=== PATIENT | female | born 1950 | race Caucasian/White ===

== ENCOUNTER → 2024-04-26 | Outpatient (CLI) | payer MEDICARE, SELFPAY ==
--- NOTE | 2024-04-26 | XR_ITS ---
Examination: PA lateral chest 2 views TECHNIQUE: Upright PA lateral chest 2 views Exam date and time: April 26, 2024 1155 hours INDICATIONS: Shortness of breath beginning one week ago. FINDINGS: Mild prominence cardiac contour Moderate vascular congestion No lobar pneumonia No pulmonary edema Increased AP dimension chest IMPRESSION: Moderate vascular congestion
[2024-04-26 13:16] LABS: Basophils # (Auto) 0.1 Thou/mm3 (0.0-0.2); Basophils % (Auto) 1 % (0-2.5); Eosinophils # (Auto) 0.1 Thou/mm3 (0.0-0.5); Eosinophils % (Auto) 2 % (0-10); Hematocrit 41.3 % (36.0-46.0); Immature Granulocytes % (Auto) 0 % (0-0); Immature Granulocytes Auto 0.02 Thou/mm3 (0.00-0.00); Lymphocytes % (Auto) 25 % (10-50); Mean Corpuscular HGB Conc 31.5 g/dl (31.0-37.0); Mean Corpuscular Hemoglobin 27.4 pg (25.0-35.0); Mean Corpuscular Volume 87 fL (80-100); Monocytes # (Auto) 0.7 Thou/mm3 (0.0-0.8); Monocytes % (Auto) 8 % (0-12); Neutrophils # (Auto) 5.1 Thou/mm3 (1.8-7.7); Neutrophils % (Auto) 64 % (37-80); Nucleated Red Blood Cell % 0 /100 WBC (0); Platelet Count 292 Thou/mm3 (140-440); RDW Standard Deviation 49.3 fL (36.4-46.3); Red Blood Count 4.75 Miln/mm3 (4.00-5.20)
[2024-04-26 14:22] LABS: Cocci Serology, IgM Negative (Negative)
[2024-04-27 14:44] LABS: Cocci Serology, IgG Negative (Negative)
== END | disposition home or self-care (01) ==
LOC: CDIM 10:57 → COPL 12:03
PROVIDERS: PCP Family Medicine; Referring Provider Registered Nurse; Visit Provider Radiology Diagnostic Radiology
DX: J98.4 Other disorders of lung (principal); R06.02 Shortness of breath
CPT/HCPCS: 36415; 71046; 85025; 86331; 86635

== ENCOUNTER → 2024-05-03 | Outpatient (CLI) | payer MEDICARE, SELFPAY ==
--- NOTE | 2024-05-03 09:13 | XR_ITS ---
Examination: CT chest, without intravenous contrast. Sagittal and coronal 2-D reconstructions. Exam date and time: May 03, 2024 0947 hours Comparison 03/10/2021 Indications coughing shortness of breath beginning 2 weeks ago CTDI:vol (mGy) 13.2 DLP: (mGycm) 467 AP dimension Technique: Multiple 3.0 mm axial sections of the chest to been obtained. Bone and lung density settings are obtained. Sagittal and coronal 2-D reconstructions have been obtained. Low dose protocols were performed. One or more of the following dose reduction techniques were used; automated exposure control, adjustment of the mA and/or KV according to patient size, use of iterative reconstruction technique. Findings: AP dimension ascending thoracic aorta 3.9 cm Mean pulmonary artery segment measures 3.8 cm Trace pericardial effusion Significant calcification left anterior descending coronary artery No paratracheal tracheobronchial or bronchopulmonary adenopathy Parenchymal disease right upper lobe consistent with pneumonia, also mild pneumonia in the lingular segment Moderate vascular congestion and bilateral pleural effusions Multiple gallstones No focal liver or splenic lesion Atrophic pancreas Mild bilateral renal parenchymal scar formation Moderate osteopenia IMPRESSION: Right upper lobe and lingular segment left upper lobe pneumonia Suspicious for mild heart failure Cholelithiasis
== END | disposition home or self-care (01) ==
PROVIDERS: PCP Family Medicine; Referring Provider Family Medicine; Visit Provider Family Medicine
DX: J18.9 Pneumonia, unspecified organism (principal); K80.20 Calculus of gallbladder without cholecystitis without obstruction
CPT/HCPCS: 71250

== ENCOUNTER → 2024-05-15 | Outpatient (CLI) | payer MEDICARE, SELFPAY ==
--- NOTE | 2024-05-15 08:22 | XR_ITS ---
Examination: PA lateral chest 2 views TECHNIQUE: Upright PA lateral chest 2 views Exam date and time: May 15, 2024 0833 hours INDICATIONS: Coughing congestion this week FINDINGS: Parenchymal disease right upper lobe and right base consistent with pneumonia Mild pneumonia left base Mild enlargement cardiac contour Severe osteopenia IMPRESSION: Bilateral pneumonia
== END | disposition home or self-care (01) ==
LOC: CDIM 08:17
PROVIDERS: PCP Family Medicine; Referring Provider Family Medicine; Visit Provider Family Medicine
DX: J18.9 Pneumonia, unspecified organism (principal)
CPT/HCPCS: 71046

== ENCOUNTER → 2024-05-26 | Outpatient (CLI) | payer MEDICARE, SELFPAY ==
--- NOTE | 2024-05-26 | XR_ITS ---
Examination: PA lateral chest 2 views Technique: Upright PA lateral chest 2 views Exam date and time: May 26, 2024 0753 hrs. Comparison May 15, 2024 Indications: Difficulty breathing this month Findings: Interstitial disease throughout the lungs, differential would include pulmonary fibrosis Mild enlargement cardiac contour Prominent osteopenia No barney pulmonary edema Impression: Again noted diffuse abnormal interstitial disease throughout the lungs, favor pulmonary fibrosis, the appearance should be clinically correlated
== END | disposition home or self-care (01) ==
LOC: CDIM 07:13
PROVIDERS: PCP Family Medicine; Referring Provider Registered Nurse; Visit Provider Registered Nurse
DX: R91.8 Other nonspecific abnormal finding of lung field (principal)
CPT/HCPCS: 71046

== ENCOUNTER 2024-06-20 09:27 | Inpatient (IN) | payer MEDICARE, SELFPAY ==
[2024-06-20] VITALS (62 sets, daily range): BP systolic 101–200; BP diastolic 64–135; PULSE 85–200; RESP 15–36; TEMP 36.3–36.9; O2SAT 66–100
--- NOTE | 2024-06-20 09:30 | EKG_ITS ---
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1950 Requested By: Jose Eduardo Saenz Order Number: [id number] Reading MD: Jose Eduardo Saenz Measurements Intervals [place] Rate: 181 P: IN: QRS: -48 QRSD: 115 T: 116 QT: 257 QTc: 447 Interpretive Statements SUPRAVENTRICULAR TACHYCARDIA MARKED LEFT AXIS DEVIATION [QRS AXIS < -30] PATTERN CONSISTENT WITH PULMONARY DISEASE LEFT VENTRICULAR HYPERTROPHY AND ST-T CHANGE [VOLTAGE CRITERIA PLUS ST/T ABNORMALITY] POSSIBLE SEPTAL MYOCARDIAL INFARCTION , OF INDETERMINATE AGE [30 ms Q WAVE IN V1/V2] Compared to ECG 01/01/2020 08:31:22 ST (T wave) deviation now present Myocardial infarct finding now present Sinus rhythm no longer present /store/[id number].pdf
--- NOTE | 2024-06-20 09:31 | XR_ITS ---
Examination: AP chest single view Technique one AP portable upright chest single view Exam date and time: June 20, 2024 0936 hours Comparison May 26, 2024 INDICATIONS: Chest pain shortness of breath today. FINDINGS: Suspicious for early heart failure Mild enlargement cardiac contour Prominent vascular congestion No lobar pneumonia Intact osseous structures are demineralized with old fracture right sixth rib posteriorly IMPRESSION: Early heart failure
--- NOTE | 2024-06-20 09:33 | PD.EDARRY ---
ED Arrhythmia Palp. RME/HPI General Chief Complaint: Chest Pain Stated Complaint: TACHYCARDIA Time Seen by Provider: 06/20/24 09:30 Arrival date/time: 06/20/24 09:27 RME / HPI RME / HPI narrative: This section includes all my notes and documentations, including HPI, PE, and ED course.? Jose Eduardo Lemus MD HPI: 74 year old female with history of hypertension, hypothyroidism presents to the ED BIBA from Dr. Olmstead's office for evaluation of tachycardia today. Per medics, staff at the clinic noted patient's heart rate was in the 200's and an EKG was performed. On their arrival noted patients heart rate was 200 bpm and saturating 97% on room air. Saw PCP today due to feeling unwell for several days. Additionally reports heart racing started last night, not associated with chest pain or shortness of breath. Denies fevers, chills, abdominal pain, n/v/d, or urinary symptoms. No other complaints. ROS: All negative except as documented in HPI. Physical Exam: General:? Alert and oriented.? No acute distress when remaining still.?? Eyes:? Conjunctivae and lids clear.? ENT:? No nasal congestion.? Neck:? Supple.? Heart: Severe tachycardia noted (~200 bpm). Lungs:? No respiratory distress.? Good air movement.? No rhonchi, wheezing, rales.?? Abdomen:? Soft and nontender.?? Legs:? No clubbing, cyanosis, edema.? Skin:? Warm and dry.?? Neuro:? Alert and oriented X 3.?? I reviewed all diagnostic test results. My interpretation of the EKG is?SVT. My interpretation of the chest x-ray is increased vascular congestion. My review of the chest CT report is?no PE. Blood tests and urine tests?remarkable for WBC 15.5, D-dimer 2730, T bili 2.4, AST 1173, ALT 855, troponin 0.200, BNP 2894. At this point, diagnoses include?SVT, elevated troponin, CHF, elevated LFT. Treatment here included?adenosine X 3 (persistent SVT) and IV metoprolol (persistent SVT). With synchronized cardioversion, SVT resolved to sinus rhythm. Used fentanyl and Versed for sedation. I discussed the case with our swing driver and our hospitalist.? About the presentation and exam and diagnostics and treatments here.? And need of further care in the hospital.? Will accept the patient. Jose Eduardo Lemus MD Related Data Home Medications ?Medication ?Instructions ?Recorded ?Confirmed Trazodone * (DESYREL *) 50 mg PO HS #0 tabs 09/19/14 10/29/18 omeprazole 20 mg capsule,delayed 20 mg PO QDAY ##0 09/19/14 10/29/18 release (Prilosec) fluoxetine 20 mg capsule (Prozac) 20 mg PO QAM #0 caps 07/02/15 10/29/18 gabapentin 100 mg capsule 100 mg PO TID #0 caps 07/02/15 10/29/18 Levothyroxine * (SYNTHROID *) 12.5 mcg PO QDAY #0 tabs 04/22/16 10/29/18 Nortriptyline Hcl * (AVENTYL *) 10 mg PO HS #0 caps 04/22/16 10/29/18 phentermine 37.5 mg capsule 37.5 mg PO QDAY 10/29/18 10/29/18 Previous Rx's ?Medication ?Instructions ?Recorded acetaminophen 300 mg-codeine 30 mg 1 tab PO Q6H PRN pain #10 tabs 10/29/18 tablet (Tylenol-Codeine #3) ibuprofen 600 mg tablet 600 mg PO Q6H PRN pain #20 tabs 10/29/18 Allergies Allergy/AdvReac Type Severity Reaction Status Date / Time No Known Allergies Allergy Verified 10/29/18 06:19 Review of Systems Review of Systems Systems Reviewed: All systems reviewed, normal except as documented Past Medical History Past Medical History CARDIAC: Negative Cardiac Disorders OTHER HISTORY: Positive Blood Transfusions Surgical History SURGICAL: Positive Gastric Bypass Surgery and Neurologic Surgery (Acoustic neuroma removed in 2018) Social History SMOKING STATUS: Current some day smoker SUBSTANCE USE: does not use ED Exam Narrative Physical exam: As noted in HPI Course Course Course Narrative: chest xray ordered to help determine etiology of chest pain. Quality Measures none Orders Category Date Time Status Bedside COVID-19 Antigen Test NOW Care 06/20/24 09:30 Active Bedside Influenza A&B Antigen Test NOW Care 06/20/24 09:30 Active EKG (ED ONLY) *Do not use* NOW Care 06/20/24 09:30 Active Saline [Insert IV] NOW Care 06/20/24 09:31 Active Straight [In and Out Catheter] X1 Care 06/20/24 09:31 Active EKG (ED Only) Stat Exams 06/20/24 09:30 Ordered XR chest 1V portable Stat Exams 06/20/24 09:31 Ordered BNP [B-Type Natriuretic Peptide] Stat Lab 06/20/24 09:31 Ordered CBC Stat Lab 06/20/24 09:31 Ordered CMP [Comprehensive Metabolic Panel] Stat Lab 06/20/24 09:31 Ordered D-Dimer Stat Lab 06/20/24 09:31 Ordered Magnesium Stat Lab 06/20/24 09:31 Ordered TSH [Thyroid Stimulating Hormone] Stat Lab 06/20/24 09:31 Ordered Troponin I Stat Lab 06/20/24 09:31 Ordered UA, C/S IF [Urinalysis, C/S if Indicated] Stat Lab 06/20/24 09:31 Ordered Arrhythmia/Palpitations MDM Narrative MDM Narrative:: Juanita Landaverde am scribing for and in the presence of Dr. Lemus. Patient data External records reviewed:: [facility] previous records (I reviewed ED visit on 10/29/2018), EMS form and PCP records (I reviewed paperwork and EKG sent with patient from PCP Dr. Olmstead's office ) Clinical information provided by:: patient and EMS Social determinants that could affect healthcare access:: none Patient has the following chronic illnesses:: Hypertension, hypothyroidism, s/p gastric bypass How is presenting disease/condition affected by chronic disease/condition?: exacerbated by Evaluation data The following diagnostics were reviewed and interpreted by me:: lab results, radiology exam(s) and EKG tracing(s) (My interpretation of the EKG is: SVT (200 bpm) with nonspecific ST-T changes. Jose Eduardo Lemus MD) Lab and/or radiology exams considered but not ordered:: None Interpretation Summary: SVT and elevated troponin and CHF and LFT elevation Medications / Prescriptions Medications or Prescriptions considered but not ordered:: None Medication administrations:: Adenosine and metoprolol and synchronized cardioversion Consultations Consultation(s) initiated? (list below): Yes Consultation #1 (Physician, Specialty, Details): I spoke with swing driver Dr. Palomares. Time: 11:10 Consultation #2 (Physician, Specialty, Details): I spoke with hospitalist team regarding admission. Time: 13:22 Diagnosis Differential diagnosis arrhythmia/palpitations: palpitations, anxiety, sinus tachycardia, artial fibrillation, artial flutter, ventricular premature beats, supraventricular tachycardia, ventricular tachycardia and WPW Most likely diagnosis given after review of the tests above:: SVT Admission Indicated Admission indicated?: indicated Explain why admission is indicated or not indicated:: SVT needing cardioversion and elevated troponin Admission Request Was there a request for admission?: Yes Admission Attestation Admission request attestation: Discussed case with Hospitalist service regarding admission. Discussed patients ED course, exam findings, labs, and radiology results. The Hospitalist [agrees,declines] to accept the patient for admission. Disposition Plan Disposition Plan: Admit Critical Care Time Critical Care Time Critical Care Time: Yes Total Critical Care Time (min.): 36 Attestation: Due to a high probability of clinically significant, life threatening deterioration, the patient required my highest level of preparedness to intervene emergently and I personally spent this critical care time directly and personally managing the patient. This critical care time included obtaining a history; examining the patient; ordering and review of studies; arranging urgent treatment with development of a management plan; evaluation of patient's response to treatment; frequent reassessment; and discussions with family and other providers. It was exclusive of separately billable procedures and treating other patients and teaching time. Jose Eduardo Lemus MD Discharge Plan Plan Patient Disposition: Admit Acute Care w/in Hospital Prescriptions/Referrals Prescriptions/Med Rec: No Action omeprazole [Prilosec] 20 MG capsule,delayed release(DR/EC) 20 mg PO QDAY Qty: 0 Patient Comments: TO SUPPRESS GASTRIC ACID SECRETIONS Trazodone * (DESYREL *) 50 MG tablet 50 mg PO HS Qty: 0 gabapentin 100 MG capsule 100 mg PO TID Qty: 0 fluoxetine [Prozac] 20 MG capsule 20 mg PO QAM Qty: 0 Levothyroxine * (SYNTHROID *) 25 MCG tablet 12.5 mcg PO QDAY Qty: 0 Nortriptyline Hcl * (AVENTYL *) 10 MG capsule 10 mg PO HS Qty: 0 phentermine 37.5 mg Capsule 37.5 mg PO QDAY acetaminophen-codeine [Tylenol-Codeine #3] 300-30 mg tablet 1 tab PO Q6H PRN (Reason: pain) Qty: 10 0RF ibuprofen 600 mg tablet 600 mg PO Q6H PRN (Reason: pain) Qty: 20 0RF Problem List Clinical Impression: SVT (supraventricular tachycardia), CHF (congestive heart failure), Elevated troponin, LFT elevation Patient/Caregiver Discharge Instructions Print Language: Citizen Of [place] Stand Alone Forms: Jocelyn Award Info., Patient Portal Info Letter
[2024-06-20] MEDS: ADENOSINE INJ 3 MG/ML VIAL 6 MG IVP (09:46)
[2024-06-20] MEDS: ADENOSINE INJ 3 MG/ML VIAL 12 MG IVP ×2 (09:48→09:59)
[2024-06-20 09:52] LABS: Basophils % (Auto) 0 % (0-2.5); Eosinophils % (Auto) 0 % (0-10); Hematocrit 41.3 % (36.0-46.0); Hemoglobin 13.2 g/dL (12.0-16.0); Immature Granulocytes % (Auto) 1 % (0-0); Immature Granulocytes Auto 0.07 Thou/mm3 (0.00-0.00); Lymphocytes # (Auto) 0.6 Thou/mm3 (1.0-4.8); Lymphocytes % (Auto) 4 % (10-50); Mean Corpuscular Hemoglobin 25.8 pg (25.0-35.0); Mean Corpuscular Volume 81 fL (80-100); Monocytes # (Auto) 0.8 Thou/mm3 (0.0-0.8); Monocytes % (Auto) 5 % (0-12); Neutrophils % (Auto) 91 % (37-80); Nucleated Red Blood Cell # 0.02 Thou/mm3 (0.00-0.00); Nucleated Red Blood Cell % 0 /100 WBC (0); Platelet Count 232 Thou/mm3 (140-440); RDW Standard Deviation 42.8 fL (36.4-46.3); Red Blood Count 5.11 Miln/mm3 (4.00-5.20); White Blood Count 15.5 Thou/mm3 (3.6-11.0)
[2024-06-20] MEDS: METOPROLOL TARTRATE INJ 1 MG/ML AMP 5 ML 2.5 MG IVP (10:04)
[2024-06-20 10:10] LABS: B-Type Natriuretic Peptide 2894 pg/mL (0-100)
[2024-06-20] MEDS: SODIUM CHLORIDE 0.9% 1000 ML 1,000 ML 999 ML IV (10:15)
[2024-06-20 10:22] LABS: D-Dimer 2730 ng/mL (<600)
[2024-06-20 10:23] LABS: Alanine Aminotransferase 855 U/L (10-49); Albumin, Serum 3.9 gm/dL (3.4-4.8); Albumin/Globulin Ratio 1.4 (1.2-2.2); Alkaline Phosphatase 109 U/L (46-116); Anion Gap 14 (7-16); Aspartate Amino Transferase 1173 U/L (0-34); BUN/Creatinine Ratio 40 Ratio (12-20); Bilirubin,Total 2.4 mg/dL (0.3-1.2); Blood Urea Nitrogen 52 mg/dL (9-23); Calcium 8.9 mg/dL (8.3-10.6); Carbon Dioxide 23.4 mMol/L (20.0-31.0); Chloride 93 mMol/L (98-107); Creatinine (Component) 1.3 mg/dL (0.6-1.3); Globulin 2.7 gm/dL (2.3-3.5); Glucose 78 mg/dL (74-106); Magnesium 3.5 mg/dL (1.6-2.6); Osmolality,Calculated 273 (275-295); Potassium 4.1 mMol/L (3.4-5.1); Sodium 130 mMol/L (136-145); Total Protein 6.6 gm/dL (5.7-8.2); eGFR 43 See Note
--- NOTE | 2024-06-20 10:30 | PC.NURSE ---
Assisted at bedside for Cardioversion. Timeout done prior to Cardioversion with Laure VASQUEZ, Dr Lemus, and ila RN. Cardioversion performed at 100j with successful conversion.
[2024-06-20] MEDS: MIDAZOLAM INJ 1 MG/ML VIAL 2 ML 2 MG IV (10:33)
[2024-06-20] MEDS: fentaNYL CIT INJ 50 mCg/ML AMP 2ML IV (10:33)
--- NOTE | 2024-06-20 11:13 | EKG_ITS ---
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1950 Requested By: Jose Eduardo Saenz Order Number: [id number] Reading MD: Jose Eduardo Saenz Measurements Intervals [place] Rate: 92 P: 32 AR: 184 QRS: -28 QRSD: 94 T: -68 QT: 414 QTc: 515 Interpretive Statements SINUS RHYTHM WITH OCCASIONAL SUPRAVENTRICULAR PREMATURE COMPLEXES LEFT ATRIAL ENLARGEMENT [-0.15mV P WAVE IN V1/V2] POSSIBLE LEFT VENTRICULAR HYPERTROPHY [VOLTAGE CRITERIA PLUS LAE OR QRS WIDENING] POSSIBLE SEPTAL MYOCARDIAL INFARCTION , OF INDETERMINATE AGE [30 ms Q WAVE IN V1/V2] MODERATE T-WAVE ABNORMALITY, CONSIDER ANTEROLATERAL ISCHEMIA [-0.1+ mV T WAVE IN V3-V6] MODERATE T-WAVE ABNORMALITY, CONSIDER INFERIOR ISCHEMIA [-0.1+ mV T WAVE IN II/aVF] Compared to ECG 06/20/2024 10:09:51 Atrial abnormality now present T-wave abnormality now present Possible ischemia now present Supraventricular tachycardia no longer present Left-axis deviation no longer present ST (T wave) deviation no longer present Myocardial infarct finding still present /store/S0/[id number].pdf
--- NOTE | 2024-06-20 11:46 | XR_ITS ---
Examination: CTA chest, with intravenous contrast. CTA abdomen, with intravenous contrast. CTA pelvis, with intravenous contrast. 2-D sagittal and coronal reconstructions. 3-D reconstructions. Date and time of exam: June 20 2024-0 3 hours INDICATIONS: Onset shortness of breath chest and abdominal pain today, elevated d-dimer CTDI vol (mgy) 21.2 DLP (MGycm) 969 Technique: Multiple CTA images, 2.0 mm slice thickness, obtained chest, abdomen, pelvis, with the high-resolution 64 slice scanner. 60 cc Isovue-370 is administered intravenously. Sagittal and coronal 2-D reconstructions are obtained. 3-D reconstructions, angiographic images are obtained. 3-D postprocessing, including vascular maximum intensity projections. Low dose protocols were performed. One or more of the following dose reduction techniques were used; automated exposure control, adjustment of the mA and/or KV according to patient size, use of iterative reconstruction technique. Findings: AP dimension ascending thoracic aorta 4 cm No thoracic aortic aneurysm dilatation or dissection No pulmonary artery emboli Mild hilar lymphadenopathy Significant calcification left anterior descending coronary artery Prominent vascular congestion with mild septal edema in the lung ervin Small bilateral pleural effusions Diffuse fatty infiltration throughout the liver Possible contracted gallbladder No splenic mass Atrophic pancreas No adrenal mass No renal or ureteral calculi, no hydronephrosis Heavy abdominal aortic calcification no aneurysmal dilatation No pericecal inflammatory change Wall thickening and hyperemia involving the rectosigmoid colon including rectum Atrophic anteverted uterus No adnexal mass Urinary bladder intact Severe osteopenia Advanced degenerative disc disease L5-S1 Advanced narrowing hip joints IMPRESSION: Mild aneurysmal dilatation ascending thoracic aorta Negative for pulmonary artery emboli Significant calcification left anterior descending coronary artery Mild heart failure Wall thickening and hyperemia involving the rectosigmoid colon, nonspecific colitis pattern Likely proctitis pattern but clinical correlation advised, recommend colonoscopy follow-up
[2024-06-20 13:21] LABS: Collection Type, Urine Clean Catch
[2024-06-20 13:30] LABS: Bilirubin,Urine Negative (Negative); Blood,Urine Negative (Negative); Cellular Casts,Urine < 1 /hpf (0-1); Clarity,Urine Clear (Clear/Hazy); Color,Urine Yellow (Lt Yel-Yel); Culture Indicated,Urine Not Indicated; Glucose, Urine Negative (Negative); Hyaline Casts,Urine < 1 /hpf (0-1); Ketones,Urine Trace (Negative); Leukocyte Esterase,Urine Negative (Negative); Nitrite,Urine Negative (Negative); Protein,Urine Negative (Neg - Trace); RBC,Urine 1 /hpf (0-3); Specific Gravity,Urine 1.027 (1.001-1.035); Squamous Epithelial Cell,Urine 1 /hpf (0-5); Urobilinogen,Urine Negative mg/dL (0.0-1.0); WBC,Urine 7 /hpf (0-5)
[2024-06-20 13:48] LABS: Amphetamine/Methamp Scrn,U Positive (Negative); Barbiturate Screen,Urine Negative (Negative); Benzodiazepines Screen,Urine Negative (Negative); Benzoylecgonine Screen, Ur Negative (Negative); Fentanyl Screen,Urine Positive (Negative); Opiate Screen,Urine Negative (Negative); THC Screen,Urine Negative (Negative)
--- NOTE | 2024-06-20 13:48 | ECHO_ITS ---
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 16 - 28 cm?/m? Ascending Aorta Diameter 3.4 cm M-MODE Aortic Root Diameter MM 3.4 cm LA Systolic Diameter MM 3.8 cm LA Ao Ratio MM 1.1 MV E Point Septal Separation 1.0 cm AV Cusp Separation MM 2.2 cm DOPPLER AV Peak Velocity 185.0 cm/s AV Peak Gradient 13.7 mmHg AV Mean Gradient 6.0 mmHg AV Velocity Time Integral 33.4 cm AI Peak Velocity 291.5 cm/s AI Peak Gradient 34.0 mmHg AI Pressure Half Time 376.0 ms LVOT Peak Velocity 121.0 cm/s LVOT Peak Gradient 5.9 mmHg LVOT Velocity Time Integral 24.0 cm LVOT Cardiac Index 2511.7 cm?/min?m? AV Area Cont Eq vti 1.8 cm? AV Area Cont Eq pk 1.7 cm? MV Peak Velocity 147.0 cm/s MV Peak Gradient 8.6 mmHg MV Mean Velocity 100.9 cm/s MV Mean Gradient 4.5 mmHg MV Area PHT 3.0 cm? MR Peak Velocity 484.5 cm/s MR Peak Gradient 93.9 mmHg Mitral E Point Velocity 130.0 cm/s Mitral A Point Velocity 137.0 cm/s Mitral E to A Ratio 0.9 LV E' Lateral Velocity 6.7 cm/s Mitral E to LV E' Lateral Ratio 19.3 LV E' Septal Velocity 4.8 cm/s Mitral E to LV E' Septal Ratio 27.1 TR Peak Velocity 259.3 cm/s TR Peak Gradient 26.9 mmHg FINDINGS Left Ventricle Normal left ventricular size, wall thickness. Low function. Mild hypokinesis basal lateral. The eje ction fraction is visually estimated at 45-50%. Right Ventricle The right ventricle is normal in size and systolic function. The estimated right ventricular systoli c pressure, 42 mmHg. RAP 15. Left Atrium The left atrium is mildly dilated. Right Atrium The right atrium is normal by two-dimensional imaging, color flow and Doppler imaging with no struct ural abnormalities, no thrombus formation present. Atrial Septum The interatrial septum appears normal with no evidence of a shunt. Aorta The aorta is normal by two-dimensional, color flow and Doppler interrogation. Mitral Valve The mitral valve is mildly MAC. There is mild to moderate mitral valve regurgitation. Aortic Valve The aortic valve is trileaflet and normal by two-dimensional, color flow and Doppler interrogation. There is moderate aortic valve regurgitation. Tricuspid Valve The tricuspid valve is normal by two-dimensional, color flow and Doppler interrogation. There is mil d tricuspid valve regurgitation. Pulmonic Valve There is mild pulmonic valve regurgitation. Vessels The pulmonary artery appears dilated. The inferior vena cava pulmonary and hepatic veins dilated. Pericardium The pericardium is normal by two-dimensional imaging. There is no significant pericardial effusion. CONCLUSIONS Indication: SVT, CHF Normal LV size. Mild systolic dysfunction with mild basal hypokinesis. Stage II diastolic dysfunctio n. Estimated EF 40-45% Normal RV size and function. Estimated RVSP 42 mmHg. RAP 15. Mild to moderate PAH. PA dilated. Trivial to mild mitral stenosis with a mean PG of 4-5 mm hg. Modertate to severe posterior MAC and Mild MAC anteriorly. Mild to moderate MR. Moderate AI. Mild TR, PI. IVC dilated. Mild LA dilatation. Tay Palomares (Electronically Signed) Final Date: 21 June 2024 12:37
--- NOTE | 2024-06-20 13:53 | ESCONSULT_ITS ---
<Statement entered by Tay Palomares MD - 06/21/24 02:06> I have personally seen and examined the patient separately on the above date of service and discussed the plan of care with the resident. I reviewed the resident Dr. Weber consultation progress note and agree with the resident findings and plan in the note above and have also edited the documentation to reflect my findings and plan. A 74-year-old female with a past medical history of acoustic neuroma status postsurgery with residual right facial droop and left eye ptosis, hypothyroidism, anxiety, depression, GERD, neuropathy, polysubstance abuse immediately with the methamphetamine, marijuana but also used LSD and cocaine in the past and apparently quit 20 years ago, history of chronic smoking with more than [id number] smoking history and quit 10 years ago, history of alcohol abuse when she was younger presented to the emergency department for further evaluation of palpitations and chest pain. Patient apparently had a recent pneumonia for which she was treated and says that she has not been eating or drinking well and over the last for 5 days patient had poor oral intake. Patient had on and off palpitations along with some chest discomfort over the past few days but that palpitations was sent yesterday night and she could feel her heart racing fast and evidently could not the seat which prompted her to go to the primary care doctor this morning and an EKG was performed which did show that the patient was in SVT and was sent to the emergency department for further evaluation. In the emergency department patient did receive 3 rounds of his dosing and did not help and patient received some metoprolol along with some diltiazem as well as for the SVT after which patient became hypotensive and patient was cardioverted after giving sedation. Patient did convert to normal sinus rhythm and has been in normal sinus rhythm since the morning. Patient cardiology was consulted for further evaluation as the patient had mildly elevated troponins of 0.2. Of note patient also was started on phentermine recently by the primary care for possible weight loss and patient also has history of insomnia with difficulty sleeping. Labs reviewed on admission showed elevated WBC at 15.0 with left shift and hemoglobin of 12.3 and BUN of 53 and a creatinine of 1.3, sodium of 130 potassium 4.1 chloride of 93, AST of 1173 and ALT of 855 with a total bili of 2.4. Alk phos was only 109. UA was negative. NT proBNP is also elevated at 2084. Chest x-ray showed cardiomegaly along with mild vascular congestion and mild ILD changes. CT chest ordered and is pending. atient EKG reviewed and showed some rate related ST depressions when was patient was in SVT and repeat EKG showed normal sinus rhythm with PACs, biatrial enlargement along with left ventricular hypertrophy with T wave inversions including LVH strain pattern and questionable Q waves in the septal leads as well as T wave inversions in the inferior leads On examination patient did not have any significant peripheral edema and lungs appeared clear without any significant crackles except that she had mild expiratory wheezing.. Patient did have the right facial droop along with left eye ptosis and 2 or 6 systolic murmur heard at the right sternal border as well as apex. Elevated troponins-mostly secondary to NSTEMI type II in the setting of supply/demand ischemia in the setting of SVT which patient probably had for many hours prior to the presentation in the emergency department. Patient possibly has underlying cardiomyopathy given her history of drug abuse and cardiomegaly noted on the chest x-ray. Patient EKG reviewed and showed some rate related ST depressions when was patient was in SVT and repeat EKG showed normal sinus rhythm with PACs, biatrial enlargement along with left ventricular hypertrophy with T wave inversions including LVH strain pattern and questionable Q waves in the septal leads as well as T wave inversions in the inferior leads. Will wait for the echocardiogram to evaluate her LV function RV function as well as regional wall motion abnormalities. No need of any heparin drip at the present point of time as the patient does not complain of any chest pain or chest pressure at the present point of time and her main symptom was palpitation associated with some chest discomfort. Can start heparin drip. The patient's troponins continues to rise and the patient is symptomatic. Patient presented with SVT and possible etiology could be underlying cardiomyopathy given history of drug abuse along with possible phentermine use. Patient successfully cardioverted in the emergency department but he was initially unresponsive to administer metoprolol and Cardizem. Patient now in normal sinus rhythm and rate well-controlled recommend to start metoprolol XL 50 mg once daily and keep potassium greater than 4 and magnesium greater than 2.0 at all times. Also recommend to stop the phentermine completely. Patient also found to have acute kidney injury with a BUN of 53 and a creatinine of 1.3 on admission and patient did endorse to poor oral intake for the past few days and has not been doing well since recent pneumonia episode. Further workup of acute kidney injury as per the primary team. Cardiorenal syndrome should be considered and possible underlying cardiomyopathy with her extensive substance abuse. Patient also noted to have elevated liver function test with elevated bili at 2.3-2.5, AST of 1174 and ALT of 855 admission differential is broad but patient could also have congestive neuropathy secondary to congestive heart failure mostly right heart failure as patient does not have overt peripheral edema or significant crackles on examination. Also proBNP was elevated at 2984. Will hold off on diuresis for today and will start in a.m. after the CT chest and echocardiogram are reviewed. Patient is now on room air and breathing normally and does not complain of any shortness of breath.. Suspect right heart failure along with pulmonary hypertension and will possibly need diuresis. Recommended ED to check U-Tox for the patient. Check TSH A1c as well as lipid profile for further cardiac risk stratification. Management of rest of the medical conditions as per primary team and other consultants. Thank you for the consult and allowing me to participate in the care of the patient. Cardiology will continue to follow. Tay Palomares M.D. Interventional Cardiology HPI Data of Consult Patient: new to practice Consult date: 06/20/24 Requesting Physician: ED Primary Care Provider: Anika Olmstead MD Consult Narrative Reason for consult: SVT and elevated troponins History of present illness: Callie is a 74 y/o female with PMHx of hypothyroidism, past multiple substance use, R sided facial droop and L eye closing defect (2/2 acoustic neuroma surgery) depression and anxiety, who comes for an evaluation of chest pain and palpitations that started three days ago, described as intermittent, however worsened in which she came to be evaluated, associated with nausea, not improved with position or medicines. She said she took some pepto bismol for the nausea but nothing else. Pt reports that she began to feel worse and worse with her symptoms. She had come to the ED and had to be cardioverted after pt was given 3 rounds of adenosine and metoprolol for SVT. Pt reports that she has not been having good oral intake for some time now. She reports she has not been feeling herself for some time now and attributes it to having pneumonia recently. She also states that she had an acoustic neuroma in her L ear and had to get surgery for it and it was done (in 2019?) and says that her R eye is usually more closed than her left and experiences some L sided facial droop but does not have trouble with facial muscles or eye movements. She denies any cardiac history, or having other symptoms such as SOB, ROA, vomiting. She also says that she takes phentermine on and off, says she will take it for 2 months and then stop it for one month and uses it for weight loss. She last took phentermine yesterday and prior to coming. She also has had some rotator cuff issue in her L shoulder but says its been manageable so far. Says she does not notice orthopnea and sleeps with two pillows, which is normally how she sleeps. ED Course: Pt had come into the ER with HR in 200s, EKG showed possible SVT. Was given 3 rounds of adenosine, and also metoprolol before pt needed to be cardioverted in which she returned to sinus rhythm and rate controlled. Medicine and cardiology was consulted for further workup of patient. PMHx: As above Surgical Hx: Gastric bypass, acoustic neuroma surgery, umbical hernia repair Allergies: NKDA Meds:Synthroid, phentermine, Gabapentin, Trazodone, lexapro, hydroxyzine, ompreazole Family: Family history significant for CAD, heart attacks but in later years of life Social Hx: Poly substance use when she was much younger including meth, cocacine, LSD, THC, says that she has not used meth in over 20 years. Says she has not drank in over 20 years. 50 pack year smoking hx. Says that she has a daughter that may have some problems with alcohol. 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 cc:: cc: Review of Systems Review of Systems Narrative Review of Systems: Constitutional: No fever, chills, fatigue, weakness, weight loss HEENT: No eye pain, vision loss, ear pain, hearing loss, dysphagia, Cardiovascular: +chest pain,+ palpitations, no edema, pain with walking Respiratory: No cough, shortness of breath, wheezing GI: + nausea, no Vomiting or diarrhea, abdominal pain, constipation, blood in stool, loss of appetite, heartburn Extremities: No presence of pitting edema MSK: No back pain, joint pain, joint swelling Neuro: No dizziness, numbness, weakness, headaches, seizures, tremors Psych: No anxiety, depression Exam Vital Signs Temp Pulse Resp BP Pulse Ox O2 Del Method O2 Flow Rate 97.4 F 97 16 130/77 95 Room Air 6 06/20/24 13:03 06/20/24 13:03 06/20/24 13:03 06/20/24 13:03 06/20/24 13:03 06/20/24 13:03 06/20/24 11:30 Narrative Exam General: AAOx3, NAD, pleasant woman, pink hair, looks older than her actual age HEENT: Dry mucous membranes, conjunctiva clear, EOMI, PERRLA, L eye slightly closed compared to L Cardiovascular: S1, S2, radial pulses +2 bilat, RRR Pulmonary: CTAB bilat no cough, no wheezing GI: No tenderness to light or deep palpitation, no guarding, rigidity, rebound tenderness or distension Extremities: +1 pitting edema in lower extremities bilaterally, dorsalis pedis pulses +2 bilaterally Neuro: AAOx3, R sided facial droop at baseline, no other focal motor or sensory deficits Psych: Cooperative Results Labs 06/20/24 14:06 06/20/24 14:06 Labs: Short CBC 06/20/24 Range/Units 09:46 WBC 15.5 H (3.6-11.0) Thou/mm3 Hgb 13.2 (12.0-16.0) g/dL Hct 41.3 (36.0-46.0) % Plt Count 232 (140-440) Thou/mm3 BMP 06/20/24 09:46 Sodium 130 L Potassium 4.1 Chloride 93 L Carbon Dioxide 23.4 BUN 52 H Creatinine 1.3 Glucose 78 Calcium 8.9 Cardiac Enzymes 06/20/24 Range/Units 09:46 Troponin I 0.200 H* (0.0-0.045) ng/mL Liver Function 06/20/24 Range/Units 09:46 Total Bilirubin 2.4 H (0.3-1.2) mg/dL AST 1173 H* (0-34) U/L ALT 855 H* (10-49) U/L Alkaline Phosphatase 109 (46-116) U/L Albumin 3.9 (3.4-4.8) gm/dL Urine 06/20/24 Range/Units 12:15 Urine Color Yellow (Lt Yel-Yel) Urine Clarity Clear (Clear/Hazy) Urine pH 6.0 (5.0-7.0) Ur Specific [place] 1.027 (1.001-1.035) Urine Protein Negative (Neg - Trace) Urine Glucose (UA) Negative (Negative) Quality Measures Quality Measures none Advance care planning discussed with:: patient Medications Home Medications and Allergies Home Medications ?Medication ?Instructions ?Recorded ?Confirmed ?Type Trazodone * (DESYREL *) 50 mg PO HS #0 tabs 09/19/14 10/29/18 History omeprazole 20 mg capsule,delayed 20 mg PO QDAY ##0 09/19/14 10/29/18 History release (Prilosec) fluoxetine 20 mg capsule (Prozac) 20 mg PO QAM #0 caps 07/02/15 10/29/18 History gabapentin 100 mg capsule 100 mg PO TID #0 caps 07/02/15 10/29/18 History Levothyroxine * (SYNTHROID *) 12.5 mcg PO QDAY #0 tabs 04/22/16 10/29/18 History Nortriptyline Hcl * (AVENTYL *) 10 mg PO HS #0 caps 04/22/16 10/29/18 History phentermine 37.5 mg capsule 37.5 mg PO QDAY 10/29/18 10/29/18 History Allergies Allergy/AdvReac Type Severity Reaction Status Date / Time No Known Allergies Allergy Verified 10/29/18 06:19 Visit Medications Discontinued Medications Adenosine (Adenosine Inj 3 Mg/Ml Vial) 6 mg IVP X1 ONE Stop: 06/20/24 09:39 Last Admin: 06/20/24 09:46 Dose: 6 mg Adenosine (Adenosine Inj 3 Mg/Ml Vial) 12 mg IVP X1 ONE Stop: 06/20/24 09:40 Last Admin: 06/20/24 09:48 Dose: 12 mg Adenosine (Adenosine Inj 3 Mg/Ml Vial) 12 mg IVP X1 ONE Stop: 06/20/24 09:52 Last Admin: 06/20/24 09:59 Dose: 12 mg Fentanyl Citrate (Fentanyl Cit Inj 50 Mcg/Ml Amp 2ml) 50 mcg IV X1 ONE Stop: 06/20/24 10:12 Last Admin: 06/20/24 10:33 Dose: 50 mcg Sodium Chloride (Ns) 1,000 mls @ 999 mls/hr IV .Q1H1M ONE Stop: 06/20/24 11:11 Last Admin: 06/20/24 10:15 Dose: 999 mls/hr Metoprolol Tartrate (Metoprolol Tartrate Inj 1 Mg/Ml Amp 5 Ml) 2.5 mg IVP X1 ONE Stop: 06/20/24 10:00 Last Admin: 06/20/24 10:04 Dose: 2.5 mg Midazolam HCl (Midazolam Inj 1 Mg/Ml Vial 2 Ml) 2 mg IV X1 ONE Stop: 06/20/24 10:12 Last Admin: 06/20/24 10:33 Dose: 2 mg Assessment & Plan Plan Plan 74 y/o F with PMHx significant for hypothyroidism, depression, anxiety presents with complaint of symptomatic tachycardia, admitted for SVT. #SVT s/p cardioversion #Elevated troponins #? CHF #? Cardiomyopathy Patient presented from doctor's office due to severe tachycardia, heart rate approximately 200. Patient found to have SVT, after no improvement with medical management was electrically cardioverted. No documented hx of CHF Patient went into SVT, could be due electrolyte derangements, stress, phetermine use, or possible CHF Troponins elevated most likely due to SVT EKG did show some LVH and atrial enlargement Pt could have CHF or cardiomyopathy considering drug hx Pt could also have intersititial lung disease, will have animal attendant look at CT Plan: -Telemetry -Metoprolol succinate 50 mg daily -Trend troponins -Daily labs, including magnesium and Phos. -Echo pending -Cardiac consulted, appreciate recommendations -Cardiac diet, fluid restriction 1500 cc daily -Strict I's and O's #Elevated Transaminases Patient has significant transaminitis: T. bili 2.4, AST 1160, ALT 855, ALP 104. No known history of liver disease. Possible component of congestive hepatopathy due to heart failure Plan: -Trend LFTs -Avoid hepatotoxins -Hepatitis panel pending -Liver ultrasound pending #Hx of Polysubstance abuse Patient reports history of meth use, claims quit 20 years ago. 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 Jelani Perez, PGY-1
[2024-06-20 14:21] LABS: Basophils % (Auto) 0 % (0-2.5); Eosinophils % (Auto) 0 % (0-10); Hemoglobin 12.3 g/dL (12.0-16.0); Immature Granulocytes % (Auto) 1 % (0-0); Immature Granulocytes Auto 0.08 Thou/mm3 (0.00-0.00); Lymphocytes # (Auto) 0.8 Thou/mm3 (1.0-4.8); Lymphocytes % (Auto) 5 % (10-50); Mean Corpuscular HGB Conc 32.4 g/dl (31.0-37.0); Mean Corpuscular Hemoglobin 25.9 pg (25.0-35.0); Mean Corpuscular Volume 80 fL (80-100); Monocytes # (Auto) 0.9 Thou/mm3 (0.0-0.8); Monocytes % (Auto) 6 % (0-12); Neutrophils # (Auto) 13.2 Thou/mm3 (1.8-7.7); Neutrophils % (Auto) 88 % (37-80); Nucleated Red Blood Cell % 0 /100 WBC (0); Platelet Count 169 Thou/mm3 (140-440); RDW Standard Deviation 42.5 fL (36.4-46.3); Red Blood Count 4.74 Miln/mm3 (4.00-5.20)
[2024-06-20 14:44] LABS: Troponin I 0.529 ng/mL (0.0-0.045)
[2024-06-20 14:45] LABS: Acetaminophen < 2.0 mcg/mL (10.0-20.0); Alanine Aminotransferase 806 U/L (10-49); Albumin, Serum 3.6 gm/dL (3.4-4.8); Albumin/Globulin Ratio 1.3 (1.2-2.2); Alkaline Phosphatase 103 U/L (46-116); Anion Gap 11 (7-16); BUN/Creatinine Ratio 44 Ratio (12-20); Bilirubin,Total 2.5 mg/dL (0.3-1.2); Blood Urea Nitrogen 48 mg/dL (9-23); Calcium 8.5 mg/dL (8.3-10.6); Calcium (Corrected) 8.8 mg/dL (8.5-10.1); Carbon Dioxide 26.4 mMol/L (20.0-31.0); Chloride 94 mMol/L (98-107); Creatinine (Component) 1.1 mg/dL (0.6-1.3); Globulin 2.7 gm/dL (2.3-3.5); Glucose 85 mg/dL (74-106); Osmolality,Calculated 274 (275-295); Potassium 3.6 mMol/L (3.4-5.1); Sodium 131 mMol/L (136-145); Total Protein 6.3 gm/dL (5.7-8.2); eGFR 52 See Note
--- NOTE | 2024-06-20 14:53 | PC.NURSE ---
1446 PATIENT IN SVT IN THE 180S, PATIENT STATES SHE FEELS HER HEART RACING NO CHEST PAIN. DR NESBITT CALLED AND INFORMED. STATED ON HIS WAY TO SEE PATIENT. [address] NESBITT AT BEDSIDE
[2024-06-20 14:56] LABS: Aspartate Amino Transferase 959 U/L (0-34)
--- NOTE | 2024-06-20 15:05 | XR_ITS ---
Examination: Abdomen sonogram, Limited Date and time of exam: June 20, 2024 1540 hours INDICATIONS: Tachycardia 2 days, elevated transaminase on liver function laboratory examination today Technique: Real-time pride scale transabdominal sonographic images of the upper abdomen obtained. Findings: 11 mm sludge ball in the gallbladder neck Negative for gallstones Gallbladder wall 0.2 cm Common bile duct 0.5 cm Pancreatic head 2.6 cm Liver 13.6 cm fatty infiltration lobular contour no focal liver lesions Normal hepatopedal portal venous flow Patent IVC IMPRESSION: 11 mm sludge ball in the gallbladder neck, negative for cholelithiasis, negative for cholecystitis Normal common bile duct Fatty liver lobular contour, suspect primary hepatocellular disease
--- NOTE | 2024-06-20 15:47 | PC.CC ---
Pt Callie Dietz is a 74 yr old female, admitted to hospitalist services for Tachycardia. ASW met with pt at bedside to complete initial assessment. At time of encounter pt is noted to be alert and oriented to person, place and situation. Pt expressed understanding admission order. Pt able to confirm all demographic information. Pt is from home [address], at [facility]. Per pt she lives at home alone, but states having a great support network at her apartment complex. Pt identifies her brother Saul Quintanilla [phone] as surrogate DM. At baseline pt reports using a cane to support ambulation. At baseline pt reports she is independent with her ADLs. Pt is not diabetic and is not dialysis. Pt does not require supplemental O2 at home, in the ED pt on 5L. Pt is followed by Dr. Anika Olmstead for primary care. Pt pending referral to Dr. Camacho and Dr. Mendez. At time of D/c pt reports she would like to return home. Pt reports she is able to call a friend to secure transport.
--- NOTE | 2024-06-20 16:45 | ESHP_ITS ---
<Statement entered by Kale Calderón MD - 06/20/24 18:35> This patient is a 74-year-old female with past medical history of hypothyroidism, depression and anxiety presented with complaint of symptomatic tachycardia/palpitations. She reported that she has been having symptoms from past several days with malaise and decreased p.o. intake. She was found to have tachycardia of 200 heart rate at her PCP outpatient clinic and was brought to the ED. She was found to have SVT on EKG and she received 3 doses of adenosine and metoprolol. Subsequently ended up getting hypotensive therefore cardioversion was performed under supervision of baseball inspector, Dr. Palomares. At the time of examination patient did not stated that she has chest pain, shortness of breath, weakness. Further labs revealed that patient had markedly elevated LFTs in 800s with elevated JVD this morning which up trended when we admit the patient. Patient also had elevated BNP and troponin I elevation. CT abdomen showed thickening and hyperemia in rectal sigmoid junction of colon. Patient reported that her daughter or friend will be coming up to see her although she lives alone at home. U tox was positive for amphetamines and opiates. We we will completely avoid Tylenol or ibuprofen or any other pain medication. 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 We ordered hep panel, acetaminophen levels, ultrasound liver, FT4, lipid panel and likely follow-up on lab results. Continuing with fluid restriction strict MARIANELA's. Electrolytes were repleted as necessary. Will closely monitor for any other further episodes. Of note, patient was found to have phentermine in her medication list for weight loss which she has been taking for a while. Currently holding that. Patient is limited code and does not want chest compressions or intubation however she is agreeable for shock therapy including cardioversion if needed. All labs and orders were reviewed. I saw and examined the patient, and I agree with current management stated by Dr Jacob MD,PGY1. Plan of care was discussed with the attending physician and resident physician. Disclaimer: Despite multiple revisions, due to the dictation software being used, the document bellow may not be free of grammatical errors including phonetic/typographic errors. However, this does not deter from our commitment to providing health care in the patient's best interest in mind. Dr. Vinny MD, PGY 2 Documentation for date of: 06/20/24 HPI History of Present Illness Chief complaint: Tachycardia History of present illness: 74 y/o F with PMHx significant for hypothyroidism, depression, anxiety presents with complaint of symptomatic tachycardia. Patient reports several days of general malaise, for which she went to her PCP. At PCP she was found to have tachycardia with heart rate approximately 200. EMS was called and patient was brought to ED. In ED patient found to have SVT, received metoprolol and 3 doses adenosine without relief. Patient was cardioverted successfully. At time of exam patient denies chest pain, shortness of breath, weakness, fatigue, fever, chills. Of note patient has long history of taking phentermine for weight loss. ED COURSE: Labs significant for: BUN 52, creatinine 1.3, eGFR 43, sodium 130, D-dimer 2730, T. bili 2.4, AST 1173, ALT 855, ALP 104, troponin 0.2, BNP 2104. Follow-up troponin 0.5. Imaging significant for: CXR showed signs of congestion. Patient received adenosine 6 mg +12 mg +2 mg, metoprolol 2.5 mg, 1 L bolus normal saline, midazolam 2 mg, fentanyl 50 mcg, and cardioversion in the ED. 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 Patient reports quitting drinking 20 years ago. Allergies:?NKDA Medications: Gabapentin, trazodone, Lexapro, hydroxyzine, omeprazole, Lasix as needed, levothyroxine, phentermine. 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 Patient reports quitting drinking 20 years ago. Allergies:?NKDA Medications: Gabapentin, trazodone, Lexapro, hydroxyzine, omeprazole, Lasix as needed, levothyroxine, phentermine. Exam Vital Signs Temp Pulse Resp BP Pulse Ox O2 Del Method O2 Flow Rate 97.7 F 98 20 151/95 H 95 Room Air 6 06/20/24 14:00 06/20/24 14:00 06/20/24 14:00 06/20/24 14:00 06/20/24 14:06/20/24 14:06/20/24 11:30 Narrative Exam PE: Gen: Well-developed and well-nourished. HEENT: NCAT, PERRLA, EOMI, MMM, anicteric conjunctivae. Left-sided eyelid droop and left mouth droop, baseline for patient. CVS: normal S1 and S2. RRR. No M/R/G. Resp: CTA B/L. No rhonchi, rales, crackles. Mild expiratory wheezing bilateral apices. Abd: soft, non-tender, non-distended. MSK: Good ROM in BUE & BLE. No rash. BLE edema. Neuro: CN II-XII grossly intact. Strength 5/5 in BUE & BLE. Alert and oriented x3. Psych: appropriate mood and affect. Results: Labs 06/23/24 04:07 06/23/24 04:07 Labs: Short CBC 06/20/24 06/20/24 Range/Units 09:46 14:06 WBC 15.5 H 15.0 H (3.6-11.0) Thou/mm3 Hgb 13.2 12.3 (12.0-16.0) g/dL Hct 41.3 38.0 (36.0-46.0) % Plt Count 232 169 D (140-440) Thou/mm3 BMP 06/20/24 06/20/24 09:46 14:06 Sodium 130 L 131 L Potassium 4.1 3.6 D Chloride 93 L 94 L Carbon Dioxide 23.4 26.4 BUN 52 H 48 H Creatinine 1.3 1.1 Glucose 78 85 Calcium 8.9 8.5 Cardiac Enzymes 06/20/24 06/20/24 Range/Units 09:46 14:06 Troponin I 0.200 H* 0.529 H* D (0.0-0.045) ng/mL Liver Function 06/20/24 06/20/24 Range/Units 09:46 14:06 Total Bilirubin 2.4 H 2.5 H (0.3-1.2) mg/dL AST 1173 H* 959 H* (0-34) U/L ALT 855 H* 806 H* (10-49) U/L Alkaline Phosphatase 109 103 (46-116) U/L Albumin 3.9 3.6 (3.4-4.8) gm/dL Urine 06/20/24 Range/Units 12:15 Urine Color Yellow (Lt Yel-Yel) Urine Clarity Clear (Clear/Hazy) Urine pH 6.0 (5.0-7.0) Ur Specific [place] 1.027 (1.001-1.035) Urine Protein Negative (Neg - Trace) Urine Glucose (UA) Negative (Negative) Quality Measures Quality Measures none Advance care planning discussed with:: patient Medications Home Medications and Allergies Allergies Allergy/AdvReac Type Severity Reaction Status Date / Time No Known Allergies Allergy Verified 10/29/18 06:19 Visit Medications Heparin Sodium (Porcine) (Heparin Sod Inj 5000 Unit/Ml Vial) 5,000 unit SC Q8HR [facility] Stop: 07/04/24 21:59 Metoprolol Succinate (Metoprolol Succinate Xl 25 Mg Tabcr) 50 mg PO QDAY [facility] Stop: 07/20/24 15:44 Ondansetron HCl (Ondansetron Inj 2 Mg/Ml Inj 2 Ml) 4 mg IV Q6H PRN; Protocol PRN Reason: NAUSEA OR VOMITING Stop: 07/20/24 14:55 Discontinued Medications Hydrocodone Bitart/Acetaminophen (Hydrocodone/Apap 5/325 Tablet) 1 tab PO Q4HR PRN PRN Reason: PAIN SCALE 4-10(Mod-Sev Stop: 06/25/24 14:55 Adenosine (Adenosine Inj 3 Mg/Ml Vial) 6 mg IVP X1 ONE Stop: 06/20/24 09:39 Last Admin: 06/20/24 09:46 Dose: 6 mg Adenosine (Adenosine Inj 3 Mg/Ml Vial) 12 mg IVP X1 ONE Stop: 06/20/24 09:40 Last Admin: 06/20/24 09:48 Dose: 12 mg Adenosine (Adenosine Inj 3 Mg/Ml Vial) 12 mg IVP X1 ONE Stop: 06/20/24 09:52 Last Admin: 06/20/24 09:59 Dose: 12 mg Fentanyl Citrate (Fentanyl Cit Inj 50 Mcg/Ml Amp 2ml) 50 mcg IV X1 ONE Stop: 06/20/24 10:12 Last Admin: 06/20/24 10:33 Dose: 50 mcg Sodium Chloride (Ns) 1,000 mls @ 999 mls/hr IV .Q1H1M ONE Stop: 06/20/24 11:11 Last Admin: 06/20/24 10:15 Dose: 999 mls/hr Ibuprofen (Ibuprofen Tab 400 Mg Tablet) 400 mg PO Q6HR PRN PRN Reason: Fever > 100.4 or pain Stop: 07/20/24 14:55 Metoprolol Succinate (Metoprolol Succinate Xl 25 Mg Tabcr) 50 mg PO QDAY ANTHONY Stop: 07/21/24 08:59 Metoprolol Tartrate (Metoprolol Tartrate Inj 1 Mg/Ml Amp 5 Ml) 2.5 mg IVP X1 ONE Stop: 06/20/24 10:00 Last Admin: 06/20/24 10:04 Dose: 2.5 mg Midazolam HCl (Midazolam Inj 1 Mg/Ml Vial 2 Ml) 2 mg IV X1 ONE Stop: 06/20/24 10:12 Last Admin: 06/20/24 10:33 Dose: 2 mg Assessment & Plan Plan 74 y/o F with PMHx significant for hypothyroidism, depression, anxiety presents with complaint of symptomatic tachycardia, admitted for SVT. #SVT s/p cardioversion #Troponinemia #CHF evaluation Patient presented from doctor's office due to severe tachycardia, heart rate approximately 200. Patient found to have SVT, after no improvement with medical management was electrically cardioverted. Heart rate currently mid 90s. Dr Palomares consulted. Patient had elevated troponin, trending up from 0.2-0.5. BNP elevated 2894, patient has BLE edema. No history of CHF. Of note, patient has been taking phentermine for several years. -Telemetry -Metoprolol succinate 50 mg daily -Trend troponins -Daily labs, including magnesium and Phos. -Echo pending -Cardiac consulted, appreciate recommendations -Cardiac diet, fluid restriction 1500 cc daily -Strict I's and O's #Transaminitis Patient has significant transaminitis: T. bili 2.4, AST 1160, ALT 855, ALP 104. No known history of liver disease. Possible component of congestive hepatopathy. -Trend LFTs -Avoid hepatotoxins -Hepatitis panel pending -Liver ultrasound pending #Meth abuse Patient reports history of meth use, claims quit 20 years ago. U tox positive for meth, possible trigger for SVT. 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 Patient does not remember correct dosage. Med rec's pending. -Resume home meds following med rec's #Anxiety, patient history #Depression, patient history Patient has history as stated. Takes outpatient Lexapro and hydroxyzine. -Consider resuming home meds following med rec DVT prophylaxis: Heparin GI prophylaxis: None Diet: Cardiac, fluid restriction 1500 cc daily Lines: Peripheral IV Code status: Limited: No compressions, no intubation Plan of care discussed with senior resident Dr. Calderón PGY?[address] Johnson. Michael James MD PGY-1 Attending Provider Attestation/Addendum I attest that I was physically present for the evaluation, physical examination, lab and imaging review of the patient with the residents. I discussed the case with the residents and agree with the findings and plans of care as documented above. Patient is a 74-year-old female with past medical history of hypothyroidism, depression and anxiety presented with complaint of symptomatic tachycardia/palpitations. She was found to be on SVT, received 3 doses of adenosine and Metoprolol and was later carioverted. At bedside patient denied resolution of palpitation, denied any chest pain and was saturating well on room air. Patient has elevated Troponin and BNP, pedal edema. Her LFTs are also markedly elevated. Urine toxicology positive for amphetamines and opiates but patient denied recent drug use but did state that she has been taking phentermine outpatient for weight loss. Patient is admitted for management of SVT, elevated cardiac enzyme, evaluation of elevated LFTs. Metoprolol 50 started and Lasix held as per cardiology recs. We will mtrend troponin, obtain acetaminophen level, liver US, hepatitis panel and follow up liver function panel. Jacqueline Johnson MD
[2024-06-20] MEDS: METOPROLOL SUCCINATE XL 25 MG TABCR 50 MG PO (17:38)
--- NOTE | 2024-06-20 18:18 | PC.NURSE ---
PATIENT ASSISTED TO THE BATHROOM SEVERAL TIMES, SLIGHTLY UNSTEADY BUT OK WITH 1 PERSON AND WALK SLOWLY.
--- NOTE | 2024-06-20 19:35 | PC.NURSE ---
Report recieved. Pt A&O. NSR at this time.
[2024-06-20 21:50] LABS: Troponin I 1.301 ng/mL (0.0-0.045)
[2024-06-20] MEDS: HEPARIN SOD INJ 5000 UNIT/ML VIAL SC (22:35)
[2024-06-21] VITALS (7 sets, daily range): BP systolic 100–130; BP diastolic 66–77; PULSE 70–100; RESP 17–23; TEMP 36.1–36.6; O2SAT 94–96
[2024-06-21 02:07] LABS: Hepatitis A Antibody IgM Non Reactive (Non React); Hepatitis B Core Antibody IgM Non Reactive (Non React); Hepatitis B Surface Antigen Non Reactive (Non React); Hepatitis C Antibody Reactive (Non React)
[2024-06-21 02:36] LABS: Ferritin 76 ng/mL (7.3-270.7); Iron 12 mcg/dL (50-170); Percent Iron Saturation 3 % (20-55); Total Iron Binding Capacity 374 mcg/dL (250-425); Unsaturated Iron Binding 362 (225-295)
[2024-06-21 02:43] LABS: Troponin I 1.319 ng/mL (0.0-0.045)
[2024-06-21] MEDS: HEPARIN SOD INJ 5000 UNIT/ML VIAL SC ×3 (05:18→22:12)
[2024-06-21 06:43] LABS: Basophils % (Auto) 0 % (0-2.5); Eosinophils % (Auto) 0 % (0-10); Hematocrit 36.2 % (36.0-46.0); Hemoglobin 11.8 g/dL (12.0-16.0); Immature Granulocytes % (Auto) 0 % (0-0); Immature Granulocytes Auto 0.05 Thou/mm3 (0.00-0.00); Lymphocytes % (Auto) 8 % (10-50); Mean Corpuscular HGB Conc 32.6 g/dl (31.0-37.0); Mean Corpuscular Hemoglobin 26.2 pg (25.0-35.0); Mean Corpuscular Volume 80 fL (80-100); Monocytes % (Auto) 8 % (0-12); Neutrophils # (Auto) 10.7 Thou/mm3 (1.8-7.7); Neutrophils % (Auto) 84 % (37-80); Nucleated Red Blood Cell % 0 /100 WBC (0); Platelet Count 156 Thou/mm3 (140-440); RDW Standard Deviation 42.5 fL (36.4-46.3); Red Blood Count 4.51 Miln/mm3 (4.00-5.20); White Blood Count 12.8 Thou/mm3 (3.6-11.0)
[2024-06-21 07:18] LABS: Alanine Aminotransferase 624 U/L (10-49); Albumin, Serum 3.3 gm/dL (3.4-4.8); Albumin/Globulin Ratio 1.4 (1.2-2.2); Alkaline Phosphatase 96 U/L (46-116); Anion Gap 8 (7-16); Aspartate Amino Transferase 622 U/L (0-34); BUN/Creatinine Ratio 40 Ratio (12-20); Bilirubin,Total 2.3 mg/dL (0.3-1.2); Blood Urea Nitrogen 32 mg/dL (9-23); Calcium 8.4 mg/dL (8.3-10.6); Carbon Dioxide 28.8 mMol/L (20.0-31.0); Chloride 98 mMol/L (98-107); Creatinine (Component) 0.8 mg/dL (0.6-1.3); Free T4 (Free Thyroxine) 1.06 ng/dL (0.89-1.76); Globulin 2.3 gm/dL (2.3-3.5); Glucose 90 mg/dL (74-106); Magnesium 2.3 mg/dL (1.6-2.6); Osmolality,Calculated 277 (275-295); Phosphorous 1.5 mg/dL (2.4-5.1); Sodium 135 mMol/L (136-145); Total Protein 5.6 gm/dL (5.7-8.2); eGFR > 60 See Note
[2024-06-21 07:33] LABS: Cardiac Risk Estimate 7.1 RATIO (3.7-5.6); Cholesterol 150 mg/dL (132-200); HDL Cholesterol 21 mg/dL (40-60); LDL Cholesterol,Calculated 110 mg/dL (0-130); Triglycerides 96 mg/dL (30-150)
[2024-06-21] MEDS: POTASSIUM CHLORIDE 20 mEq TABCR 40 MEQ PO (09:14)
[2024-06-21] MEDS: METOPROLOL SUCCINATE XL 25 MG TABCR 50 MG PO (09:14)
[2024-06-21] MEDS: POTASSIUM PHOS 22.5 MMOL in SODIUM CHLORIDE 0.9% 500 ML 500 ML 82.778 MMOL IV (09:15)
[2024-06-21 09:31] LABS: INR 1.8 (0.9-1.3)
--- NOTE | 2024-06-21 09:32 | PC.SS ---
SS follow up note; Cardiology is on board, Pending Echo.
[2024-06-21 10:21] LABS: Troponin I 1.166 ng/mL (0.0-0.045)
--- NOTE | 2024-06-21 11:26 | ESPR_ITS ---
<Statement entered by Tay Palomares MD - 06/21/24 21:11> I have personally seen and examined the patient separately on the above date of service and discussed the plan of care with the resident. I reviewed the resident Dr. Weber consultation progress note and agree with the resident findings and plan in the note above and have also edited the documentation to reflect my findings and plan. Patient seen and examined at bedside. She is apparently feeling much better and had an renal function as well as liver function continue to improve. BUN is 32 and creatinine 0.8. AST and ALT is in the 600s. Bilirubin are also decreasing at 2.3. Patient's hepatitis C antibody positive and hep C viral load was sent and ID was also consulted by primary team. Patient denies any cardiac complaints and denies any shortness of breath and she only has trace edema. Volume status is still unclear. Echocardiogram completed and showed mild LV systolic dysfunction with an EF of around 45%. RV function appears normal and both LV and RV size appear to be normal. LA is mildly dilated. RVSP is around 45 mmHg and at least has mild to moderate PAH with mild dilation of the pulmonary artery. Will discuss with pulmonary staff Dr. Vaca to review the CT for any evidence of ILD. Patient kidney function as well as renal function improving without diuresis or IV fluids. Patient states that she has been eating and drinking well and increase her oral intake she did receive 1 L of IV fluids yesterday. Overall patient still appears to be dehydrated or intravascularly depleted. Will hold off on the diuresis and check with right heart cardiac catheterization in the right heart pressures in a.m. Patient troponins were rising and peaked at 1.391. Patient still denies any chest pain chest pressure but given the mild LV systolic dysfunction along with currently her volume status will plan for left and right heart cardiac catheterization in the morning. Patient to to be n.p.o. tonight. All risks and benefits, alternatives explained in detail the patient including the risk of bleeding, heart attack, stroke and in detail. Patient agreeable and provided consent and will plan for cardiac attrition tomorrow morning. Patient U-Tox was positive for methamphetamine but she is also on phentermine which could cause false positive. Patient says that she did not take any kind of drug abuse for the last 20 years and quit alcohol and smoking 10 years ago. Tay Palomares M.D. Interventional Cardiology Documentation for date of: 06/21/24 Subjective Subjective Interval history: Patient examined at bedside today. Patient on telemetry has still been sinus and rate has been in the 80s and 90s. Patient examined at bedside today. Is wondering when she can go home. Is experiencing any chest pain or shortness of breath or palpitations. Denies using meth after I told her that patient seen and examined at the bedside. Patient is doing much better since yesterday her urine drug screen came back positive, however patient also takes phentermine and it could be most likely the culprit of that positive. Patient was also asked about if she uses any opioids, as it came up in her UDS however she denies taking any opioids. She is not experiencing any shortness of breath or orthopnea, has not noticed any changing of swelling in her legs. Also said that she was put on Lasix at some time but does not take anymore. No other complaints at this time Exam Vital Signs Temp Pulse Resp BP Pulse Ox O2 Del Method O2 Flow Rate 97.5 F 95 22 H 122/73 95 Room Air 6 06/21/24 08:00 06/21/24 09:14 06/21/24 08:00 06/21/24 09:14 06/21/24 08:00 06/21/24 08:00 06/20/24 11:30 Narrative Exam General: AAOx3, NAD, pleasant woman, pink hair, looks older than her actual age HEENT: Moist mucous membranes, conjunctiva clear, EOMI, PERRLA, L eye slightly closed compared to L Cardiovascular: S1, S2, radial pulses +2 bilat, RRR Pulmonary: CTAB bilat no cough, no wheezing GI: No tenderness to light or deep palpitation, no guarding, rigidity, rebound tenderness or distension Extremities: +1 pitting edema in lower extremities bilaterally, dorsalis pedis pulses +2 bilaterally Neuro: AAOx3, R sided facial droop at baseline, no other focal motor or sensory deficits Psych: Cooperative Objective Labs 06/21/24 06:15 06/21/24 06:15 Labs: Laboratory Results - last 24 hr 06/20/24 06/20/24 06/20/24 12:15 14:06 21:07 WBC 15.0 H RBC 4.74 Hgb 12.3 Hct 38.0 MCV 80 MCH 25.9 MCHC 32.4 RDW Std Deviation 42.5 Plt Count 169 D Neut % (Auto) 88 H Lymph % (Auto) 5 L Ness % (Auto) 6 Eos % (Auto) 0 Baso % (Auto) 0 Neut # (Auto) 13.2 H Lymph # (Auto) 0.8 L Ness # (Auto) 0.9 H Eos # (Auto) 0.0 Baso # (Auto) 0.0 Immature Gran # (Auto) 0.08 H Absolute Nucleated RBC 0.00 Immature Gran % 1 H Nucleated RBC % 0 PT INR APTT Sodium 131 L Potassium 3.6 D Chloride 94 L Carbon Dioxide 26.4 Anion Gap 11 BUN 48 H Creatinine 1.1 Estim Creat Clear Calc Not Performed. eGFR 52 L BUN/Creatinine Ratio 44 H Glucose 85 Calculated Osmolality 274 L Calcium 8.5 Corrected Calcium 8.8 Phosphorus Magnesium Iron 12 L TIBC 374 Iron Saturation 3 L Unsat Iron Binding 362 H Ferritin 76 Total Bilirubin 2.5 H AST 959 H* ALT 806 H* Alkaline Phosphatase 103 Troponin I 0.529 H* D 1.301 H* D Total Protein 6.3 Albumin 3.6 Globulin 2.7 Albumin/Globulin Ratio 1.3 Triglycerides Cholesterol LDL Cholesterol, Calc HDL Cholesterol Cholesterol/HDL Ratio Free T4 Ur Collection Type Clean Catch Urine Color Yellow Urine Clarity Clear Urine pH 6.0 Ur Specific [place] 1.027 Urine Protein Negative Urine Glucose (UA) Negative Urine Ketones Trace Urine Blood Negative Urine Nitrite Negative Urine Bilirubin Negative Urine Urobilinogen (Auto) Negative Ur Leukocyte Esterase Negative Urine RBC 1 Urine WBC 7 H Ur Squamous Epith Cells 1 Urine Bacteria None Cellular Casts < 1 Hyaline Casts < 1 Ur Culture Indicated? Not Indicated Urine Opiates Screen Negative Urine Fentanyl Screen Positive A Acetaminophen < 2.0 L Ur Barbiturates Screen Negative U Amphetamin/Meth Scrn Positive A U Benzodiazepines Scrn Negative U Cocaine Metab Screen Negative U Marijuana (THC) Screen Negative Hepatitis A IgM Ab Non Reactive Hep Bs Antigen Non Reactive Hep B Core IgM Ab Non Reactive Hepatitis C Antibody Reactive A 06/21/24 06/21/24 06/21/24 01:48 06:15 08:40 WBC 12.8 H RBC 4.51 Hgb 11.8 L Hct 36.2 MCV 80 MCH 26.2 MCHC 32.6 RDW Std Deviation 42.5 Plt Count 156 Neut % (Auto) 84 H Lymph % (Auto) 8 L Ness % (Auto) 8 Eos % (Auto) 0 Baso % (Auto) 0 Neut # (Auto) 10.7 H Lymph # (Auto) 1.0 Ness # (Auto) 1.0 H Eos # (Auto) 0.0 Baso # (Auto) 0.0 Immature Gran # (Auto) 0.05 H Absolute Nucleated RBC 0.00 Immature Gran % 0 Nucleated RBC % 0 PT 19.0 H INR 1.8 H APTT 35.0 Sodium 135 L Potassium 3.0 L D Chloride 98 Carbon Dioxide 28.8 Anion Gap 8 BUN 32 H Creatinine 0.8 Estim Creat Clear Calc Not Performed. eGFR > 60 BUN/Creatinine Ratio 40 H Glucose 90 Calculated Osmolality 277 Calcium 8.4 Corrected Calcium 9.0 Phosphorus 1.5 L Magnesium 2.3 Iron TIBC Iron Saturation Unsat Iron Binding Ferritin Total Bilirubin 2.3 H AST 622 H* ALT 624 H* Alkaline Phosphatase 96 Troponin I 1.319 H* 1.166 H* Total Protein 5.6 L Albumin 3.3 L Globulin 2.3 Albumin/Globulin Ratio 1.4 Triglycerides 96 Cholesterol 150 LDL Cholesterol, Calc 110 HDL Cholesterol 21 L Cholesterol/HDL Ratio 7.1 H Free T4 1.06 Ur Collection Type Urine Color Urine Clarity Urine pH Ur Specific [place] Urine Protein Urine Glucose (UA) Urine Ketones Urine Blood Urine Nitrite Urine Bilirubin Urine Urobilinogen (Auto) Ur Leukocyte Esterase Urine RBC Urine WBC Ur Squamous Epith Cells Urine Bacteria Cellular Casts Hyaline Casts Ur Culture Indicated? Urine Opiates Screen Urine Fentanyl Screen Acetaminophen Ur Barbiturates Screen U Amphetamin/Meth Scrn U Benzodiazepines Scrn U Cocaine Metab Screen U Marijuana (THC) Screen Hepatitis A IgM Ab Hep Bs Antigen Hep B Core IgM Ab Hepatitis C Antibody Quality Measures Quality Measures none Advance care planning discussed with:: patient Assessment & Plan Assessment Current Active Medications: Generic Name Dose Route Start Last Admin Trade Name Freq PRN Reason Stop Dose Admin Heparin Sodium (Porcine) 5,000 unit 06/20/24 22:00 06/21/24 05:18 Heparin Sod Inj 5000 Unit/Ml Vial SC 07/04/24 21:59 5,000 unit Q8HR ANTHONY Administration Potassium Phosphate 22.5 mmol/ 507.5 mls @ 82.778 mls/hr 06/21/24 08:08 06/21/24 09:15 Sodium Chloride IV 06/21/24 14:15 82.778 mls/hr X1 ONE Administration Potassium Chloride 10 meq in 100 mls @ 100 mls/hr 06/21/24 14:20 Kcl Ivpb IV 06/21/24 18:19 Q1H ANTHONY Levothyroxine Sodium 25 mcg 06/22/24 06:00 Levothyroxine Sodium 25 Mcg Tablet PO 07/22/24 05:59 ACBR ANTHONY Metoprolol Succinate 50 mg 06/20/24 15:45 06/21/24 09:14 Metoprolol Succinate Xl 25 Mg Tabcr PO 07/20/24 15:44 50 mg QDAY ANTHONY Administration Ondansetron HCl 4 mg 06/20/24 14:56 Ondansetron Inj 2 Mg/Ml Inj 2 Ml IV 07/20/24 14:55 Q6H PRN NAUSEA OR VOMITING Protocol Plan Assessment 74 y/o F with PMHx significant for hypothyroidism, depression, anxiety presents with complaint of symptomatic tachycardia, admitted for SVT. #SVT s/p cardioversion #Elevated troponins, resolved #? CHF #? Cardiomyopathy Patient presented from doctor's office due to severe tachycardia, heart rate approximately 200. Patient found to have SVT, after no improvement with medical management was electrically cardioverted. No documented hx of CHF Patient went into SVT, could be due electrolyte derangements, stress, phetermine use, or possible CHF Troponins elevated most likely due to SVT EKG was NSR with PACs, biatrial enlargement along with left ventricular hypertrophy with T wave inversion including LVH strain pattern questionable Q waves in the septal leads as well as T wave inversions in the inferior leads Pt could have CHF or cardiomyopathy considering drug hx Patient denies again taking meth as UDS showed up positive for amphetamines as this is the most likely reason why she came a positive Troponin 1.3 -> 1.319, -> 1.16, no need to trend anymore TSH 5.2 free T4 1.06 Lipid panel shows total cholesterol 150, LDL 110 Plan: -Telemetry -Continue Metoprolol succinate 50 mg daily -Daily labs, including magnesium and Phos, keep mag and potassium above 2 and 4 respectively -We recommend stop taking phentermine -Follow echo -Cardiac consulted, appreciate recommendations -Cardiac diet, fluid restriction 1500 cc daily -Strict I's and O's #Elevated Transaminases Patient has significant transaminitis: T. bili 2.4, AST 1160, ALT 855, ALP 104. No known history of liver disease. Possible component of congestive hepatopathy due to heart failure AST and ALT 622 and 624 respectiely today Plan: -Trend LFTs -Avoid hepatotoxins -Hepatitis panel pending -Liver ultrasound pending #Elevated BUN Bun 38, creatinine 0.8 today Could be prerenal cause, however patient had received prednisone recently in the past 2 months Plan: ? Trend with CMP #Hx of Polysubstance abuse Patient reports history of meth use, claims quit 20 years ago. 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 Jelani Perez, PGY-1
[2024-06-21 12:07] LABS: Glucose Estimated Average 105 mg/dL (80-131); Hemoglobin A1C 5.3 % Hgb (4.8-6.0)
[2024-06-21] MEDS: PANTOPRAZOLE 40 MG TABLET PO (14:06)
[2024-06-21 14:48] LABS: HIV (1&2) Antibody Rapid Non-Reactive
--- NOTE | 2024-06-21 15:07 | ESPR_ITS ---
<Statement entered by Kale Calderón MD - 06/21/24 16:58> Patient was seen and examined at the bedside. Patient overnight had no acute event. She remained in sinus rhythm. LFTs have been downtrending. Morning labs revealed improvement in white count. Electrolytes hypokalemia and hypophosphatemia which was repleted adequately. Kidney functions remained stable. Patient was tested positive for antibody for hepatitis C. Therefore we ordered hepatitis C genotype and viral load. HIV panel was negative. We consulted ID for further evaluation and recommendations. Ultrasound liver was significant for fatty liver. Echo showed: Normal LV size. Mild systolic dysfunction with mild basal hypokinesis. Stage II diastolic dysfunction. Estimated EF 40-45%. Normal RV size and function. 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 Will continue with strict MARIANELA's and fluid restriction. Continue with metoprolol XL 50 mg once daily. Transaminitis most likely explained from right-sided heart failure with PAH and history of hep C with underlying history of medications including phentermine and SSRIs.All labs and orders were reviewed. I saw and examined the patient, and I agree with current management stated by Dr Jacob MD PGY-1 Plan of care was discussed with the attending physician and resident physician. Disclaimer: Despite multiple revisions, due to the dictation software being used, the document bellow may not be free of grammatical errors including phonetic/typographic errors. However, this does not deter from our commitment to providing health care in the patient's best interest in mind. Dr. Vinny MD, PGY 2 Documentation for date of: 06/21/24 Subjective Subjective Interval history: No overnight events. Patient seen and examined at bedside. Patient resting comfortably in bed. Denies chest pain, weakness, fatigue. Hep C test positive. HCV genotype and quantitative studies ordered, HIV 1 and 2 ordered. Exam Vital Signs Temp Pulse Resp BP Pulse Ox O2 Del Method O2 Flow Rate 97.0 F 82 19 119/72 94 L Room Air 6 06/21/24 12:00 06/21/24 12:00 06/21/24 12:00 06/21/24 12:00 06/21/24 12:06/21/24 12:00 06/20/24 11:30 Narrative Exam PE: Gen: Well-developed and well-nourished. HEENT: NCAT, PERRLA, EOMI, MMM, anicteric conjunctivae. Left-sided eyelid droop and left mouth droop, baseline for patient. CVS: normal S1 and S2. RRR. No M/R/G. Resp: CTA B/L. No rhonchi, rales, crackles. Abd: soft, non-tender, non-distended. MSK: Good ROM in BUE & BLE. No rash. BLE edema. Neuro: CN II-XII grossly intact. Strength 5/5 in BUE & BLE. Alert and oriented x3. Psych: appropriate mood and affect. Objective Labs 06/23/24 04:07 06/23/24 04:07 Labs: Laboratory Results - last 24 hr 06/20/24 06/20/24 06/21/24 14:06 21:07 01:48 WBC RBC Hgb Hct MCV MCH MCHC RDW Std Deviation Plt Count Neut % (Auto) Lymph % (Auto) [place] % (Auto) Eos % (Auto) Baso % (Auto) Neut # (Auto) Lymph # (Auto) [place] # (Auto) Eos # (Auto) Baso # (Auto) Immature Gran # (Auto) Absolute Nucleated RBC Immature Gran % Nucleated RBC % PT INR APTT Sodium Potassium Chloride Carbon Dioxide Anion Gap BUN Creatinine Estim Creat Clear Calc eGFR BUN/Creatinine Ratio Glucose Estimated Ave Glu mg/dL Hemoglobin A1c Calculated Osmolality Calcium Corrected Calcium Phosphorus Magnesium Iron 12 L TIBC 374 Iron Saturation 3 L Unsat Iron Binding 362 H Ferritin 76 Total Bilirubin AST ALT Alkaline Phosphatase Troponin I 1.301 H* D 1.319 H* Total Protein Albumin Globulin Albumin/Globulin Ratio Triglycerides Cholesterol LDL Cholesterol, Calc HDL Cholesterol Cholesterol/HDL Ratio Free T4 Hepatitis A IgM Ab Non Reactive Hep Bs Antigen Non Reactive Hep B Core IgM Ab Non Reactive Hepatitis C Antibody Reactive A HIV 1&2 Antibody Rapid 06/21/24 06/21/24 06:15 08:40 WBC 12.8 H RBC 4.51 Hgb 11.8 L Hct 36.2 MCV 80 MCH 26.2 MCHC 32.6 RDW Std Deviation 42.5 Plt Count 156 Neut % (Auto) 84 H Lymph % (Auto) 8 L [place] % (Auto) 8 Eos % (Auto) 0 Baso % (Auto) 0 Neut # (Auto) 10.7 H Lymph # (Auto) 1.0 [place] # (Auto) 1.0 H Eos # (Auto) 0.0 Baso # (Auto) 0.0 Immature Gran # (Auto) 0.05 H Absolute Nucleated RBC 0.00 Immature Gran % 0 Nucleated RBC % 0 PT 19.0 H INR 1.8 H APTT 35.0 Sodium 135 L Potassium 3.0 L D Chloride 98 Carbon Dioxide 28.8 Anion Gap 8 BUN 32 H Creatinine 0.8 Estim Creat Clear Calc Not Performed. eGFR > 60 BUN/Creatinine Ratio [address]ucose [address] Glu mg/dL 105 Hemoglobin A1c 5.3 Calculated Osmolality 277 Calcium 8.4 Corrected Calcium 9.0 Phosphorus 1.5 L Magnesium 2.3 Iron TIBC Iron Saturation Unsat Iron Binding Ferritin Total Bilirubin 2.3 H AST 622 H* ALT 624 H* Alkaline Phosphatase 96 Troponin I 1.166 H* Total Protein 5.6 L Albumin 3.3 L Globulin 2.3 Albumin/Globulin Ratio 1.4 Triglycerides 96 Cholesterol 150 LDL Cholesterol, Calc 110 HDL Cholesterol 21 L Cholesterol/HDL Ratio 7.1 H Free T4 1.06 Hepatitis A IgM Ab Hep Bs Antigen Hep B Core IgM Ab Hepatitis C Antibody HIV 1&2 Antibody Rapid Non-Reactive Quality Measures Quality Measures none Advance care planning discussed with:: patient Assessment & Plan Assessment Current Active Medications: Generic Name Dose Route Start Last Admin Trade Name Freq PRN Reason Stop Dose Admin Heparin Sodium (Porcine) 5,000 unit 06/20/24 22:00 06/21/24 13:29 Heparin Sod Inj 5000 Unit/Ml Vial SC 07/04/24 21:59 5,000 unit Q8HR ANTHONY Administration Potassium Chloride 10 meq in 100 mls @ 100 mls/hr 06/21/24 14:20 Kcl Ivpb IV 06/21/24 18:19 Q1H ANTHONY Levothyroxine Sodium 25 mcg 06/22/24 06:00 Levothyroxine Sodium 25 Mcg Tablet PO 07/22/24 05:59 ACBR ANTHONY Metoprolol Succinate 50 mg 06/20/24 15:45 06/21/24 09:14 Metoprolol Succinate Xl 25 Mg Tabcr PO 07/20/24 15:44 50 mg QDAY ANTHONY Administration Ondansetron HCl 4 mg 06/20/24 14:56 Ondansetron Inj 2 Mg/Ml Inj 2 Ml IV 07/20/24 14:55 Q6H PRN NAUSEA OR VOMITING Protocol Pantoprazole Sodium 40 mg 06/21/24 14:00 06/21/24 14:06 Pantoprazole 40 Mg Tablet PO 07/21/24 13:59 40 mg QDAY ANTHONY Administration Plan 74 y/o F with PMHx significant for hypothyroidism, depression, anxiety presents with complaint of symptomatic tachycardia, admitted for SVT. #SVT s/p cardioversion #Troponinemia #CHF evaluation Patient presented from doctor's office due to severe tachycardia, heart rate approximately 200. Patient found to have SVT, after no improvement with medical management was electrically cardioverted. Heart rate currently mid 90s. Dr Palomares consulted. Patient had elevated troponin, trending up from 0.2-0.5. BNP elevated 2894, patient has BLE edema. No history of CHF. Of note, patient has been taking phentermine for several years. Echo showed: Normal LV size. Mild systolic dysfunction with mild basal hypokinesis. Stage II diastolic dysfunction. Estimated EF 40-45%. Normal RV size and function. Troponins peaked at 1.3, likely secondary to SVT and cardioversion. -Metoprolol succinate 50 mg daily -Daily labs, including magnesium and Phos. -Cardiac consulted, appreciate recommendations -Cardiac diet, fluid restriction 1500 cc daily -Strict I's and O's -Plan for cardiac catheterization tomorrow #Transaminitis Patient has significant transaminitis: T. bili 2.4, AST 1160, ALT 855, ALP 104. No known history of liver disease. Possible component of congestive hepatopathy. LFTs trending down. HCV positive. Liver ultrasound showed fatty liver. -Trend LFTs -Avoid hepatotoxins -HCV genotype and quantitative testing ordered -HIV 1 and 2 rapid test ordered #Meth abuse Patient reports history of meth use, claims quit 20 years ago. U tox positive for meth, possible trigger for SVT. Possible false positive, patient taking phentermine. 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 -Levothyroxine 25 mcg p.o. daily #Anxiety, patient history #Depression, patient history Patient has history as stated. Takes outpatient trazodone, fluoxetine, hydroxyzine. -Held due to acute liver injury. DVT prophylaxis: Heparin GI prophylaxis: Protonix Diet: Cardiac, fluid restriction 1500 cc daily. N.p.o. after midnight. Lines: Peripheral IV Code status: Limited: No compressions, no intubation Plan of care discussed with senior resident Dr. Calderón PGY?[address] Johnson. Michael James MD PGY-1 Attending Provider Attestation/Addendum I attest that I was physically present for the evaluation, physical examination, lab and imaging review of the patient with the residents. I discussed the case with the residents and agree with the findings and plans of care as documented above. At bedside patient appears comfortable, denies new complaints and is saturating well on room air. LFTs noted to be downtrending. Hepatitis panel was positive for Hepatitis C antibody positivity and US liver only showed fatty liver. We will obtain viral load and genotype. We will also obtain ID consult. He also has some electrolyte imbalaces where were repleted accordingly. Echocardiography showed EF of 40 to 45 with mild basal hypokinesis, patient is planned for coronary angiogram tomorrow with cardiology. Troponin peaked. Jacqueline Johnson MD
[2024-06-21] MEDS: POTASSIUM CHL 10 mEq IVPB 10 MEQ/100 ML BAG 100 MEQ IV ×2 (15:26→16:25)
--- NOTE | 2024-06-21 16:37 | PD.IDPROG ---
Subjective Subjective Interval history: we usually do not treat hep c acutely and only do so if cryoglobulins positive. it is very costly, 60-90k for a full course and its not automatic to get it at release either. you have to wait 2 weeks. Exam Vital Signs Temp Pulse Resp BP Pulse Ox O2 Del Method O2 Flow Rate 97.1 F 75 18 100/77 95 Room Air 6 06/21/24 16:00 06/21/24 16:00 06/21/24 16:00 06/21/24 16:00 06/21/24 16:00 06/21/24 16:00 06/20/24 11:30 Narrative Exam benign exam. has RT ptosis but that is about it. ruq exam benign Objective - Internal Medicine Labs 06/21/24 06:15 06/21/24 06:15 Labs: Laboratory Results - last 24 hr 06/20/24 06/20/24 06/21/24 14:06 21:07 01:48 WBC RBC Hgb Hct MCV MCH MCHC RDW Std Deviation Plt Count Neut % (Auto) Lymph % (Auto) [place] % (Auto) Eos % (Auto) Baso % (Auto) Neut # (Auto) Lymph # (Auto) [place] # (Auto) Eos # (Auto) Baso # (Auto) Immature Gran # (Auto) Absolute Nucleated RBC Immature Gran % Nucleated RBC % PT INR APTT Sodium Potassium Chloride Carbon Dioxide Anion Gap BUN Creatinine Estim Creat Clear Calc eGFR BUN/Creatinine Ratio Glucose Estimated Ave Glu mg/dL Hemoglobin A1c Calculated Osmolality Calcium Corrected Calcium Phosphorus Magnesium Iron 12 L TIBC 374 Iron Saturation 3 L Unsat Iron Binding 362 H Ferritin 76 Total Bilirubin AST ALT Alkaline Phosphatase Troponin I 1.301 H* D 1.319 H* Total Protein Albumin Globulin Albumin/Globulin Ratio Triglycerides Cholesterol LDL Cholesterol, Calc HDL Cholesterol Cholesterol/HDL Ratio Free T4 Hepatitis A IgM Ab Non Reactive Hep Bs Antigen Non Reactive Hep B Core IgM Ab Non Reactive Hepatitis C Antibody Reactive A HIV 1&2 Antibody Rapid 06/21/24 06/21/24 06:15 08:40 WBC 12.8 H RBC 4.51 Hgb 11.8 L Hct 36.2 MCV 80 MCH 26.2 MCHC 32.6 RDW Std Deviation 42.5 Plt Count 156 Neut % (Auto) 84 H Lymph % (Auto) 8 L [place] % (Auto) 8 Eos % (Auto) 0 Baso % (Auto) 0 Neut # (Auto) 10.7 H Lymph # (Auto) 1.0 [place] # (Auto) 1.0 H Eos # (Auto) 0.0 Baso # (Auto) 0.0 Immature Gran # (Auto) 0.05 H Absolute Nucleated RBC 0.00 Immature Gran % 0 Nucleated RBC % 0 PT 19.0 H INR 1.8 H APTT 35.0 Sodium 135 L Potassium 3.0 L D Chloride 98 Carbon Dioxide 28.8 Anion Gap 8 BUN 32 H Creatinine 0.8 Estim Creat Clear Calc Not Performed. eGFR > 60 BUN/Creatinine Ratio 40 H Glucose [address] Glu mg/dL 105 Hemoglobin A1c 5.3 Calculated Osmolality 277 Calcium 8.4 Corrected Calcium 9.0 Phosphorus 1.5 L Magnesium 2.3 Iron TIBC Iron Saturation Unsat Iron Binding Ferritin Total Bilirubin 2.3 H AST 622 H* ALT 624 H* Alkaline Phosphatase 96 Troponin I 1.166 H* Total Protein 5.6 L Albumin 3.3 L Globulin 2.3 Albumin/Globulin Ratio 1.4 Triglycerides 96 Cholesterol 150 LDL Cholesterol, Calc 110 HDL Cholesterol 21 L Cholesterol/HDL Ratio 7.1 H Free T4 1.06 Hepatitis A IgM Ab Hep Bs Antigen Hep B Core IgM Ab Hepatitis C Antibody HIV 1&2 Antibody Rapid Non-Reactive Assessment & Plan A&P Narrative hepc pos.vl pending , she has given blood and suggest that prior testing neg. lft's abnormal but improving. not jaundiced. hx of meth use, distant idu years ago with intervening blood donation hypothyroid. svt, cardioverted in ED no rx for now, unless cryoglobulins pos then can re eval I will not be here wednesday, so can see wednesday if remains in house can see in clinic if vl pos for rx as her last exposure was yrs ago. so it is possible that she avoided detection before. Time Spent With Patient Time: Total time spent is greater than 50% in coordination of care (as documented) at patient's floor/unit and/or counseling patient:
--- NOTE | 2024-06-21 17:03 | PC.NURSE ---
Patient complaining of pain with potassium IV, lowered rate to [address] Bird. Patient still unable to tolerate IV medication, Dr. Bird changing order to po.
[2024-06-21] MEDS: POTASSIUM CHLORIDE 20 mEq TABCR PO (17:11)
--- NOTE | 2024-06-21 17:58 | ESCONSULT_ITS ---
<Statement entered by Noe Morrison MD - 06/24/24 09:21> pt seen with resident. all findings confirmed HPI Data of Consult Requesting Physician: Bill Bowling DO Admitting Provider: Jacqueline Johnsno MD Attending Provider: Bill Bowling DO Primary Care Provider: Anika Olmstead MD Consult Narrative History of present illness: 74-year-old woman Hypothyroidism, depression, anxiety who was admitted to [facility] due to SVT requiring cardioversion infectious disease was consulted due to hep C was positive. Patient denied any acute complaints at this moment like chest pain, palpitations, dizziness, or any other associated symptoms at this moment. Pertinent labs:Leukocytosis 15.5 and downtrending, hepatitis C antibody reactive hepatitis A IgM Ab nonreactive, hep BS antigen and core IgM Ab nonreactive, hep C RNA pending, HIV 1 and 2 nonreactive Imaging:Liver ultrasound fatty liver lobular contour suspect primary hepatocellular disease Past medical history: Hypothyroidism, depression, anxiety Past surgical history: Left acoustic neuroma, bariatric surgery, umbilical hernia repair Family history: Heart problems Social history: Lives alone, Used to be heavy drinker until 2004, IV drug user in the 60s, used to do meth and has been clean for 20 years, quit cigarette smoking 10 years ago. Travel history: None relevant Allergies: No known allergies Vaccines: She states she received previously flu vaccine, completed 4 or more doses of COVID-vaccine, pneumococcal vaccine received, does not remember when was her last tetanus shot. cc:: cc: Bill Bowling DO Review of Systems Review of Systems Systems Reviewed: All systems reviewed, normal except as documented Exam Vital Signs Temp Pulse Resp BP Pulse Ox O2 Del Method O2 Flow Rate 97.1 F 75 18 100/77 95 Room Air 6 06/21/24 16:00 06/21/24 16:00 06/21/24 16:06/21/24 16:06/21/24 16:06/21/24 16:06/20/24 11:30 Narrative Exam General: No acute distress, well appearing, alert, interactive. HEENT: NC/AT, PERRL, EOMI, Good conjugate gaze, moist mucous membranes, oropharynx clear. Neck: Supple, No masses, No adenopathy, carotid pulse 2+ bilaterally without bruits, No JVD, normal range of motion. Chest: Symmetrical, atraumatic, and with equal expansion , Nontender on palpation no deformity and no crepitus. CVS: S1 and S2 present, Regular rate and rhythm, No murmurs, rubs or gallops perceived during auscultation. Lungs: Normal respiratory effort, CTAB, no wheezing, rhonchi or rales perceived during auscultation, No intercostal or subcostal retraction. Abdomen : Soft, no tenderness to palpation, no guarding ,no rebound, +BS, no organomegaly. Extremities: No edema, warm well perfused, normal tone and ROM, strength and sensation intact, cap refill less than 2, +2 dp equal bilaterally, able to move all 4 extremities spontaneously. Skin: Intact, no rashes, no lesions, no erythema or jaundice noted Neuro: AOx4, GCS 15 Psych: Appropriate mood and affect. Results Labs 06/21/24 06:15 06/21/24 06:15 Labs: Short CBC 06/21/24 Range/Units 06:15 WBC 12.8 H (3.6-11.0) Thou/mm3 Hgb 11.8 L (12.0-16.0) g/dL Hct 36.2 (36.0-46.0) % Plt Count 156 (140-440) Thou/mm3 BMP 06/21/24 06:15 Sodium 135 L Potassium 3.0 L D Chloride 98 Carbon Dioxide 28.8 BUN 32 H Creatinine 0.8 Glucose 90 Calcium 8.4 Cardiac Enzymes 06/20/24 06/21/24 06/21/24 Range/Units 21:07 01:48 08:40 Troponin I 1.301 H* D 1.319 H* 1.166 H* (0.0-0.045) ng/mL Liver Function 06/21/24 Range/Units 06:15 Total Bilirubin 2.3 H (0.3-1.2) mg/dL AST 622 H* (0-34) U/L ALT 624 H* (10-49) U/L Alkaline Phosphatase 96 (46-116) U/L Albumin 3.3 L (3.4-4.8) gm/dL Quality Measures Quality Measures none Advance care planning discussed with:: patient Medications Home Medications and Allergies Allergies Allergy/AdvReac Type Severity Reaction Status Date / Time No Known Allergies Allergy Verified 10/29/18 06:19 Visit Medications Heparin Sodium (Porcine) (Heparin Sod Inj 5000 Unit/Ml Vial) 5,000 unit SC Q8HR [facility] Stop: 07/04/24 21:59 Last Admin: 06/21/24 13:29 Dose: 5,000 unit Potassium Chloride (Kcl Ivpb) 10 meq in 100 mls @ 100 mls/hr IV Q1H [facility] Stop: 06/21/24 18:19 Last Admin: 06/21/24 17:14 Dose: Not Given Levothyroxine Sodium (Levothyroxine Sodium 25 Mcg Tablet) 25 mcg PO ACBR [facility] Stop: 07/22/24 05:59 Metoprolol Succinate (Metoprolol Succinate Xl 25 Mg Tabcr) 50 mg PO QDAY [facility] Stop: 07/20/24 15:44 Last Admin: 06/21/24 09:14 Dose: 50 mg Ondansetron HCl (Ondansetron Inj 2 Mg/Ml Inj 2 Ml) 4 mg IV Q6H PRN; Protocol PRN Reason: NAUSEA OR VOMITING Stop: 07/20/24 14:55 Pantoprazole Sodium (Pantoprazole 40 Mg Tablet) 40 mg PO QDAY [facility] Stop: 07/21/24 13:59 Last Admin: 06/21/24 14:06 Dose: 40 mg Discontinued Medications Hydrocodone Bitart/Acetaminophen (Hydrocodone/Apap 5/325 Tablet) 1 tab PO Q4HR PRN PRN Reason: PAIN SCALE 4-10(Mod-Sev Stop: 06/25/24 14:55 Adenosine (Adenosine Inj 3 Mg/Ml Vial) 6 mg IVP X1 ONE Stop: 06/20/24 09:39 Last Admin: 06/20/24 09:46 Dose: 6 mg Adenosine (Adenosine Inj 3 Mg/Ml Vial) 12 mg IVP X1 ONE Stop: 06/20/24 09:40 Last Admin: 06/20/24 09:48 Dose: 12 mg Adenosine (Adenosine Inj 3 Mg/Ml Vial) 12 mg IVP X1 ONE Stop: 06/20/24 09:52 Last Admin: 06/20/24 09:59 Dose: 12 mg Fentanyl Citrate (Fentanyl Cit Inj 50 Mcg/Ml Amp 2ml) 50 mcg IV X1 ONE Stop: 06/20/24 10:12 Last Admin: 06/20/24 10:33 Dose: 50 mcg Furosemide (Furosemide Inj 10 Mg/Ml 4ml Vial) 20 mg IVP QDAY [facility] Stop: 07/20/24 16:59 Sodium Chloride (Ns) 1,000 mls @ 999 mls/hr IV .Q1H1M ONE Stop: 06/20/24 11:11 Last Admin: 06/20/24 10:15 Dose: 999 mls/hr Potassium Chloride (Kcl Ivpb) 10 meq in 100 mls @ 100 mls/hr IV Q1H ANTHONY Stop: 06/21/24 12:06 Last Admin: 06/21/24 08:24 Dose: Not Given Potassium Phosphate 22.5 mmol/ (Sodium Chloride) 507.5 mls @ 82.778 mls/hr IV X1 ONE Stop: 06/21/24 14:15 Last Admin: 06/21/24 09:15 Dose: 82.778 mls/hr Ibuprofen (Ibuprofen Tab 400 Mg Tablet) 400 mg PO Q6HR PRN PRN Reason: Fever > 100.4 or pain Stop: 07/20/24 14:55 Metoprolol Succinate (Metoprolol Succinate Xl 25 Mg Tabcr) 50 mg PO QDAY [facility] Stop: 07/21/24 08:59 Metoprolol Tartrate (Metoprolol Tartrate Inj 1 Mg/Ml Amp 5 Ml) 2.5 mg IVP X1 ONE Stop: 06/20/24 10:00 Last Admin: 06/20/24 10:04 Dose: 2.5 mg Midazolam HCl (Midazolam Inj 1 Mg/Ml Vial 2 Ml) 2 mg IV X1 ONE Stop: 06/20/24 10:12 Last Admin: 06/20/24 10:33 Dose: 2 mg Potassium Chloride (Potassium Chloride 20 Meq Tabcr) 40 meq PO X1 ONE Stop: 06/21/24 08:08 Last Admin: 06/21/24 09:14 Dose: 40 meq Potassium Chloride (Potassium Chloride 20 Meq Tabcr) 20 meq PO X1 ONE Stop: 06/21/24 17:04 Last Admin: 06/21/24 17:11 Dose: 20 meq Assessment & Plan Plan 74-year-old woman Hypothyroidism, depression, anxiety who was admitted to [facility] due to SVT requiring cardioversion infectious disease was consulted due to hep C was positive. Patient denied any acute complaints at this moment like chest pain, palpitations, dizziness, or any other associated symptoms at this moment. #Hepatitis C antibody positive Possibly hepatitis C seropositivity, no viral load for which no further recommendations for testing any further and no hepatitis C treatment recommended at this time ? Follow-up hep C viral load RNA ? Follow-up as an outpatient with PCP Patient discussed with my attending Dr Tamiko Jauregui MD PGY-3 Disclaimer: Despite multiple revisions, due to the dictation software being used, the document bellow may not be free of grammatical errors including phonetic/typographic errors. However, this does not deter from our commitment to providing health care in the patient's best interest in mind.
--- NOTE | 2024-06-21 19:45 | ESCONSULT_ITS ---
RE: MILAN JEFFERS : 1950 DATE OF CONSULTATION: 06/21/2024 REFERRING PHYSICIAN: Jacqueline Johnson MD REASON FOR CONSULTATION: Hepatitis C positive. HISTORY OF PRESENT ILLNESS: The patient is a unfortunate 74-year-old with a distant history of injection drug use. I did not ask her if she was incarcerated ever, but she quit smoking about 10 years ago and quit alcohol use about 2004. She quit using injection drugs many years ago and has since given blood and had other procedures, all of which were benign. She reports she had negative testing before for hepatitis C and does not have it by herstatement. I cannot verify that independently. Her viral load and other studies are pending. Her hepatitis B panel is negative, so I do not think she has hepatitis B. I am not going to do any other tests unless she is viral load positive. Her medical problems include chronic hepatitis C, hypothyroidism, and SVT for which she underwent cardioversion in the ER. Her liver enzymes are elevated probably due to the cardioversion given that can cause significant elevation of the liver/cardiac enzymes , so typically we do not check a CKMB. LDH is an older test we used to use for GA that may detect injury to the heart muscle as well as he liver. PAST SURGICAL HISTORY: Includes distant gastric bypass, different umbilical hernia repair, more recent acoustic neuroma removal on the left side in 2016 and a breast lump on the left in about 7 years ago. ALLERGIES: NONE KNOWN. IMMUNIZATIONS: Last tetanus is not known. She does take a flu shot most years and has had 5 or more COVID vaccines and believes she may have had pneumococcal vaccines as well, but had pneumonia anyway several years ago. FAMILY HISTORY: Positive for heart disease in her father, lung cancer in her father who of lung cancer. Mother had Alzheimer disease and has since passed. SOCIAL HISTORY: She lives alone. She quit smoking 10 years ago, quit drinking about 2004, about 20 years ago. I did not ask what she does for money or whether she was ever incarcerated. PHYSICAL EXAMINATION: HEENT: On exam, she has a left ptosis. It is very mild and has had dentures on both sides, upper and lower. She is not wearing them at the moment. The rest of her exam is benign. ABDOMEN: In particular, there is no right upper quadrant tenderness. No rebound or guarding. genital and rectal exams were not performed. ASSESSMENT AND PLAN: Probable hepatitis C seropositivity. This may be falsely positive. There is no viral load yet. There is probably no reason to pursue this any further. The outpatient provider may need to follow her LDH until it normalizes and follow up on the hepatitis C viral load studies as those can take about a week. She can go home at your discretion. There is no reason to give her treatment for hepatitis C at this time. We need to get viral load and cryoglobulins. We will occasionally treat for cryoglobulinemia early, but that is the only time we can treat. Typically, inpatient treatment is not given because the drugs are so expensive and costs about $60,000 to $90,000 for a 12-week course and there is no guarantee that they will be given after she leaves the hospital, so please do not start them in the hospital. The meds are not on formulary at any hospital in the [place]. to my knowledge. I will try to check on her on Wednesday, but I will be out of town on Wednesday. DT: 17:13:48 TT: 19:40:00 Ref: [id number] - TID: [id number] MTDD
[2024-06-21] MEDS: DiphenhydrAMINE INJ 50 MG/ML VIAL IVP (22:11)
[2024-06-21] MEDS: FAMOTIDINE INJ 10 MG/ML VIAL 2 ML 20 MG IVP (22:12)
[2024-06-21] MEDS: HYDROCORTISONE SOD SUCC INJ 100 MG VIAL IV (22:12)
[2024-06-22] VITALS (24 sets, daily range): BP systolic 108–141; BP diastolic 65–100; PULSE 69–180; RESP 12–21; TEMP 36.1–36.9; O2SAT 93–100; BMI 33.1
--- NOTE | 2024-06-22 05:15 | EKG_ITS ---
[facility] Test Date: 2024-06-22 Pat Name: MILAN JEFFERS [facility] Tube Coater: KYLE : 1950 Requested By: Jose Stephens Order Number: [id number] Reading MD: Jose Stephens Measurements Intervals [place] Rate: 180 P: [place]: QRS: -52 QRSD: 106 T: 124 QT: 266 QTc: 460 Interpretive Statements SUPRAVENTRICULAR TACHYCARDIA MARKED LEFT AXIS DEVIATION [QRS AXIS < -30] PATTERN CONSISTENT WITH PULMONARY DISEASE LEFT VENTRICULAR HYPERTROPHY AND ST-T CHANGE [VOLTAGE CRITERIA PLUS ST/T ABNORMALITY] Compared to ECG 06/20/2024 11:17:04 Left-axis deviation now present ST (T wave) deviation now present Sinus rhythm no longer present Atrial abnormality no longer present Myocardial infarct finding no longer present T-wave abnormality no longer present Possible ischemia no longer present /store/S0/[id number].pdf
--- NOTE | 2024-06-22 05:25 | EVENTNT_ITS ---
Documentation for date of: 06/22/24 Event Note Event Note: Rapid Response Room: 377 Time: 05:17 Reason for Call: Tachycardia 170-180 Patient presentation: Patient noted on telemonitor to start having tachycardia to 170-180s around 05:10. Patient was alert, oriented, stated she felt palpitations but no chest pain, shortness of breath, dizziness. Patient was laying in bed resting and she states it onset when she was just talking. Events: EKG showed supraventricular tachycardia with rate of 180. Patient was given adenosine 6 mg IV push at 05:31, with no resolution, given adenosine 12 mg IV at 05:33. Again did not convert so given a second adenosine 12 mg IV push 05:37. Cardiology on-call was contacted Dr. Gibbs who recommended diltiazem 10 mg IV push, given at 05:49. This was administered and 5 minutes later patient had converted to sinus rhythm with rate 70s. Patient was transferred to [facility] and started on PO diltiazem. Assessment: SVT New orders: EKG, adenosine 6 mg IV x1, adenosine 12 mg IV x2, diltiazem 10 mg IV x1, patient transferred from [facility] to Telemetry unit, and started on diltiazem 30 mg PO q6h Patient was discussed with the attending, Dr. Jung, and team residents Jose Stephens, PGY-1, and Kleber Up, PGY-1. Breanne Catherine, PGY-2
[2024-06-22] MEDS: Magnesium Sulfate 2 GM Ivpb 2 GM/50 ML BAG IV (05:47)
--- NOTE | 2024-06-22 05:55 | PC.RT ---
RT responded to Rapid RT Gerry also responded to Rapid, EKG done, per RN pt place on 2L nasal cannula spo2 97% hr 180s, DR. ferreira and Residents in room RT DC at 0550, RT Lennie given report at this time.
[2024-06-22 05:57] LABS: Misc Send Out* See Sep Rpt
[2024-06-22 05:58] LABS: Basophils % (Auto) 0 % (0-2.5); Eosinophils % (Auto) 0 % (0-10); Hematocrit 39.7 % (36.0-46.0); Hemoglobin 12.6 g/dL (12.0-16.0); Immature Granulocytes % (Auto) 0 % (0-0); Immature Granulocytes Auto 0.02 Thou/mm3 (0.00-0.00); Lymphocytes # (Auto) 0.4 Thou/mm3 (1.0-4.8); Lymphocytes % (Auto) 5 % (10-50); Mean Corpuscular HGB Conc 31.7 g/dl (31.0-37.0); Mean Corpuscular Hemoglobin 25.6 pg (25.0-35.0); Mean Corpuscular Volume 81 fL (80-100); Monocytes # (Auto) 0.3 Thou/mm3 (0.0-0.8); Monocytes % (Auto) 3 % (0-12); Neutrophils # (Auto) 7.3 Thou/mm3 (1.8-7.7); Neutrophils % (Auto) 92 % (37-80); Nucleated Red Blood Cell % 0 /100 WBC (0); Platelet Count 153 Thou/mm3 (140-440); RDW Standard Deviation 43.6 fL (36.4-46.3); Red Blood Count 4.92 Miln/mm3 (4.00-5.20)
--- NOTE | 2024-06-22 05:58 | EKG_ITS ---
[facility] Test Date: 2024-06-22 Pat Name: MILAN JEFFERS [facility] Medical Physicist: RAQUEL : 1950 Requested By: Kleber Up Order Number: [id number] Reading MD: Kleber Up Measurements Intervals [place] Rate: 173 P: [place]: QRS: -32 QRSD: 98 T: 163 QT: 272 QTc: 462 Interpretive Statements SUPRAVENTRICULAR TACHYCARDIA MARKED LEFT AXIS DEVIATION PATTERN CONSISTENT WITH PULMONARY DISEASE LEFT VENTRICULAR HYPERTROPHY AND ST-T CHANGE Compared to ECG 06/22/2024 07:17:33 Left-axis deviation now present ST (T wave) deviation now present Sinus rhythm no longer present Atrial abnormality no longer present Myocardial infarct finding no longer present /store/S0/[id number]/[id number].pdf
[2024-06-22] MEDS: ADENOSINE INJ 3 MG/ML VIAL 6 MG IVP (06:06)
[2024-06-22] MEDS: DILTIAZEM INJ 5 MG/ML VIAL 5 ML 10 MG IV ×3 (06:08→17:36)
[2024-06-22] MEDS: ADENOSINE INJ 3 MG/ML VIAL 12 MG IVP ×2 (06:11→06:12)
[2024-06-22 06:41] LABS: Alanine Aminotransferase 524 U/L (10-49); Albumin, Serum 3.5 gm/dL (3.4-4.8); Albumin/Globulin Ratio 1.4 (1.2-2.2); Alkaline Phosphatase 98 U/L (46-116); Anion Gap 7 (7-16); Aspartate Amino Transferase 353 U/L (0-34); BUN/Creatinine Ratio 40 Ratio (12-20); Bilirubin,Total 3.2 mg/dL (0.3-1.2); Blood Urea Nitrogen 24 mg/dL (9-23); Calcium 8.8 mg/dL (8.3-10.6); Calcium (Corrected) 9.2 mg/dL (8.5-10.1); Carbon Dioxide 30.2 mMol/L (20.0-31.0); Chloride 100 mMol/L (98-107); Creatinine (Component) 0.6 mg/dL (0.6-1.3); Globulin 2.5 gm/dL (2.3-3.5); Glucose 113 mg/dL (74-106); Magnesium 1.9 mg/dL (1.6-2.6); Osmolality,Calculated 278 (275-295); Phosphorous 1.5 mg/dL (2.4-5.1); Potassium 4.9 mMol/L (3.4-5.1); Sodium 137 mMol/L (136-145); eGFR > 60 See Note
--- NOTE | 2024-06-22 07:44 | PC.NURSE ---
VINE PRUNER called to patient room around 0500 this morning tele sitter reported patient's HR 178 sustaining between 175-180's, Patient sitting comfortable in bed alert and oriented x3, responding appropriately, in no signs of distress, denies dizziness, headache, or fatigue. Called placed to MD to report HR and sustaining. cardiac pads placed, vagal massage perform by Dr. Muñoz, x3 doses of adenosine IV (6mg, 12mg, 12 mg) pushed by ICU nurse, cardizem 10 mg IV x1 (pushed by ICU nurse), mag 2g bag IV, patient transported to tele with via skye, spin tank tender, accompanied by Neha RN, patient alert and oriented x3.
--- NOTE | 2024-06-22 07:51 | ESPR_ITS ---
<Statement entered by Tay Palomares MD - 06/24/24 06:24> I have personally seen and examined the patient separately on the above date of service and discussed the plan of care with the resident. I reviewed the resident Dr. Weber consultation progress note and agree with the resident findings and plan in the note above and have also edited the documentation to reflect my findings and plan. Patient seen and examined at the bedside today. Patient did have 2 rapid responses with patient going to SVT with a heart rate of 170s. Reviewed EKG and telemetry appears to be mostly AVNRT. Patient was given 10 mg of IV Cardizem and patient did convert to normal sinus rhythm immediately. Patient was asymptomatic during rapid responses. Patient troponins peaked at 1.39. In addition echocardiogram was performed which showed at least mild LV systolic dysfunction with overall diagnosis for poor with stage II diastolic dysfunction and mild to moderate PAH with the dilated PA with an estimated RVSP of 42 mmHg and trivial to mild mitral stenosis with a mean PG of 45 mmHg. Moderate to severe posterior MAC with mild to moderate MR moderate AI mild TR and dilated IVC. Patient has been n.p.o. for left and right heart cardiac catheterization which will be performed today. Will increase to metoprolol XL to 100 mg twice daily. Keep potassium greater than 4 magnesium greater than 2.0 and the also replaced rest of the electrolytes including the phosphorus. Patient on admission appears to be dehydrated and hence hemodialysis was started. Discussed with the pulmonary staff and there is no evidence of ILD on CT. Unclear why patient has electrolyte abnormalities as well as elevated liver function test. Patient LFTs continue to improve with AST and ALT decreasing to 305 and 500 from the thousands. CBC antibody was positive and rest of the workup being performed by the primary team. ID team also on board. Management of rest of the medical conditions as per primary team and other consultants. Thank you for the consult and allowing me to participate in the care of the patient. Cardiology will continue to follow. Tay Palomares M.D. Interventional Cardiology Documentation for date of: 06/22/24 Subjective Subjective Interval history: Patient examined at bedside today. Patient had rapid response called at 5 AM today for rhythm going into SVT, rate in the 170s. Was given adenosine 6 mg once then for milligrams twice and did not return back to sinus. On-call ehs teacher, Dr. Gibbs with called and he instructed team to give Cardizem 10 mg push which had patient return to sinus rhythm and rate controlled. Right before patient was about to be examined, a rapid response was called on the patient as patient returned back to SVT rate in the 170s. Was given Cardizem 10 mg which returned patient back to NSR rate controlled. Was also been given additional 100 metoprolol XL, and patient will be started on metoprolol XL 100 twice daily. Patient at home is not experiencing shortness of breath or chest pain. She just does say that she was a bit confused on why her heart is acting like this. No other complaints at this time Exam Vital Signs Temp Pulse Resp BP Pulse Ox O2 Del Method O2 Flow Rate 97.9 F 178 H 17 138/88 H 93 L Room Air 6 06/22/24 04:00 06/22/24 06:12 06/22/24 04:00 06/22/24 06:12 06/22/24 04:00 06/22/24 04:00 06/20/24 11:30 Narrative Exam General: AAOx3, NAD, pleasant woman, pink hair, looks older than her actual age HEENT: Moist mucous membranes, conjunctiva clear, EOMI, PERRLA, L eye ptosis Cardiovascular: S1, S2, radial pulses +2 bilat, tachycardic appears to be rate in 170s Pulmonary: CTAB bilat no cough, no wheezing GI: No tenderness to light or deep palpitation, no guarding, rigidity, rebound tenderness or distension Extremities: +1 pitting edema in lower extremities bilaterally, dorsalis pedis pulses +2 bilaterally Neuro: AAOx3, R sided facial droop at baseline, no other focal motor or sensory deficits Psych: Cooperative Objective Labs 06/22/24 05:01 06/22/24 05:01 Labs: Laboratory Results - last 24 hr 06/21/24 06/21/24 06/22/24 06:15 08:40 05:01 WBC 8.0 RBC 4.92 Hgb 12.6 Hct 39.7 MCV 81 MCH 25.6 MCHC 31.7 RDW Std Deviation 43.6 Plt Count 153 Neut % (Auto) 92 H Lymph % (Auto) 5 L Saunders % (Auto) 3 Eos % (Auto) 0 Baso % (Auto) 0 Neut # (Auto) 7.3 Lymph # (Auto) 0.4 L Saunders # (Auto) 0.3 Eos # (Auto) 0.0 Baso # (Auto) 0.0 Immature Gran # (Auto) 0.02 H Absolute Nucleated RBC 0.00 Immature Gran % 0 Nucleated RBC % 0 PT 19.0 H INR 1.8 H APTT 35.0 Sodium 137 Potassium 4.9 D Chloride 100 Carbon Dioxide 30.2 Anion Gap 7 BUN 24 H Creatinine 0.6 Estim Creat Clear Calc Not Performed. eGFR > 60 BUN/Creatinine Ratio 40 H Glucose [address] Glu mg/dL 105 Hemoglobin A1c 5.3 Calculated Osmolality 278 Calcium 8.8 Corrected Calcium 9.2 Phosphorus 1.5 L Magnesium 1.9 Total Bilirubin 3.2 H D AST 353 H ALT 524 H* Alkaline Phosphatase 98 Troponin I 1.166 H* Total Protein 6.0 Albumin 3.5 Globulin 2.5 Albumin/Globulin Ratio 1.4 HIV 1&2 Antibody Rapid Non-Reactive Quality Measures Quality Measures none Advance care planning discussed with:: patient Assessment & Plan Assessment Current Active Medications: Generic Name Dose Route Start Last Admin Trade Name Freq PRN Reason Stop Dose Admin Diltiazem HCl 30 mg 06/22/24 06:00 Diltiazem 30 Mg Tablet PO 07/22/24 05:59 Q6HR [facility] Heparin Sodium (Porcine) 5,000 unit 06/20/24 22:00 06/22/24 06:12 Heparin Sod Inj 5000 Unit/Ml Vial SC 07/04/24 21:59 Not Given Q8HR [facility] Levothyroxine Sodium 25 mcg 06/22/24 06:00 06/22/24 06:08 Levothyroxine Sodium 25 Mcg Tablet PO 07/22/24 05:59 Not Given ACBR ANTHONY Metoprolol Succinate 50 mg 06/20/24 15:45 06/21/24 09:14 Metoprolol Succinate Xl 25 Mg Tabcr PO 07/20/24 15:44 50 mg QDAY ANTHONY Administration Ondansetron HCl 4 mg 06/20/24 14:56 Ondansetron Inj 2 Mg/Ml Inj 2 Ml IV 07/20/24 14:55 Q6H PRN NAUSEA OR VOMITING Protocol Pantoprazole Sodium 40 mg 06/21/24 14:00 06/21/24 14:06 Pantoprazole 40 Mg Tablet PO 07/21/24 13:59 40 mg QDAY ANTHONY Administration Plan Assessment 74 y/o F with PMHx significant for hypothyroidism, depression, anxiety presents with complaint of symptomatic tachycardia, admitted for SVT. #SVT s/p cardioversion #Elevated troponins, resolved #Acute systolic and diastolic HFrEF, with wall motion abnormalities, grade 2 diastolic dysfunction, EF 40 to 45% Patient presented from doctor's office due to severe tachycardia, heart rate approximately 200. Patient found to have SVT, after no improvement with medical management was electrically cardioverted. No documented hx of CHF Patient went into SVT, could be due electrolyte derangements, stress, phetermine use, or possible CHF Troponins elevated most likely due to SVT EKG was NSR with PACs, biatrial enlargement along with left ventricular hypertrophy with T wave inversion including LVH strain pattern questionable Q waves in the septal leads as well as T wave inversions in the inferior leads Pt could have CHF or cardiomyopathy considering drug hx TSH 5.2 free T4 1.06 Lipid panel shows total cholesterol 150, LDL 110 Echo shows HFrEF, 40 to 45% ejection fraction, grade 2 diastolic dysfunction, mild systolic dysfunction, wall motion and abnormalities, RVSP 42 mmHg Concern for pulmonary hypertension Patient continues to go into SVT, happen 2 times in the past 3 hours, patient may have underlying arrhythmia and needs to be further worked up Patient to get cardiac cath to evaluate for further Plan: -Telemetry ?Left and right heart cath today -Continue Metoprolol succinate 100 twice daily ?Holding Cardizem 30 mg -Daily labs, including magnesium and Phos, keep mag and potassium above 2 and 4 respectively -Cardiac consulted, appreciate recommendations -Cardiac diet, fluid restriction 1500 cc daily -Strict I's and O's #Elevated Transaminases Patient has significant transaminitis: T. bili 2.4, AST 1160, ALT 855, ALP 104. No known history of liver disease. Possible component of congestive hepatopathy due to heart failure AST and ALT 353 and 524 respectively today LFTs continue to downtrend Plan: -Trend LFTs -Avoid hepatotoxins -Hepatitis panel pending -Liver ultrasound pending #Elevated BUN BUN 24, creatinine 0.6 today Could be prerenal cause, however patient had received prednisone recently in the past 2 months BUN continues to downtrend Plan: ? Trend with CMP #Hx of Polysubstance abuse Patient reports history of meth use, claims quit 20 years ago. 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 Jelani Perez, PGY-1
--- NOTE | 2024-06-22 08:15 | EKG_ITS ---
[facility] Test Date: 2024-06-22 Pat Name: MILAN JEFFERS Department: Room: S261A Gender: Female Dish Network Installer: JACKI : 1950 Requested By: Michael Thomas Order Number: [id number] Reading MD: Michael Thomas Measurements Intervals [place] Rate: 80 P: 30 [place]: 169 QRS: -28 QRSD: 94 T: -84 QT: 443 QTc: 511 Interpretive Statements SINUS RHYTHM LEFT ATRIAL ENLARGEMENT [-0.15mV P WAVE IN V1/V2] POSSIBLE LEFT VENTRICULAR HYPERTROPHY [VOLTAGE CRITERIA PLUS LAE OR QRS WIDENING] POSSIBLE SEPTAL MYOCARDIAL INFARCTION , PROBABLY RECENT [30 ms Q WAVE IN V1/V2] ACUTE [place] Compared to ECG 06/22/2024 05:23:13 Atrial abnormality now present Myocardial infarct finding now present Supraventricular tachycardia no longer present Left-axis deviation no longer present ST (T wave) deviation no longer present /store/S0/[id number].pdf
[2024-06-22] MEDS: NAPH,KPH MBDB 1 PACKET (1.5 GM) PO (08:41)
[2024-06-22] MEDS: PANTOPRAZOLE 40 MG TABLET PO (08:41)
[2024-06-22] MEDS: Magnesium Sulfate 4 GM Ivpb 4 GM/50 ML BAG IV (08:42)
[2024-06-22] MEDS: METOPROLOL SUCCINATE XL 25 MG TABCR 100 MG PO ×2 (08:42→20:17)
[2024-06-22] MEDS: SOD PHOS ADDITIVE 30 MMOL in SODIUM CHLORIDE 0.9% 500 ML 500 ML 62.5 MMOL IV (09:48)
--- NOTE | 2024-06-22 14:31 | EVENTNT_ITS ---
Documentation for date of: 06/22/24 Event Note Event Note: Rapid response called at 8:30 am due to SVT. Patient seen at bedside, did not complain of chest pain or shortness of breath. Only noted complaint was confusion regarding why her heart was in arrhythmia. Patient received 10mg dil tiazem IV, SVT resolution confirmed by telemonitor. EKGs taken showed SVT. After SVT resolved, patient was given metoprolol succinate 100mg PO. Michael James MD PGY-1
--- NOTE | 2024-06-22 14:56 | ESOP_ITS ---
Cardiac Cath Procedure Procedure Name Date of procedure: 06/22/2024 GAS ENGINE REPAIRER: Tay Palomares MD PROCEDURE PERFORMED: 1. Left heart and right heart cardiac catheterization including right, left coronary angiograms and left ventriculogram - CPT 13217 2. Ultrasound-guided access of the right radial artery and right femoral vein - CPT 89226 3. Conscious sedation for 30 minutes - CPT 01196 Procedure Narrative HISTORY AND INDICATIONS: A 74-year-old female with a past medical history of hypothyroidism her depression, anxiety presented to the emergency department for symptomatic tachycardia and was diagnosed with SVT requiring cardioversion. Patient was diagnosed with new onset heart failure with reduced ejection fraction with an EF of 40 to 45%, grade 2 diastolic dysfunction as well as mild to moderate PAH with 42 mmHg. Patient also had troponin elevation which peaked at 1.39. Given NSTEMI with elevated troponins along with new onset mild systolic congestive heart failure patient was recommended a left tolerated cardiac catheterization. Discussed with patient risks, benefits and alternatives of performing left with coronary angiogram including the risks of bleeding, heart rate, stroke and with the procedure. Patient understands the risks and is willing to undergo the procedure. Consent provided for the same. H&P updated and consent was signed prior to the procedure. DESCRIPTION OF PROCEDURE: The patient was brought to the cardiac catheterization lab and all asceptic precautions were followed. Patient was given 1 Mg of Versed and 50 mcg of fentanyl for moderate conscious sedation. 2 mL of lidocaine was given in the right wrist. The right radial artery was accessed via the ultrasound guidance as well as micropuncture technique. A 6 [place] glide sheath was introduced. A 10 ml of lidocaine was then injected in the right femoral area and right femoral vein vein was accessed with ultrasound guidance and micropuncture technique. A 7 sammarinese femoral sheath was used. A 7 [place] Lawai-Emelina catheter was used with a Lawai wire to direct into the right atrium with inflated balloon. Serial measurements of right atrium, right ventricle, pulmonary artery and pulmonary capillary wedge were taken severely with normal respiration as well as at end expiration as noted below. We then used a 6 [place] TIG 4 catheter to perform the left coronary angiogram. Because of the tortuosity of the right radial artery we had to obtain right femoral artery access to obtain the right coronary artery angiogram as well as a LV gram. [facility] findings: 1. Left ventricular ejection fraction was severely 35 to 40%. LVEDP normal at 30 mmHg. There was no significant transvalvular aortic gradient. 2. Right dominant circulation left main artery is a large-caliber vessel mild 20% stenosis in the distal left main. 3. LAD is a large size artery with mild 10 to 20% stenosis and 50% stenosis in the proximal diagonal 1 which is a medium sized artery. 4. LCx is a large size artery with mild 20 to 30% stenosis in the mid LCx with medium to large OM1 with mild disease and small OM 2 with no significant disease 5. RCA is a large artery with a moderate 50% stenosis in the mid RCA and mild 20 to 30% disease in the proximal RCA, RPDA and RPL without significant disease. RHC findings: Mean right atrial pressure was 10 mmHg. Right ventricular pressure was 40/8 mmHg. Pulmonary artery pressure was 42/24 mmHg with a mean PA of 31 mmHg. Mean pulmonary capillary wedge pressure was 15 mmHg. TPG was 16 mmHg Pulmonary artery PA saturation was 64.5%.? Arterial saturation was 91% on room air. Cardiac output was 4.1 L/min and cardiac index was normal at 2.1 L/min/m? A radial band was used to achieve the hemostasis of the right radial artery access and manual hemostasis for the right femoral vein. Patient will be monitored in the cardiac timing machine operator for the next 2 to 3 hours and will be sent to the telemetry floor. Patient recommended to follow-up with me in the office within 7 days after discharge. Complications: None Specimens: None Blood loss: Estimated 5 ml Summary/findings: Indication NSTEMI and new onset CHF: 1. LHC showed mild to moderate CAD with only 40 to 50% stenosis involving the mid RCA as well as proximal diagonal 1 and rest of the arteries shows only mild disease with 20 to 30% stenosis including the distal left main. 2. LVEF appears to be moderately reduced at 35 to 40% indicating nonischemic cardiomyopathy. 3. LVEDP is elevated at 30 mmHg. There was no significant transvalvular gradient. 4. Right heart cardiac catheterization showed normal right heart pressures including normal PCWP of 15 mmHg and mean PA pressure was slightly elevated at 31 mmHg. 5. Low normal cardiac output and cardiac index at 4.1 L/min and 2.1 L/min/m?. Recommendations: 1. Recommend aggressive medical treatment for mild to moderate CAD with aspirin, high intensity statin as well as beta-jay jay and continue metoprolol XL. 2. LVEDP is elevated 30 mmHg but mostly secondary to the LV dysfunction contributed to the elevated proBNP but the PCWP is normal and hence continue with oral diuretics. 3. 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 She will need goal-directed medical therapy with metoprolol and Entresto and eventually spironolactone which can be titrated as outpatient 4. Patient recommended not to lift more than 5 pounds for the next 7 to 10 days and recommended to follow-up with me in the clinic in 7 days. Tay Palomares MD Interventional Cardiology.
--- NOTE | 2024-06-22 16:09 | PC.NURSE ---
Report given to Alex VASQUEZ post heart cath procedure. VSS. Patient A&O x4. Patient transferred to tele via rdixon. Dressing on right groin clean, dry, and intact. Right wrist soft, flat, and nontender. Dressing clean, dry, and intact.
--- NOTE | 2024-06-22 16:45 | ESPR_ITS ---
<Statement entered by Kale Calderón MD - 06/22/24 21:16> Patient was seen and examined at the bedside. Patient had 2 rapid responses today 1 in the morning and 1 later in the evening due to SVT. Patient was given diltiazem IV 10 mg push which converted her to sinus rhythm. 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 Overnight, patient received adenosine which was not helpful for SVT during rapid. Blood pressure remained stable. Patient underwent cardiac angiogram which showed nonischemic cardiomyopathy and cardiology recommended to continue aspirin statin therapy. Will closely monitor and patient will likely need ablation therapy for recurrent SVTs. Will follow with cardiology recommendations after all labs and orders were reviewed. I saw and examined the patient, and I agree with current management stated by Dr Jacob MD,PGY1. Plan of care was discussed with the attending physician and resident physician. Disclaimer: Despite multiple revisions, due to the dictation software being used, the document bellow may not be free of grammatical errors including phonetic/typographic errors. However, this does not deter from our commitment to providing health care in the patient's best interest in mind. Dr. Kaitlynn MD, PGY 2 Documentation for date of: 06/22/24 Subjective Subjective Interval history: Rapid response was called overnight for SVT. Patient was given multiple rounds of adenosine without relief, SVT resolved with diltiazem. Patient transferred back to telemetry. Patient seen and examined at bedside. Patient developed SVT again, this time treated with diltiazem, SVT resolved. Patient denied chest pain, shortness of breath, nausea. Endorsed palpitations. Patient received cardiac cath today, found to have nonischemic cardiomyopathy. Started aspirin, statin, beta-jay jay. Exam Vital Signs Temp Pulse Resp BP Pulse Ox O2 Del Method O2 Flow Rate 97.3 F 76 14 115/86 H 96 Room Air 1 06/22/24 16:10 06/22/24 16:10 06/22/24 16:10 06/22/24 16:10 06/22/24 16:10 06/22/24 16:10 06/22/24 10:49 Narrative Exam PE: Gen: Well-developed and well-nourished. HEENT: NCAT, PERRLA, EOMI, MMM, anicteric conjunctivae. Left-sided eyelid droop and left mouth droop, baseline for patient. CVS: normal S1 and S2. RRR (after diltiazem). No M/R/G. Resp: CTA B/L. No rhonchi, rales, crackles. Abd: soft, non-tender, non-distended. MSK: Good ROM in BUE & BLE. No rash. BLE edema. Neuro: CN II-XII grossly intact. Strength 5/5 in BUE & BLE. Alert and oriented x3. Psych: appropriate mood and affect. Objective Labs 06/22/24 05:01 06/22/24 05:01 Labs: Laboratory Results - last 24 hr 06/22/24 05:01 WBC 8.0 RBC 4.92 Hgb 12.6 Hct 39.7 MCV 81 MCH 25.6 MCHC 31.7 RDW Std Deviation 43.6 Plt Count 153 Neut % (Auto) 92 H Lymph % (Auto) 5 L [place] % (Auto) 3 Eos % (Auto) 0 Baso % (Auto) 0 Neut # (Auto) 7.3 Lymph # (Auto) 0.4 L [place] # (Auto) 0.3 Eos # (Auto) 0.0 Baso # (Auto) 0.0 Immature Gran # (Auto) 0.02 H Absolute Nucleated RBC 0.00 Immature Gran % 0 Nucleated RBC % 0 Sodium 137 Potassium 4.9 D Chloride 100 Carbon Dioxide 30.2 Anion Gap 7 BUN 24 H Creatinine 0.6 Estim Creat Clear Calc Not Performed. eGFR > 60 BUN/Creatinine Ratio 40 H Glucose 113 H Calculated Osmolality 278 Calcium 8.8 Corrected Calcium 9.2 Phosphorus 1.5 L Magnesium 1.9 Total Bilirubin 3.2 H D AST 353 H ALT 524 H* Alkaline Phosphatase 98 Total Protein 6.0 Albumin 3.5 Globulin 2.5 Albumin/Globulin Ratio 1.4 Quality Measures Quality Measures VTE prophylaxis Advance care planning discussed with:: patient Assessment & Plan Assessment Current Active Medications: Generic Name Dose Route Start Last Admin Trade Name Freq PRN Reason Stop Dose Admin Aspirin 81 mg 06/22/24 16:00 Aspirin Ec 81 Mg Tabec PO 07/22/24 15:59 QDAY ANTHONY Atorvastatin Calcium 80 mg 06/22/24 21:00 Atorvastatin Calcium 20 Mg Tablet PO 07/22/24 20:59 HS ANTHONY Diltiazem HCl 30 mg 06/22/24 06:00 06/22/24 08:30 Diltiazem 30 Mg Tablet PO 07/22/24 05:59 Not Given Q6HR [facility] Heparin Sodium (Porcine) 5,000 unit 06/20/24 22:00 06/22/24 06:12 Heparin Sod Inj 5000 Unit/Ml Vial SC 07/04/24 21:59 Not Given Q8HR [facility] Levothyroxine Sodium 25 mcg 06/22/24 06:00 06/22/24 06:08 Levothyroxine Sodium 25 Mcg Tablet PO 07/22/24 05:59 Not Given ACBR [facility] Metoprolol Succinate 100 mg 06/22/24 21:00 Metoprolol Succinate Xl 25 Mg Tabcr PO 07/22/24 20:59 BID [facility] Ondansetron HCl 4 mg 06/20/24 14:56 Ondansetron Inj 2 Mg/Ml Inj 2 Ml IV 07/20/24 14:55 Q6H PRN NAUSEA OR VOMITING Protocol Pantoprazole Sodium 40 mg 06/21/24 14:00 06/22/24 08:41 Pantoprazole 40 Mg Tablet PO 07/21/24 13:59 40 mg QDAY [facility] Administration Plan 74 y/o F with PMHx significant for hypothyroidism, depression, anxiety presents with complaint of symptomatic tachycardia, admitted for SVT. #SVT s/p cardioversion #Troponinemia #CHF evaluation Patient presented from doctor's office due to severe tachycardia, heart rate approximately 200. Patient found to have SVT, after no improvement with medical management was electrically cardioverted. Heart rate currently mid 90s. Dr Palomares consulted. Patient had elevated troponin, trending up from 0.2-0.5. BNP elevated 2894, patient has BLE edema. No history of CHF. Of note, patient has been taking phentermine for several years. Echo showed: Normal LV size. Mild systolic dysfunction with mild basal hypokinesis. Stage II diastolic dysfunction. Estimated EF 40-45%. Normal RV size and function. Troponins peaked at 1.3, likely secondary to SVT and cardioversion. Patient went to SVT twice more, both times resolved with diltiazem. Patient went cardiac catheterization today, showed nonischemic cardiomyopathy with reduced ejection fraction. 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 -Metoprolol succinate 100 mg twice daily -Aspirin 81 mg p.o. daily -Atorvastatin 80 mg p.o. at bedtime -Daily labs, including magnesium and Phos. -Cardiac consulted, appreciate recommendations -Cardiac diet, fluid restriction 1500 cc daily -Strict I's and O's #Transaminitis Patient has significant transaminitis: T. bili 2.4, AST 1160, ALT 855, ALP 104. No known history of liver disease. Possible component of congestive hepatopathy. LFTs trending down. HCV positive. Liver ultrasound showed fatty liver. HIV rapid test negative. ID consulted for positive hepatitis C, does not recommend treatment at this time. -Trend LFTs -Avoid hepatotoxins -HCV genotype and quantitative testing ordered -Cryoglobulin test ordered #Meth abuse Patient reports history of meth use, claims quit 20 years ago. U tox positive for meth, possible trigger for SVT. Possible false positive, patient taking phentermine. 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 -Levothyroxine 25 mcg p.o. daily #Anxiety, patient history #Depression, patient history Patient has history as stated. Takes outpatient trazodone, fluoxetine, hydroxyzine. -Held due to acute liver injury. DVT prophylaxis: Heparin GI prophylaxis: Protonix Diet: Cardiac, fluid restriction 1500 cc daily. Lines: Peripheral IV Code status: Limited: No compressions, no intubation Plan of care discussed with senior resident Dr. Calderón PGY?[address] Bowling. Michael James MD PGY-1 Attending Provider Attestation/Addendum I have discussed and was present for the essential components of the history, physical examination, diagnosis, and treatment plan with the resident. I agree with the patient's care as documented by the resident and amended herein by me. Jhonny Bowling, DO. Patient seen and evaluated this AM. Rapid response called this morning for SVT, with a rate in the 170s, rapidly resolved with a dose of diltiazem, IV 10 mg. Cardiology consulted, the patient did undergo right heart cath today which demonstrated a mean pulmonary capillary wedge pressure of 15, RA pressure of 10, mean PA pressure of 31, left heart cath demonstrated moderate to mild CAD with 30 to 50% stenosis, nonischemic cardiomyopathy was noted with a moderately reduced LVEF of 35 to 40%. No diuresis recommended from cardiology, will continue aspirin, statin and beta-jay jay at this time. 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 twice daily per cardiology recommendations. Will continue to monitor closely while she is here, the patient is relatively asymptomatic and has no subjective complaints at this time. Will continue to replete electrolytes as necessary, monitor liver function which has improved, likely DC in 1 to 2 days pending specialist recommendations and continued improvement. Although this document has been carefully reviewed, there may still be some phonetic and other typographical errors. These errors are purely grammatical due to imperfections in the software program and should not be construed in any way to compromise the substance of the patient's medical care during this visit.
[2024-06-22 17:31] LABS: O2 Saturation (Cath Lab) 91 % (91-98); Puncture Site Aortic
[2024-06-22 17:34] LABS: O2 Saturation (Cath Lab) 65 % (91-98); Puncture Site Pulmonary Artery
--- NOTE | 2024-06-22 17:44 | PD.RESEVENT ---
Documentation for date of: 06/22/24 Event Note Event Note: Response called at approximately 5:30 PM due to tachycardia, heart rate in the 150s. Rhythm strip showed signs of AVRNT. Given IV push diltiazem 10 mg x 1, SVT resolved confirmed by telemonitoring. Will continue telemetry monitoring. Michael James MD PGY?1
[2024-06-22] MEDS: ASPIRIN EC 81 MG TABEC PO (17:48)
[2024-06-22] MEDS: HEPARIN SOD INJ 5000 UNIT/ML VIAL SC ×2 (17:48→20:17)
[2024-06-22] MEDS: ATORVASTATIN CALCIUM 20 MG TABLET 80 MG PO (20:16)
[2024-06-23] VITALS (8 sets, daily range): BP systolic 116–134; BP diastolic 73–89; PULSE 60–73; RESP 18–26; TEMP 35.8–36.2; O2SAT 96–98; BMI 33.1
[2024-06-23] MEDS: LEVOTHYROXINE SODIUM 25 MCG TABLET PO (05:17)
[2024-06-23] MEDS: HEPARIN SOD INJ 5000 UNIT/ML VIAL SC ×3 (05:17→21:11)
[2024-06-23 05:48] LABS: Basophils % (Auto) 0 % (0-2.5); Eosinophils # (Auto) 0.1 Thou/mm3 (0.0-0.5); Eosinophils % (Auto) 1 % (0-10); Hematocrit 36.8 % (36.0-46.0); Hemoglobin 11.9 g/dL (12.0-16.0); Immature Granulocytes % (Auto) 0 % (0-0); Immature Granulocytes Auto 0.03 Thou/mm3 (0.00-0.00); Lymphocytes # (Auto) 1.4 Thou/mm3 (1.0-4.8); Lymphocytes % (Auto) 14 % (10-50); Mean Corpuscular HGB Conc 32.3 g/dl (31.0-37.0); Mean Corpuscular Hemoglobin 25.9 pg (25.0-35.0); Mean Corpuscular Volume 80 fL (80-100); Monocytes # (Auto) 1.1 Thou/mm3 (0.0-0.8); Monocytes % (Auto) 11 % (0-12); Neutrophils # (Auto) 7.5 Thou/mm3 (1.8-7.7); Neutrophils % (Auto) 75 % (37-80); Nucleated Red Blood Cell % 0 /100 WBC (0); Platelet Count 130 Thou/mm3 (140-440); RDW Standard Deviation 43.6 fL (36.4-46.3)
[2024-06-23 06:17] LABS: Alanine Aminotransferase 402 U/L (10-49); Albumin, Serum 3.5 gm/dL (3.4-4.8); Albumin/Globulin Ratio 1.5 (1.2-2.2); Alkaline Phosphatase 90 U/L (46-116); Anion Gap 6 (7-16); Aspartate Amino Transferase 187 U/L (0-34); BUN/Creatinine Ratio 33 Ratio (12-20); Bilirubin,Total 3.6 mg/dL (0.3-1.2); Blood Urea Nitrogen 20 mg/dL (9-23); Calcium 8.4 mg/dL (8.3-10.6); Calcium (Corrected) 8.8 mg/dL (8.5-10.1); Carbon Dioxide 27.9 mMol/L (20.0-31.0); Chloride 100 mMol/L (98-107); Creatinine (Component) 0.6 mg/dL (0.6-1.3); Estimated Creatinine Clearance 86.8 mL/min (>60); Globulin 2.4 gm/dL (2.3-3.5); Glucose 97 mg/dL (74-106); Osmolality,Calculated 270 (275-295); Phosphorous 1.9 mg/dL (2.4-5.1); Potassium 3.3 mMol/L (3.4-5.1); Sodium 134 mMol/L (136-145); Total Protein 5.9 gm/dL (5.7-8.2); eGFR > 60 See Note
--- NOTE | 2024-06-23 07:53 | ESPR_ITS ---
<Statement entered by Tay Palomares MD - 06/24/24 06:32> I have personally seen and examined the patient separately on the above date of service and discussed the plan of care with the resident. I reviewed the resident Dr. Weber consultation progress note and agree with the resident findings and plan in the note above and have also edited the documentation to reflect my findings and plan. Left and right heart catheterization was performed on 06/23/2023 showed mild to moderate CAD with only 30 to 50% stenosis but the LVEF appears to be moderately reduced at 35 to 40% indicating nonischemic cardiomyopathy. Recommend aggressive medical treatment for the same with aspirin high intensity statin and beta-jay jay and continue metoprolol XL. LVEDP is elevated at 30 mmHg but previous mostly secondary to the LV dysfunction contributing to the elevated proBNP but the PCWP is normal. Right heart catheterization showed mean RA pressure of 10 mmHg, mean PCWP of 15 mmHg and mean PA of 30 mmHg indicating only mild PAH. PA saturation was 65% and AO saturation is 91%. Cardiac output was mildly reduced at 4.08 L/min and cardiac index was slightly low at 2.1 L/min/m?. Patient PCWP is in the normal range along with the normal right heart pressures except for mild PAH and would not require any kind of diuresis at the present point of time. Patient also is not short of breath and does not appear to be volume overload and except for trace edema. No significant JVD. Patient eventually will need to be on goal-directed medical therapy given the nonischemic cardiomyopathy with at least moderate systolic dysfunction with an EF of around 35 to 40%. If blood pressure is permissible patient should be eventually started on Entresto, spironolactone and may be a small dose of diuretic as outpatient. Will need to reevaluate EF in the next 3 to 6 months with goal-directed medical therapy and monitor for improvement. Patient did not have any new episodes of SVT and is doing well on metoprolol XL 100 mg twice daily which we recommend to continue. Patient still continues to have electrolyte abnormalities and recommend to replace them aggressively and keep potassium greater than 4 magnesium greater than 2.0 and also phosphorus and other electrolytes. LFTs continue to improve with AST at 187 and ALT at 402. Bili slightly elevated at 4.6. Patient also diagnosed with RSV infection which does explain few of her symptoms and primary team to continue treatment for the same. Management of rest of the medical conditions as per the primary team. Thank you for the consult and I will admitted to the care of the patient. Cardiology will continue to follow. Tay Palomares M.D. Interventional Cardiology Documentation for date of: 06/23/24 Subjective Subjective Interval history: Patient examined at bedside today. No acute overnight events seen on telemetry, rate controlled in the 70s and patient did not go into SVT overnight. Patient reports she is doing well is not experiencing any chest pain palpitations or shortness of breath. Says she slept well. Is wondering when she is going to go home. Did not notice any worsening of swelling in her legs. She agrees that she will stop taking phentermine and she will continue to take her new medicine metoprolol 100 mg twice a day. No other complaints at this time Exam Vital Signs Temp Pulse Resp BP Pulse Ox O2 Del Method O2 Flow Rate 97.1 F 70 18 134/75 H 96 Room Air 1 06/23/24 04:00 06/23/24 04:00 06/23/24 04:00 06/23/24 04:00 06/23/24 04:00 06/23/24 04:00 06/22/24 10:49 Narrative Exam General: AAOx3, NAD, pleasant woman, pink hair, looks older than her actual age HEENT: Moist mucous membranes, conjunctiva clear, EOMI, PERRLA, L eye ptosis, uses dentures Cardiovascular: S1, S2, radial pulses +2 bilat, tachycardic appears to be rate in 170s Pulmonary: CTAB bilat no cough, no wheezing GI: No tenderness to light or deep palpitation, no guarding, rigidity, rebound tenderness or distension Extremities: +1 pitting edema in lower extremities bilaterally, dorsalis pedis pulses +2 bilaterally Neuro: AAOx3, R sided facial droop at baseline, no other focal motor or sensory deficits Psych: Cooperative Objective Labs 06/23/24 04:07 06/23/24 04:07 Labs: Laboratory Results - last 24 hr 06/22/24 06/22/24 06/22/24 Unknown Unknown Unknown WBC RBC Hgb Hct MCV MCH MCHC RDW Std Deviation Plt Count Neut % (Auto) Lymph % (Auto) [place] % (Auto) Eos % (Auto) Baso % (Auto) Neut # (Auto) Lymph # (Auto) [place] # (Auto) Eos # (Auto) Baso # (Auto) Immature Gran # (Auto) Absolute Nucleated RBC Immature Gran % Nucleated RBC % POC Blood Site Aortic Pulmonary Artery POC O2 Saturation 91 65 L Sodium Potassium Chloride Carbon Dioxide Anion Gap BUN Creatinine Estim Creat Clear Calc eGFR BUN/Creatinine Ratio Glucose Calculated Osmolality Calcium Corrected Calcium Phosphorus Magnesium Total Bilirubin AST ALT Alkaline Phosphatase Total Protein Albumin Globulin Albumin/Globulin Ratio 06/23/24 04:07 WBC 10.0 RBC 4.60 Hgb 11.9 L Hct 36.8 MCV 80 MCH 25.9 MCHC 32.3 RDW Std Deviation 43.6 Plt Count 130 L Neut % (Auto) 75 Lymph % (Auto) 14 [place] % (Auto) 11 Eos % (Auto) 1 Baso % (Auto) 0 Neut # (Auto) 7.5 Lymph # (Auto) 1.4 [place] # (Auto) 1.1 H Eos # (Auto) 0.1 Baso # (Auto) 0.0 Immature Gran # (Auto) 0.03 H Absolute Nucleated RBC 0.00 Immature Gran % 0 Nucleated RBC % 0 POC Blood Site POC O2 Saturation Sodium 134 L Potassium 3.3 L D Chloride 100 Carbon Dioxide 27.9 Anion Gap 6 L BUN 20 Creatinine 0.6 Estim Creat Clear Calc 86.8 eGFR > 60 BUN/Creatinine Ratio 33 H Glucose 97 Calculated Osmolality 270 L Calcium 8.4 Corrected Calcium 8.8 Phosphorus 1.9 L Magnesium 2.0 Total Bilirubin 3.6 H AST 187 H ALT 402 H Alkaline Phosphatase 90 Total Protein 5.9 Albumin 3.5 Globulin 2.4 Albumin/Globulin Ratio 1.5 Quality Measures Quality Measures VTE prophylaxis Advance care planning discussed with:: patient Assessment & Plan Assessment Current Active Medications: Generic Name Dose Route Start Last Admin Trade Name Freq PRN Reason Stop Dose Admin Aspirin 81 mg 06/22/24 16:00 06/22/24 17:48 Aspirin Ec 81 Mg Tabec PO 07/22/24 15:59 81 mg QDAY ANTHONY Administration Atorvastatin Calcium 80 mg 06/22/24 21:00 06/22/24 20:16 Atorvastatin Calcium 20 Mg Tablet PO 07/22/24 20:59 80 mg HS ANTHONY Administration Diltiazem HCl 30 mg 06/22/24 06:00 06/22/24 08:30 Diltiazem 30 Mg Tablet PO 07/22/24 05:59 Not Given Q6HR ANTHONY Heparin Sodium (Porcine) 5,000 unit 06/20/24 22:00 06/23/24 05:17 Heparin Sod Inj 5000 Unit/Ml Vial SC 07/04/24 21:59 5,000 unit Q8HR ANTHONY Administration Levothyroxine Sodium 25 mcg 06/22/24 06:00 06/23/24 05:17 Levothyroxine Sodium 25 Mcg Tablet PO 07/22/24 05:59 25 mcg ACBR ANTHONY Administration Metoprolol Succinate 100 mg 06/22/24 21:00 06/22/24 20:17 Metoprolol Succinate Xl 25 Mg Tabcr PO 07/22/24 20:59 100 mg BID ANTHONY Administration Ondansetron HCl 4 mg 06/20/24 14:56 Ondansetron Inj 2 Mg/Ml Inj 2 Ml IV 07/20/24 14:55 Q6H PRN NAUSEA OR VOMITING Protocol Pantoprazole Sodium 40 mg 06/21/24 14:00 06/22/24 08:41 Pantoprazole 40 Mg Tablet PO 07/21/24 13:59 40 mg QDAY ANTHONY Administration Plan Assessment 74 y/o F with PMHx significant for hypothyroidism, depression, anxiety presents with complaint of symptomatic tachycardia, admitted for SVT. #SVT s/p cardioversion #Elevated troponins, resolved #Nonischemic cardiomyopathy #Systolic and diastolic HFrEF, with wall motion abnormalities, grade 2 diastolic dysfunction, EF 35 to 45% Patient presented from doctor's office due to severe tachycardia, heart rate approximately 200. Patient found to have SVT, after no improvement with medical management was electrically cardioverted. No documented hx of CHF Patient went into SVT, could be due electrolyte derangements, stress, phetermine use, or possible CHF Troponins elevated most likely due to SVT EKG was NSR with PACs, biatrial enlargement along with left ventricular hypertrophy with T wave inversion including LVH strain pattern questionable Q waves in the septal leads as well as T wave inversions in the inferior leads Pt could have CHF or cardiomyopathy considering drug hx TSH 5.2 free T4 1.06 Lipid panel shows total cholesterol 150, LDL 110 Echo shows HFrEF, 40 to 45% ejection fraction, grade 2 diastolic dysfunction, mild systolic dysfunction, wall motion and abnormalities, RVSP 42 mmHg Right heart cath shows normal right heart pressures, PCWP 15 mmHg, right atrial pressure 10 mmHg pulmonary arterial pressure 31 mm mercury-41/24 mm mercury) Left heart cath shows mean mild to moderate CAD with 30 to 50% stenoses, appears to be nonischemic cardiomyopathy with moderately reduced left ventricle ejection fraction 35 to 40% Patient will need medication management at this point Patient was going into SVT likely due to cardiomyopathy and also possible electrolyte imbalances at this point Will avoid Cardizem due to patient's reduced EF and continue with beta-jay jay Will hold on diuresis at this time Pt agrees to stop taking phentermine Plan: ?Telemetry ?Continue with ASA -Continue Metoprolol succinate 100 twice daily ?Continue with Lipitor 80 mg -Daily labs, including magnesium and Phos, keep mag and potassium above 2 and 4 respectively -Cardiac diet, fluid restriction 1500 cc daily -Strict I's and O's #Hepatitis C #Elevated Transaminases Patient has significant transaminitis: T. bili 2.4, AST 1160, ALT 855, ALP 104. No known history of liver disease. Possible component of congestive hepatopathy due to heart failure AST and ALT 187 and 402 respectively today LFTs continue to downtrend Liver ultrasound shows 11 mm sludge ball in gallbladder neck, negative for cholelithiasis, negative for cholecystitis, normal common bile duct, and fatty liver Total bili 3.6 Plan: -Trend LFTs -Avoid hepatotoxins ?ID on consult, appreciate recs ?Primary team to further workup #Hypokalemia #Hypophosphatemia Patient has been experiencing these electrolyte abnormalities throughout the admission We recommend primary team to further workup is why she continuously has these electrolyte abnormalities possible PTH or search for RTA as she has normal AG however is not acidotic Plan: ? Primary team to workup #Hx of Polysubstance abuse Patient reports history of meth use, claims quit 20 years ago. 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 Jelani Perez, PGY-1
[2024-06-23] MEDS: METOPROLOL SUCCINATE XL 25 MG TABCR 100 MG PO ×2 (08:11→20:17)
[2024-06-23] MEDS: ASPIRIN EC 81 MG TABEC PO (08:12)
[2024-06-23] MEDS: PANTOPRAZOLE 40 MG TABLET PO (08:12)
--- NOTE | 2024-06-23 09:02 | PC.SS ---
Update: Patient is pending cardiology recommendations.
[2024-06-23] MEDS: POTASSIUM CHLORIDE 20 mEq TABCR 40 MEQ PO (09:20)
[2024-06-23] MEDS: POT PHOS 15 mMol in NS 250 ML 15 MMOL/250 ML BAG 62.5 MMOL IV ×2 (09:21→13:25)
[2024-06-23] MEDS: MG HYD/AL HYD/SIME (Maalox Reg) SUSP 30 ML UDC PO (10:17)
--- NOTE | 2024-06-23 14:31 | PC.SS ---
Rounding Note: Plan is to d/c the patient home today.
--- NOTE | 2024-06-23 14:45 | PD.RESDS ---
Planned Discharge Date 06/23/24 DS: Providers Provider Date of admission: 06/20/24 14:56 Primary care physician: Anika Olmstead MD Admitting Provider: Jacqueline Johnson MD Attending Provider on Admission: Bill Bowling DO Consults: 06/20/24 11:14 Consult to Cardiology Stat Comment: SVT Consulting Provider: Tay Palomares 06/21/24 08:08 Consult to Infectious Diseases Routine Comment: Hep C positive, elevated LFTs Consulting Provider: Noe Morrison Attending Provider on DC: Bill Bowling DO Discharging Provider: Michael James MD DS: Diagnosis Problem List Completed Was Problem List Reviewed/Reconciled?: Yes Hospital Course Hospital Course Hospital course: 74 y/o F with PMHx significant for hypothyroidism, depression, anxiety presents with complaint of symptomatic tachycardia. Patient reports several days of general malaise, for which she went to her PCP. At PCP she was found to have tachycardia with heart rate approximately 200. EMS was called and patient was brought to ED. In ED patient found to have SVT, received metoprolol and 3 doses adenosine without relief. Patient was cardioverted successfully. At time of exam patient denies chest pain, shortness of breath, weakness, fatigue, fever, chills. Of note patient has long history of taking phentermine for weight loss. Patient was admitted for workup of SVTs. During hospital stay patient had multiple recurrences of SVT, did not respond to repeated rounds of adenosine. Each time SVT resolved with administration of 10 mg IV diltiazem. Patient was started on 100 mg metoprolol succinate twice daily for heart rate control. Patient received left and right cardiac cath which showed nonischemic cardiomyopathy with decreased ejection fraction 35 to 40%, diuresis was not recommended by cardiology. Patient remained stable on metoprolol, aspirin, statin. During patient's stay, was found to have severe liver injury with AST and ALT approximately 1000, hepatitis panel showed untreated hepatitis C. HCV genotype and quantitative testing, cryoglobulins ordered, test not resulted at this time. LFTs monitored, downtrend significantly during hospital stay. Patient medically cleared and stable for discharge. Discharge plan: You have been started on the following meds: -Metoprolol succinate 100 mg twice daily -Aspirin 81 mg once daily -Atorvastatin 80 mg once daily We have stopped following meds: -[place], Prozac, gabapentin, ibuprofen, nortriptyline, trazodone, phentermine Please follow-up with PCP within 1-2 weeks, may discuss restarting certain meds DO NOT RESUME PHENTERMINE Please follow-up with cardiology outpatient Return to ED symptoms return or worsening, including: Palpitations, lightheadedness, chest pain Diagnoses: #SVT s/p cardioversion #HFrEF #Transaminitis #Meth abuse #Hypothyroidism, patient history #Anxiety, patient history #Depression, patient history Care discussed with senior resident Dr. Calderón PGY-[address] Bowling. Michael James MD PGY-1 Time Spent with Patient Time attestation: Total time spent providing and/or coordinating discharge services: Exam Vital Signs Temp Pulse Resp BP Pulse Ox O2 Del Method O2 Flow Rate 96.5 F L 66 23 H 128/89 H 97 Room Air 1 06/23/24 12:00 06/23/24 12:06/23/24 12:06/23/24 12:06/23/24 12:06/23/24 12:06/23/24 12:00 Narrative Exam PE: Gen: Well-developed and well-nourished. HEENT: NCAT, PERRLA, EOMI, MMM, anicteric conjunctivae. Left-sided eyelid droop and left mouth droop, baseline for patient. CVS: normal S1 and S2. RRR (after diltiazem). No M/R/G. Resp: CTA B/L. No rhonchi, rales, crackles. Abd: soft, non-tender, non-distended. MSK: Good ROM in BUE & BLE. No rash. BLE edema. Neuro: CN II-XII grossly intact. Strength 5/5 in BUE & BLE. Alert and oriented x3. Psych: appropriate mood and affect. Discharge Plan Plan Patient Disposition: HOME (Self Care) Patient condition on transfer: Stable Care Plan Goals: You have been started on the following meds: -Metoprolol succinate 100 mg twice daily -Aspirin 81 mg once daily -Atorvastatin 80 mg once daily We have stopped following meds: -[place], Prozac, gabapentin, ibuprofen, nortriptyline, trazodone, phentermine Please follow-up with PCP within 1-2 weeks, may discuss restarting certain meds DO NOT RESUME PHENTERMINE Please follow-up with cardiology outpatient Return to ED symptoms return or worsening, including: Palpitations, lightheadedness, chest pain Prescriptions/Referrals Prescriptions/Med Rec: New levothyroxine 25 mcg Tablet 25 mcg PO ACBR 30 Days Qty: 30 0RF aspirin [Ecotrin Low Strength] 81 mg Tablet,Delayed Release (Dr/Ec) 81 mg PO QDAY 30 Days Qty: 30 0RF atorvastatin 80 mg tablet 80 mg PO HS 30 Days Qty: 30 0RF metoprolol succinate 100 mg tablet extended release 24 hr 100 mg PO BID 30 Days Qty: 60 0RF Discontinued omeprazole [Prilosec] 20 MG capsule,delayed release(DR/EC) 20 mg PO QDAY Qty: 0 Patient Comments: TO SUPPRESS GASTRIC ACID SECRETIONS Trazodone * (DESYREL *) 50 MG tablet 50 mg PO HS Qty: 0 gabapentin 100 MG capsule 100 mg PO TID Qty: 0 fluoxetine [Prozac] 20 MG capsule 20 mg PO QAM Qty: 0 Levothyroxine * (SYNTHROID *) 25 MCG tablet 12.5 mcg PO QDAY Qty: 0 Nortriptyline Hcl * (AVENTYL *) 10 MG capsule 10 mg PO HS Qty: 0 phentermine 37.5 mg Capsule 37.5 mg PO QDAY acetaminophen-codeine [Tylenol-Codeine #3] 300-30 mg tablet 1 tab PO Q6H PRN (Reason: pain) Qty: 10 0RF ibuprofen 600 mg tablet 600 mg PO Q6H PRN (Reason: pain) Qty: 20 0RF Referrals: Tay Palomares MD [Physician[facility] - Patient/Caregiver Discharge Instructions Education Materials: Supraventricular Tachycardia, Understanding Supraventricular ..., ED About Arrhythmias Print Language: Latvian Stand Alone Forms: Jocelyn Award Info., Patient Portal Info Letter Discharge Order Discharge Orders: Discharge (Routine); Ordered 06/23/24 Ordered By: Kale Calderón Quality Discharge Quality Measures VTE prophylaxis
[2024-06-23] MEDS: POTASSIUM CHLORIDE 20 mEq TABCR PO (14:49)
[2024-06-23] MEDS: DIPHENOXYLATE/ATROP SULF 1 TAB PO (15:32)
--- NOTE | 2024-06-23 17:12 | ESPR_ITS ---
<Statement entered by Kale Calderón MD - 06/23/24 20:14> Patient was seen and examined at the bedside. She denied any chest pain, palpitations. No acute overnight events were reported. Family was concerned that patient may not have ability to live and care for herself at home and may benefit from [facility] for [facility] rehab. PT evaluation ordered for tomorrow morning. Likely will be discharged tomorrow once PT eval if the patient. Vertical Boring Mill Operator recommended to continue aspirin statin and metoprolol succinate XL twice daily. Patient will need outpatient senior program planner to be followed. Electrolytes were repleted. All labs and orders were reviewed. I saw and examined the patient, and I agree with current management stated by Dr Jacob MD,PGY1. Plan of care was discussed with the attending physician and resident physician. Disclaimer: Despite multiple revisions, due to the dictation software being used, the document bellow may not be free of grammatical errors including phonetic/typographic errors. However, this does not deter from our commitment to providing health care in the patient's best interest in mind. Dr. Vinny MD, PGY 2 Documentation for date of: 06/23/24 Subjective Subjective Interval history: No overnight events. Patient seen and examined at bedside, resting comfortably. Denies palpitations, chest pain, shortness of breath. Endorses some concern for ability to care for self at home, lives alone. Wishes for PT eval and possible stay at short-term rehab facility. PT eval for placement recommendations pending. Exam Vital Signs Temp Pulse Resp BP Pulse Ox O2 Del Method O2 Flow Rate 96.5 F L 61 23 H 128/89 H 97 Room Air 1 06/23/24 12:00 06/23/24 16:00 06/23/24 12:00 06/23/24 12:00 06/23/24 12:00 06/23/24 12:00 06/23/24 12:00 Narrative Exam PE: Gen: Well-developed and well-nourished. HEENT: NCAT, PERRLA, EOMI, MMM, anicteric conjunctivae. Left-sided eyelid droop and left mouth droop, baseline for patient. CVS: normal S1 and S2. RRR. No M/R/G. Resp: CTA B/L. No rhonchi, rales, crackles. Abd: soft, non-tender, non-distended. MSK: Good ROM in BUE & BLE. No rash. BLE edema. Neuro: CN II-XII grossly intact. Strength 5/5 in BUE & BLE. Alert and oriented x3. Psych: appropriate mood and affect. Objective Labs 06/24/24 04:58 06/24/24 04:58 Labs: Laboratory Results - last 24 hr 06/22/24 06/22/24 06/22/24 Unknown Unknown Unknown WBC RBC Hgb Hct MCV MCH MCHC RDW Std Deviation Plt Count Neut % (Auto) Lymph % (Auto) [place] % (Auto) Eos % (Auto) Baso % (Auto) Neut # (Auto) Lymph # (Auto) [place] # (Auto) Eos # (Auto) Baso # (Auto) Immature Gran # (Auto) Absolute Nucleated RBC Immature Gran % Nucleated RBC % POC Blood Site Aortic Pulmonary Artery POC O2 Saturation 91 65 L Sodium Potassium Chloride Carbon Dioxide Anion Gap BUN Creatinine Estim Creat Clear Calc eGFR BUN/Creatinine Ratio Glucose Calculated Osmolality Calcium Corrected Calcium Phosphorus Magnesium Total Bilirubin AST ALT Alkaline Phosphatase Total Protein Albumin Globulin Albumin/Globulin Ratio 06/23/24 04:07 WBC 10.0 RBC 4.60 Hgb 11.9 L Hct 36.8 MCV 80 MCH 25.9 MCHC 32.3 RDW Std Deviation 43.6 Plt Count 130 L Neut % (Auto) 75 Lymph % (Auto) 14 [place] % (Auto) 11 Eos % (Auto) 1 Baso % (Auto) 0 Neut # (Auto) 7.5 Lymph # (Auto) 1.4 [place] # (Auto) 1.1 H Eos # (Auto) 0.1 Baso # (Auto) 0.0 Immature Gran # (Auto) 0.03 H Absolute Nucleated RBC 0.00 Immature Gran % 0 Nucleated RBC % 0 POC Blood Site POC O2 Saturation Sodium 134 L Potassium 3.3 L D Chloride 100 Carbon Dioxide 27.9 Anion Gap 6 L BUN 20 Creatinine 0.6 Estim Creat Clear Calc 86.8 eGFR > 60 BUN/Creatinine Ratio 33 H Glucose 97 Calculated Osmolality 270 L Calcium 8.4 Corrected Calcium 8.8 Phosphorus 1.9 L Magnesium 2.0 Total Bilirubin 3.6 H AST 187 H ALT 402 H Alkaline Phosphatase 90 Total Protein 5.9 Albumin 3.5 Globulin 2.4 Albumin/Globulin Ratio 1.5 Quality Measures Quality Measures VTE prophylaxis Advance care planning discussed with:: patient and sibling Assessment & Plan Assessment Current Active Medications: Generic Name Dose Route Start Last Admin Trade Name Freq PRN Reason Stop Dose Admin Al Hydrox/Mg Hydrox/Simethicone 30 ml 06/23/24 10:10 06/23/24 10:17 Mg Hyd/Al Hyd/Silvana (Maalox Reg) Susp 30 Ml Udc PO 07/23/24 10:09 30 ml Q4HR PRN Administration UPSET STOMACH/INDIGESTION Aspirin 81 mg 06/22/24 16:00 06/23/24 08:12 Aspirin Ec 81 Mg Tabec PO 07/22/24 15:59 81 mg QDAY ANTHONY Administration Atorvastatin Calcium 80 mg 06/22/24 21:00 06/22/24 20:16 Atorvastatin Calcium 20 Mg Tablet PO 07/22/24 20:59 80 mg HS ANTHONY Administration Diltiazem HCl 30 mg 06/22/24 06:00 06/22/24 08:30 Diltiazem 30 Mg Tablet PO 07/22/24 05:59 Not Given Q6HR ANTHONY Heparin Sodium (Porcine) 5,000 unit 06/20/24 22:00 06/23/24 13:25 Heparin Sod Inj 5000 Unit/Ml Vial SC 07/04/24 21:59 5,000 unit Q8HR ANTHONY Administration Magnesium Sulfate 4 gm in 50 mls @ 12.5 mls/hr 06/23/24 16:49 Magnesium Sulfate Ivpb IV 06/23/24 20:48 X1 ONE Levothyroxine Sodium 25 mcg 06/22/24 06:00 06/23/24 05:17 Levothyroxine Sodium 25 Mcg Tablet PO 07/22/24 05:59 25 mcg ACBR ANTHONY Administration Metoprolol Succinate 100 mg 06/22/24 21:00 06/23/24 08:11 Metoprolol Succinate Xl 25 Mg Tabcr PO 07/22/24 20:59 100 mg BID ANTHONY Administration Ondansetron HCl 4 mg 06/20/24 14:56 Ondansetron Inj 2 Mg/Ml Inj 2 Ml IV 07/20/24 14:55 Q6H PRN NAUSEA OR VOMITING Protocol Pantoprazole Sodium 40 mg 06/21/24 14:00 06/23/24 08:12 Pantoprazole 40 Mg Tablet PO 07/21/24 13:59 40 mg QDAY ANTHONY Administration Plan 74 y/o F with PMHx significant for hypothyroidism, depression, anxiety presents with complaint of symptomatic tachycardia, admitted for SVT. #SVT s/p cardioversion #Troponinemia #CHF evaluation Patient presented from doctor's office due to severe tachycardia, heart rate approximately 200. Patient found to have SVT, after no improvement with medical management was electrically cardioverted. Heart rate currently mid 90s. Dr Palomares consulted. Patient had elevated troponin, trending up from 0.2-0.5. BNP elevated 2894, patient has BLE edema. No history of CHF. Of note, patient has been taking phentermine for several years. Echo showed: Normal LV size. Mild systolic dysfunction with mild basal hypokinesis. Stage II diastolic dysfunction. Estimated EF 40-45%. Normal RV size and function. Troponins peaked at 1.3, likely secondary to SVT and cardioversion. Patient went to SVT twice more, both times resolved with diltiazem. Patient went cardiac catheterization today, showed nonischemic cardiomyopathy with reduced ejection fraction. Vertical Boring Mill Operator does not recommend diuresis at this time. Patient appears stable for discharge, PT eval ordered for placement recs. -Metoprolol succinate 100 mg twice daily -Aspirin 81 mg p.o. daily -Atorvastatin 80 mg p.o. at bedtime -Daily labs, including magnesium and Phos. -Cardiac consulted, appreciate recommendations -Cardiac diet, fluid restriction 1500 cc daily -Strict I's and O's #Transaminitis Patient has significant transaminitis: T. bili 2.4, AST 1160, ALT 855, ALP 104. No known history of liver disease. Possible component of congestive hepatopathy. LFTs trending down. HCV positive. Liver ultrasound showed fatty liver. HIV rapid test negative. ID consulted for positive hepatitis C, does not recommend treatment at this time. -Trend LFTs -Avoid hepatotoxins -HCV genotype and quantitative testing ordered -Cryoglobulin test ordered #Meth abuse Patient reports history of meth use, claims quit 20 years ago. U tox positive for meth, possible trigger for SVT. Possible false positive, patient taking phentermine. -Cnc Service Technician patient regarding drug use #Hypothyroidism, patient history Patient history hypothyroidism treated with levothyroxine. -Levothyroxine 25 mcg p.o. daily #Anxiety, patient history #Depression, patient history Patient has history as stated. Takes outpatient trazodone, fluoxetine, hydroxyzine. -Held due to acute liver injury. DVT prophylaxis: Heparin GI prophylaxis: Protonix Diet: Cardiac, fluid restriction 1500 cc daily. Lines: Peripheral IV Code status: Limited: No compressions, no intubation Plan of care discussed with senior resident Dr. Calderón PGY?[address] Bowling. Michael James MD PGY-1 Attending Provider Attestation/Addendum I have discussed and was present for the essential components of the history, physical examination, diagnosis, and treatment plan with the resident. I agree with the patient's care as documented by the resident and amended herein by me. Jhonny Bowling, DO. Although this document has been carefully reviewed, there may still be some phonetic and other typographical errors. These errors are purely grammatical due to imperfections in the software program and should not be construed in any way to compromise the substance of the patient's medical care during this visit.
[2024-06-23] MEDS: Magnesium Sulfate 4 GM Ivpb 4 GM/50 ML BAG IV (17:27)
[2024-06-23] MEDS: ATORVASTATIN CALCIUM 20 MG TABLET 80 MG PO (20:18)
[2024-06-24] VITALS: BP 134/89; PULSE 60; PULSE 63; RESP 25; TEMP 36.1; O2SAT 94
[2024-06-24 04:00] VITALS: BP 133/71; PULSE 61; PULSE 63; RESP 17; TEMP 36.2; O2SAT 97
[2024-06-24] MEDS: LEVOTHYROXINE SODIUM 25 MCG TABLET PO (05:15)
[2024-06-24] MEDS: HEPARIN SOD INJ 5000 UNIT/ML VIAL SC (05:15)
[2024-06-24 05:52] LABS: Basophils % (Auto) 0 % (0-2.5); Eosinophils # (Auto) 0.1 Thou/mm3 (0.0-0.5); Eosinophils % (Auto) 1 % (0-10); Hematocrit 38.3 % (36.0-46.0); Hemoglobin 12.1 g/dL (12.0-16.0); Immature Granulocytes % (Auto) 1 % (0-0); Immature Granulocytes Auto 0.05 Thou/mm3 (0.00-0.00); Lymphocytes # (Auto) 1.3 Thou/mm3 (1.0-4.8); Lymphocytes % (Auto) 13 % (10-50); Mean Corpuscular HGB Conc 31.6 g/dl (31.0-37.0); Mean Corpuscular Hemoglobin 25.6 pg (25.0-35.0); Mean Corpuscular Volume 81 fL (80-100); Monocytes # (Auto) 1.3 Thou/mm3 (0.0-0.8); Monocytes % (Auto) 13 % (0-12); Neutrophils # (Auto) 7.4 Thou/mm3 (1.8-7.7); Neutrophils % (Auto) 73 % (37-80); Nucleated Red Blood Cell % 0 /100 WBC (0); Platelet Count 105 Thou/mm3 (140-440); RDW Standard Deviation 44.2 fL (36.4-46.3); Red Blood Count 4.72 Miln/mm3 (4.00-5.20); White Blood Count 10.1 Thou/mm3 (3.6-11.0)
[2024-06-24 06:00] VITALS: BMI 33.6
[2024-06-24 06:14] LABS: Alanine Aminotransferase 306 U/L (10-49); Albumin, Serum 3.4 gm/dL (3.4-4.8); Albumin/Globulin Ratio 1.5 (1.2-2.2); Alkaline Phosphatase 84 U/L (46-116); Anion Gap 6 (7-16); Aspartate Amino Transferase 124 U/L (0-34); BUN/Creatinine Ratio 32 Ratio (12-20); Bilirubin,Total 4.6 mg/dL (0.3-1.2); Blood Urea Nitrogen 19 mg/dL (9-23); Calcium 8.4 mg/dL (8.3-10.6); Calcium (Corrected) 8.9 mg/dL (8.5-10.1); Carbon Dioxide 27.9 mMol/L (20.0-31.0); Chloride 100 mMol/L (98-107); Creatinine (Component) 0.6 mg/dL (0.6-1.3); Estimated Creatinine Clearance 87.4 mL/min (>60); Globulin 2.3 gm/dL (2.3-3.5); Glucose 98 mg/dL (74-106); Magnesium 1.8 mg/dL (1.6-2.6); Osmolality,Calculated 270 (275-295); Phosphorous 1.8 mg/dL (2.4-5.1); Potassium 4.3 mMol/L (3.4-5.1); Sodium 134 mMol/L (136-145); Total Protein 5.7 gm/dL (5.7-8.2); eGFR > 60 See Note
[2024-06-24] MEDS: Magnesium Sulfate 2 GM Ivpb 2 GM/50 ML BAG IV (07:49)
[2024-06-24] MEDS: NAPH,KPH MBDB 1 PACKET (1.5 GM) 2 PACKET PO (07:49)
[2024-06-24 08:00] VITALS: BP 129/65; PULSE 65; PULSE 66; RESP 20; TEMP 36.1; O2SAT 95
[2024-06-24 08:14] VITALS: BP 129/65; PULSE 66
[2024-06-24] MEDS: METOPROLOL SUCCINATE XL 25 MG TABCR 100 MG PO (08:14)
[2024-06-24] MEDS: PANTOPRAZOLE 40 MG TABLET PO (08:18)
[2024-06-24] MEDS: ASPIRIN EC 81 MG TABEC PO (08:18)
--- NOTE | 2024-06-24 09:29 | PD.RESDS ---
Planned Discharge Date 06/24/24 DS: Providers Provider Date of admission: 06/20/24 14:56 Primary care physician: Anika Olmstead MD Admitting Provider: Jacqueline Johnson MD Attending Provider on Admission: Bill Bowling DO Consults: 06/20/24 11:14 Consult to Cardiology Stat Comment: SVT Consulting Provider: Tay Palomares 06/21/24 08:08 Consult to Infectious Diseases Routine Comment: Hep C positive, elevated LFTs Consulting Provider: Noe Morrison 06/23/24 17:06 Referral Physical Therapy Routine Comment: Physician Instructions: 06/24/24 07:26 Referral Physical Therapy Routine Comment: Physician Instructions: Attending Provider on DC: Bill Bowling DO Discharging Provider: Bill Bowling DO DS: Diagnosis Problem List Completed Was Problem List Reviewed/Reconciled?: Yes Hospital Course Hospital Course Hospital course: DC summary: This patient 74-year-old female with past medical history significant for hypothyroidism, depression and anxiety presented with symptomatic tachycardia and was admitted for SVT management. Patient presented from 's office with a heart rate of 200. Salmon Gillnet Vessel Operator was consulted as patient had elevated troponin I as well. BNP was also elevated during admission. She also endorsed bilateral lower extremity swelling. Echo was conducted which showed mild basal hypokinesis with stage II diastolic dysfunction with EF 40-45%. Normal RV size and function. Patient was initially given diltiazem which resolved the episode. Patient was eventually cardioverted which converted her back to sinus rhythm. Cardiology recommended to continue metoprolol succinate XL 100 mg twice daily. Patient ended up having 4 episodes of SVT during hospital course and may benefit with ablation therapy outpatient. Cardiac catheterization was done by slate roofer which showed nonischemic cardiomyopathy with reduced ejection fraction. Salmon Gillnet Vessel Operator recommended to continue aspirin 81 mg once daily and medical succinate 100 mg twice daily. Strict MARIANELA's and fluid restriction was given. Additionally, patient had elevated liver enzymes which downtrended eventually however she had elevated T. bili. Direct bilirubin was elevated at 2.9. Workup was conducted for HIV and hepatitis and it was significant for hepatitis C possibly untreated therefore HCV genotype and quantitative was ordered which needs to be follow-up as outpatient. Cryoglobulin levels was also ordered. Eventually LFTs downtrended and patient denied any right upper quadrant tenderness. Ultrasound of the liver was insignificant and negative for cholecystitis. Patient did had a history of meth abuse and U tox was positive which might have triggered his SVT. Of note, patient was taking phentermine for weight loss from couple of years which was discontinued on discharge and she was recommended to completely stop due to adverse effects profile. Home medications were reconciled once liver enzymes improved. Patient's brother spoke to us on 06/23 and recommended that patient may benefit with short-term rehab as she lives alone at home and patient was agreeable to the plan. Patient is getting discharged to SNF today as she is medically stable. Patient will be discharged to SNF. #Problem list: #SVT s/p cardioversion # NSTEMI type II likely supply demand ischemia # HFmEF EF 40-45% #Nonischemic cardiomyopathy #Transaminitis, downtrending #Elevated T. bili #Meth abuse #Hypothyroidism, patient history #Anxiety, patient history #Depression, patient history #Electrolyte disturbance #Hypophosphatemia, resolved DC instructions: You have been started on the following meds: -Metoprolol succinate 100 mg twice daily -Aspirin 81 mg once daily -Atorvastatin 80 mg once daily We have stopped following meds: -[place], Prozac, gabapentin, ibuprofen, nortriptyline, trazodone, phentermine Please follow-up with PCP within 1-2 weeks, may discuss restarting certain meds DO NOT RESUME PHENTERMINE Please follow-up with cardiology outpatient for possible ablation therapy Return to ED symptoms return or worsening, including: Palpitations, lightheadedness, chest pain Patient was seen and discussed with attending physician, Dr. Dash Calderón MD, PGY 2 Time Spent with Patient Time attestation: Total time spent providing and/or coordinating discharge services: Exam Vital Signs Temp Pulse Resp BP Pulse Ox O2 Del Method O2 Flow Rate 97.1 F 66 17 129/65 97 Room Air 1 06/24/24 04:00 06/24/24 08:14 06/24/24 04:00 06/24/24 08:14 06/24/24 04:00 06/24/24 04:00 06/23/24 20:00 Narrative Exam Gen: Well-developed and well-nourished. HEENT: NCAT, PERRLA, EOMI, MMM, anicteric conjunctivae. Left-sided eyelid droop and left mouth droop, baseline for patient. CVS: normal S1 and S2. RRR. No M/R/G. Resp: CTA B/L. No rhonchi, rales, crackles. Abd: soft, non-tender, non-distended. Denied right upper quadrant tenderness. MSK: Good ROM in BUE & BLE. No rash. BLE edema. Neuro: CN II-XII grossly intact. Strength 5/5 in BUE & BLE. Alert and oriented x3. Psych: appropriate mood and affect. Discharge Plan Plan Patient Disposition: Xfer Skilled Nsg Fac (SNF) Patient condition on transfer: Stable Care Plan Goals: You have been started on the following meds: -Metoprolol succinate 100 mg twice daily -Aspirin 81 mg once daily -Atorvastatin 80 mg once daily We have stopped following meds: -[place], Prozac, gabapentin, ibuprofen, nortriptyline, trazodone, phentermine Please follow-up with PCP within 1-2 weeks, may discuss restarting certain meds DO NOT RESUME PHENTERMINE Please follow-up with cardiology outpatient Return to ED symptoms return or worsening, including: Palpitations, lightheadedness, chest pain Prescriptions/Referrals Prescriptions/Med Rec: New levothyroxine 25 mcg Tablet 25 mcg PO ACBR 30 Days Qty: 30 0RF aspirin [Ecotrin Low Strength] 81 mg Tablet,Delayed Release (Dr/Ec) 81 mg PO QDAY 30 Days Qty: 30 0RF atorvastatin 80 mg tablet 80 mg PO HS 30 Days Qty: 30 0RF metoprolol succinate 100 mg tablet extended release 24 hr 100 mg PO BID 30 Days Qty: 60 0RF Discontinued omeprazole [Prilosec] 20 MG capsule,delayed release(DR/EC) 20 mg PO QDAY Qty: 0 Patient Comments: TO SUPPRESS GASTRIC ACID SECRETIONS Trazodone * (DESYREL *) 50 MG tablet 50 mg PO HS Qty: 0 gabapentin 100 MG capsule 100 mg PO TID Qty: 0 fluoxetine [Prozac] 20 MG capsule 20 mg PO QAM Qty: 0 Levothyroxine * (SYNTHROID *) 25 MCG tablet 12.5 mcg PO QDAY Qty: 0 Nortriptyline Hcl * (AVENTYL *) 10 MG capsule 10 mg PO HS Qty: 0 phentermine 37.5 mg Capsule 37.5 mg PO QDAY acetaminophen-codeine [Tylenol-Codeine #3] 300-30 mg tablet 1 tab PO Q6H PRN (Reason: pain) Qty: 10 0RF ibuprofen 600 mg tablet 600 mg PO Q6H PRN (Reason: pain) Qty: 20 0RF Referrals: Tay Palomares MD [Physician] - Anika Olmstead MD [Primary Care Provider] - Patient/Caregiver Discharge Instructions Education Materials: Supraventricular Tachycardia, Understanding Supraventricular ..., ED About Arrhythmias Print Language: [place] Stand Alone Forms: Jocelyn Award Info., Patient Portal Info Letter Discharge Order Discharge Orders: Discharge (Routine); Ordered 06/23/24 Ordered By: Kale Calderón Quality Discharge Quality Measures VTE prophylaxis MD Attestestation MD Attestation I have discussed and was present for the essential components of the discharge history, physical examination, diagnosis, and discharge treatment plan with the resident. I agree with the patient's discharge care as documented by the resident and amended herein by me. Jhonny Bowling, . The patient understood all discharge instructions, all questions were answered satisfactorily. The patient was instructed to return to the Emergency Department is symptoms worsened or persisted. Patient's vital signs were stable on discharge, heart rate well-controlled on metoprolol, see dosing and prescription above. Patient came in with significant transaminitis which has improved, T. bili has been going up in the last several days however a right upper quadrant ultrasound was negative for any findings to include obstruction or stones, the patient is completely asymptomatic without any pain, I do recommend the patient follows up with her primary care provider within 1 week of discharge for further evaluation, this may be a stress response. Patient was stable, tolerating p.o. intake, afebrile at time of discharge to SNF. Although this document has been carefully reviewed, there may still be some phonetic and other typographical errors. These errors are purely grammatical due to imperfections in the software program and should not be construed in any way to compromise the substance of the patient's medical care during this visit.
--- NOTE | 2024-06-24 09:31 | PC.SS ---
DRYING FRAME OPERATOR met with pt to ask if she had a SNF preference and pt stated that she wanted to go to [facility].
--- NOTE | 2024-06-24 10:06 | PC.SS ---
SUPERVISOR FLESHING completed PASSAR and submitted SNF referral packets via enso.
--- NOTE | 2024-06-24 11:49 | PC.SS ---
MARKER DELIVERY followed up with friend Josette Quiñones and she stated she would be able to chart picker pt and take pt to [facility] @1:30, [facility] DELIVERY called [facility] and they agreed to accept pt at 1:30, MARKER DELIVERY followed up with nurse and informed on ETA.
--- NOTE | 2024-06-24 11:52 | PD.RESPRO ---
Documentation for date of: 06/24/24 Subjective Subjective Interval history: Patient was seen and examined at the bedside this morning. Patient reported that she feels better and had no active concerns. No acute overnight events were reported. Telemetry did not show any SVT episodes overnight. Vitals were stable. Labs revealed hemoglobin stable and white count within normal. Chemistry panel was insignificant. LFTs showed elevation in T. bili and LFTs downtrending. Patient had hep C viral load ordered which is still pending. PTH intact pending. Patient is currently waiting for SNF placement will be likely discharged today possibly. We are continuing on metoprolol XL 100 twice daily for SVT and she will benefit from ablation therapy outpatient and would need close follow-up with multi share program coordinator after getting referral from PCP. Exam Vital Signs Temp Pulse Resp BP Pulse Ox O2 Del Method O2 Flow Rate 97.0 F 66 20 129/65 95 Room Air 1 06/24/24 08:00 06/24/24 08:14 06/24/24 08:00 06/24/24 08:14 06/24/24 08:00 06/24/24 08:00 06/23/24 20:00 Narrative Exam Gen: Well-developed and well-nourished. HEENT: NCAT, PERRLA, EOMI, MMM, anicteric conjunctivae. Left-sided eyelid droop and left mouth droop, baseline for patient. CVS: normal S1 and S2. RRR. No M/R/G. Resp: CTA B/L. No rhonchi, rales, crackles. Abd: soft, non-tender, non-distended. Denied right upper quadrant tenderness. MSK: Good ROM in BUE & BLE. No rash. BLE edema. Neuro: CN II-XII grossly intact. Strength 5/5 in BUE & BLE. Alert and oriented x3. Psych: appropriate mood and affect. Objective Labs 06/24/24 04:58 06/24/24 04:58 Labs: Laboratory Results - last 24 hr 06/24/24 04:58 WBC 10.1 RBC 4.72 Hgb 12.1 Hct 38.3 MCV 81 MCH 25.6 MCHC 31.6 RDW Std Deviation 44.2 Plt Count 105 L Neut % (Auto) 73 Lymph % (Auto) 13 [place] % (Auto) 13 H Eos % (Auto) 1 Baso % (Auto) 0 Neut # (Auto) 7.4 Lymph # (Auto) 1.3 [place] # (Auto) 1.3 H Eos # (Auto) 0.1 Baso # (Auto) 0.0 Immature Gran # (Auto) 0.05 H Absolute Nucleated RBC 0.00 Immature Gran % 1 H Nucleated RBC % 0 Sodium 134 L Potassium 4.3 D Chloride 100 Carbon Dioxide 27.9 Anion Gap 6 L BUN 19 Creatinine 0.6 Estim Creat Clear Calc 87.4 eGFR > 60 BUN/Creatinine Ratio 32 H Glucose 98 Calculated Osmolality 270 L Calcium 8.4 Corrected Calcium 8.9 Phosphorus 1.8 L Magnesium 1.8 Total Bilirubin 4.6 H D AST 124 H ALT 306 H Alkaline Phosphatase 84 Total Protein 5.7 Albumin 3.4 Globulin 2.3 Albumin/Globulin Ratio 1.5 Quality Measures Quality Measures VTE prophylaxis Advance care planning discussed with:: patient Assessment & Plan Assessment Current Active Medications: Generic Name Dose Route Start Last Admin Trade Name Freq PRN Reason Stop Dose Admin Al Hydrox/Mg Hydrox/Simethicone 30 ml 06/23/24 10:10 06/23/24 10:17 Mg Hyd/Al Hyd/Silvana (Maalox Reg) Susp 30 Ml Udc PO 07/23/24 10:09 30 ml Q4HR PRN Administration UPSET STOMACH/INDIGESTION Aspirin 81 mg 06/22/24 16:00 06/24/24 08:18 Aspirin Ec 81 Mg Tabec PO 07/22/24 15:59 81 mg QDAY ANTHONY Administration Atorvastatin Calcium 80 mg 06/22/24 21:00 06/23/24 20:18 Atorvastatin Calcium 20 Mg Tablet PO 07/22/24 20:59 80 mg HS ANTHONY Administration Diltiazem HCl 30 mg 06/22/24 06:00 06/22/24 08:30 Diltiazem 30 Mg Tablet PO 07/22/24 05:59 Not Given Q6HR ANTHONY Heparin Sodium (Porcine) 5,000 unit 06/20/24 22:00 06/24/24 05:15 Heparin Sod Inj 5000 Unit/Ml Vial SC 07/04/24 21:59 5,000 unit Q8HR ANTHONY Administration Levothyroxine Sodium 25 mcg 06/22/24 06:00 06/24/24 05:15 Levothyroxine Sodium 25 Mcg Tablet PO 07/22/24 05:59 25 mcg ACBR ANTHONY Administration Metoprolol Succinate 100 mg 06/22/24 21:00 06/24/24 08:14 Metoprolol Succinate Xl 25 Mg Tabcr PO 07/22/24 20:59 100 mg BID ANTHONY Administration Ondansetron HCl 4 mg 06/20/24 14:56 Ondansetron Inj 2 Mg/Ml Inj 2 Ml IV 07/20/24 14:55 Q6H PRN NAUSEA OR VOMITING Protocol Pantoprazole Sodium 40 mg 06/21/24 14:00 06/24/24 08:18 Pantoprazole 40 Mg Tablet PO 07/21/24 13:59 40 mg QDAY ANTHONY Administration Plan 74 y/o F with PMHx significant for hypothyroidism, depression, anxiety presents with complaint of symptomatic tachycardia, admitted for SVT. #SVT s/p cardioversion # NSTEMI type II likely supply demand ischemia # HFmEF EF 40-45% #Nonischemic cardiomyopathy Patient presented from doctor's office due to severe tachycardia, heart rate approximately 200. Patient found to have SVT, after no improvement with medical management was electrically cardioverted. Heart rate currently mid 90s. Dr Palomares consulted. Patient had elevated troponin, trending up from 0.2-0.5. BNP elevated 2894, patient has BLE edema. No history of CHF. Of note, patient has been taking phentermine for several years. Echo showed: Normal LV size. Mild systolic dysfunction with mild basal hypokinesis. Stage II diastolic dysfunction. Estimated EF 40-45%. Normal RV size and function. Troponins peaked at 1.3, likely secondary to SVT and cardioversion. Patient went to SVT twice more, both times resolved with diltiazem. Patient went cardiac catheterization today, showed nonischemic cardiomyopathy with reduced ejection fraction. Drop Wire Builder does not recommend diuresis at this time. Patient appears stable for discharge, PT eval ordered for placement recs. -Metoprolol succinate 100 mg twice daily -Aspirin 81 mg p.o. daily -Atorvastatin 80 mg p.o. at bedtime -Daily labs, including magnesium and Phos. -Cardiac consulted, appreciate recommendations -Cardiac diet, fluid restriction 1500 cc daily -Strict I's and O's #Transaminitis, downtrending #Elevated T. bili Patient has significant transaminitis: T. bili 2.4, AST 1160, ALT 855, ALP 104. No known history of liver disease. Possible component of congestive hepatopathy. LFTs trending down. HCV positive. Liver ultrasound showed fatty liver. Negative for cholecystitis. HIV rapid test negative. ID consulted for positive hepatitis C, does not recommend treatment at this time. Patient is not complaining of right upper quadrant tenderness. -Trend LFTs -Avoid hepatotoxins -HCV genotype and quantitative testing ordered -Cryoglobulin test ordered -Need outpatient workup for hepatitis C #Meth abuse Patient reports history of meth use, claims quit 20 years ago. U tox positive for meth, possible trigger for SVT. Possible false positive, patient taking phentermine. 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 -Levothyroxine 25 mcg p.o. daily #Anxiety, patient history #Depression, patient history Patient has history as stated. Takes outpatient trazodone, fluoxetine, hydroxyzine. -Held due to acute liver injury. Health maintenance: DVT prophylaxis: Heparin subcut twice daily GI prophylaxis: Protonix Diet: Cardiac, fluid restriction 1500 cc daily. Lines: Peripheral IV Code status: Limited: No compressions, no intubation Disposition: Currently awaiting SNF placement. Patient was seen and discussed with attending physician, Dr. Dash Calderón MD, PGY 2 Attending Provider Attestation/Addendum I have discussed and was present for the essential components of the history, physical examination, diagnosis, and treatment plan with the resident. I agree with the patient's care as documented by the resident and amended herein by me. Jhonny Bowling DO. Although this document has been carefully reviewed, there may still be some phonetic and other typographical errors. These errors are purely grammatical due to imperfections in the software program and should not be construed in any way to compromise the substance of the patient's medical care during this visit.
[2024-06-24 12:00] VITALS: BP 118/69; PULSE 61; PULSE 65; RESP 19; TEMP 36.1; O2SAT 96
--- NOTE | 2024-06-24 12:48 | ESPR_ITS ---
<Statement entered by Tay Palomares MD - 06/25/24 05:11> I have personally seen and examined the patient separately on the above date of service and discussed the plan of care with the resident. I reviewed the resident Dr. Weber consultation progress note and agree with the resident findings and plan in the note above and have also edited the documentation to reflect my findings and plan. Left and right heart catheterization was performed on 06/23/2023 showed mild to moderate CAD with only 30 to 50% stenosis but the LVEF appears to be moderately reduced at 35 to 40% indicating nonischemic cardiomyopathy. Recommend aggressive medical treatment for the same with aspirin high intensity statin and beta-jay jay and continue metoprolol XL. LVEDP is elevated at 30 mmHg but previous mostly secondary to the LV dysfunction contributing to the elevated proBNP but the PCWP is normal. Right heart catheterization showed mean RA pressure of 10 mmHg, mean PCWP of 15 mmHg and mean PA of 30 mmHg indicating only mild PAH. PA saturation was 65% and AO saturation is 91%. Cardiac output was mildly reduced at 4.08 L/min and cardiac index was slightly low at 2.1 L/min/m?. Patient PCWP is in the normal range along with the normal right heart pressures except for mild PAH and would not require any kind of diuresis at the present point of time. Patient also is not short of breath and does not appear to be volume overload and except for trace edema. No significant JVD. Patient eventually will need to be on goal-directed medical therapy given the nonischemic cardiomyopathy with at least moderate systolic dysfunction with an EF of around 35 to 40%. If blood pressure is permissible patient should be eventually started on Entresto, spironolactone and may be a small dose of diuretic as outpatient. Will need to reevaluate EF in the next 3 to 6 months with goal-directed medical therapy and monitor for improvement. Patient did not have any new episodes of SVT and is doing well on metoprolol XL 100 mg twice daily which we recommend to continue. Patient still continues to have electrolyte abnormalities and recommend to replace them aggressively and keep potassium greater than 4 magnesium greater than 2.0 and also phosphorus and other electrolytes. LFTs continue to improve with AST at 187 and ALT at 402. Bili slightly elevated at 4.6. Patient also diagnosed with RSV infection which does explain few of her symptoms and primary team to continue treatment for the same. Management of rest of the medical conditions as per the primary team. Thank you for the consult and I will admitted to the care of the patient. Cardiology will continue to follow. Tay Palomares M.D. Interventional Cardiology Documentation for date of: 06/24/24 Subjective Subjective Interval history: Pt examined at bedside today. Tele reviewed and pt remains in NSR, rate in the 60s-70s. Pt reports she is feeling much better today, she slept well and is experiencing no chest pain, shortness of breath or palpitations. She is wondering when she is going to go home. She is having regular bowel movements which had occurred yesterday. No other complaints at this time. Exam Vital Signs Temp Pulse Resp BP Pulse Ox O2 Del Method O2 Flow Rate 97.0 F 66 20 129/65 95 Room Air 1 06/24/24 08:00 06/24/24 08:14 06/24/24 08:00 06/24/24 08:14 06/24/24 08:00 06/24/24 08:00 06/23/24 20:00 Narrative Exam General: AAOx3, NAD, pleasant woman, pink hair, looks older than her actual age HEENT: Moist mucous membranes, conjunctiva clear, EOMI, PERRLA, L eye ptosis, uses dentures Cardiovascular: S1, S2, radial pulses +2 bilat, RRR Pulmonary: CTAB bilat no cough, no wheezing GI: No tenderness to light or deep palpitation, no guarding, rigidity, rebound tenderness or distension Extremities: +1 pitting edema in lower extremities bilaterally, dorsalis pedis pulses +2 bilaterally Neuro: AAOx3, R sided facial droop at baseline, no other focal motor or sensory deficits Psych: Cooperative Objective Labs 06/24/24 04:58 06/24/24 04:58 Labs: Laboratory Results - last 24 hr 06/24/24 04:58 WBC 10.1 RBC 4.72 Hgb 12.1 Hct 38.3 MCV 81 MCH 25.6 MCHC 31.6 RDW Std Deviation 44.2 Plt Count 105 L Neut % (Auto) 73 Lymph % (Auto) 13 [place] % (Auto) 13 H Eos % (Auto) 1 Baso % (Auto) 0 Neut # (Auto) 7.4 Lymph # (Auto) 1.3 [place] # (Auto) 1.3 H Eos # (Auto) 0.1 Baso # (Auto) 0.0 Immature Gran # (Auto) 0.05 H Absolute Nucleated RBC 0.00 Immature Gran % 1 H Nucleated RBC % 0 Sodium 134 L Potassium 4.3 D Chloride 100 Carbon Dioxide 27.9 Anion Gap 6 L BUN 19 Creatinine 0.6 Estim Creat Clear Calc 87.4 eGFR > 60 BUN/Creatinine Ratio 32 H Glucose 98 Calculated Osmolality 270 L Calcium 8.4 Corrected Calcium 8.9 Phosphorus 1.8 L Magnesium 1.8 Total Bilirubin 4.6 H D AST 124 H ALT 306 H Alkaline Phosphatase 84 Total Protein 5.7 Albumin 3.4 Globulin 2.3 Albumin/Globulin Ratio 1.5 Quality Measures Quality Measures VTE prophylaxis Advance care planning discussed with:: patient Assessment & Plan Assessment Current Active Medications: Generic Name Dose Route Start Last Admin Trade Name Freq PRN Reason Stop Dose Admin Al Hydrox/Mg Hydrox/Simethicone 30 ml 06/23/24 10:10 06/23/24 10:17 Mg Hyd/Al Hyd/Silvana (Maalox Reg) Susp 30 Ml Udc PO 07/23/24 10:09 30 ml Q4HR PRN Administration UPSET STOMACH/INDIGESTION Aspirin 81 mg 06/22/24 16:00 06/24/24 08:18 Aspirin Ec 81 Mg Tabec PO 07/22/24 15:59 81 mg QDAY ANTHONY Administration Atorvastatin Calcium 80 mg 06/22/24 21:00 06/23/24 20:18 Atorvastatin Calcium 20 Mg Tablet PO 07/22/24 20:59 80 mg HS ANTHONY Administration Diltiazem HCl 30 mg 06/22/24 06:00 06/22/24 08:30 Diltiazem 30 Mg Tablet PO 07/22/24 05:59 Not Given Q6HR ANTHONY Heparin Sodium (Porcine) 5,000 unit 06/20/24 22:00 06/24/24 05:15 Heparin Sod Inj 5000 Unit/Ml Vial SC 07/04/24 21:59 5,000 unit Q8HR ANTHONY Administration Levothyroxine Sodium 25 mcg 06/22/24 06:00 06/24/24 05:15 Levothyroxine Sodium 25 Mcg Tablet PO 07/22/24 05:59 25 mcg ACBR ANTHONY Administration Metoprolol Succinate 100 mg 06/22/24 21:00 06/24/24 08:14 Metoprolol Succinate Xl 25 Mg Tabcr PO 07/22/24 20:59 100 mg BID ANTHONY Administration Ondansetron HCl 4 mg 06/20/24 14:56 Ondansetron Inj 2 Mg/Ml Inj 2 Ml IV 07/20/24 14:55 Q6H PRN NAUSEA OR VOMITING Protocol Pantoprazole Sodium 40 mg 06/21/24 14:00 06/24/24 08:18 Pantoprazole 40 Mg Tablet PO 07/21/24 13:59 40 mg QDAY ANTHONY Administration Plan Assessment 74 y/o F with PMHx significant for hypothyroidism, depression, anxiety presents with complaint of symptomatic tachycardia, admitted for SVT. #SVT s/p cardioversion #Elevated troponins, resolved #Nonischemic cardiomyopathy #Systolic and diastolic HFrEF, with wall motion abnormalities, grade 2 diastolic dysfunction, EF 35 to 45% Patient presented from doctor's office due to severe tachycardia, heart rate approximately 200. Patient found to have SVT, after no improvement with medical management was electrically cardioverted. No documented hx of CHF Patient went into SVT, could be due electrolyte derangements, stress, phetermine use, or possible CHF Troponins elevated most likely due to SVT EKG was NSR with PACs, biatrial enlargement along with left ventricular hypertrophy with T wave inversion including LVH strain pattern questionable Q waves in the septal leads as well as T wave inversions in the inferior leads Pt could have CHF or cardiomyopathy considering drug hx TSH 5.2 free T4 1.06 Lipid panel shows total cholesterol 150, LDL 110 Echo shows HFrEF, 40 to 45% ejection fraction, grade 2 diastolic dysfunction, mild systolic dysfunction, wall motion and abnormalities, RVSP 42 mmHg Right heart cath shows normal right heart pressures, PCWP 15 mmHg, right atrial pressure 10 mmHg pulmonary arterial pressure 31 mm mercury-41/24 mm mercury) Left heart cath shows mean mild to moderate CAD with 30 to 50% stenoses, appears to be nonischemic cardiomyopathy with moderately reduced left ventricle ejection fraction 35 to 40% Patient was going into SVT likely due to cardiomyopathy and also possible electrolyte imbalances at this point Will avoid Cardizem due to patient's reduced EF and continue with beta-jay jay Will hold on diuresis at this time Pt agrees to stop taking phentermine Pt has been stable with her HR and rhythm on Metoprolol XL 100 mg PT is recommending SNF and patient to have walker on discharge Plan: ?Telemetry ?Continue with ASA -Continue Metoprolol succinate 100 twice daily ?Continue with Lipitor 80 mg -Daily labs, including magnesium and Phos, keep mag and potassium above 2 and 4 respectively -Cardiac diet, fluid restriction 1500 cc daily -Strict I's and O's #Elevated total bilirubin #Hepatitis C #Elevated Transaminases improving Patient has significant transaminitis: T. bili 2.4, AST 1160, ALT 855, ALP 104. No known history of liver disease. Possible component of congestive hepatopathy due to heart failure AST and ALT ~100 and ~300 respectively today LFTs continue to downtrend Liver ultrasound shows 11 mm sludge ball in gallbladder neck, negative for cholelithiasis, negative for cholecystitis, normal common bile duct, and fatty liver Total bili 4.6, may want to consider ordering indirect versus direct studies ALP has been normal Plan: -Trend LFTs -Avoid hepatotoxins ?ID on consult, appreciate recs ?Primary team to further workup #Hypokalemia #Hypophosphatemia Patient has been experiencing these electrolyte abnormalities throughout the admission We recommend primary team to further workup is why she continuously has these electrolyte abnormalities possible PTH or search for RTA as she has normal AG however is not acidotic Plan: ? Primary team to workup ? Follow-up PTH #Hx of Polysubstance abuse Patient reports history of meth use, claims quit 20 years ago. 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 Jelani Perez, PGY-1
[2024-06-24 12:50] LABS: Bilirubin,Direct 2.9 mg/dL (0.0-0.3)
[2024-06-24 13:45] VITALS: BP 133/69; PULSE 79; RESP 20; TEMP 36.1; O2SAT 99
[2024-06-24 13:55] VITALS: BMI 14.0
[2024-06-24 16:01] VITALS: BMI 33.4
[2024-06-24 22:06] LABS: HCV RNA, PCR (Source Pt) 906000 IU/mL
[2024-06-26 06:58] LABS: HCV RNA, PCR Log IU (Src Pt) 5.96 Log IU/mL
[2024-06-26 10:36] LABS: HCV Genotype, LiPA(R)* 1a
== END 2024-06-24 13:55 | disposition skilled nursing facility (03) | DRG 281 ==
LOC: SERX 10:33 → SERHOLD 15:13 → S2NX 22:56 → S3SX 06-21 17:44 → S2NX 06-22 07:32
PROVIDERS: Internal Medicine Cardiovascular Disease; Internal Medicine Infectious Disease; Admitting Provider Student in an Organized Health Care Education/Training Program; Emergency Provider Emergency Medicine; PCP Family Medicine; Visit Provider Student in an Organized Health Care Education/Training Program
PROC: 4A023N8 Measurement of Cardiac Sampling and Pressure, Bilateral, Percutaneous Approach (ICD-10-PCS; 2024-06-22 11:30)
DX: I47.10 Supraventricular tachycardia, unspecified (principal); I42.8 Other cardiomyopathies; I21.A1 Myocardial infarction type 2; N17.9 Acute kidney failure, unspecified; I50.40 Unspecified combined systolic (congestive) and diastolic (congestive) heart failure; E03.9 Hypothyroidism, unspecified; F41.9 Anxiety disorder, unspecified; F32.A Depression, unspecified; I95.9 Hypotension, unspecified; I11.0 Hypertensive heart disease with heart failure; I25.10 Atherosclerotic heart disease of native coronary artery without angina pectoris; K76.0 Fatty (change of) liver, not elsewhere classified; F15.10 Other stimulant abuse, uncomplicated; F12.10 Cannabis abuse, uncomplicated; E83.39 Other disorders of phosphorus metabolism; B18.2 Chronic viral hepatitis C; Z66 Do not resuscitate; Z60.2 Problems related to living alone; E87.6 Hypokalemia; Z98.84 Bariatric surgery status; Z87.891 Personal history of nicotine dependence; Z79.899 Other long term (current) drug therapy; Z79.890 Hormone replacement therapy; Z79.82 Long term (current) use of aspirin; Z87.01 Personal history of pneumonia (recurrent)
CPT/HCPCS: 36415; 71045; 71275; 74174; 76705; 80053; 80061; 80074; 80307; 80329; 81001; 82248; 82595; 82728; 82810; 83036; 83540; 83550; 83735; 83880; 83970; 84100; 84439; 84443; 84484; 85025; 85379; 85610; 85730; 86703; 87400; 87811; 87902; 93005; 93225; 93306; 96372; 97162; 99152; 99153; 99291; A4649; C1769; C1887; C1894; J0153; J0171; J0461; J1200; J1643; J1720; J2250; J2310; J2371; J3010; J3475; J3480; J3490; J7030; J7040; J7999; Q9967; A9270; G0480; J2305

== ENCOUNTER → 2024-08-17 | Outpatient (CLI) | payer MEDICARE, SELFPAY ==
[2024-08-17 11:56] LABS: Anion Gap 7 (7-16); BUN/Creatinine Ratio 29 Ratio (12-20); Blood Urea Nitrogen 32 mg/dL (9-23); Calcium 9.7 mg/dL (8.3-10.6); Carbon Dioxide 28.6 mMol/L (20.0-31.0); Chloride 103 mMol/L (98-107); Creatinine (Component) 1.1 mg/dL (0.6-1.3); Glucose 90 mg/dL (74-106); Magnesium 2.2 mg/dL (1.6-2.6); Osmolality,Calculated 284 (275-295); Potassium 4.5 mMol/L (3.4-5.1); Sodium 139 mMol/L (136-145); eGFR 52 See Note
== END | disposition home or self-care (01) ==
LOC: COPL 10:24
PROVIDERS: PCP Family Medicine; Referring Provider Internal Medicine Cardiovascular Disease; Visit Provider Internal Medicine Cardiovascular Disease
DX: I50.22 Chronic systolic (congestive) heart failure (principal); I25.10 Atherosclerotic heart disease of native coronary artery without angina pectoris
CPT/HCPCS: 36415; 80048; 83735

== ENCOUNTER → 2024-10-23 | Outpatient (CLI) | payer MEDICARE, SELFPAY ==
[2024-10-23 08:40] LABS: Basophils # (Auto) 0.1 Thou/mm3 (0.0-0.2); Basophils % (Auto) 1 % (0-2.5); Eosinophils # (Auto) 0.1 Thou/mm3 (0.0-0.5); Eosinophils % (Auto) 1 % (0-10); Hemoglobin 14.6 g/dL (12.0-16.0); Immature Granulocytes % (Auto) 1 % (0-0); Immature Granulocytes Auto 0.05 Thou/mm3 (0.00-0.00); Lymphocytes # (Auto) 3.1 Thou/mm3 (1.0-4.8); Lymphocytes % (Auto) 28 % (10-50); Mean Corpuscular Hemoglobin 27.2 pg (25.0-35.0); Mean Corpuscular Volume 80 fL (80-100); Monocytes % (Auto) 9 % (0-12); Neutrophils # (Auto) 6.7 Thou/mm3 (1.8-7.7); Neutrophils % (Auto) 60 % (37-80); Nucleated Red Blood Cell % 0 /100 WBC (0); Platelet Count 250 Thou/mm3 (140-440); RDW Standard Deviation 45.2 fL (36.4-46.3); Red Blood Count 5.36 Miln/mm3 (4.00-5.20); White Blood Count 11.1 Thou/mm3 (3.6-11.0)
[2024-10-23 09:04] LABS: Alanine Aminotransferase 45 U/L (10-49); Albumin, Serum 4.5 gm/dL (3.4-4.8); Albumin/Globulin Ratio 1.5 (1.2-2.2); Alkaline Phosphatase 98 U/L (46-116); Anion Gap 10 (7-16); Aspartate Amino Transferase 56 U/L (0-34); BUN/Creatinine Ratio 26 Ratio (12-20); Bilirubin,Total 0.7 mg/dL (0.3-1.2); Blood Urea Nitrogen 29 mg/dL (9-23); Calcium 9.9 mg/dL (8.3-10.6); Calcium (Corrected) 9.9 mg/dL (8.5-10.1); Chloride 99 mMol/L (98-107); Creatinine (Component) 1.1 mg/dL (0.6-1.3); Glucose 137 mg/dL (74-106); Osmolality,Calculated 281 (275-295); Potassium 3.9 mMol/L (3.4-5.1); Sodium 137 mMol/L (136-145); Total Protein 7.5 gm/dL (5.7-8.2); eGFR 52 See Note
[2024-10-23 09:13] LABS: T4 (Thyroxine) 8.6 mcg/dL (4.5-10.9)
[2024-10-23 09:23] LABS: Thyroid Stimulating Hormone 3.02 uIU/mL (0.55-4.78)
[2024-10-28 03:04] LABS: HCV RNA, PCR 5370000 IU/mL
[2024-10-30 07:32] LABS: HCV Genotype, LiPA(R)* 1a; HCV RNA, PCR Log IU 6.73 Log IU/mL
== END | disposition home or self-care (01) ==
LOC: COPL 07:20
PROVIDERS: PCP Family Medicine; Referring Provider Specialist; Visit Provider Family Medicine
DX: B18.2 Chronic viral hepatitis C (principal); I21.4 Non-ST elevation (NSTEMI) myocardial infarction; I47.10 Supraventricular tachycardia, unspecified; R22.43 Localized swelling, mass and lump, lower limb, bilateral; R79.9 Abnormal finding of blood chemistry, unspecified
CPT/HCPCS: 36415; 80053; 82105; 84436; 84443; 85025; 87522; 87902

== ENCOUNTER → 2024-11-03 | Outpatient (CLI) | payer MEDICARE, SELFPAY ==
--- NOTE | 2024-11-03 07:15 | XR_ITS ---
Examination: Abdomen sonogram, Limited Date and time of exam: November 03, 2024 0709 hours INDICATIONS: Diagnosis of hepatitis C June 2024, patient states right upper abdominal pain and tenderness today Technique: Real-time pride scale transabdominal sonographic images of the upper abdomen obtained. Findings: Multiple gallstones Gallbladder wall 0.48 cm Common bile duct 0.4 cm Pancreatic head 2.2 cm There are 13.9 cm fatty infiltration Normal hepatopedal portal venous flow Patent IVC IMPRESSION: Cholelithiasis, recommend HIDA scan or MRCP follow-up to confirm cholecystitis
== END | disposition home or self-care (01) ==
LOC: CDIM 06:40
PROVIDERS: PCP Family Medicine; Referring Provider Specialist; Visit Provider Specialist
DX: K80.20 Calculus of gallbladder without cholecystitis without obstruction (principal)
CPT/HCPCS: 76705

== ENCOUNTER → 2024-11-10 | Outpatient (CLI) | payer MEDICARE, SELFPAY ==
[2024-11-10 10:40] LABS: Anion Gap 11 (7-16); BUN/Creatinine Ratio 19 Ratio (12-20); Blood Urea Nitrogen 21 mg/dL (9-23); Carbon Dioxide 30.3 mMol/L (20.0-31.0); Chloride 103 mMol/L (98-107); Creatinine (Component) 1.1 mg/dL (0.6-1.3); Glucose 104 mg/dL (74-106); Magnesium 1.8 mg/dL (1.6-2.6); Osmolality,Calculated 289 (275-295); Potassium 3.6 mMol/L (3.4-5.1); Sodium 144 mMol/L (136-145); eGFR 52 See Note
== END | disposition home or self-care (01) ==
LOC: COPL 09:11
PROVIDERS: PCP Family Medicine; Referring Provider Internal Medicine Cardiovascular Disease; Visit Provider Internal Medicine Cardiovascular Disease
DX: I50.22 Chronic systolic (congestive) heart failure (principal)
CPT/HCPCS: 36415; 80048; 83735

== ENCOUNTER → 2025-03-20 | Outpatient (CLI) | payer MEDICARE, SELFPAY | END | disposition home or self-care (01) | LOC: SLDO 14:30 | PROVIDERS: PCP Nurse Practitioner Family; Referring Provider Nurse Practitioner Family; Visit Provider Nurse Practitioner Family | DX: N30.00 Acute cystitis without hematuria (principal) | CPT/HCPCS: 87077; 87086; 87186 ==

== ENCOUNTER 2025-04-05 18:28 | Inpatient (IN) | payer MEDICARE, SELFPAY ==
[2025-04-05 18:38] VITALS: BP 116/92; PULSE 102; RESP 18; TEMP 36.4; O2SAT 97
--- NOTE | 2025-04-05 18:43 | PD.EDRECHK ---
ED Recheck Abnl Lab Rx-RME/HPI General Chief Complaint: General Adult/Misc Complain Stated Complaint: ABNORMAL LABS Time Seen by Provider: 04/05/25 18:43 Arrival date/time: 04/05/25 18:28 RME / HPI RME / HPI narrative: Dr. Pickard's Main ED Evaluation: 75yo female with a history of heart failure, NSTEMI, hypothyroidism BIBA from home presents to the ED due to having abnormal labs. Patient states she has been generally weak and not eating well for the last few days, reporting she's been feeling nauseated. Patient saw her PCP today and received a call tonight that her Potassium was low at 2.7, so she came in for evaluation. Denies any vomiting, cough, fever, chills, or any other associated symptoms. Warp Coiler is Dr. Palomares. NKA. Related Data Allergies Allergy/AdvReac Type Severity Reaction Status Date / Time No Known Allergies Allergy Verified 04/05/25 19:19 Review of Systems Review of Systems Systems Reviewed: All systems reviewed, normal except as documented ED Exam Narrative Physical exam: Generally patient is alert and in no obvious distress, heart regular rate and rhythm, lungs clear to auscultation equal bilaterally, abdomen soft bowel sounds present nondistended nontender, neurologic exam showed no focal motor deficits patient is symmetrically weak bilateral lower extremities and there is minimal bilateral lower extremity pitting pedal edema. Course Quality Measures none Orders Category Date Time Status EKG (ED ONLY) *Do not use* NOW Care 04/05/25 18:44 Active EKG (ED Only) Stat Exams 04/05/25 18:44 Draft CBC Stat Lab 04/05/25 20:00 Completed CMP [Comprehensive Metabolic Panel] Stat Lab 04/05/25 20:00 Completed Magnesium Stat Lab 04/05/25 20:00 Completed UA [Urinalysis] Stat Lab 04/05/25 18:44 Ordered POTASSIUM CHL 10 mEq IVPB [Kcl Ivpb] Med 04/05/25 21:05 Ordered 10 meq in 100 ml IV Q1H Potassium Chloride [K-Dur] Med 04/05/25 21:04 Once 60 meq PO X1 ONE Vital Signs Vital signs: Vital Signs Temperature 97.5 F 04/05/25 18:38 Pulse Rate 102 H 04/05/25 18:38 Respiratory Rate 18 04/05/25 18:38 Blood Pressure 116/92 H 04/05/25 18:38 Pulse Oximetry (%) 97 04/05/25 18:38 Oxygen Delivery Method Room Air 04/05/25 18:38 Recheck / Abnormal Lab / Rx MDM Narrative MDM Narrative:: Scribe Attestation - 04/05/25: IMine, am scribing for and in the presence of Dr. Pickard. Potassium came back at 2.4. Magnesium was normal at 1.8. Patient will receive potassium chloride 60 mill equivalents p.o. and 40 mill equivalents of potassium chloride given 10 mill equivalents at a time over an hour through the IV. Case was discussed with the hospitalist and the patient will be admitted to the hospital for further treatment and evaluation. Patient data External records reviewed:: [facility] previous records (Per chart review, patient was admitted here on 06/20/24 for CHF.) and EMS form Clinical information provided by:: patient and EMS Social determinants that could affect healthcare access:: none Patient has the following chronic illnesses:: heart failure, NSTEMI, hypothyroidism How is presenting disease/condition affected by chronic disease/condition?: exacerbated by Evaluation data The following diagnostics were reviewed and interpreted by me:: lab results and EKG tracing(s) Lab and/or radiology exams considered but not ordered:: none Interpretation Summary: See [facility] Medications / Prescriptions Medications or Prescriptions considered but not ordered:: none Medication administrations:: Medication Administration History Potassium Chloride (Kcl Ivpb) 10 meq in 100 mls @ 100 mls/hr IV Q1H ANTHONY Stop: 04/06/25 01:04 Potassium Chloride (Potassium Chloride 20 Meq Tabcr) 60 meq PO X1 ONE Stop: 04/05/25 21:05 see above Consultations Consultation(s) initiated? (list below): Yes Diagnosis Recheck Differential Diagnosis: other (See MDM) Most likely diagnosis given after review of the tests above:: see clinical impression below Admission Indicated Admission indicated?: indicated Admission Request Was there a request for admission?: Yes Admission Attestation Admission request attestation: Discussed case with [] from Hospitalist service regarding admission. Discussed patients ED course, exam findings, labs, and radiology results. The Hospitalist [agrees,declines] to accept the patient for admission. Disposition Plan Disposition Plan: Admit Discharge Plan Plan Patient Disposition: Admit Acute Care w/in Hospital Prescriptions/Referrals Referrals: Anika Olmstead MD [Primary Care Provider, Family Practice] - In 1 week Problem List Clinical Impression: Hypokalemia Patient/Caregiver Discharge Instructions Print Language: Armenian Stand Alone Forms: Jocelyn Award Info., Patient Portal Info Letter
--- NOTE | 2025-04-05 18:44 | EKG_ITS ---
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: : 1950 Requested By: Cedric Stokes Order Number: [id number] Reading MD: Cedric Stokes Measurements Intervals [place] Rate: 77 P: 5 TN: 148 QRS: -25 QRSD: 94 T: -17 QT: 428 QTc: 484 Interpretive Statements SINUS RHYTHM POSSIBLE LEFT ATRIAL ENLARGEMENT [-0.1mV P-WAVE IN V1/V2] BORDERLINE LEFT AXIS DEVIATION [QRS AXIS < -20] POSSIBLE LEFT VENTRICULAR HYPERTROPHY [VOLTAGE CRITERIA PLUS LAE OR QRS WIDENING] MINIMAL ST DEPRESSION [0.025+ mV ST DEPRESSION] Compared to ECG 06/22/2024 08:19:38 Supraventricular tachycardia no longer present ST (T wave) deviation still present /store/S0/[id number].pdf
[2025-04-05 19:16] VITALS: PULSE 102; RESP 19; O2SAT 95; BMI 28.8
[2025-04-05 19:51] VITALS: BP 90/57; PULSE 68; RESP 18; TEMP 36.6
[2025-04-05 20:11] LABS: Basophils # (Auto) 0.0 Thou/mm3 (0.0-0.2); Basophils % (Auto) 0 % (0-2.5); Eosinophils # (Auto) 0.0 Thou/mm3 (0.0-0.5); Eosinophils % (Auto) 0 % (0-10); Hematocrit 33.5 % (36.0-46.0); Hemoglobin 11.3 g/dL (12.0-16.0); Immature Granulocytes Auto 0.30 Thou/mm3 (0.00-0.00); Lymphocytes # (Auto) 1.4 Thou/mm3 (1.0-4.8); Lymphocytes % (Auto) 8 % (10-50); Mean Corpuscular HGB Conc 33.7 g/dl (31.0-37.0); Mean Corpuscular Hemoglobin 28.1 pg (25.0-35.0); Mean Corpuscular Volume 83 fL (80-100); Monocytes # (Auto) 2.1 Thou/mm3 (0.0-0.8); Monocytes % (Auto) 12 % (0-12); Neutrophils # (Auto) 13.1 Thou/mm3 (1.8-7.7); Neutrophils % (Auto) 78 % (37-80); Nucleated Red Blood Cell # 0.00 Thou/mm3 (0.00-0.00); Nucleated Red Blood Cell % 0 /100 WBC (0); Platelet Count 203 Thou/mm3 (140-440); RDW Standard Deviation 45.5 fL (36.4-46.3); Red Blood Count 4.02 Miln/mm3 (4.00-5.20); White Blood Count 16.9 Thou/mm3 (3.6-11.0)
[2025-04-05 20:50] LABS: Alanine Aminotransferase 16 U/L (10-49); Albumin, Serum 3.2 gm/dL (3.4-4.8); Albumin/Globulin Ratio 1.3 (1.2-2.2); Alkaline Phosphatase 85 U/L (46-116); Anion Gap 14 (7-16); Aspartate Amino Transferase 29 U/L (0-34); BUN/Creatinine Ratio 14 Ratio (12-20); Bilirubin,Total 1.1 mg/dL (0.3-1.2); Blood Urea Nitrogen 22 mg/dL (9-23); Calcium 8.2 mg/dL (8.3-10.6); Calcium (Corrected) 8.8 mg/dL (8.5-10.1); Carbon Dioxide 27.5 mMol/L (20.0-31.0); Chloride 91 mMol/L (98-107); Creatinine (Component) 1.6 mg/dL (0.6-1.3); Estimated Creatinine Clearance 29.9 mL/min (>60); Globulin 2.4 gm/dL (2.3-3.5); Glucose 118 mg/dL (74-106); Magnesium 1.8 mg/dL (1.6-2.6); Osmolality,Calculated 268 (275-295); Sodium 132 mMol/L (136-145); Total Protein 5.6 gm/dL (5.7-8.2); eGFR 33 See Note
[2025-04-05 20:55] LABS: Potassium 2.4 mMol/L (3.4-5.1)
--- NOTE | 2025-04-05 22:12 | PD.RESHP ---
Documentation for date of: 04/05/25 HPI History of Present Illness Chief complaint: Generalized weakness History of present illness: This is a 75 year old female with past Medical History of hypertension, SVT, depression and anxiety referred to the ED by her PCP in view of her Low potassium Levels . She has been feeling generalized weakness for last week and unable to do her normal activities which prompted her to visit her PCP where lab work shown she had hypokalemia. She denies any muscle cramps, palpitations. she complains she has been experiencing decreased appetite since 1 week and also complains she has been drinking a lot less water since last 3 days and decreased urine output. She denies any urinary frequency, urinary urgency, burning micturition, chest pain, chest tightness, diarrhea. She had 1 episode of vomiting earlier today but denies any hematemesis or melena. At baseline she lives independently and can ambulate without walker. 2 weeks back she had a flu where she had severe body aches and got treated by her PCP. She had UTI 1 week back and treated with ciprofloxacin Today ED visit initial vitals BP 116/92, LA 112, respirate 18, temperature 97.5 F saturating 97% on room air. Pertinent lab findings are hemoglobin 11.3, WBC 24.3...> 16.9 ,neutrophil 81%, sodium 132, chloride 91, potassium 2.7-->2.4, BUN 22, creatinine 1.6, glucose 118 estimated creatinine clearance 29.9, eGFR 33, calcium 8.2, total protein 5.6, albumin 3.2, TSH 10.61, T4 12.1. EKG showing QTc of 481 ms, mild ST depression Last echo on 07/08 shows ejection fraction of 40 to 45% Past medical history: Hypothyroidism, hypertension, supraventricular tachycardia and takes medication for the same. Past surgical history: Gastric bypass, umbilical hernia, acoustic neuroma. Family history: History of lung cancer and heart disease in her father Allergic history: NKDA Social history: Denies drinking or, smoking or any other drug usage Review of Systems Review of Systems Systems Reviewed: All systems reviewed, normal except as documented Exam Vital Signs Temp Pulse Resp BP Pulse Ox O2 Del Method FiO2 98 F 68 18 90/57 L 97 Room Air 98 04/05/25 19:51 04/05/25 19:51 04/05/25 19:51 04/05/25 19:51 04/05/25 18:38 04/05/25 19:51 04/05/25 19:51 Narrative Exam GENERAL: NAD, AAOx3 HEENT: Moist mucosa. Eyes open, symmetrical, & clear CARDIO:Regular rhythm Noted. No Murmurs. PULM: No noted coughing/dyspnea CTA B/L, no R/W/R GI: Abdomen soft, nondistended, No Tenderness SKIN/MSK/EXT: No wounds/rashes/amputations, no pain on palpation.No Edema .Pedal pulses present B/L NEURO: AAOx3, no focal neuro deficits, able to move all 4 extremities Results: Labs 04/06/25 03:22 04/06/25 16:26 Labs: Short CBC 04/05/25 Range/Units 20:00 WBC 16.9 H D (3.6-11.0) Thou/mm3 Hgb 11.3 L (12.0-16.0) g/dL Hct 33.5 L (36.0-46.0) % Plt Count 203 D (140-440) Thou/mm3 BMP 04/05/25 20:00 Sodium 132 L Potassium 2.4 L* Chloride 91 L Carbon Dioxide 27.5 BUN 22 Creatinine 1.6 H Glucose 118 H Calcium 8.2 L Liver Function 04/05/25 Range/Units 20:00 Total Bilirubin 1.1 (0.3-1.2) mg/dL AST 29 (0-34) U/L ALT 16 (10-49) U/L Alkaline Phosphatase 85 (46-116) U/L Albumin 3.2 L (3.4-4.8) gm/dL Quality Measures Quality Measures none Advance care planning discussed with:: patient Medications Home Medications and Allergies Home Medications ?Medication ?Instructions ?Recorded ?Confirmed ?Type aspirin 81 mg tablet,delayed 81 mg PO QDAY 04/06/25 04/06/25 History release atorvastatin 80 mg tablet 80 mg PO QDAY 04/06/25 04/06/25 History bumetanide 1 mg tablet 2 mg PO QDAY 04/06/25 04/06/25 History hydroxyzine HCl 10 mg tablet 10 mg PO BID 04/06/25 04/06/25 History levothyroxine 25 mcg tablet 25 mcg PO QDAY 04/06/25 04/06/25 History losartan 25 mg tablet 12.5 mg PO QDAY 04/06/25 04/06/25 History metoprolol succinate 50 mg 100 mg PO QDAY 04/06/25 04/06/25 History tablet,extended release 24 hr omeprazole 20 mg capsule,delayed 20 mg PO QDAY 04/06/25 04/06/25 History release sofosbuvir 400 mg-velpatasvir 100 1 tab PO QDAY 04/06/25 04/06/25 History mg tablet trazodone 50 mg tablet 50 mg PO BID 04/06/25 04/06/25 History Allergies Allergy/AdvReac Type Severity Reaction Status Date / Time No Known Allergies Allergy Verified 04/05/25 19:19 Visit Medications Acetaminophen (Acetaminophen 325 Mg Tablet) 650 mg PO Q6H PRN PRN Reason: Fever >101.5 Stop: 05/05/25 21:42 Aspirin (Aspirin Ec 81 Mg Tabec) 81 mg PO QDAY [facility] Stop: 05/06/25 08:59 Hydroxyzine HCl (Hydroxyzine Hcl 10 Mg Tablet) 10 mg PO BID ANTHONY Stop: 05/06/25 08:59 Potassium Chloride (Kcl Ivpb) 10 meq in 100 mls @ 100 mls/hr IV Q1H ANTHONY Stop: 04/06/25 01:04 Magnesium Sulfate (Magnesium Sulfate Ivpb) 2 gm in 50 mls @ 25 mls/hr IV X1 ONE Stop: 04/05/25 23:56 Lactated Ringer's (Lactated Ringers) 500 mls @ 85 mls/hr IV .Q5H53M ONE Stop: 04/06/25 03:38 Levothyroxine Sodium (Levothyroxine Sodium 25 Mcg Tablet) 25 mcg PO QDAY ANTHONY Stop: 05/06/25 08:59 Magnesium Oxide (Magnesium Oxide 400 Mg Tablet) 1,500 mg PO QDAY ANTHONY Stop: 05/06/25 08:59 Ondansetron HCl (Ondansetron Inj 2 Mg/Ml Inj 2 Ml) 4 mg IVP Q6H PRN; Protocol PRN Reason: NAUSEA OR VOMITING Stop: 05/05/25 21:42 Pantoprazole Sodium (Pantoprazole 20 Mg Tablet) 20 mg PO QDAY ANTHONY Stop: 05/06/25 08:59 Sennosides (Senna Tablet) 1 tab PO QDAY PRN; Protocol PRN Reason: constipation Stop: 05/05/25 21:42 Discontinued Medications Potassium Chloride (Potassium Chloride 20 Meq Tabcr) 60 meq PO X1 ONE Stop: 04/05/25 21:05 Assessment & Plan Plan This is a 75 year old female with past Medical History of hypertension, SVT, depression and anxiety referred to the ED by her PCP in view of her Low potassium Levels. She was admitted for her Low Potassium Levels. # Hypokalemia Generalized weakness since 1 week but denies any muscle cramps or palpitations Lab potassium value of 2.7-->2.4 EKG showing QTc interval of 481 ms, mild ST depression Got 100 mEq of oral potassium in ED Got 2 g of magnesium in ED ?Ordered magnesium levels to see if they are in normal range -Continue to monitor potassium levels. # Urinary Tract Infection # Acute cystitis Urine turbid, urine WBC 162, urine bacteria 1+ .Denies any symptoms of urinary tract infection Ordered urine culture History of UTI infection and colonized with ESBL. ?Starting her on meropenem 1 g twice daily # Acute kidney injury Decreased urine output, BUN 22, creatinine 1.6. Could not able to get urine sample for UA. Ordered bladder scan to see if there is any possible retention. ?Possible sample from urinary catheterization for UA if she retains urine ?Given 500 cc of LR bolus because of her soft BP and MAP of 58 when I visited her. # Hypertension She has a history of hypertension and takes home medication for it but currently her blood pressure is running low. So holding holding her home medications metoprolol 100 mg daily, bumetanide half mg daily, losartan 12.25 mg daily, metoprolol 12.5 mg daily in view of her soft blood pressure. # Hypothyroidism TSH 10.61, T4 12.1. Denies any symptoms of palpitations, chest pain, increased sweating. ?Continue to monitor in outpatient setting and possible dose increase of levothyroxine. ?Resuming her home medication levothyroxine 25 mg daily # Hyperlipidemia Starting on her home medication atorvastatin # Downtrending leukocytosis. WBC 24.3..> 16.9. Denies any fever, urinary frequency, or urgency and no suprapubic tenderness but had history of UTI infection treated with ciprofloxacin Urine analysis ordered but could not able to collect because she is not able to produce a urine. ?Ordered bladder scan and possible catheterisation if she retains urine. # Depression # Anxiety Continuing her home medication hydroxyzine 10 mg 2 tabs, trazodone 50 mg 2 tabs. ?Continue to monitor Code status: Full DVT prophylaxis: SCD Diet: Cardiac diet Yu: None Lines: PIV Supplemental O2: none Disposition:Med Tele I discussed this case with my senior Dr. Zee and my attending Dr. Escalante. Charissa Martinez MD PGY1 Attending Provider Attestation/Addendum After examination of the patient and review of the clinical data I feel that this patient needs admission to the hospital for further treatment/evaluation. Plan of care discussed with patient and is in agreement. I John Paul Escalante MD, attest that I was physically present for keane portions of evaluation, and examined patient, labs and imagings and plan of care were discussed with IM residents team, and I agree with the findings and plans documented above.
[2025-04-05 22:21] VITALS: BP 94/57; PULSE 76; RESP 19; TEMP 35.5; O2SAT 99
[2025-04-05 22:32] LABS: Magnesium 1.8 mg/dL (1.6-2.6)
[2025-04-05] MEDS: POTASSIUM CHL 10 mEq IVPB 10 MEQ/100 ML BAG 100 MEQ IV (23:08)
[2025-04-05] MEDS: RINGERS LACTATED 1000 ML 1,000 ML 999 ML IV (23:09)
[2025-04-05] MEDS: Magnesium Sulfate 2 GM Ivpb 2 GM/50 ML BAG IV (23:09)
[2025-04-05 23:15] LABS: Free T4 (Free Thyroxine) 1.33 ng/dL (0.89-1.76)
[2025-04-05 23:39] LABS: Collection Type, Urine Voided
[2025-04-05 23:49] LABS: Amorphous Crystals,Urine Present (Absent); Bacteria,Urine 1+; Bilirubin,Urine 1+ (Negative); Blood,Urine 1+ (Negative); Clarity,Urine Turbid (Clear/Hazy); Color,Urine Yellow (Lt Yel-Yel); Glucose, Urine Negative (Negative); Hyaline Casts,Urine 7 /hpf (0-1); Ketones,Urine Trace (Negative); Leukocyte Esterase,Urine Positive (Negative); Nitrite,Urine Negative (Negative); PH,Urine 5.5 (5.0-7.0); Protein,Urine 1+ (Neg - Trace); RBC,Urine 7 /hpf (0-3); Specific Gravity,Urine 1.015 (1.001-1.035); Squamous Epithelial Cell,Urine 1 /hpf (0-5); Urobilinogen,Urine 8.0 mg/dL (0.0-1.0); WBC,Urine 162 /hpf (0-5)
[2025-04-05 23:56] VITALS: BP 93/57; PULSE 71; RESP 18; TEMP 35.5; O2SAT 96
[2025-04-06] VITALS (17 sets, daily range): BP systolic 76–129; BP diastolic 54–112; PULSE 69–159; RESP 18–30; TEMP 35.7–36.9; O2SAT 89–100; BMI 29.7
[2025-04-06] MEDS: POTASSIUM CHL 10 mEq IVPB 10 MEQ/100 ML BAG 100 MEQ IV ×3 (00:37→02:54)
--- NOTE | 2025-04-06 02:03 | PC.NURSE ---
REPORT CALLED TO LESVIA VASQUEZ AT THIS TIME.
--- NOTE | 2025-04-06 03:03 | PC.NURSE ---
UPON ARRIVAL FROM ED NOTED PT WAS TACHYCARDIC NO COMPLAINS OF CP. TECHNICAL BUSINESS SYSTEMS ANALYST CALLED D/T PT SUSTAINING A HR IN THE 150S AT THIS TIME. CONCERN OF BLOODY STOOLS WELL MADE MD CHRISTIAN AWARE DURING RAPID.
[2025-04-06] MEDS: DEXTROSE 50%-WATER INJ 50 ML SYRINGE IVP (03:08)
--- NOTE | 2025-04-06 03:09 | EKG_ITS ---
[facility] Test Date: 2025-04-06 Pat Name: MILAN JEFFERS [facility] It Security Manager: ER : 1950 Requested By: Lobito Easley Order Number: [id number] Reading MD: Lobito Easley Measurements Intervals [place] Rate: 149 P: -73 VT: 115 QRS: -28 QRSD: 93 T: -26 QT: 324 QTc: 511 Interpretive Statements JUNCTIONAL TACHYCARDIA, POSSIBLE ATRIAL FLUTTER BORDERLINE LEFT AXIS DEVIATION NONSPECIFIC ST & T-WAVE ABNORMALITY ABNORMAL RHYTHM ECG Compared to ECG 04/05/2025 20:33:06 T-wave abnormality now present Sinus rhythm no longer present ST (T wave) deviation no longer present /store/S0/[id number]/[id number].pdf
--- NOTE | 2025-04-06 03:15 | PD.RESEVENT ---
Documentation for date of: 04/06/25 Event Note Event Note: Rapid was called at 03:02 for sustained tachycardia in the 150s. Patient went to the bathroom, HR 180s. When she laid back in bed she was sustaining in the 150s. Had recent episodes of hematochezia. BG 48. Vitals: 97.1 F, HR 156, BP 96/76, RR 20, 97% RA. Reported pain in right arm at site of IV and generalized weakness when she got up to go to the bathroom. Denies chest pain/pressure, palpitations. Pt has hx HFpEF. Ordered EKG, amp D50, CBC, type and screen, GI consult. BG 201 after amp D50. EKG showed sinus tachy HR 149, QTc 409. Plan discussed with Dr. Zee and Dr. Boris Menezes MD PGY1
--- NOTE | 2025-04-06 03:18 | PC.NURSE ---
CHRISTINA Diaz overidden D50 in pyxis for TESTER EQUIPMENT blood sugar of 48. CHRISTINA Diaz gave mediation to CHRISTINA Carter to administer. D50 administered during TESTER EQUIPMENT. Medication hand-off in worklist completed.
--- NOTE | 2025-04-06 03:31 | PC.NURSE ---
MD Cerda at bedside aware of pts current HR in the 140s.
[2025-04-06 03:34] LABS: Albumin, Serum 3.2 gm/dL (3.4-4.8); Anion Gap 13 (7-16); BUN/Creatinine Ratio 13 Ratio (12-20); Blood Urea Nitrogen 18 mg/dL (9-23); Calcium 8.5 mg/dL (8.3-10.6); Calcium (Corrected) 9.1 mg/dL (8.5-10.1); Carbon Dioxide 26.2 mMol/L (20.0-31.0); Chloride 93 mMol/L (98-107); Creatinine (Component) 1.4 mg/dL (0.6-1.3); Estimated Creatinine Clearance 34.2 mL/min (>60); Glucose 86 mg/dL (74-106); Osmolality,Calculated 265 (275-295); Phosphorous 3.1 mg/dL (2.4-5.1); Potassium 3.4 mMol/L (3.4-5.1); Sodium 132 mMol/L (136-145); eGFR 39 See Note
[2025-04-06 03:44] LABS: Hematocrit 33.4 % (36.0-46.0); Hemoglobin 11.2 g/dL (12.0-16.0)
[2025-04-06] MEDS: RINGERS LACTATED 500 ML 500 ML 999 ML IV ×2 (04:00→20:28)
[2025-04-06 04:03] LABS: Basophils # (Auto) 0.0 Thou/mm3 (0.0-0.2); Basophils % (Auto) 0 % (0-2.5); Eosinophils # (Auto) 0.1 Thou/mm3 (0.0-0.5); Eosinophils % (Auto) 1 % (0-10); Immature Granulocytes Auto 0.48 Thou/mm3 (0.00-0.00); Lymphocytes # (Auto) 1.0 Thou/mm3 (1.0-4.8); Lymphocytes % (Auto) 8 % (10-50); Mean Corpuscular HGB Conc 33.5 g/dl (31.0-37.0); Mean Corpuscular Hemoglobin 28.1 pg (25.0-35.0); Mean Corpuscular Volume 84 fL (80-100); Monocytes # (Auto) 1.2 Thou/mm3 (0.0-0.8); Monocytes % (Auto) 9 % (0-12); Neutrophils # (Auto) 10.6 Thou/mm3 (1.8-7.7); Neutrophils % (Auto) 79 % (37-80); Nucleated Red Blood Cell # 0.00 Thou/mm3 (0.00-0.00); Nucleated Red Blood Cell % 0 /100 WBC (0); Platelet Count 193 Thou/mm3 (140-440); RDW Standard Deviation 45.5 fL (36.4-46.3); Red Blood Count 3.99 Miln/mm3 (4.00-5.20); White Blood Count 13.4 Thou/mm3 (3.6-11.0)
[2025-04-06 04:20] LABS: Alanine Aminotransferase 14 U/L (10-49); Albumin, Serum 3.1 gm/dL (3.4-4.8); Albumin/Globulin Ratio 1.5 (1.2-2.2); Alkaline Phosphatase 80 U/L (46-116); Anion Gap 13 (7-16); Aspartate Amino Transferase 29 U/L (0-34); BUN/Creatinine Ratio 14 Ratio (12-20); Bilirubin,Total 1.1 mg/dL (0.3-1.2); Blood Urea Nitrogen 19 mg/dL (9-23); Calcium 7.9 mg/dL (8.3-10.6); Calcium (Corrected) 8.6 mg/dL (8.5-10.1); Carbon Dioxide 22.8 mMol/L (20.0-31.0); Cardiac Risk Estimate 4.5 RATIO (3.7-5.6); Chloride 93 mMol/L (98-107); Cholesterol 95 mg/dL (132-200); Creatinine (Component) 1.4 mg/dL (0.6-1.3); Estimated Creatinine Clearance 34.7 mL/min (>60); Globulin 2.1 gm/dL (2.3-3.5); Glucose 190 mg/dL (74-106); HDL Cholesterol 21 mg/dL (40-60); LDL Cholesterol,Calculated 51 mg/dL (0-130); Magnesium 2.2 mg/dL (1.6-2.6); Osmolality,Calculated 266 (275-295); Phosphorous 2.5 mg/dL (2.4-5.1); Potassium 5.0 mMol/L (3.4-5.1); Sodium 129 mMol/L (136-145); Total Protein 5.2 gm/dL (5.7-8.2); Triglycerides 115 mg/dL (30-150); eGFR 39 See Note
--- NOTE | 2025-04-06 04:47 | PC.NURSE ---
Notified MD garnica about pts current HR in the 150s sustaining no new orders received.
[2025-04-06] MEDS: SODIUM CHLORIDE 0.9% 1000 ML 1,000 ML 999 ML IV ×2 (05:06→07:14)
[2025-04-06] MEDS: LEVOTHYROXINE SODIUM 25 MCG TABLET PO (05:07)
[2025-04-06] MEDS: MEROPENEM INJ 1,000 MG in SODIUM CHLORIDE 0.9% (Popper) 50 ML 100 MG IV ×2 (05:08→20:28)
[2025-04-06 07:42] LABS: Lactate (Lactic Acid) 1.4 mMol/L (0.4-2.0)
--- NOTE | 2025-04-06 07:42 | XR_ITS ---
Examination: CT abdomen and pelvis without contrast. Coronal 3-D reconstructions. Sagittal 2-D reconstructions. Date and time of exam: April 06, 2025, 0814 hours, comparison June 20, 2024 INDICATIONS: Generalized abdominal pain flank pain beginning 2 days ago, clinical diagnosis pyelonephritis CTDI: vol (mGy): 11 DLP: (mGycm): 620 Technique: Axial images of the abdomen have been obtained, 3 mm slice thickness Intravenous contrast material has not been administered. Low dose protocols were performed. One or more of the following dose reduction techniques were used; automated exposure control, adjustment of the mA and/or KV according to patient size, use of iterative reconstruction technique. Findings: Significant calcification left anterior descending and left circumflex coronary arteries Retrocardiac gastric hernia No focal liver or splenic lesions Gallstones Gallbladder wall does not appear thickened Atrophic pancreas Normal adrenal glands Moderate renal scar formation Perinephric stranding 1 mm left renal calculus, no hydronephrosis or ureteral calculi Bowel aortic calcification no aneurysmal dilatation Atrophic uterus 37 mm left adnexal cyst Severe osteopenia. Advanced degenerative disc disease L5-S1 Advanced hip osteoarthritis IMPRESSION: Cholelithiasis, negative for cholecystitis Perinephric stranding, consider urinary tract infection 1 mm nonobstructing left renal calculus 37 mm left adnexal cyst, recommend pelvic sonography follow-up
[2025-04-06] MEDS: MAGNESIUM OXIDE 400 MG TABLET 1500 MG PO (08:36)
[2025-04-06] MEDS: METOPROLOL SUCCINATE XL 25 MG TABCR 100 MG PO (08:37)
[2025-04-06] MEDS: ASPIRIN EC 81 MG TABEC PO (08:37)
[2025-04-06 09:30] LABS: Albumin, Serum 2.7 gm/dL (3.4-4.8); Anion Gap 11 (7-16); BUN/Creatinine Ratio 17 Ratio (12-20); Blood Urea Nitrogen 20 mg/dL (9-23); Calcium 7.4 mg/dL (8.3-10.6); Calcium (Corrected) 8.4 mg/dL (8.5-10.1); Carbon Dioxide 26.0 mMol/L (20.0-31.0); Chloride 97 mMol/L (98-107); Creatinine (Component) 1.2 mg/dL (0.6-1.3); Estimated Creatinine Clearance 40.5 mL/min (>60); Glucose 91 mg/dL (74-106); Osmolality,Calculated 270 (275-295); Phosphorous 2.3 mg/dL (2.4-5.1); Potassium 3.4 mMol/L (3.4-5.1); Sodium 134 mMol/L (136-145); eGFR 47 See Note
--- NOTE | 2025-04-06 13:07 | EKG_ITS ---
[facility] Test Date: 2025-04-06 Pat Name: MILAN JEFFERS [facility] Nozzle And Sleeve Worker: GISELA : 1950 Requested By: Autumn Olivarez Order Number: [id number] Reading MD: Autumn Olivarez Measurements Intervals [place] Rate: 142 P: -69 DC: 147 QRS: -31 QRSD: 98 T: 43 QT: 284 QTc: 438 Interpretive Statements ECTOPIC ATRIAL TACHYCARDIA, POSSIBLE ATRIAL FLUTTER MARKED LEFT AXIS DEVIATION PATTERN CONSISTENT WITH PULMONARY DISEASE MINIMAL ST DEPRESSION Compared to ECG 04/06/2025 03:15:58 ST (T wave) deviation now present T-wave abnormality no longer present /store/S0/[id number]/ecg/[id number].pdf
--- NOTE | 2025-04-06 13:31 | PD.RESCONSUL ---
HPI Data of Consult Requesting Physician: Wanda Castañeda DO Admitting Provider: John Paul Escalante MD Attending Provider: Wanda Castañeda DO Primary Care Provider: Anika Olmstead MD Consult Narrative History of present illness: Patient is a 75 year old female with PMH of acoustic neuroma status postsurgery with residual right facial droop and left eye ptosis, hypothyroidism, anxiety, depression, GERD, neuropathy, polysubstance abuse immediately with the methamphetamine, marijuana but also used LSD and cocaine in the past and apparently quit 20 years ago, history of chronic smoking with more than 22-[id number]-[id number] smoking history and quit 10 years ago, history of alcohol abuse when she was younger presented to the emergency department for generalized weakness. In ED was found to have potassium of 2.7, likely secondary to Bumex. Cardiology consulted as patient follows Dr. Palomares outpatient. Was given potassium 70 mEq total, improved to 5.0. EKG on admission showed sinus rhythm with HR [address] depressions in lead V2. Troponins were negative. Overnight, patient had rapid response for SVT, patient was asymptomatic and no medications. Had 3 more rapids throughout the day again SVT, was given metoprolol 5 mg x1 with some improvement however continued to convert back into SVT throughout the day. Patient was hypotensive with systolic in 90s, improved with 500 cc fluid bolus. Was given adenosine 6 mg x1 with successful conversion back to HR of 82. PMHx: As above Surgical Hx: Gastric bypass, acoustic neuroma surgery, umbical hernia repair Family: Family history significant for CAD, heart attacks but in later years of life Social Hx: Poly substance use when she was much younger including meth, cocacine, LSD, THC, says that she has not used meth in over 20 years. Says she has not drank in over 20 years. 50 pack year smoking hx. Says that she has a daughter that may have some problems with alcohol. She lives alone in [place], she worked in a [employer]. years ago Medications: Aspirin 81 mg daily, atorvastatin 80 mg daily, Bumex 1 mg daily, hydroxyzine 10 mg twice daily, levothyroxine 25 mcg daily, losartan 12.5 mg daily, metoprolol succinate 100 mg daily, omeprazole 20 mg daily, trazodone 50 mg twice daily Allergies: NKDA cc:: cc: Wanda Nevarez Maddy, DO Exam Vital Signs Temp Pulse Resp BP Pulse Ox O2 Del Method O2 Flow Rate 96.9 F 124 H 20 104/72 99 Nasal Cannula 3 04/06/25 11:49 04/06/25 11:49 04/06/25 11:49 04/06/25 11:49 04/06/25 11:49 04/06/25 11:49 04/06/25 11:49 FiO2 98 04/06/25 11:49 Narrative Exam Physical Exam General: Awake and in no acute distress. Conversational and non-toxic appearing. HEENT: Normocephalic, atraumatic, mucous membranes moist. Heart: Regular rate and rhythm, normal S1 and S2, no murmurs. Lungs: Clear to auscultation with no wheezing or crackles. Abdomen: Soft, nondistended, nontender, positive bowel sounds. No guarding or rebound tenderness. Neurologic: Alert and oriented x3, no gross neurological deficit, and patient able to move all 4 extremities. Extremities: No edema. Bluish fingertips. Skin: No rash or ecchymoses. Results Labs 04/07/25 05:00 04/07/25 05:00 Labs: Short CBC 04/05/25 04/06/25 Range/Units 20:00 03:22 WBC 16.9 H D 13.4 H (3.6-11.0) Thou/mm3 Hgb 11.3 L 11.2 L (12.0-16.0) g/dL Hct 33.5 L 33.4 L (36.0-46.0) % Plt Count 203 D 193 (140-440) Thou/mm3 BMP 04/05/25 04/06/25 04/06/25 20:00 02:40 03:23 Sodium 132 L 132 L 129 L Potassium 2.4 L* 3.4 D 5.0 D Chloride 91 L 93 L 93 L Carbon Dioxide 27.5 26.2 22.8 BUN 22 18 19 Creatinine 1.6 H 1.4 H 1.4 H Glucose 118 H 86 190 H D Calcium 8.2 L 8.5 7.9 L 04/06/25 07:30 Sodium 134 L Potassium 3.4 D Chloride 97 L Carbon Dioxide 26.0 BUN 20 Creatinine 1.2 Glucose 91 D Calcium 7.4 L Liver Function 04/05/25 04/06/25 04/06/25 Range/Units 20:00 02:40 03:23 Total Bilirubin 1.1 1.1 (0.3-1.2) mg/dL AST 29 29 (0-34) U/L ALT 16 14 (10-49) U/L Alkaline Phosphatase 85 80 (46-116) U/L Albumin 3.2 L 3.2 L 3.1 L (3.4-4.8) gm/dL 04/06/25 Range/Units 07:30 Total Bilirubin (0.3-1.2) mg/dL AST (0-34) U/L ALT (10-49) U/L Alkaline Phosphatase (46-116) U/L Albumin 2.7 L (3.4-4.8) gm/dL Urine 04/05/25 Range/Units 23:34 Urine Color Yellow (Lt Yel-Yel) Urine Clarity Turbid A (Clear/Hazy) Urine pH 5.5 (5.0-7.0) Ur Specific [place] 1.015 (1.001-1.035) Urine Protein 1+ A (Neg - Trace) Urine Glucose (UA) Negative (Negative) Quality Measures Quality Measures none Advance care planning discussed with:: patient Medications Home Medications and Allergies Home Medications ?Medication ?Instructions ?Recorded ?Confirmed ?Type aspirin 81 mg tablet,delayed 81 mg PO QDAY 04/06/25 04/06/25 History release atorvastatin 80 mg tablet 80 mg PO QDAY 04/06/25 04/06/25 History bumetanide 1 mg tablet 2 mg PO QDAY 04/06/25 04/06/25 History hydroxyzine HCl 10 mg tablet 10 mg PO BID 04/06/25 04/06/25 History levothyroxine 25 mcg tablet 25 mcg PO QDAY 04/06/25 04/06/25 History losartan 25 mg tablet 12.5 mg PO QDAY 04/06/25 04/06/25 History metoprolol succinate 50 mg 100 mg PO QDAY 04/06/25 04/06/25 History tablet,extended release 24 hr omeprazole 20 mg capsule,delayed 20 mg PO QDAY 04/06/25 04/06/25 History release sofosbuvir 400 mg-velpatasvir 100 1 tab PO QDAY 04/06/25 04/06/25 History mg tablet trazodone 50 mg tablet 50 mg PO BID 04/06/25 04/06/25 History Allergies Allergy/AdvReac Type Severity Reaction Status Date / Time No Known Allergies Allergy Verified 04/05/25 19:19 Visit Medications Acetaminophen (Acetaminophen 325 Mg Tablet) 650 mg PO Q6H PRN PRN Reason: Fever >101.5 Stop: 05/05/25 21:42 Aspirin (Aspirin Ec 81 Mg Tabec) 81 mg PO QDAY [facility] Stop: 05/06/25 08:59 Last Admin: 04/06/25 08:37 Dose: 81 mg Hydroxyzine HCl (Hydroxyzine Hcl 10 Mg Tablet) 10 mg PO BID ANTHONY Stop: 05/06/25 08:59 Last Admin: 04/06/25 09:15 Dose: 10 mg Meropenem 1,000 mg/ Sodium (Chloride) 50 mls @ 100 mls/hr IV Q12HR ANTHONY Stop: 04/13/25 04:54 Last Admin: 04/06/25 05:08 Dose: 100 mls/hr Levothyroxine Sodium (Levothyroxine Sodium 25 Mcg Tablet) 25 mcg PO ACBR ANTHONY Stop: 05/06/25 05:59 Last Admin: 04/06/25 05:07 Dose: 25 mcg Metoprolol Succinate (Metoprolol Succinate Xl 25 Mg Tabcr) 100 mg PO QDAY [facility] Stop: 05/06/25 08:59 Last Admin: 04/06/25 08:37 Dose: 100 mg Ondansetron HCl (Ondansetron Inj 2 Mg/Ml Inj 2 Ml) 4 mg IVP Q6H PRN; Protocol PRN Reason: NAUSEA OR VOMITING Stop: 05/05/25 21:42 Pantoprazole Sodium (Pantoprazole Inj 40 Mg Vial) 40 mg IVP QDAY [facility] Stop: 05/06/25 08:59 Last Admin: 04/06/25 08:36 Dose: 40 mg Sennosides (Senna Tablet) 1 tab PO QDAY PRN; Protocol PRN Reason: constipation Stop: 05/05/25 21:42 Discontinued Medications Sofosbuvir- Velpatasvir 400-100 Mg Tab 0 ea PO QDAY [facility]; Protocol Stop: 05/06/25 08:59 Last Admin: 04/06/25 08:42 Dose: Not Given Dextrose (Dextrose 50%-Water Inj 50 Ml Syringe) 50 ml IVP X1 ONE Stop: 04/06/25 03:06 Last Admin: 04/06/25 03:08 Dose: 50 ml Potassium Chloride (Kcl Ivpb) 10 meq in 100 mls @ 100 mls/hr IV Q1H ANTHONY Stop: 04/06/25 01:04 Last Admin: 04/06/25 02:54 Dose: 100 mls/hr Magnesium Sulfate (Magnesium Sulfate Ivpb) 2 gm in 50 mls @ 25 mls/hr IV X1 ONE Stop: 04/05/25 23:56 Last Infusion: 04/06/25 01:46 Dose: Infused Lactated Ringer's (Lactated Ringers) 500 mls @ 85 mls/hr IV .Q5H53M ONE Stop: 04/06/25 03:38 Last Admin: 04/05/25 23:43 Dose: Not Given Lactated Ringer's (Lactated Ringers) 1,000 mls @ 999 mls/hr IV .Q1H1M ONE Stop: 04/05/25 23:27 Last Admin: 04/05/25 23:09 Dose: 999 mls/hr Lactated Ringer's (Lactated Ringers) 500 mls @ 999 mls/hr IV .Q31M ONE Stop: 04/06/25 04:23 Last Admin: 04/06/25 04:00 Dose: 999 mls/hr Sodium Chloride (Ns) 1,000 mls @ 999 mls/hr IV .Q1H1M ONE Stop: 04/06/25 05:51 Last Admin: 04/06/25 05:06 Dose: 999 mls/hr Meropenem 1,000 mg/ Sodium (Chloride) 50 mls @ 100 mls/hr IV Q12HR ANTHONY Stop: 04/13/25 08:59 Sodium Chloride (Ns) 1,000 mls @ 999 mls/hr IV .Q1H1M ONE Stop: 04/06/25 07:50 Last Admin: 04/06/25 07:14 Dose: 999 mls/hr Magnesium Oxide (Magnesium Oxide 400 Mg Tablet) 1,500 mg PO QDAY ANTHONY Stop: 05/06/25 08:59 Last Admin: 04/06/25 08:36 Dose: 1,500 mg Metoprolol Succinate (Metoprolol Succinate Xl 25 Mg Tabcr) 50 mg PO QDAY ANTHONY Stop: 05/06/25 09:00 Metoprolol Succinate (Metoprolol Succinate Xl 25 Mg Tabcr) 50 mg PO QDAY [facility] Stop: 05/06/25 04:49 Last Admin: 04/06/25 06:30 Dose: Not Given Pantoprazole Sodium (Pantoprazole 20 Mg Tablet) 20 mg PO QDAY ANTHONY Stop: 05/06/25 08:59 Pantoprazole Sodium (Pantoprazole Inj 40 Mg Vial) 40 mg IVP BID ANTHONY Stop: 05/06/25 08:59 Patient Own Medication (Patient's Own Med 1 Ea Ea) 400 ea PO QDAY ANTHONY Stop: 05/06/25 08:59 Potassium Chloride (Potassium Chloride 20 Meq Tabcr) 60 meq PO X1 ONE Stop: 04/05/25 21:05 Last Admin: 04/05/25 23:43 Dose: Not Given Potassium Chloride (Potassium Chloride 20 Meq Tabcr) 40 meq PO X1 ONE Stop: 04/05/25 22:28 Last Admin: 04/05/25 23:16 Dose: 40 meq Assessment & Plan Plan Patient is a 75 year old female with PMH of acoustic neuroma status postsurgery with residual right facial droop and left eye ptosis, hypothyroidism, anxiety, depression, GERD, neuropathy, remote history of polysubstance abuse, history of chronic smoking with more than 98-[id number]-[id number] smoking history and quit 10 years ago, history of alcohol abuse when she was younger presented to the emergency department for generalized weakness, admitted for hypokalemia. Found to be in SVT. #SVT Likely secondary to hypokalemia and dehydration from overdiuresis with Bumex. Also patient had Patient has history of recurrent SVTs, previously admitted in June 2024 with similar presentation, at the time, was attributed to long history of phentermine use. Previously also had difficulty converting back to sinus rhythm with metoprolol and adenosine 6 mg, followed by adenosine 12 mg, finally converted after given diltiazem IV 10 mg x1. Was discharged on metoprolol XL 100 mg BID. Per chart review, patient was weaned down to metoprolol 100 mg daily. Had 3 rapid responses throughout the day for SVT. Patient spontaneously converted at first rapid, at second was given Adenosisne 6 mg x1 with conversion. At third rapid, patient was given 500 cc fluid bolus with improvement. Plan: - If patient converts back to SVT, check blood pressure. If low, give IV fluid bolus. If patient is normotensive, attempt Valsalva maneuver or carotid massage. If unsuccessful, give adenosine. Avoid amiodarone drip unless patient is still unable to convert after multiple attempts with conservative management with IV fluids and adenosine. - Continue metoprolol XL 100 mg daily in the morning, followed by metoprolol 25 mg in evening. - Keep K >4 and Mg >2 - Monitor telemetry and BP - Discussed option for ablation previously in clinic but patient was not amendable to procedure. Will continue pharmacological management at this time. #Hypokalemia Presented with generalized weakness. Potassium 2.7 on admission, improved to 5.0 after 70 mEq potassium chloride. Likely secondary to Bumex. Plan: - Hold Bumex for now, restart on Bumex 0.5 mg daily if patient starts to develop bilateral leg swelling. #HFpEF (EF 60-65%) Echo 06/2024 showed normal LV size. Mild systolic dysfunction with mild basal hypokinesis. Stage II diastolic dysfunction. Estimated EF 40-45% Normal RV size and function. Estimated RVSP 42 mmHg. RAP 15. Mild to moderate PAH. PA dilated. Trivial to mild mitral stenosis with a mean PG of 4-5 mm hg. Modertate to severe posterior MAC and Mild MAC anteriorly. Mild to moderate MR. Moderate AI. Mild TR, PI. IVC dilated. Mild LA dilatation. Repeat echo outpatient showed EF 60-65%. Plan: - Patient can tolerate IV fluid resuscitation -Strict ins and outs -Daily weights -Supplemental O2 as needed, wean as tolerated #UTI #FLORES, prerenal #Hypothyroidism #HLD #Depression #Anxiety #Hep C #37 mm L adnexal cyst Thank you for your consultation, please do not hesitate to reach out if you have any question or concern Patient plan of care was discussed with the attending physician, Dr. Jelani Jensen, PGY-1 Attending Provider Attestation/Addendum I have personally seen and examined the patient separately on the above date of service and discussed the plan of care with the resident. I reviewed the resident Dr. Leonor Jensen consultation progress note and agree with the resident findings and plan in the note above and have also edited the documentation to reflect my findings and plan. Patient well-known to me from my clinic since June 2024. She was diagnosed with SVT in June 2024 which was difficult to control. Patient was dehydrated at that point of time along with acute kidney injury as well as severe electrolyte abnormalities. Patient did have a history of drug abuse along with phentermine use. Patient did have a left heart cardiac catheterization after she had elevated troponins and it only showed mild CAD and also was noted to have mild systolic congestive heart failure with an EF of around 40% along with grade 2 diastolic function and mild to moderate PAH with an RVSP of 42 mmHg. Trivial mitral stenosis with moderate to severe posterior MAC and mild to moderate MR and mild AI. Patient had multiple episodes of SVT during that admission until the electrolytes were replaced. 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 She was discharged on metoprolol XL 100 mg twice daily. Patient did follow-up with me in the clinic and patient quit all substance abuse and we will stop the phentermine. Patient was started on goal-directed medical therapy for with metoprolol and Entresto which she later stopped because the Entresto was expensive and eventually changed to losartan. Her metoprolol XL was decreased to 1 25 mg once daily as her rate was controlled and she did not have any further episodes since then and no admissions in the last 10 months. Her ejection fraction improved and was back to normal LV function in December 2024. Patient was recommended to continue metoprolol XL and losartan. Patient did have significant heart failure symptoms and was started on Lasix and eventually on Bumex 1 mg once daily and was increased to 2 mg once daily with improvement in leg swelling. Patient was recently changed back to Bumex half a tablet of 2 mg once daily. Her losartan dose was also decreased to 12.5 mg once daily. She was on metoprolol XL 100 mg in the morning and 25 mg in the evening. Patient was doing fine even during the recent visit. Patient has not been doing well for the last week and was having generalized weakness along with fatigue and went to the primary care doctor and routine labs were performed today the potassium level came back as 2.6 and hence was called in. Patient also complained of decreased appetite over the last few days. Patient has been also not been drinking enough water with decreased urine output. Also complained of hematochezia recently. Patient also had recent flu along with UTI which was treated with Cipro as outpatient. In the ER her vital signs and heart rate was stable and she did not have any episodes of SVT. She was not having initial WBC of 24.3 with neutrophilic shift. Initial potassium was 2.7 and repeat was 2.4. BUN was 22 creatinine was 1.6 her baseline creatinine is around 1.2 and 1.1. Creatinine clearance of 30. eGFR 33. TSH was 10.61. Glucose 118. EKG showed normal sinus rhythm without any major acute ST-T changes. After admission this morning patient did have rapid response from SVT. Patient was hypotensive and was given 500 mL bolus and her SVT improved. Patient had repeat SVT episode and recommended adenosine 6 mg IV x 1 with which she converted into normal sinus rhythm. Patient hemoglobin is decreasing and GI team was already consulted for possible GI bleed. Also patient is being treated for the UTI as she presented with elevated white cell count and had a recent UTI with turbid urine which could both be contributing to the SVT for the patient. Potassium level was 3.4 after all the replacements and this evening. Recommended to replace 40 mill equivalents oral +20 mill equivalents oral for a total of 60 mEq. Magnesium level was greater than 2 and recommended to give another 2 g magnesium sulfate IV x 1. Recommended to give another to 50 mL bolus as patient was dehydrated and did receive couple of liters for fluid resuscitation/vomiting. BP still low. Recommended to give additional metoprolol XL 25 mg in the evening. She already received metoprolol XL 100 mg in the morning as per the chart review. If patient goes back into SVT recommend to give some fluids, give electrolytes and give adenosine for the treatment. Patient was recommended EP evaluation for further evaluation of the SVT and possible AVNRT but as she did not have any episodes since June patient did not want to go and that she was again asked about further evaluation with EP for possible EP study as well as ablation and patient did not want consider it at the present point of time. Will continue to follow-up with the patient as outpatient regarding the same. Recommend to aggressively treat the UTI and infection Patient's hemoglobin also is slowly decreasing could be dilution but she also complained of hematochezia. Recommended to complete anemia workup. GI already consulted by the primary team. Given the acute kidney injury hold off on the losartan completely along with the Bumex as patient appears to be dehydrated. Recommend echocardiogram to evaluate LV function RV function as well as diastolic function and to rule out any regional wall motion abnormalities. Continue telemetry and keep potassium greater than 4 and oxygen greater than 2.0 at all times. Management of rest of the medical conditions as per primary team and other consultants. Thank you for the consult and allowing me to participate in the care of the patient. Cardiology will continue to follow. Tay Palomares M.D. Interventional Cardiology
[2025-04-06] MEDS: METOPROLOL TARTRATE INJ 1 MG/ML AMP 5 ML 5 MG IVP (13:38)
--- NOTE | 2025-04-06 13:49 | EKG_ITS ---
[facility] Test Date: 2025-04-06 Pat Name: MILAN JEFFERS Department: [facility] Gender: Female Letterer: GISELA : 1950 Requested By: Katerina Jensen Order Number: [id number] Reading MD: Katerina Jensen Measurements Intervals [place] Rate: 156 P: PA: QRS: -38 QRSD: 88 T: 71 QT: 276 QTc: 445 Interpretive Statements SUPRAVENTRICULAR TACHYCARDIA MARKED LEFT AXIS DEVIATION NONSPECIFIC ST & T-WAVE ABNORMALITY Compared to ECG 04/06/2025 13:40:36 T-wave abnormality now present ST (T wave) deviation no longer present /store/S0/[id number]
[2025-04-06 14:32] LABS: Alanine Aminotransferase 16 U/L (10-49); Albumin, Serum 3.1 gm/dL (3.4-4.8); Albumin/Globulin Ratio 1.4 (1.2-2.2); Alkaline Phosphatase 80 U/L (46-116); Anion Gap 10 (7-16); Aspartate Amino Transferase 30 U/L (0-34); BUN/Creatinine Ratio 20 Ratio (12-20); Bilirubin,Total 0.6 mg/dL (0.3-1.2); Blood Urea Nitrogen 24 mg/dL (9-23); Calcium 7.9 mg/dL (8.3-10.6); Calcium (Corrected) 8.6 mg/dL (8.5-10.1); Carbon Dioxide 24.4 mMol/L (20.0-31.0); Chloride 98 mMol/L (98-107); Creatinine (Component) 1.2 mg/dL (0.6-1.3); Estimated Creatinine Clearance 40.5 mL/min (>60); Globulin 2.2 gm/dL (2.3-3.5); Glucose 124 mg/dL (74-106); Osmolality,Calculated 269 (275-295); Potassium 3.5 mMol/L (3.4-5.1); Sodium 132 mMol/L (136-145); Total Protein 5.3 gm/dL (5.7-8.2); eGFR 47 See Note
--- NOTE | 2025-04-06 15:08 | ESPR_ITS ---
<Statement entered by Randolph Johnson MD - 04/06/25 17:43> I have reviewed the note and agree with the resident's assessment & plan with exceptions as below. I have personally reviewed labs, imaging, home meds/prior records, examined the patient, formulated and discussed management plan with my attending Patient was seen and examined at bedside this morning. No acute overnight events. Patient admitted overnight secondary to hyperkalemia likely secondary to poor intake. Patient was also found to have a UTI and given past cultures with ESBL we will start patient on meropenem. Patient also has a history of SVT with HFrEF of 40 to 45%. Patient had a rapid response called due to tachycardia overnight and during today also got 2 more rapid response called due to tachycardia. Patient was going in and out of SVT and rates the 160s, but then went back to down to the 80s. Cardiology was made aware and stated to keep crash cart and possible to give adenosine patient goes back into SVT, but for now IV fluids. Randolph Johnson PGY2 Disclaimer: Even though this this note was dictated by speech recognition and even though it was carefully revised there may still be minor errors in classified advertising supervisor due to voice recognition software. Documentation for date of: 04/06/25 Subjective Subjective Interval history: Patient admitted overnight. Patient seen examined at bedside. Patient reports feeling well today, persistent burning on micturition however improved since 1 week ago. Weakness improved. Denies palpitations, chest pain, shortness of breath, nausea vomiting or fever/chills. Vitals and labs reviewed SBP 90s. Saturating 100% on 3 L. Heart rate currently 60s. WBC decreased from 24 now 13. Hemoglobin stable 11.2, sodium 134, potassium 3.4, chloride 97, creatinine 1.2, osmolality 270, calcium 8.4, phosphorus 2.3 repleted with neutraphos x1, albumin 2.7. Continue meropenem and follow-up urine culture. CTAP shows cholelithiasis, perinephric stranding, 1 mm nonobstructing left renal calculus, 37mm left adnexal cyst, severe calcification in LAD and LCx, retrocardiac gastric hernia. PT ordered. Continue to monitor potassium. Continue home metoprolol XL 100 mg daily, hold Bumex and losartan. Exam Vital Signs Temp Pulse Resp BP Pulse Ox O2 Del Method O2 Flow Rate 98.2 F 145 H 22 H 110/77 98 Nasal Cannula 3 04/06/25 14:02 04/06/25 14:02 04/06/25 14:02 04/06/25 14:02 04/06/25 14:02 04/06/25 11:49 04/06/25 11:49 FiO2 98 04/06/25 11:49 Narrative Exam GENERAL: AOx3, no acute distress HEENT: mucous membranes moist, bilateral sclera anicteric CARDIOVASCULAR: regular rate and rhythm, S1/S2 present, no murmurs appreciated PULMONARY: clear to auscultation bilaterally, no rales/rhonchi/wheezes ABDOMINAL: soft, non-tender, non-distended, no rebound/guarding, bowel sounds present EXTREMITIES: no peripheral edema, blueish digits SKIN: warm and dry, intact, no rashes NEURO: CN II-XII grossly intact, no focal deficits, alert, following commands Objective Labs 04/07/25 05:00 04/07/25 05:00 Labs: Laboratory Results - last 24 hr 04/05/25 04/05/25 04/05/25 20:00 22:05 23:34 WBC 16.9 H D RBC 4.02 Hgb 11.3 L Hct 33.5 L MCV 83 MCH 28.1 MCHC 33.7 RDW Std Deviation 45.5 Plt Count 203 D Neut % (Auto) 78 Lymph % (Auto) 8 L [place] % (Auto) 12 Eos % (Auto) 0 Baso % (Auto) 0 Neut # (Auto) 13.1 H Lymph # (Auto) 1.4 [place] # (Auto) 2.1 H Eos # (Auto) 0.0 Baso # (Auto) 0.0 Immature Gran # (Auto) 0.30 H Absolute Nucleated RBC 0.00 Immature Gran % 2 H Nucleated RBC % 0 Sodium 132 L Potassium 2.4 L* Chloride 91 L Carbon Dioxide 27.5 Anion Gap 14 BUN 22 Creatinine 1.6 H Estim Creat Clear Calc 29.9 L eGFR 33 L BUN/Creatinine Ratio 14 Glucose 118 H Calculated Osmolality 268 L Lactic Acid Calcium 8.2 L Corrected Calcium 8.8 Phosphorus Magnesium 1.8 1.8 Total Bilirubin 1.1 AST 29 ALT 16 Alkaline Phosphatase 85 Total Protein 5.6 L Albumin 3.2 L Globulin 2.4 Albumin/Globulin Ratio 1.3 Triglycerides Cholesterol LDL Cholesterol, Calc HDL Cholesterol Cholesterol/HDL Ratio Free T4 1.33 Ur Collection Type Voided Urine Color Yellow Urine Clarity Turbid A Urine pH 5.5 Ur Specific [place] 1.015 Urine Protein 1+ A Urine Glucose (UA) Negative Urine Ketones Trace Urine Blood 1+ A Urine Nitrite Negative Urine Bilirubin 1+ A Urine Urobilinogen (Auto) 8.0 Ur Leukocyte Esterase Positive Urine RBC 7 H Urine WBC 162 H Ur Squamous Epith Cells 1 Amorphous Crystals Present A Urine Bacteria 1+ A Hyaline Casts 7 H Blood Type Antibody Screen Blood Bank Wristband ID 04/06/25 04/06/25 04/06/25 02:40 03:22 03:23 WBC 13.4 H RBC 3.99 L Hgb 11.2 L Hct 33.4 L MCV 84 MCH 28.1 MCHC 33.5 RDW Std Deviation 45.5 Plt Count 193 Neut % (Auto) 79 Lymph % (Auto) 8 L [place] % (Auto) 9 Eos % (Auto) 1 Baso % (Auto) 0 Neut # (Auto) 10.6 H Lymph # (Auto) 1.0 [place] # (Auto) 1.2 H Eos # (Auto) 0.1 Baso # (Auto) 0.0 Immature Gran # (Auto) 0.48 H Absolute Nucleated RBC 0.00 Immature Gran % 4 H Nucleated RBC % 0 Sodium 132 L 129 L Potassium 3.4 D 5.0 D Chloride 93 L 93 L Carbon Dioxide 26.2 22.8 Anion Gap 13 13 BUN 18 19 Creatinine 1.4 H 1.4 H Estim Creat Clear Calc 34.2 L 34.7 L eGFR 39 L 39 L BUN/Creatinine Ratio 13 14 Glucose 86 190 H D Calculated Osmolality 265 L 266 L Lactic Acid Calcium 8.5 7.9 L Corrected Calcium 9.1 8.6 Phosphorus 3.1 2.5 Magnesium 2.2 Total Bilirubin 1.1 AST 29 ALT 14 Alkaline Phosphatase 80 Total Protein 5.2 L Albumin 3.2 L 3.1 L Globulin 2.1 L Albumin/Globulin Ratio 1.5 Triglycerides 115 Cholesterol 95 L LDL Cholesterol, Calc 51 HDL Cholesterol 21 L Cholesterol/HDL Ratio 4.5 Free T4 Ur Collection Type Urine Color Urine Clarity Urine pH Ur Specific [place] Urine Protein Urine Glucose (UA) Urine Ketones Urine Blood Urine Nitrite Urine Bilirubin Urine Urobilinogen (Auto) Ur Leukocyte Esterase Urine RBC Urine WBC Ur Squamous Epith Cells Amorphous Crystals Urine Bacteria Hyaline Casts Blood Type A Negative Antibody Screen NEGATIVE Blood Bank Wristband ID Yes 04/06/25 04/06/25 07:30 14:00 WBC RBC Hgb Hct MCV MCH MCHC RDW Std Deviation Plt Count Neut % (Auto) Lymph % (Auto) [place] % (Auto) Eos % (Auto) Baso % (Auto) Neut # (Auto) Lymph # (Auto) [place] # (Auto) Eos # (Auto) Baso # (Auto) Immature Gran # (Auto) Absolute Nucleated RBC Immature Gran % Nucleated RBC % Sodium 134 L 132 L Potassium 3.4 D 3.5 Chloride 97 L 98 Carbon Dioxide 26.0 24.4 Anion Gap 11 10 BUN 20 24 H Creatinine 1.2 1.2 Estim Creat Clear Calc 40.5 L 40.5 L eGFR 47 L 47 L BUN/Creatinine Ratio 17 20 Glucose 91 D 124 H Calculated Osmolality 270 L 269 L Lactic Acid 1.4 Calcium 7.4 L 7.9 L Corrected Calcium 8.4 L 8.6 Phosphorus 2.3 L Magnesium Total Bilirubin 0.6 D AST 30 ALT 16 Alkaline Phosphatase 80 Total Protein 5.3 L Albumin 2.7 L 3.1 L Globulin 2.2 L Albumin/Globulin Ratio 1.4 Triglycerides Cholesterol LDL Cholesterol, Calc HDL Cholesterol Cholesterol/HDL Ratio Free T4 Ur Collection Type Urine Color Urine Clarity Urine pH Ur Specific [place] Urine Protein Urine Glucose (UA) Urine Ketones Urine Blood Urine Nitrite Urine Bilirubin Urine Urobilinogen (Auto) Ur Leukocyte Esterase Urine RBC Urine WBC Ur Squamous Epith Cells Amorphous Crystals Urine Bacteria Hyaline Casts Blood Type Antibody Screen Blood Bank Wristband ID Quality Measures Quality Measures none Advance care planning discussed with:: patient Assessment & Plan Assessment Current Active Medications: Generic Name Dose Route Start Last Admin Trade Name Freq PRN Reason Stop Dose Admin Acetaminophen 650 mg 04/05/25 21:43 Acetaminophen 325 Mg Tablet PO 05/05/25 21:42 Q6H PRN Fever >101.5 Aspirin 81 mg 04/06/25 09:00 04/06/25 08:37 Aspirin Ec 81 Mg Tabec PO 05/06/25 08:59 81 mg QDAY ANTHONY Administration Hydroxyzine HCl 10 mg 04/06/25 09:00 04/06/25 09:15 Hydroxyzine Hcl 10 Mg Tablet PO 05/06/25 08:59 10 mg BID ANTHONY Administration Meropenem 1,000 mg/ Sodium 50 mls @ 100 mls/hr 04/06/25 04:55 04/06/25 05:08 Chloride IV 04/13/25 04:54 100 mls/hr Q12HR ANTHONY Administration Levothyroxine Sodium 25 mcg 04/06/25 06:00 04/06/25 05:07 Levothyroxine Sodium 25 Mcg Tablet PO 05/06/25 05:59 25 mcg ACBR ANTHONY Administration Metoprolol Succinate 100 mg 04/06/25 09:00 04/06/25 08:37 Metoprolol Succinate Xl 25 Mg Tabcr PO 05/06/25 08:59 100 mg QDAY ANTHONY Administration Ondansetron HCl 4 mg 04/05/25 21:43 Ondansetron Inj 2 Mg/Ml Inj 2 Ml IVP 05/05/25 21:42 Q6H PRN NAUSEA OR VOMITING Protocol Pantoprazole Sodium 40 mg 04/06/25 09:00 04/06/25 08:36 Pantoprazole Inj 40 Mg Vial IVP 05/06/25 08:59 40 mg QDAY ANTHONY Administration Sennosides 1 tab 04/05/25 21:43 Senna Tablet PO 05/05/25 21:42 QDAY PRN constipation Protocol Plan Callie Dietz 75F pmhx significant for Hep C untreated, HFrEF (40-45%, 06/2024), hx recurrent ESBL UTI, HTN, SVT, depression and anxiety presented to [facility] ED 04/05 for generalized weakness referred to the ED by her PCP iso hypokalemia, admitted for hypokalemia likely 2/2 poor PO intake. #Hypokalemia Presents with generalized weakness for 1 week, denies any muscle cramps or palpitations. On admission K 2.4 and EKG sinus rhythm rate 77, QTc interval of 481 ms. s/p potassium total 100 mEq and Mg 2 g repleted in ED. Likely 2/2 poor p.o. intake/dehydration with continued Bumex administration. Plan: - CTM CMP and replete as necessary - Encourage oral hydration - Hold Bumex - PT ordered #UTI Presented to PCPs office with burning on urination completed 1 week course of ciprofloxacin. Reports burning on micturition much improved however persistent. Has a history of multiple urinary tract infections including ESBL. UA turbid, 1+ protein, 1+ bilirubin, 163 WBC, +LE. CTAP shows cholelithiasis, perinephric stranding, 1 mm nonobstructing left renal calculus, 37mm L left adnexal cyst, severe calcification in LAD and LCx, retrocardiac gastric hernia. Plan: - Meropenem (04/06- - F/u UCx #SVT #HFrEF (40-45% 06/2024) #HTN On home metoprolol XL 100 mg QD, Bumex 1 mg QD, Losartan 12.5 mg QD. Does not seem to be in HFrEF exacerbation, no JVD, crackles, BLE edema. Rapid x2 called 04/06 0300 and 1330 for HR 140-150, asymptomatic. Plan: - F/u CXR - Home metoprolol XL 100 mg QD - Hold other home meds iso soft BP - Cardiology consulted, recs appreciated - Keep K>4 and Mg>2 at all times #FLORES, prerenal, resolved Reports poor PO intake. Admission Cr 1.6, BL 1.1. s/p 3.5L fluids Cr 1.2. Likely 2/2 dehydration vs UTI. Plan: - CTM Cr, caution with fluids as has hx of HFrEF #Hypothyroidism TSH 10.61, T4 12.1. Denies any symptoms of palpitations, chest pain, increased sweating. Plan: - Home levothyroxine 25 mcg D #Hyperlipidemia Plan: - Home atorvastatin 80 mg QD #Depression #Anxiety Continuing her home medication hydroxyzine 10 mg 2 tabs, trazodone 50 mg 2 tabs. Plan: - Resume home meds #Hep C Diagnosed 06/2024, has medications but has not been started due to needing Hep B panel done. Follows outpatient. Plan: - Continue to follow outpatient for further management #37mm L left adnexal cyst Incidental finding on CTAP Plan: - Notified patient and recommend further outpatient follow up Hospital management: Lines: PIV Diet: cardiac Bowel: Senna prn GI prophylaxis: not indicated DVT prophylaxis: SCDs Disposition: med tele, hypoK management and monitor CODE STATUS: DNR Plan of care discussed with attending Dr. Castañeda, and PGY-2 Dr. Kaur. Katerina Jensen DO PGY-1 Internal Medicine Attending Provider Attestation/Addendum Wanda Landaverde DO, attest that I was physically present for the keane portions of the service and evaluated the patient with the resident and I reviewed and discussed the case with the resident and agree with the resident's findings and plans of care as documented above Patient seen and evaluated this AM. Friend at bedside states that patient appeared short of breath on presentation yesterday. She has been recently treated with ciprofloxacin for UTI for the past week with mild improvements of her symptoms. However, patient states that she continued to have some dysuria and urgency. She also states that she has had poor oral intake and generalized weakness. Patient has had recurrent UTIs with MDRO, particularly ESBL E.coli. She states she takes Bumex at home, but appears euvolemic at this time. patient had received 2L of IV fluid since time of admission. Holding bumex at this time and monitor fluid status closely. Patient had a rapid response overnight due to tachycardia. Patient stated that she did not feel and chest pain, lightheadedness, palptiations or shortness of breath at the time of the rapid response. HR has been fluctuating between SVT and sinus rhythm since. A second rapid respone was called around 1:30pm during which patient was noted to have SVT with HR In 140s, BP 110/77. Lopressor 5mg IVP was given. Cardiology consulted in AM, will f/u with recommendations. Patient with previous hx of SVT, if it continues to recur, would likely need to f/u with electrophysiology. GI was also consulted due to concern for hematochezia.
--- NOTE | 2025-04-06 15:28 | XR_ITS ---
EXAMINATION: AP chest single view TECHNIQUE: AP portable upright chest single view Date and time: April 06, 2025, 1552 hours, comparison June 20, 2024 INDICATIONS: Hypoxia today. FINDINGS: Normal heart size Reduced inspiratory effort. No pneumonia or pulmonary edema. Prominent osteopenia IMPRESSION: Poor inspiratory effort chest x-ray No pneumonia or pulmonary edema
--- NOTE | 2025-04-06 15:43 | PD.RESEVENT ---
Documentation for date of: 04/06/25 Event Note Event Note: Rapid Response Room: 352 Time: 1329 Reason for Call: HR 140s Patient presentation: Asymptomatic. BP 110/77, HR 145, RR 22, afebrile, saturating 98% on 4L NC Assessment: Has hx of SVT and likely SVT vs atrial flutter on EKG. Likely 2/2 UTI vs dehdyration. On abx and home metoprolol 100 mg QD. New orders: EKG, metoprolol 5 mg IV, CMP Patient was discussed with the attending, Dr. Castañeda, and senior resident Dr. Olivarez, PGY-3. Katerina Jensen, DO Internal Medicine PGY-1 Senior resident attestation: Patient evaluated and examined at the bedside, plan of care discussed with rest of the team including my attending physician, except as noted. Rapid response was called around 1329 hrs. for purplish discoloration of patient's fingernails and toes. Patient was also found to be tachycardic, heart rate in the 140s, EKG showed supraventricular tachycardia versus a flutter on EKG. patient was asymptomatic at the moment, denied chest pain or palpitations. Noted slight purplish discoloration of patient's bilateral fingertips and toes, which was blanchable. Possibility of Raynaud's phenomenon, poor peripheral circulation, patient reported that she has had discoloration even at home for quite some time. Becomes more accentuated when she is cold. Apparently patient is not bothered by it, patient's temp and blood pressure is within normal range at this time. secured entrance monitor shows patient's heart rate in the 140s, EKG was done which shows supraventricular tachycardia, patient was given IV metoprolol 5 mg which terminated the arrhythmia. Rapid response present. Another rapid response was called around 1600 hrs. due to tachycardia, on assessment patient is alert and oriented x 3, blood pressure monitor reading 89/57, despite patient having good pulse, MAP over 65, EKG was done which showed supraventricular tachycardia, at this point golf club weigher Dr. Palomares was contacted who recommended IV adenosine push, pacing pads and Defibrillator at the bedside. The patient was transferred to telemetry for further management, but patient spontaneously reverted back to sinus rhythm. After about half an hour later patient had another run of tachycardia, narrow complex supraventricular tachycardia heart rate in the 150s, blood pressure 102/76, patient alert and oriented times daily, at this time decision was made to push adenosine, after vagal maneuvers were unsuccessful. Patient was given 6 mg IV adenosine push, which converted the patient to sinus rhythm, heart rate 91/min, patient tolerated the procedure well. Will continue to observe the patient, and she stayed in sinus rhythm. It Integration Architect Dr. Palomares was also present at the bedside during iv adenosine push. plan : ? Repeat CMP showed potassium 3.6, 40 mEq KCl repleted ? IV magnesium repleted ? Patient is already on 100 mg metoprolol succinate, cardiology recommended adding an additional dose of 25 mg x 1 and reevaluate tomorrow if need to increase metoprolol. ? Signed out to night team regarding IV adenosine push for the episode of tachycardia. Plan of care discussed with attending Dr. Maddy Olivarez PGY3 Juanis PGY3
[2025-04-06] MEDS: NAPH,KPH MBDB 1 PACKET (1.5 GM) PO (16:02)
--- NOTE | 2025-04-06 16:06 | EKG_ITS ---
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
[2025-04-06] MEDS: SODIUM CHLORIDE 0.9% 250 ML 250 ML 999 ML IV ×4 (16:15→18:23)
--- NOTE | 2025-04-06 16:24 | PC.SS ---
rounding note; complicated UTI. Rapid was called. Tachy. Cardio consulted
[2025-04-06 16:53] LABS: Lactate (Lactic Acid) 3.6 mMol/L (0.4-2.0)
--- NOTE | 2025-04-06 17:15 | PD.RESEVENT ---
Documentation for date of: 04/06/25 Event Note Event Note: Rapid Response Room: 352 Time: 1604 Reason for Call: HR 160s Patient presentation: Still asymptomatic. BP 90/71, HR 150-160s, RR 22, afebrile, saturating 100% RA Assessment: Has hx of SVT and EGK shows SVT rate 156 with left axis deviation QTc 445. Patient given 500cc bolus and upgraded to telemetry and following transfer, patient converted back into sinus rhythm rate 80s without medication. Adenosine prepared at bedside, however not given due to conversion. Spoke to cardiology, will continue to monitor and will notify night team. New orders: EKG, 500cc bolus NS, upgraded to tele Patient was discussed with the attending, Dr. Castañeda, and senior resident Dr. Olivarez, PGY-3. Katerina Jensen, DO Internal Medicine PGY-1 Senior resident attestation: Patient evaluated and examined at the bedside, plan of care discussed with rest of the team including my attending physician, except as noted. Rapid response was called around 1329 hrs. for purplish discoloration of patient's fingernails and toes. Patient was also found to be tachycardic, heart rate in the 140s, EKG showed supraventricular tachycardia versus a flutter on EKG. patient was asymptomatic at the moment, denied chest pain or palpitations. Noted slight purplish discoloration of patient's bilateral fingertips and toes, which was blanchable. Possibility of Raynaud's phenomenon, poor peripheral circulation, patient reported that she has had discoloration even at home for quite some time. Becomes more accentuated when she is cold. Apparently patient is not bothered by it, patient's temp and blood pressure is within normal range at this time. property assessment monitor shows patient's heart rate in the 140s, EKG was done which shows supraventricular tachycardia, patient was given IV metoprolol 5 mg which terminated the arrhythmia. Rapid response present. Another rapid response was called around 1600 hrs. due to tachycardia, on assessment patient is alert and oriented x 3, blood pressure monitor reading 89/57, despite patient having good pulse, MAP over 65, EKG was done which showed supraventricular tachycardia, at this point cash reconciliation specialist Dr. Palomares was contacted who recommended IV adenosine push, pacing pads and Defibrillator at the bedside. The patient was transferred to telemetry for further management, but patient spontaneously reverted back to sinus rhythm. After about half an hour later patient had another run of tachycardia, narrow complex supraventricular tachycardia heart rate in the 150s, blood pressure 102/76, patient alert and oriented times daily, at this time decision was made to push adenosine, after vagal maneuvers were unsuccessful. Patient was given 6 mg IV adenosine push, which converted the patient to sinus rhythm, heart rate 91/min, patient tolerated the procedure well. Will continue to observe the patient, and she stayed in sinus rhythm. Saddle Mechanic Dr. Palomares was also present at the bedside during iv adenosine push. plan : ? Repeat CMP showed potassium 3.6, 40 mEq KCl repleted ? IV magnesium repleted ? Patient is already on 100 mg metoprolol succinate, cardiology recommended adding an additional dose of 25 mg x 1 and reevaluate tomorrow if need to increase metoprolol. ? Signed out to night team regarding IV adenosine push for the episode of tachycardia. Plan of care discussed with attending Dr. Maddy Olivarez PGY3
[2025-04-06 17:20] LABS: Alanine Aminotransferase 14 U/L (10-49); Albumin, Serum 3.0 gm/dL (3.4-4.8); Albumin/Globulin Ratio 1.5 (1.2-2.2); Alkaline Phosphatase 78 U/L (46-116); Anion Gap 11 (7-16); Aspartate Amino Transferase 28 U/L (0-34); BUN/Creatinine Ratio 17 Ratio (12-20); Bilirubin,Total 0.6 mg/dL (0.3-1.2); Blood Urea Nitrogen 19 mg/dL (9-23); Calcium 7.9 mg/dL (8.3-10.6); Calcium (Corrected) 8.7 mg/dL (8.5-10.1); Carbon Dioxide 22.7 mMol/L (20.0-31.0); Chloride 98 mMol/L (98-107); Creatinine (Component) 1.1 mg/dL (0.6-1.3); Estimated Creatinine Clearance 44.1 mL/min (>60); Globulin 2.0 gm/dL (2.3-3.5); Glucose 95 mg/dL (74-106); Osmolality,Calculated 266 (275-295); Potassium 3.6 mMol/L (3.4-5.1); Sodium 132 mMol/L (136-145); Total Protein 5.0 gm/dL (5.7-8.2); eGFR 52 See Note
[2025-04-06] MEDS: ADENOSINE INJ 3 MG/ML VIAL 6 MG IVP (18:10)
[2025-04-06] MEDS: Magnesium Sulfate 2 GM Ivpb 2 GM/50 ML BAG IV (18:23)
[2025-04-06 19:52] LABS: Reflex Lactate? Y
--- NOTE | 2025-04-06 20:07 | EKG_ITS ---
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
--- NOTE | 2025-04-06 20:28 | PD.IMCONS ---
HPI Data of Consult Requesting Physician: Wanda Castañeda DO Primary Care Provider: Anika Olmstead MD Consult Narrative Reason for consult: weakness hypokalemia hematochezia History of present illness: 75-year-old female sent by the PCP to the emergency room for weakness was found to have a potassium of 2.7 which has been supplemented patient does have a history of gastric bypass umbilical hernia repair and also repair for the acoustic neuroma She also has been having multiple bouts of SVT here along with history of essential hypertension Had an episode of hematochezia with a baseline hemoglobin hematocrit of 11.2 and 33.4 cc:: cc: Wanda Castañeda DO Review of Systems Review of Systems Systems Reviewed: All systems reviewed, normal except as documented Past Medical History Surgical History OTHER SURGICAL HX: As in the history of present illness Meds Home Medications and Allergies Home Medications ?Medication ?Instructions ?Recorded ?Confirmed ?Type aspirin 81 mg tablet,delayed 81 mg PO QDAY 04/06/25 04/06/25 History release atorvastatin 80 mg tablet 80 mg PO QDAY 04/06/25 04/06/25 History bumetanide 1 mg tablet 2 mg PO QDAY 04/06/25 04/06/25 History hydroxyzine HCl 10 mg tablet 10 mg PO BID 04/06/25 04/06/25 History levothyroxine 25 mcg tablet 25 mcg PO QDAY 04/06/25 04/06/25 History losartan 25 mg tablet 12.5 mg PO QDAY 04/06/25 04/06/25 History metoprolol succinate 50 mg 100 mg PO QDAY 04/06/25 04/06/25 History tablet,extended release 24 hr omeprazole 20 mg capsule,delayed 20 mg PO QDAY 04/06/25 04/06/25 History release sofosbuvir 400 mg-velpatasvir 100 1 tab PO QDAY 04/06/25 04/06/25 History mg tablet trazodone 50 mg tablet 50 mg PO BID 04/06/25 04/06/25 History Allergies Allergy/AdvReac Type Severity Reaction Status Date / Time No Known Allergies Allergy Verified 04/05/25 19:19 Exam Vital Signs Temp Pulse Resp BP Pulse Ox O2 Del Method O2 Flow Rate 97.2 F 82 30 H 98/59 L 90 L Room Air 3 04/06/25 20:00 04/06/25 20:00 04/06/25 20:00 04/06/25 20:00 04/06/25 20:00 04/06/25 20:00 04/06/25 11:49 FiO2 98 04/06/25 11:49 Constitutional Comments: Chronically ill-appearing Routine Respiratory Exam Comments: Normal to auscultation Routine Abdominal Exam Comments: Soft nontender Results Labs 04/07/25 05:00 04/07/25 05:00 Labs: Short CBC 04/06/25 Range/Units 03:22 WBC 13.4 H (3.6-11.0) Thou/mm3 Hgb 11.2 L (12.0-16.0) g/dL Hct 33.4 L (36.0-46.0) % Plt Count 193 (140-440) Thou/mm3 BMP 04/05/25 04/06/25 04/06/25 20:00 02:40 03:23 Sodium 132 L 132 L 129 L Potassium 2.4 L* 3.4 D 5.0 D Chloride 91 L 93 L 93 L Carbon Dioxide 27.5 26.2 22.8 BUN 22 18 19 Creatinine 1.6 H 1.4 H 1.4 H Glucose 118 H 86 190 H D Calcium 8.2 L 8.5 7.9 L 04/06/25 04/06/25 04/06/25 07:30 14:00 16:26 Sodium 134 L 132 L 132 L Potassium 3.4 D 3.5 3.6 Chloride 97 L 98 98 Carbon Dioxide 26.0 24.4 22.7 BUN 20 24 H 19 Creatinine 1.2 1.2 1.1 Glucose 91 D 124 H 95 Calcium 7.4 L 7.9 L 7.9 L Liver Function 04/05/25 04/06/25 04/06/25 Range/Units 20:00 02:40 03:23 Total Bilirubin 1.1 1.1 (0.3-1.2) mg/dL AST 29 29 (0-34) U/L ALT 16 14 (10-49) U/L Alkaline Phosphatase 85 80 (46-116) U/L Albumin 3.2 L 3.2 L 3.1 L (3.4-4.8) gm/dL 04/06/25 04/06/25 04/06/25 Range/Units 07:30 14:00 16:26 Total Bilirubin 0.6 D 0.6 (0.3-1.2) mg/dL AST 30 28 (0-34) U/L ALT 16 14 (10-49) U/L Alkaline Phosphatase 80 78 (46-116) U/L Albumin 2.7 L 3.1 L 3.0 L (3.4-4.8) gm/dL Urine 04/05/25 Range/Units 23:34 Urine Color Yellow (Lt Yel-Yel) Urine Clarity Turbid A (Clear/Hazy) Urine pH 5.5 (5.0-7.0) Ur Specific [place] 1.015 (1.001-1.035) Urine Protein 1+ A (Neg - Trace) Urine Glucose (UA) Negative (Negative) Assessment and Plan Additional Assessment & Plan Additional Plan: # Weakness multifactorial # Multiple bouts of SVT on multiple meds including beta-jay jay metoprolol # Hematochezia Plan's Serial CBC If patient continues to drop hemoglobin hematocrit might consider invasive GI workup But before making the decision patient's SVT has to be controlled because patient still having multiple episodes in the hospital Will follow the patient Thank you very much for the opportunity to participate in the care of this patient
[2025-04-06 20:56] LABS: Lactic Acid, 3 HR 2.7 mMol/L (0.4-2.0)
--- NOTE | 2025-04-06 21:30 | PD.RESEVENT ---
Documentation for date of: 04/06/25 Event Note Event Note: Rapid response was called around 8 PM for SVT. The patient's heart rate was in the 150s upon initial evaluation. EKG showed atrial tachycardia with a rate of 150 and a QTc of 461. Carotid massage was initiated without response, patient was noted to be dehydrated , she was given a 500 mL liter bolus of LR was given. The patient's blood pressure was stable and the patient was awake, alert and talking. The decision was made to not give metoprolol or adenosine due to the patient's stable blood pressure and improving heart rate which eventually converted to sinus rhythm. The patient was seen and discussed with my attending physician Dr. Boris CONTRERAS. Liban Rivas DO PGY-1.
[2025-04-07] VITALS (11 sets, daily range): BP systolic 95–110; BP diastolic 49–69; PULSE 66–100; RESP 16–99; TEMP 35.9–36.8; O2SAT 94–98
[2025-04-07] MEDS: LEVOTHYROXINE SODIUM 25 MCG TABLET PO (05:19)
[2025-04-07 05:59] LABS: Basophils # (Auto) 0.0 Thou/mm3 (0.0-0.2); Basophils % (Auto) 0 % (0-2.5); Eosinophils # (Auto) 0.0 Thou/mm3 (0.0-0.5); Eosinophils % (Auto) 0 % (0-10); Hematocrit 29.0 % (36.0-46.0); Hemoglobin 9.6 g/dL (12.0-16.0); Immature Granulocytes Auto 0.17 Thou/mm3 (0.00-0.00); Lymphocytes # (Auto) 0.9 Thou/mm3 (1.0-4.8); Lymphocytes % (Auto) 9 % (10-50); Mean Corpuscular HGB Conc 33.1 g/dl (31.0-37.0); Mean Corpuscular Hemoglobin 28.1 pg (25.0-35.0); Mean Corpuscular Volume 85 fL (80-100); Monocytes # (Auto) 1.3 Thou/mm3 (0.0-0.8); Monocytes % (Auto) 13 % (0-12); Neutrophils # (Auto) 7.6 Thou/mm3 (1.8-7.7); Neutrophils % (Auto) 76 % (37-80); Nucleated Red Blood Cell # 0.00 Thou/mm3 (0.00-0.00); Nucleated Red Blood Cell % 0 /100 WBC (0); Platelet Count 191 Thou/mm3 (140-440); RDW Standard Deviation 46.5 fL (36.4-46.3); Red Blood Count 3.42 Miln/mm3 (4.00-5.20); White Blood Count 10.0 Thou/mm3 (3.6-11.0)
[2025-04-07 06:31] LABS: Magnesium 2.1 mg/dL (1.6-2.6); Phosphorous 2.0 mg/dL (2.4-5.1)
[2025-04-07 07:39] LABS: Alanine Aminotransferase 12 U/L (10-49); Albumin, Serum 2.8 gm/dL (3.4-4.8); Albumin/Globulin Ratio 1.5 (1.2-2.2); Alkaline Phosphatase 67 U/L (46-116); Anion Gap 9 (7-16); Aspartate Amino Transferase 25 U/L (0-34); BUN/Creatinine Ratio 19 Ratio (12-20); Bilirubin,Total 0.6 mg/dL (0.3-1.2); Blood Urea Nitrogen 19 mg/dL (9-23); Calcium 7.7 mg/dL (8.3-10.6); Calcium (Corrected) 8.7 mg/dL (8.5-10.1); Carbon Dioxide 24.9 mMol/L (20.0-31.0); Chloride 101 mMol/L (98-107); Creatinine (Component) 1.0 mg/dL (0.6-1.3); Estimated Creatinine Clearance 48.5 mL/min (>60); Globulin 1.9 gm/dL (2.3-3.5); Glucose 96 mg/dL (74-106); Osmolality,Calculated 272 (275-295); Potassium 3.7 mMol/L (3.4-5.1); Sodium 135 mMol/L (136-145); Total Protein 4.7 gm/dL (5.7-8.2); eGFR 58 See Note
[2025-04-07] MEDS: MEROPENEM INJ 1,000 MG in SODIUM CHLORIDE 0.9% (Popper) 50 ML 100 MG IV ×2 (08:38→20:21)
[2025-04-07] MEDS: ASPIRIN EC 81 MG TABEC PO (08:39)
[2025-04-07] MEDS: METOPROLOL SUCCINATE XL 25 MG TABCR 100 MG PO (08:39)
[2025-04-07] MEDS: NAPH,KPH MBDB 1 PACKET (1.5 GM) PO (08:40)
--- NOTE | 2025-04-07 09:26 | PD.RESPRO ---
Documentation for date of: 04/07/25 Subjective Subjective Interval history: Patient was seen and examined this morning; had rapid for SVT at 1999 yesterday with no change in management. Per nursing, patient had bloody bowel movement overnight. Hgb 9.6 from 11.2, but more likely to be dilution due to boluses from rapids, as WBCs fell as well. Exam Vital Signs Temp Pulse Resp BP Pulse Ox O2 Del Method O2 Flow Rate 97.0 F 66 29 H 105/56 L 98 Room Air 3 04/07/25 08:00 04/07/25 09:06 04/07/25 09:06 04/07/25 08:39 04/07/25 09:06 04/07/25 08:00 04/07/25 09:06 FiO2 98 04/06/25 11:49 Narrative Exam General: A/O x3, no acute distress, well-nourished, well-developed Eyes: PERRL, EOMI. Anicteric, vision grossly intact. Ears: No ear pain, no ear discharge, Hearing grossly intact. Nose: No nasal discharge. Mouth/Throat: Moist mucous membranes, no redness, no lesions. Neck: Neck supple, non-tender, no cervical lymphadenopathy. Lungs: Clear ADEEL to auscultation and percussion, No accessory muscle use. Cardio: Normal S1/S2, regular rhythm, no murmurs, no JVD or carotid bruits. Abdomen: Soft, non-tender, no palpable masses, peristalsis present, no guarding or rebound. Extremities: Symmetrical, no significant deformities, no peripheral edema , non-tender, peripheral pulses present. Skin: No rashes, no lesions, warm to touch. Neuro: No focal neurological deficits. Psych: Cooperative, appropriate mood and effect. Objective Labs 04/08/25 05:10 04/08/25 05:10 Labs: Laboratory Results - last 24 hr 04/06/25 04/06/25 04/06/25 07:30 14:00 16:26 WBC RBC Hgb Hct MCV MCH MCHC RDW Std Deviation Plt Count Neut % (Auto) Lymph % (Auto) [place] % (Auto) Eos % (Auto) Baso % (Auto) Neut # (Auto) Lymph # (Auto) [place] # (Auto) Eos # (Auto) Baso # (Auto) Immature Gran # (Auto) Absolute Nucleated RBC Immature Gran % Nucleated RBC % Sodium 134 L 132 L 132 L Potassium 3.4 D 3.5 3.6 Chloride 97 L 98 98 Carbon Dioxide 26.0 24.4 22.7 Anion Gap 11 10 11 BUN 20 24 H 19 Creatinine 1.2 1.2 1.1 Estim Creat Clear Calc 40.5 L 40.5 L 44.1 L eGFR 47 L 47 L 52 L BUN/Creatinine Ratio 17 20 17 Glucose 91 D 124 H 95 Calculated Osmolality 270 L 269 L 266 L Lactic Acid 3.6 H Calcium 7.4 L 7.9 L 7.9 L Corrected Calcium 8.4 L 8.6 8.7 Phosphorus 2.3 L Magnesium Total Bilirubin 0.6 D 0.6 AST 30 28 ALT 16 14 Alkaline Phosphatase 80 78 Total Protein 5.3 L 5.0 L Albumin 2.7 L 3.1 L 3.0 L Globulin 2.2 L 2.0 L Albumin/Globulin Ratio 1.4 1.5 04/06/25 04/07/25 20:44 05:00 WBC 10.0 RBC 3.42 L Hgb 9.6 L Hct 29.0 L MCV 85 MCH 28.1 MCHC 33.1 RDW Std Deviation 46.5 H Plt Count 191 Neut % (Auto) 76 Lymph % (Auto) 9 L [place] % (Auto) 13 H Eos % (Auto) 0 Baso % (Auto) 0 Neut # (Auto) 7.6 Lymph # (Auto) 0.9 L [place] # (Auto) 1.3 H Eos # (Auto) 0.0 Baso # (Auto) 0.0 Immature Gran # (Auto) 0.17 H Absolute Nucleated RBC 0.00 Immature Gran % 2 H Nucleated RBC % 0 Sodium 135 L Potassium 3.7 Chloride 101 Carbon Dioxide 24.9 Anion Gap 9 BUN 19 Creatinine 1.0 Estim Creat Clear Calc 48.5 L eGFR 58 L BUN/Creatinine Ratio 19 Glucose 96 Calculated Osmolality 272 L Lactic Acid 2.7 H Calcium 7.7 L Corrected Calcium 8.7 Phosphorus 2.0 L Magnesium 2.1 Total Bilirubin 0.6 AST 25 ALT 12 Alkaline Phosphatase 67 Total Protein 4.7 L Albumin 2.8 L Globulin 1.9 L Albumin/Globulin Ratio 1.5 Quality Measures Quality Measures none Advance care planning discussed with:: other Assessment & Plan Assessment Current Active Medications: Generic Name Dose Route Start Last Admin Trade Name Freq PRN Reason Stop Dose Admin Acetaminophen 650 mg 04/05/25 21:43 Acetaminophen 325 Mg Tablet PO 05/05/25 21:42 Q6H PRN Fever >101.5 Aspirin 81 mg 04/06/25 09:00 04/07/25 08:39 Aspirin Ec 81 Mg Tabec PO 05/06/25 08:59 81 mg QDAY ANTHONY Administration Hydroxyzine HCl 10 mg 04/06/25 09:00 04/06/25 21:51 Hydroxyzine Hcl 10 Mg Tablet PO 05/06/25 08:59 10 mg BID ANTHONY Administration Meropenem 1,000 mg/ Sodium 50 mls @ 100 mls/hr 04/06/25 04:55 04/07/25 08:38 Chloride IV 04/13/25 04:54 100 mls/hr Q12HR ANTHONY Administration Levothyroxine Sodium 25 mcg 04/06/25 06:00 04/07/25 05:19 Levothyroxine Sodium 25 Mcg Tablet PO 05/06/25 05:59 25 mcg ACBR ANTHONY Administration Metoprolol Succinate 100 mg 04/06/25 09:00 04/07/25 08:39 Metoprolol Succinate Xl 25 Mg Tabcr PO 05/06/25 08:59 100 mg QDAY ANTHONY Administration Ondansetron HCl 4 mg 04/05/25 21:43 Ondansetron Inj 2 Mg/Ml Inj 2 Ml IVP 05/05/25 21:42 Q6H PRN NAUSEA OR VOMITING Protocol Pantoprazole Sodium 40 mg 04/06/25 09:00 04/07/25 08:40 Pantoprazole Inj 40 Mg Vial IVP 05/06/25 08:59 40 mg QDAY ANTHONY Administration Sennosides 1 tab 04/05/25 21:43 Senna Tablet PO 05/05/25 21:42 QDAY PRN constipation Protocol Plan Patient is a 75F with PMH of Hep C untreated, HFrEF (40-45%, 06/2024), hx recurrent ESBL UTI, HTN, SVT, depression and anxiety presented to [facility] ED 04/05 for generalized weakness referred to ED by PCP due to hypokalemia, admitted for hypokalemia likely 2/2 poor PO intake. #SVT #HFrEF (40-45% 06/2024) #HTN On home metoprolol XL 100 mg QD, Bumex 1 mg QD, Losartan 12.5 mg QD. Does not seem to be in HFrEF exacerbation, no JVD, crackles, BLE edema. Rapid x3 called 04/06 0300, 1330, 2000 for HR 140-150, asymptomatic with no change in management. CXR 04/06/25- No pneumonia or pulmonary edema Plan: - Home metoprolol XL 100 mg QD - Hold other home meds due to soft BP - Cardiology consulted- adenosine given by cardiology on 04/07/25 at approximately 4 pm; patient had rapid for SVT at 1999 - Keep K>4 and Mg>2 at all times #Hematochezia Nursing said patient had bloody bowel movement on 04/06/25; hgb 9.6 from 11.2 previously, however more likely dilutional secondary to boluses from multiple rapids Plan: FOBT ordered #UTI Presented to PCPs office with burning on urination completed 1 week course of ciprofloxacin. Reports burning on micturition much improved however persistent. Has a history of multiple urinary tract infections including ESBL. UA turbid, 1+ protein, 1+ bilirubin, 163 WBC, +LE. CTAP shows cholelithiasis, perinephric stranding, 1 mm nonobstructing left renal calculus, 37mm L left adnexal cyst, severe calcification in LAD and LCx, retrocardiac gastric hernia. Per patient no urinary symptoms as of 04/07/25 Plan: - Meropenem (04/06- - Urine culture pending #Hypokalemia Presents with generalized weakness for 1 week, denies any muscle cramps or palpitations. On admission K 2.4 and EKG sinus rhythm rate 77, QTc interval of 481 ms. s/p potassium total 100 mEq and Mg 2 g repleted in ED. Likely 2/2 poor p.o. intake/dehydration with continued Bumex administration. Plan: - CTM CMP and replete as necessary - Encourage oral hydration - Hold Bumex - PT ordered #FLORES, prerenal, resolved Reports poor PO intake. Admission Cr 1.6, BL 1.1. s/p 3.5L fluids Cr 1.2. Likely 2/2 dehydration vs UTI. Plan: - CTM Cr, caution with fluids as has hx of HFrEF #Hypothyroidism TSH 10.61, T4 12.1. Denies any symptoms of palpitations, chest pain, increased sweating. Plan: - Home levothyroxine 25 mcg D #Hyperlipidemia Plan: - Home atorvastatin 80 mg QD #Depression #Anxiety Continuing her home medication hydroxyzine 10 mg 2 tabs, trazodone 50 mg 2 tabs. Plan: - Resume home meds #Hep C Diagnosed 06/2024, has medications but has not been started due to needing Hep B panel done. Follows outpatient. Plan: - Continue to follow outpatient for further management #37mm L left adnexal cyst Incidental finding on CTAP Plan: - Notified patient and recommend further outpatient follow up Lines: PIV Diet: cardiac Bowel: Senna prn GI prophylaxis: not indicated DVT prophylaxis: SCDs Disposition: med tele, hypoK management and monitor CODE STATUS: DNR This case was discussed with my attending physician, Dr. Castañeda, and senior resident, Dr. Olivarez. Eddie Turner MD-PhD, PGY1 Attending Provider Attestation/Addendum I, Wanda Castañeda, DO, attest that I was physically present for the [place] portions of the service and evaluated the patient with the resident and I reviewed and discussed the case with the resident and agree with the resident's findings and plans of care as documented above Patient seen and evaluated this AM. Patient had another rapid response overnight due to SVT, but did not require adenosine. HR converted to sinus rhythm. Patient states she does not feel anything when these episodes come on. She denies any chest pain, shortness of breath, nausea, vomiting, lightheadedness, abdominal pain, dysuria otherwise. She states she has been eating better today and feels much better. Patient states she has been taking PO iron at home which causes her stool to be dark. However, she does not recall any episodes of hematochezia at home. Pending GI recommendations. H/H dropped from 11 -->9. However, patient received IV fluids due to dehydration and SVT episodes. She appears euvolemic. No signs of fluid overload. Discussed with patient that she may benefit from seeing an dairy processing supervisor given recurrent SVT. She was confused about the difference between her addiction professional and dairy processing supervisor. With further explanation, patient stated she would be willing to seek further consultation if necessary. Will order PT, titrate O2 as tolerated as patient remains on 3L/NC.
--- NOTE | 2025-04-07 10:06 | ESPR_ITS ---
Documentation for date of: 04/07/25 Subjective Subjective Interval history: Patient had another rapid response around 8PM for SVT, BP low at 86/65. Resolved with 500cc LR bolus. BP improved to 108/69 and HR to 82. On telemetry, had 2 other episodes of SVT around midnight and 4AM but patient was asymptomatic. Patient seen and assessed at bedside. Patient reports that she has dark stools but attributes it to the iron supplements she has been taking for the past 2 years. Denies bright red blood in urine or stool. She is due for her colonoscopy this year but has not followed up with GI. WBC 10.0 (from 13.4) and Hgb 9.6 (from 11.2), possibly secondary to IV fluid resuscitation. Potassium 3.7, repleted with 1 packet of potassium phosphate and 20 mEq potassium chloride. Lactic acid 3.6 yesterday, improved to 2.7. Magnesium 2.0. Exam Vital Signs Temp Pulse Resp BP Pulse Ox O2 Del Method O2 Flow Rate 97.0 F 66 29 H 105/56 L 98 Room Air 3 04/07/25 08:00 04/07/25 09:06 04/07/25 09:06 04/07/25 08:39 04/07/25 09:06 04/07/25 08:00 04/07/25 09:06 FiO2 98 04/06/25 11:49 Narrative Exam Physical Exam General: Awake and in no acute distress. Conversational and non-toxic appearing. HEENT: Normocephalic, atraumatic, mucous membranes moist. Heart: Regular rate and rhythm, normal S1 and S2, no murmurs. Lungs: Clear to auscultation with no wheezing or crackles. Abdomen: Soft, nondistended, nontender, positive bowel sounds. No guarding or rebound tenderness. Neurologic: Alert and oriented x3, no gross neurological deficit, and patient able to move all 4 extremities. Extremities: No edema. Bluish fingertips. Skin: No rash or ecchymoses. Objective Labs 04/08/25 05:10 04/08/25 05:10 Labs: Laboratory Results - last 24 hr 04/06/25 04/06/25 04/06/25 14:00 16:26 20:44 WBC RBC Hgb Hct MCV MCH MCHC RDW Std Deviation Plt Count Neut % (Auto) Lymph % (Auto) [place] % (Auto) Eos % (Auto) Baso % (Auto) Neut # (Auto) Lymph # (Auto) [place] # (Auto) Eos # (Auto) Baso # (Auto) Immature Gran # (Auto) Absolute Nucleated RBC Immature Gran % Nucleated RBC % Sodium 132 L 132 L Potassium 3.5 3.6 Chloride 98 98 Carbon Dioxide 24.4 22.7 Anion Gap 10 11 BUN 24 H 19 Creatinine 1.2 1.1 Estim Creat Clear Calc 40.5 L 44.1 L eGFR 47 L 52 L BUN/Creatinine Ratio 20 17 Glucose 124 H 95 Calculated Osmolality 269 L 266 L Lactic Acid 3.6 H 2.7 H Calcium 7.9 L 7.9 L Corrected Calcium 8.6 8.7 Phosphorus Magnesium Total Bilirubin 0.6 D 0.6 AST 30 28 ALT 16 14 Alkaline Phosphatase 80 78 Total Protein 5.3 L 5.0 L Albumin 3.1 L 3.0 L Globulin 2.2 L 2.0 L Albumin/Globulin Ratio 1.4 1.5 04/07/25 05:00 WBC 10.0 RBC 3.42 L Hgb 9.6 L Hct 29.0 L MCV 85 MCH 28.1 MCHC 33.1 RDW Std Deviation 46.5 H Plt Count 191 Neut % (Auto) 76 Lymph % (Auto) 9 L [place] % (Auto) 13 H Eos % (Auto) 0 Baso % (Auto) 0 Neut # (Auto) 7.6 Lymph # (Auto) 0.9 L [place] # (Auto) 1.3 H Eos # (Auto) 0.0 Baso # (Auto) 0.0 Immature Gran # (Auto) 0.17 H Absolute Nucleated RBC 0.00 Immature Gran % 2 H Nucleated RBC % 0 Sodium 135 L Potassium 3.7 Chloride 101 Carbon Dioxide 24.9 Anion Gap 9 BUN 19 Creatinine 1.0 Estim Creat Clear Calc 48.5 L eGFR 58 L BUN/Creatinine Ratio 19 Glucose 96 Calculated Osmolality 272 L Lactic Acid Calcium 7.7 L Corrected Calcium 8.7 Phosphorus 2.0 L Magnesium 2.1 Total Bilirubin 0.6 AST 25 ALT 12 Alkaline Phosphatase 67 Total Protein 4.7 L Albumin 2.8 L Globulin 1.9 L Albumin/Globulin Ratio 1.5 Quality Measures Quality Measures none Advance care planning discussed with:: patient Assessment & Plan Assessment Current Active Medications: Generic Name Dose Route Start Last Admin Trade Name Freq PRN Reason Stop Dose Admin Acetaminophen 650 mg 04/05/25 21:43 Acetaminophen 325 Mg Tablet PO 05/05/25 21:42 Q6H PRN Fever >101.5 Aspirin 81 mg 04/06/25 09:00 04/07/25 08:39 Aspirin Ec 81 Mg Tabec PO 05/06/25 08:59 81 mg QDAY ANTHONY Administration Hydroxyzine HCl 10 mg 04/06/25 09:00 04/07/25 09:45 Hydroxyzine Hcl 10 Mg Tablet PO 05/06/25 08:59 10 mg BID ANTHONY Administration Meropenem 1,000 mg/ Sodium 50 mls @ 100 mls/hr 04/06/25 04:55 04/07/25 08:38 Chloride IV 04/13/25 04:54 100 mls/hr Q12HR ANTHONY Administration Levothyroxine Sodium 25 mcg 04/06/25 06:00 04/07/25 05:19 Levothyroxine Sodium 25 Mcg Tablet PO 05/06/25 05:59 25 mcg ACBR ANTHONY Administration Metoprolol Succinate 100 mg 04/06/25 09:00 04/07/25 08:39 Metoprolol Succinate Xl 25 Mg Tabcr PO 05/06/25 08:59 100 mg QDAY ANTHONY Administration Ondansetron HCl 4 mg 04/05/25 21:43 Ondansetron Inj 2 Mg/Ml Inj 2 Ml IVP 05/05/25 21:42 Q6H PRN NAUSEA OR VOMITING Protocol Pantoprazole Sodium 40 mg 04/06/25 09:00 04/07/25 08:40 Pantoprazole Inj 40 Mg Vial IVP 05/06/25 08:59 40 mg QDAY ANTHONY Administration Sennosides 1 tab 04/05/25 21:43 Senna Tablet PO 05/05/25 21:42 QDAY PRN constipation Protocol Plan Patient is a 75 year old female with PMH of untreated hepatitis C, acoustic neuroma status postsurgery with residual right facial droop and left eye ptosis, hypothyroidism, anxiety, depression, GERD, neuropathy, remote history of polysubstance abuse, history of chronic smoking with more than 56-[id number] smoking history and quit 10 years ago, history of alcohol abuse when she was younger presented to the emergency department for generalized weakness, admitted for hypokalemia. Found to be in SVT. #SVT #Dehydration #Normocytic anemia, concern for acute GI bleed Likely secondary to hypokalemia and dehydration from overdiuresis with Bumex 2 mg daily, was recently increased due to leg swelling. Patient has history of recurrent SVTs, previously admitted in June 2024 with similar presentation, at the time, was attributed to long history of phentermine use. Previously also had difficulty converting back to sinus rhythm with metoprolol and adenosine 6 mg, followed by adenosine 12 mg, finally converted after given diltiazem IV 10 mg x1. Was discharged on metoprolol XL 100 mg BID, which was eventually able to be decreased to metoprolol XL 100 mg once a day. 04/06/25: Had 3 rapid responses throughout the day for SVT. Patient spontaneously converted at first rapid, at second was given metoprolol IV 5 mg x1 with conversion. At third rapid, patient was given 500 cc fluid bolus with improvement. However patient continued to convert back to SVT and adenosine 6 mg x1 was pushed with conversion back to sinus. 04/07/25: Rapid response overnight for SVT, HR 150. BP low at 86/65. Attempted carotid massage without improvement. Resolved with 500cc LR bolus BP improved to 108/69 and HR to 82. On telemetry, had 2 other episodes of SVT around midnight and 4AM but patient was asymptomatic. Of note, Hgb 12 -> 11.2 -> 9.6, concern for acute lower GI bleed which may be cause of recurrent SVTs. Baseline Hgb 12-14 in 06/2024. Patient reported dark stools but attributed this to her daily iron supplements. Plan: - Recommended to give additional metoprolol XL 25 mg in the evening. She already received metoprolol XL 100 mg in the morning as per the chart review. - If patient goes back into SVT recommend to give some fluids, give electrolytes and give adenosine for the treatment. - Keep K >4 and Mg >2 - Monitor telemetry and BP - Patient was recommended EP evaluation for further evaluation of the SVT and possible AVNRT but as she did not have any episodes since June patient did not want to go and that she was again asked about further evaluation with EP for possible EP study as well as ablation and patient did not want consider it at the present point of time. Will continue to follow-up with the patient as outpatient regarding the same. - Recommend anemia workup - GI consulted #Hypokalemia, resolved Presented with generalized weakness. Potassium 2.7 on admission. 04/06/25: 3.4 -> 5.0 -> 3.4 -> 3.5. Likely secondary to Bumex. Plan: - Hold Bumex for now, restart on Bumex 0.5 mg daily if patient starts to develop bilateral leg swelling. - Keep K >4 and Mg > 2 #HFpEF (EF 60-65%) Echo 06/2024 showed normal LV size. Mild systolic dysfunction with mild basal hypokinesis. Stage II diastolic dysfunction. Estimated EF 40-45% Normal RV size and function. Estimated RVSP 42 mmHg. RAP 15. Mild to moderate PAH. PA dilated. Trivial to mild mitral stenosis with a mean PG of 4-5 mm hg. Modertate to severe posterior MAC and Mild MAC anteriorly. Mild to moderate MR. Moderate AI. Mild TR, PI. IVC dilated. Mild LA dilatation. Patient did follow-up in the clinic and patient quit all substance abuse and phentermine. Patient was started on goal-directed medical therapy for with metoprolol and Entresto which was changed to losartan due to cost. Her metoprolol XL was decreased to 125 mg once daily (100 mg in AM and 25 mg in PM) as her rate was controlled and she did not have any further episodes since then and no admissions in the last 10 months. Repeat echo outpatient December 2024 showed EF 60-65%. Plan: - IV fluid resuscitation as needed. Able to tolerate as EF is back to normal -Strict ins and outs -Daily weights -Supplemental O2 as needed, wean as tolerated #FLORES, prerenal, improving - Given the acute kidney injury hold off on the losartan completely along with the Bumex as patient appears to be dehydrated. #HLD - Continue atorvastatin 80 mg daily #UTI #Depression #Anxiety #Hypothyroidism #Hep C, untreated #37 mm L adnexal cyst Thank you for your consultation, please do not hesitate to reach out if you have any question or concern Patient plan of care was discussed with the attending physician, Dr. Jelani Jensen, PGY-1 Attending Provider Attestation/Addendum I have personally seen and examined the patient separately on the above date of service and discussed the plan of care with the resident. I reviewed the resident Dr. Leonor Jensen consultation progress note and agree with the resident findings and plan in the note above and have also edited the documentation to reflect my findings and plan. Tay Palomares M.D. Interventional Cardiology
--- NOTE | 2025-04-07 10:51 | PC.SS ---
Addendum entered by ASHLI Hansen 04/07/25 14:55: Rounding note: pending urine culture. Original Note: Patient is a 75 year old female presenting to the hospital for hypokelamia. 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 Patient stated that she lives at home alone, she has a walker and a shower commode. Patient stated that in case she is unable to make medical decisions on her own she would like Saul De La Vega, brother, to make them. Patient stated she would like to keep daughter Nevin Dietz on face sheet to continue to receive updates on her care. Patient stated that her PCP is Dr. Olmstead last appointment was March 2025, her pharmacy of choice is [facility] on [address]. Patient stated that she is retired, would like to return home once medically clear, and her friend will provide transportation. PCP: Dr. Olmstead Decision maker: Saul De La Vega D/c: home
--- NOTE | 2025-04-07 18:28 | PD.IMPROG ---
Documentation for date of: 04/07/25 Subjective Subjective Interval history: Patient's hemoglobin hematocrit did drop down to 9.6 and 29.2 No further episodes of hematochezia Exam Vital Signs Temp Pulse Resp BP Pulse Ox O2 Del Method O2 Flow Rate 96.7 F L 68 16 97/64 98 Room Air 3 04/07/25 16:00 04/07/25 16:00 04/07/25 16:00 04/07/25 16:00 04/07/25 16:00 04/07/25 16:00 04/07/25 09:06 FiO2 98 04/06/25 11:49 Objective Labs 04/07/25 05:00 04/07/25 05:00 Labs: Laboratory Results - last 24 hr 04/06/25 04/07/25 20:44 05:00 WBC 10.0 RBC 3.42 L Hgb 9.6 L Hct 29.0 L MCV 85 MCH 28.1 MCHC 33.1 RDW Std Deviation 46.5 H Plt Count 191 Neut % (Auto) 76 Lymph % (Auto) 9 L [place] % (Auto) 13 H Eos % (Auto) 0 Baso % (Auto) 0 Neut # (Auto) 7.6 Lymph # (Auto) 0.9 L [place] # (Auto) 1.3 H Eos # (Auto) 0.0 Baso # (Auto) 0.0 Immature Gran # (Auto) 0.17 H Absolute Nucleated RBC 0.00 Immature Gran % 2 H Nucleated RBC % 0 Sodium 135 L Potassium 3.7 Chloride 101 Carbon Dioxide 24.9 Anion Gap 9 BUN 19 Creatinine 1.0 Estim Creat Clear Calc 48.5 L eGFR 58 L BUN/Creatinine Ratio 19 Glucose 96 Calculated Osmolality 272 L Lactic Acid 2.7 H Calcium 7.7 L Corrected Calcium 8.7 Phosphorus 2.0 L Magnesium 2.1 Total Bilirubin 0.6 AST 25 ALT 12 Alkaline Phosphatase 67 Total Protein 4.7 L Albumin 2.8 L Globulin 1.9 L Albumin/Globulin Ratio 1.5 Impressions Impression: # Hematochezia # Drop in hemoglobin hematocrit could also be dilutional Plan Continue to monitor CBC If patient has more episodes of hematochezia consider invasive GI Assessment & Plan A&P Narrative # Weakness multifactorial # Multiple bouts of SVT on multiple meds including beta-jay jay metoprolol # Hematochezia Plan's Serial CBC If patient continues to drop hemoglobin hematocrit might consider invasive GI workup But before making the decision patient's SVT has to be controlled because patient still having multiple episodes in the hospital Will follow the patient Thank you very much for the opportunity to participate in the care of this patient Time Spent With Patient Time: Total time spent is greater than 50% in coordination of care (as documented) at patient's floor/unit and/or counseling patient:
[2025-04-07 18:54] LABS: Ferritin 513 ng/mL (7.3-270.7); Iron 25 mcg/dL (50-170); Percent Iron Saturation 14 % (20-55); Total Iron Binding Capacity 169 mcg/dL (250-425); Unsaturated Iron Binding 144 (225-295)
[2025-04-07] MEDS: Magnesium Sulfate 4 GM Ivpb 4 GM/50 ML BAG IV (19:08)
[2025-04-07] MEDS: METOPROLOL SUCCINATE XL 25 MG TABCR PO (20:20)
[2025-04-07] MEDS: ACETAMINOPHEN 325 MG TABLET 650 MG PO (23:11)
[2025-04-08] VITALS (21 sets, daily range): BP systolic 91–144; BP diastolic 53–87; PULSE 51–92; RESP 16–95; TEMP 36.1–37.1; O2SAT 92–100; BMI 14.0
[2025-04-08] MEDS: LEVOTHYROXINE SODIUM 25 MCG TABLET PO (05:41)
[2025-04-08 05:52] LABS: Basophils # (Auto) 0.1 Thou/mm3 (0.0-0.2); Basophils % (Auto) 1 % (0-2.5); Eosinophils # (Auto) 0.0 Thou/mm3 (0.0-0.5); Eosinophils % (Auto) 0 % (0-10); Hematocrit 28.3 % (36.0-46.0); Hemoglobin 9.3 g/dL (12.0-16.0); Immature Granulocytes Auto 0.35 Thou/mm3 (0.00-0.00); Immature Reticulocyte Fraction 13.3 % (3.0-15.9); Lymphocytes # (Auto) 0.8 Thou/mm3 (1.0-4.8); Lymphocytes % (Auto) 11 % (10-50); Mean Corpuscular HGB Conc 32.9 g/dl (31.0-37.0); Mean Corpuscular Hemoglobin 28.0 pg (25.0-35.0); Mean Corpuscular Volume 85 fL (80-100); Monocytes # (Auto) 0.6 Thou/mm3 (0.0-0.8); Monocytes % (Auto) 8 % (0-12); Neutrophils # (Auto) 5.6 Thou/mm3 (1.8-7.7); Neutrophils % (Auto) 76 % (37-80); Nucleated Red Blood Cell # 0.00 Thou/mm3 (0.00-0.00); Nucleated Red Blood Cell % 0 /100 WBC (0); Platelet Count 178 Thou/mm3 (140-440); RDW Standard Deviation 46.4 fL (36.4-46.3); Red Blood Count 3.32 Miln/mm3 (4.00-5.20); Reticulocyte % (Auto) 1.3 % (0.5-1.5); Reticulocyte Absolute Auto 43.2 Biln/L (25.0-75.0); Reticulocyte Hgb Content 29.1 pg (28.0-35.0); White Blood Count 7.4 Thou/mm3 (3.6-11.0)
[2025-04-08 06:16] LABS: Alanine Aminotransferase 15 U/L (10-49); Albumin, Serum 2.6 gm/dL (3.4-4.8); Alkaline Phosphatase 61 U/L (46-116); Anion Gap 7 (7-16); Aspartate Amino Transferase 33 U/L (0-34); BUN/Creatinine Ratio 19 Ratio (12-20); Blood Urea Nitrogen 17 mg/dL (9-23); Calcium 8.0 mg/dL (8.3-10.6); Calcium (Corrected) 9.1 mg/dL (8.5-10.1); Carbon Dioxide 25.7 mMol/L (20.0-31.0); Chloride 104 mMol/L (98-107); Creatinine (Component) 0.9 mg/dL (0.6-1.3); Estimated Creatinine Clearance 53.9 mL/min (>60); Glucose 88 mg/dL (74-106); Magnesium 2.3 mg/dL (1.6-2.6); Osmolality,Calculated 274 (275-295); Potassium 3.8 mMol/L (3.4-5.1); Sodium 137 mMol/L (136-145); eGFR > 60 See Note
[2025-04-08 06:18] LABS: Albumin/Globulin Ratio 1.3 (1.2-2.2); Bilirubin,Total 0.5 mg/dL (0.3-1.2); Globulin 2.0 gm/dL (2.3-3.5); Phosphorous 2.8 mg/dL (2.4-5.1); Total Protein 4.6 gm/dL (5.7-8.2)
[2025-04-08] MEDS: MEROPENEM INJ 1,000 MG in SODIUM CHLORIDE 0.9% (Popper) 50 ML 100 MG IV (09:36)
[2025-04-08] MEDS: ASPIRIN EC 81 MG TABEC PO (09:37)
--- NOTE | 2025-04-08 09:53 | PC.SS ---
rounding note: Patient from home. Pending PT eval. Cardio and GI consulted. Poss d/c home today.
--- NOTE | 2025-04-08 10:08 | ECHO_ITS ---
Transthoracic Echo Report Ht (in): 64 Wt (lb): 173 Exam Location: [facility] Status: Inpatient [employer] Worker: Rayne Harrell Indications: Procedure Performed: BP: 112 / 57 HR: 57 MEASUREMENTS (Male / Female) Normal Values 2D ECHO LV Diastolic Diameter PLAX 4.6 cm 4.2 - 5.9 / 3.9 - 5.3 cm LV Systolic Diameter PLAX 2.8 cm IVS Diastolic Thickness 1.1 cm 0.6 - 1.0 / 0.6 - 0.9 cm LVPW Diastolic Thickness 1.2 cm 0.6 - 1.0 / 0.6 - 0.9 cm LV Relative Wall Thickness 0.5 LVOT Diameter 1.9 cm LA Volume Index 35.1 cm?/m? 16 - 28 cm?/m? Ascending Aorta Diameter 3.0 cm M-MODE AV Cusp Separation MM 1.4 cm DOPPLER AV Peak Velocity 133.5 cm/s AV Peak Gradient 7.1 mmHg AV Mean Gradient 3.5 mmHg AV Velocity Time Integral 32.0 cm LVOT Peak Velocity 98.3 cm/s LVOT Peak Gradient 3.9 mmHg LVOT Velocity Time Integral 25.9 cm LVOT Cardiac Index 2194.7 cm?/min?m? AV Area Cont Eq vti 2.3 cm? AV Area Cont Eq pk 2.1 cm? MV Area PHT 2.3 cm? Mitral E Point Velocity 86.8 cm/s Mitral A Point Velocity 118.0 cm/s Mitral E to A Ratio 0.7 LV E' Lateral Velocity 5.9 cm/s Mitral E to LV E' Lateral Ratio 14.8 LV E' Septal Velocity 4.6 cm/s Mitral E to LV E' Septal Ratio 19.0 TR Peak Velocity 203.0 cm/s TR Peak Gradient 16.5 mmHg PV Peak Velocity 73.3 cm/s PV Peak Gradient 2.1 mmHg FINDINGS Left Ventricle Normal left ventricular size, wall thickness, systolic function with no obvious regional wall motion abnormalities. There is grade I diastolic dysfunction of the left ventricle (impaired relaxation pattern). The ejection fraction is visually estimated at 50-55 %. Right Ventricle The right ventricle is normal in size and systolic function. The estimated right ventricular systolic pressure,27 mmH with RAP 8. Left Atrium The left atrial cavity size is mildly increased. Right Atrium The right atrium is normal by two-dimensional imaging, color flow and Doppler imaging with no structural abnormalities, no thrombus formation present. Atrial Septum The interatrial septum appears normal with no evidence of a shunt. Aorta The aorta is normal by two-dimensional, color flow and Doppler interrogation. Mitral Valve Moderate mitral annular calcification. [id number] mitral regurgitation. Aortic Valve The aortic valve is trileaflet and normal by two-dimensional, color flow and Doppler interrogation. Mild-to- moderate aortic valve regurgitation. Tricuspid Valve The tricuspid valve is normal by two-dimensional, color flow and Doppler interrogation. There is mild tricuspid valve regurgitation. Pulmonic Valve The pulmonic valve is not well visualized.mild pulmonic valve regurgitation. Vessels The pulmonary artery appears normal. The inferior vena cava not well visualized. Pericardium The pericardium is normal by two-dimensional imaging. There is no significant pericardial effusion. CONCLUSIONS Indication: Hx of HFrEF, SVTs Normal left ventricular size and function. Grade I diastolic dysfunction. Estimated EF 60-65%. Normal right ventricular size and function. RVSP 27 mmH with RAP 8. Mildly dilated LA. Trivial mitral stenosis. Severe posterior MAC. Mild-moderate MR. Mild TR, PI and AI. Compared to prior study of 06/21/24. EF improved. Tay Palomares (Electronically Signed) Final Date: 09 April 2025 19:41
[2025-04-08] MEDS: ESTROGENS,CONJ VAG CR 30 GM TUBE VAGINAL (12:30)
--- NOTE | 2025-04-08 12:49 | ESPR_ITS ---
<Statement entered by Randolph Johnson MD - 04/08/25 14:23> I have reviewed the note and agree with the resident's assessment & plan with exceptions as below. I have personally reviewed labs, imaging, home meds/prior records, examined the patient, formulated and discussed management plan with my attending Patient was seen and examined at bedside this morning. No acute overnight events. No more episodes of SVT. Hgb is downtrending could be a component of hemodilution along with chronic disease and less likely GI bleed, but given drop and episodes of SVT GI will perform EGD to r/o any source of bleeding. NPO for EGD today. Randolph Johnson PGY2 Disclaimer: Even though this this note was dictated by speech recognition and even though it was carefully revised there may still be minor errors in program services planner due to voice recognition software. Documentation for date of: 04/08/25 Subjective Subjective Interval history: No acute overnight events. Patient seen examined at bedside. Patient denies symptoms, no complaints. Denies previous episode of hematochezia or any recent however patient did not examine stool but nurse reported was bloody. Denies urinary symptoms. Labs and vitals reviewed. SBP 90-120. Telemetry reviewed, no further episodes of SVT, does have one episode of tachycardia rate 120 for 2 minutes this a.m. Hemoglobin slightly downtrending 9.3, potassium 3.8, creatinine 0.9, urine culture no growth. Continue metoprolol XL 100 mg in a.m. and 25 mg daily. Antibiotics discontinued due to negative urine culture. GI consulted, n.p.o. for now and possible EGD tonight. Exam Vital Signs Temp Pulse Resp BP Pulse Ox O2 Del Method O2 Flow Rate 97.7 F 72 21 H 105/60 93 L Nasal Cannula 3 04/08/25 11:45 04/08/25 11:45 04/08/25 11:45 04/08/25 11:45 04/08/25 11:45 04/08/25 11:45 04/08/25 11:45 FiO2 98 04/08/25 11:45 Narrative Exam GENERAL: AOx3, no acute distress HEENT: mucous membranes moist, bilateral sclera anicteric CARDIOVASCULAR: regular rate and rhythm, S1/S2 present, no murmurs appreciated PULMONARY: clear to auscultation bilaterally, no rales/rhonchi/wheezes ABDOMINAL: soft, non-tender, non-distended, no rebound/guarding, bowel sounds present EXTREMITIES: no peripheral edema SKIN: warm and dry, intact, no rashes NEURO: CN II-XII grossly intact, no focal deficits, alert, following commands Objective Labs 04/09/25 05:36 04/09/25 05:36 Labs: Laboratory Results - last 24 hr 04/07/25 04/08/25 05:00 05:10 WBC 7.4 RBC 3.32 L Hgb 9.3 L Hct 28.3 L MCV 85 MCH 28.0 MCHC 32.9 RDW Std Deviation 46.4 H Plt Count 178 Neut % (Auto) 76 Lymph % (Auto) 11 [place] % (Auto) 8 Eos % (Auto) 0 Baso % (Auto) 1 Neut # (Auto) 5.6 Lymph # (Auto) 0.[address] [place] # (Auto) 0.6 Eos # (Auto) 0.0 Baso # (Auto) 0.1 Immature Gran # (Auto) 0.35 H Absolute Nucleated RBC 0.00 Immature Gran % 5 H Nucleated RBC % 0 Retic Count (auto) 1.3 Absolute Retic 43.2 Immature Retic Fraction 13.3 Retic Hgb Content CHr 29.1 Sodium 137 Potassium 3.8 Chloride 104 Carbon Dioxide 25.7 Anion Gap 7 BUN 17 Creatinine 0.9 Estim Creat Clear Calc 53.9 L eGFR > 60 BUN/Creatinine Ratio 19 Glucose 88 Calculated Osmolality 274 L Calcium 8.0 L Corrected Calcium 9.1 Phosphorus 2.8 Magnesium 2.3 Iron 25 L TIBC 169 L Iron Saturation 14 L Unsat Iron Binding 144 L Ferritin 513 H Total Bilirubin 0.5 AST 33 ALT 15 Alkaline Phosphatase 61 Total Protein 4.6 L Albumin 2.6 L Globulin 2.0 L Albumin/Globulin Ratio 1.3 Quality Measures Quality Measures none Advance care planning discussed with:: patient Assessment & Plan Assessment Current Active Medications: Generic Name Dose Route Start Last Admin Trade Name Freq PRN Reason Stop Dose Admin Acetaminophen 650 mg 04/07/25 23:19 Acetaminophen 325 Mg Tablet PO 05/05/25 21:42 Q6H PRN Fever >101.5 or Pain 1-3 Aspirin 81 mg 04/06/25 09:00 04/08/25 09:37 Aspirin Ec 81 Mg Tabec PO 05/06/25 08:59 81 mg QDAY ANTHONY Administration Estrogens Conjugated 0 gm 04/08/25 09:45 04/08/25 12:30 Estrogens,Conj Vag Cr 30 Gm Tube VAGINAL 05/08/25 09:44 1 applicatio QDAY ANTHONY Administration Hydroxyzine HCl 10 mg 04/06/25 09:00 04/08/25 09:36 Hydroxyzine Hcl 10 Mg Tablet PO 05/06/25 08:59 10 mg BID ANTHONY Administration Levothyroxine Sodium 25 mcg 04/06/25 06:00 04/08/25 05:41 Levothyroxine Sodium 25 Mcg Tablet PO 05/06/25 05:59 25 mcg ACBR ANTHONY Administration Metoprolol Succinate 100 mg 04/06/25 09:00 04/08/25 09:38 Metoprolol Succinate Xl 25 Mg Tabcr PO 05/06/25 08:59 Not Given QDAY ANTHONY Metoprolol Succinate 25 mg 04/07/25 21:00 04/07/25 20:20 Metoprolol Succinate Xl 25 Mg Tabcr PO 05/07/25 20:59 25 mg HS ANTHONY Administration Ondansetron HCl 4 mg 04/05/25 21:43 Ondansetron Inj 2 Mg/Ml Inj 2 Ml IVP 05/05/25 21:42 Q6H PRN NAUSEA OR VOMITING Protocol Pantoprazole Sodium 40 mg 04/07/25 21:00 04/08/25 09:39 Pantoprazole Inj 40 Mg Vial IVP 05/07/25 20:59 40 mg BID ANTHONY Administration Sennosides 1 tab 04/05/25 21:43 Senna Tablet PO 05/05/25 21:42 QDAY PRN constipation Protocol Plan Callie Dietz 75F pmhx significant for Hep C untreated, HFrEF (40-45%, 06/2024), hx recurrent ESBL UTI, HTN, SVT, depression and anxiety presented to [facility] ED 04/05 for generalized weakness referred to the ED by her PCP iso hypokalemia, admitted for hypokalemia likely 2/2 poor PO intake. #Normocytic anemia #Hematochezia? Presented with Hgb 11.3 and following ~4L of fluids, Hgb 9.6, baseline 12-14 earlier this year. Takes iron supplementation at home. Denies melena, hematemesis or bloody stools. However 2 days ago, patient was told that she had a bloody bowel movement by nursing, which is not documented. Previous endoscopy and colonoscopy years ago. Iron studies iron low 25, TIBC low 169, iron saturation 14 low, unsaturated iron binding 144, ferritin 513 high. Iron studies suggest anemia of chronic disease however does not rule out acute bleeding. Initially thought to be hemodilutional however possible that a bleed may be exacerbating episodes of SVT. Plan: - GI consulted, recs appreciated; n.p.o. for now, possible EGD tonight - CTM CBC - Transfuse if hemoglobin <7 - F/u B12 - PT ordered #SVT, resolved #HFrEF (40-45% 06/2024) #HTN On home metoprolol XL 100 mg QD, Bumex 1 mg QD, Losartan 12.5 mg QD. Does not seem to be in HFrEF exacerbation, no JVD, crackles, BLE edema. Rapid x3 called 04/06 0300, 1330, 2000 for HR 140-150, asymptomatic. Adenosine 6 mg pushed on 04/06 with resolution of SVT. Plan: - Home metoprolol XL 100 mg qam and 25 mg qhs - Hold other home meds iso soft BP - Cardiology consulted, recs appreciated - Keep K>4 and Mg>2 at all times #Hypokalemia, resolved Presents with generalized weakness for 1 week, denies any muscle cramps or palpitations. On admission K 2.4 and EKG sinus rhythm rate 77, QTc interval of 481 ms. s/p potassium total 100 mEq and Mg 2 g repleted in ED. Likely 2/2 poor p.o. intake/dehydration with continued Bumex administration. Plan: - CTM CMP and replete as necessary - Encourage oral hydration - Hold Bumex - PT ordered #UTI #Hx of ESBL Presented to PCPs office with burning on urination completed 1 week course of ciprofloxacin. Reports burning on micturition much improved however persistent. Has a history of multiple urinary tract infections including ESBL. UA turbid, 1+ protein, 1+ bilirubin, 163 WBC, +LE. CTAP shows cholelithiasis, perinephric stranding, 1 mm nonobstructing left renal calculus, 37mm L left adnexal cyst, severe calcification in LAD and LCx, retrocardiac gastric hernia. Urine culture shows no growth, possibly secondary to previous ciprofloxacin course. Meropenem (04/06-04/08) Plan: - Discontinue abx due to no growth on cultures - CTM for urinary symptoms - Estrogen vaginal cream #FLORES, prerenal, resolved Reports poor PO intake. Admission Cr 1.6, BL 1.1. s/p 3.5L fluids Cr 1.2. Likely 2/2 dehydration vs UTI. Plan: - CTM Cr, caution with fluids as has hx of HFrEF #Hypothyroidism TSH 10.61, T4 12.1. Denies any symptoms of palpitations, chest pain, increased sweating. Plan: - Home levothyroxine 25 mcg QD #Hyperlipidemia Plan: - Home atorvastatin 80 mg QD #Depression #Anxiety Continuing her home medication hydroxyzine 10 mg 2 tabs, trazodone 50 mg 2 tabs. Plan: - Resume home meds #Hep C Diagnosed 06/2024, has medications but has not been started due to needing Hep B panel done. Follows outpatient. Plan: - Continue to follow outpatient for further management #37mm L left adnexal cyst Incidental finding on CTAP Plan: - Notified patient and recommend further outpatient follow up Hospital management: Lines: PIV Diet: cardiac Bowel: Senna prn GI prophylaxis: not indicated DVT prophylaxis: SCDs Disposition: med tele, hypoK management and monitor CODE STATUS: DNR Plan of care discussed with attending Dr. Castañeda, and PGY-2 Dr. Kaur. Katerina Jensen DO PGY-1 Internal Medicine Attending Provider Attestation/Addendum Akhil, Wanda Castañeda DO, attest that I was physically present for the [place]ane portions of the service and evaluated the patient with the resident and I reviewed and discussed the case with the resident and agree with the resident's findings and plans of care as documented above Patient seen and evaluated this AM. patient states she is feeling well. No episodes of SVT noted. Patient has anemia of chronic disease as seen on iron panel. She denies any shortness of breath, chest pain, lightheadedness, fevers, chills, nausea or vomiting otherwise. Patient is pending GI workup at this time. She remains NPO. H/h stable. Will f/u with EGD results.
--- NOTE | 2025-04-08 13:19 | PD.RESPRO ---
Documentation for date of: 04/08/25 Subjective Subjective Interval history: Patient seen and assessed at bedside. No overnight events. No episodes of SVT on telemetry overnight. HR was in 50s-70s. Reports she had episodes of diarrhea over the past 3-4 days after completing a course ciprofloxacin for her UTI, has inconsistent bowel movements due to her iron supplements. Hgb stable at 9.3 however still lower than her baseline around 12. Iron studies indicate anemia of chronic disease. Pending B12 and folate. Planned for EGD today. Exam Vital Signs Temp Pulse Resp BP Pulse Ox O2 Del Method O2 Flow Rate 97.7 F 72 21 H 105/60 93 L Nasal Cannula 3 04/08/25 11:45 04/08/25 11:45 04/08/25 11:45 04/08/25 11:45 04/08/25 11:45 04/08/25 11:45 04/08/25 11:45 FiO2 98 04/08/25 11:45 Narrative Exam Physical Exam General: Awake and in no acute distress. Conversational and non-toxic appearing. HEENT: Normocephalic, atraumatic, mucous membranes moist. Heart: Regular rate and rhythm, normal S1 and S2, no murmurs. Lungs: Clear to auscultation with no wheezing or crackles. Abdomen: Soft, nondistended, nontender, positive bowel sounds. No guarding or rebound tenderness. Neurologic: Alert and oriented x3, no gross neurological deficit, and patient able to move all 4 extremities. Extremities: No edema. Bluish fingertips. Skin: No rash or ecchymoses. Objective Labs 04/08/25 05:10 04/08/25 05:10 Labs: Laboratory Results - last 24 hr 04/07/25 04/08/25 05:00 05:10 WBC 7.4 RBC 3.32 L Hgb 9.3 L Hct 28.3 L MCV 85 MCH 28.0 MCHC 32.9 RDW Std Deviation 46.4 H Plt Count 178 Neut % (Auto) 76 Lymph % (Auto) 11 [place] % (Auto) 8 Eos % (Auto) 0 Baso % (Auto) 1 Neut # (Auto) 5.6 Lymph # (Auto) 0.8 L [place] # (Auto) 0.6 Eos # (Auto) 0.0 Baso # (Auto) 0.1 Immature Gran # (Auto) 0.35 H Absolute Nucleated RBC 0.00 Immature Gran % 5 H Nucleated RBC % 0 Retic Count (auto) 1.3 Absolute Retic 43.2 Immature Retic Fraction 13.3 Retic Hgb Content CHr 29.1 Sodium 137 Potassium 3.8 Chloride 104 Carbon Dioxide 25.7 Anion Gap 7 BUN 17 Creatinine 0.9 Estim Creat Clear Calc 53.9 L eGFR > 60 BUN/Creatinine Ratio 19 Glucose 88 Calculated Osmolality 274 L Calcium 8.0 L Corrected Calcium 9.1 Phosphorus 2.8 Magnesium 2.3 Iron 25 L TIBC 169 L Iron Saturation 14 L Unsat Iron Binding 144 L Ferritin 513 H Total Bilirubin 0.5 AST 33 ALT 15 Alkaline Phosphatase 61 Total Protein 4.6 L Albumin 2.6 L Globulin 2.0 L Albumin/Globulin Ratio 1.3 Quality Measures Quality Measures none Advance care planning discussed with:: patient Assessment & Plan Assessment Current Active Medications: Generic Name Dose Route Start Last Admin Trade Name Freq PRN Reason Stop Dose Admin Acetaminophen 650 mg 04/07/25 23:19 Acetaminophen 325 Mg Tablet PO 05/05/25 21:42 Q6H PRN Fever >101.5 or Pain 1-3 Aspirin 81 mg 04/06/25 09:00 04/08/25 09:37 Aspirin Ec 81 Mg Tabec PO 05/06/25 08:59 81 mg QDAY ANTHONY Administration Estrogens Conjugated 0 gm 04/08/25 09:45 04/08/25 12:30 Estrogens,Conj Vag Cr 30 Gm Tube VAGINAL 05/08/25 09:44 1 applicatio QDAY ANTHONY Administration Hydroxyzine HCl 10 mg 04/06/25 09:00 04/08/25 09:36 Hydroxyzine Hcl 10 Mg Tablet PO 05/06/25 08:59 10 mg BID ANTHONY Administration Levothyroxine Sodium 25 mcg 04/06/25 06:00 04/08/25 05:41 Levothyroxine Sodium 25 Mcg Tablet PO 05/06/25 05:59 25 mcg ACBR ANTHONY Administration Metoprolol Succinate 100 mg 04/06/25 09:00 04/08/25 09:38 Metoprolol Succinate Xl 25 Mg Tabcr PO 05/06/25 08:59 Not Given QDAY ANTHONY Metoprolol Succinate 25 mg 04/07/25 21:00 04/07/25 20:20 Metoprolol Succinate Xl 25 Mg Tabcr PO 05/07/25 20:59 25 mg HS ANTHONY Administration Ondansetron HCl 4 mg 04/05/25 21:43 Ondansetron Inj 2 Mg/Ml Inj 2 Ml IVP 05/05/25 21:42 Q6H PRN NAUSEA OR VOMITING Protocol Pantoprazole Sodium 40 mg 04/07/25 21:00 04/08/25 09:39 Pantoprazole Inj 40 Mg Vial IVP 05/07/25 20:59 40 mg BID ANTHONY Administration Sennosides 1 tab 04/05/25 21:43 Senna Tablet PO 05/05/25 21:42 QDAY PRN constipation Protocol Plan Patient is a 75 year old female with PMH of untreated hepatitis C, gastric bypass 20 years ago, acoustic neuroma status postsurgery with residual right facial droop and left eye ptosis, hypothyroidism, anxiety, depression, GERD, neuropathy, remote history of polysubstance abuse, history of chronic smoking with more than [id number] smoking history and quit 10 years ago, history of alcohol abuse when she was younger presented to the emergency department for generalized weakness, admitted for hypokalemia. Found to be in SVT. #SVT #Dehydration #Normocytic anemia, concern for acute GI bleed #Anemia of chronic disease Likely secondary to hypokalemia and dehydration from overdiuresis with Bumex 2 mg daily, was recently increased due to leg swelling. Also had about 3-4 days of multiple loose bowel movements after completing course of Cipro for UTI. Patient has history of recurrent SVTs, previously admitted in June 2024 with similar presentation, at the time, was attributed to long history of phentermine use. Previously also had difficulty converting back to sinus rhythm with metoprolol and adenosine 6 mg, followed by adenosine 12 mg, finally converted after given diltiazem IV 10 mg x1. Was discharged on metoprolol XL 100 mg BID, which was eventually able to be decreased to metoprolol XL 100 mg once a day. 04/06/25: Had 3 rapid responses throughout the day for SVT. Patient spontaneously converted at first rapid, at second was given metoprolol IV 5 mg x1 with conversion. At third rapid, patient was given 500 cc fluid bolus with improvement. However patient continued to convert back to SVT and adenosine 6 mg x1 was pushed with conversion back to sinus. 04/07/25: Rapid response overnight for SVT, HR 150. BP low at 86/65. Attempted carotid massage without improvement. Resolved with 500cc LR bolus BP improved to 108/69 and HR to 82. On telemetry, had 2 other episodes of SVT around midnight and 4AM but patient was asymptomatic. Of note, Hgb 12 -> 11.2 -> 9.6, concern for acute lower GI bleed which may be cause of recurrent SVTs. Baseline Hgb 12-14 in 06/2024. Patient reported dark stools but attributed this to her daily iron supplements. 04/08/25: No episodes of SVT overnight. Hgb stable at 9.3. Iron studies indicate anemia of chronic disease however acute bleed cannot be ruled out. Per GI, will plan for EGD today. Plan: - Continue metoprolol XL 100 mg in AM and metoprolol XL 25 mg in PM. - If patient goes back into SVT recommend to give some fluids, give electrolytes and give adenosine for the treatment. - Keep K >4 and Mg >2 - Monitor telemetry and BP - Patient was recommended EP evaluation for further evaluation of the SVT and possible AVNRT but as she did not have any episodes since June patient did not want to go and that she was again asked about further evaluation with EP for possible EP study as well as ablation and patient did not want consider it at the present point of time. Will continue to follow-up with the patient as outpatient regarding the same. - Follow up in clinic 1 week after discharge with repeat renal panel - GI consulted #Hypokalemia, resolved Presented with generalized weakness. Potassium 2.7 on admission. 04/06/25: 3.4 -> 5.0 -> 3.4 -> 3.5. Likely secondary to Bumex. Plan: - Hold Bumex for now, restart on Bumex 0.5 mg daily if patient starts to develop bilateral leg swelling. - Keep K >4 and Mg > 2 #HFpEF (EF 60-65%) Echo 06/2024 showed normal LV size. Mild systolic dysfunction with mild basal hypokinesis. Stage II diastolic dysfunction. Estimated EF 40-45% Normal RV size and function. Estimated RVSP 42 mmHg. RAP 15. Mild to moderate PAH. PA dilated. Trivial to mild mitral stenosis with a mean PG of 4-5 mm hg. Modertate to severe posterior MAC and Mild MAC anteriorly. Mild to moderate MR. Moderate AI. Mild TR, PI. IVC dilated. Mild LA dilatation. Patient did follow-up in the clinic and patient quit all substance abuse and phentermine. Patient was started on goal-directed medical therapy for with metoprolol and Entresto which was changed to losartan 12.5 mg daily due to cost. Her metoprolol XL was decreased to 125 mg once daily (100 mg in AM and 25 mg in PM) as her rate was controlled and she did not have any further episodes since then and no admissions in the last 10 months. Repeat echo outpatient December 2024 showed EF 60-65%. Plan: - IV fluid resuscitation as needed. Able to tolerate as EF is back to normal. - Recommend to resume home dose losartan as part of GDMT if BP tolerates and renal function improves -Strict ins and outs -Daily weights -Supplemental O2 as needed, wean as tolerated #FLORES, prerenal, resolved Creatinine 1.6 on admission, now back to 0.9 (04/07). Back to baseline). GFR 33 (04/05) -> >60 (04/07) - May resume losartan and Bumex per recommendations above #HLD - Continue atorvastatin 80 mg daily #UTI #Depression #Anxiety #Hypothyroidism #Hep C, untreated #37 mm L adnexal cyst Thank you for your consultation, please do not hesitate to reach out if you have any question or concern Patient plan of care was discussed with the attending physician, Dr. Jelani Jensen DO, PGY-1 Attending Provider Attestation/Addendum I have personally seen and examined the patient separately on the above date of service and discussed the plan of care with the resident. I reviewed the resident Dr. Leonor Jensen consultation progress note and agree with the resident findings and plan in the note above and have also edited the documentation to reflect my findings and plan. Tay Palomares M.D. Interventional Cardiology
[2025-04-08] MEDS: METOPROLOL SUCCINATE XL 25 MG TABCR 100 MG PO (15:13)
--- NOTE | 2025-04-08 19:05 | SUR.PHASEI ---
pt received from jone spivey. pt vss. breathing even and unlabored. denies pain and nausea. 22g iv started in or room.
--- NOTE | 2025-04-08 19:30 | SUR.PHASEI ---
report called to [facility] in tele. vss. breathing even and unlabored. denies pain and nausea. transported to room via gurney.
[2025-04-08] MEDS: NA SU/NAHCO3/KC/PEG (Golytely) 4,000 ML BTL 4000 ML PO (20:42)
[2025-04-08] MEDS: METOPROLOL SUCCINATE XL 25 MG TABCR PO (20:49)
[2025-04-08 20:58] LABS: Vitamin B12 > 2000 pg/mL (211-911)
[2025-04-09] VITALS (23 sets, daily range): BP systolic 101–157; BP diastolic 52–97; PULSE 46–96; RESP 16–96; TEMP 36.1–37.2; O2SAT 91–100; BMI 29.5
[2025-04-09] MEDS: LEVOTHYROXINE SODIUM 25 MCG TABLET PO (06:18)
[2025-04-09 07:15] LABS: Alanine Aminotransferase 24 U/L (10-49); Albumin, Serum 3.2 gm/dL (3.4-4.8); Albumin/Globulin Ratio 1.3 (1.2-2.2); Alkaline Phosphatase 75 U/L (46-116); Anion Gap 9 (7-16); Aspartate Amino Transferase 56 U/L (0-34); BUN/Creatinine Ratio 16 Ratio (12-20); Bilirubin,Total 0.7 mg/dL (0.3-1.2); Blood Urea Nitrogen 11 mg/dL (9-23); Calcium 8.5 mg/dL (8.3-10.6); Calcium (Corrected) 9.1 mg/dL (8.5-10.1); Carbon Dioxide 25.1 mMol/L (20.0-31.0); Chloride 102 mMol/L (98-107); Creatinine (Component) 0.7 mg/dL (0.6-1.3); Estimated Creatinine Clearance 69.4 mL/min (>60); Globulin 2.5 gm/dL (2.3-3.5); Glucose 66 mg/dL (74-106); Osmolality,Calculated 269 (275-295); Potassium 4.2 mMol/L (3.4-5.1); Sodium 136 mMol/L (136-145); Total Protein 5.7 gm/dL (5.7-8.2); eGFR > 60 See Note
[2025-04-09 08:35] LABS: Magnesium 1.8 mg/dL (1.6-2.6)
[2025-04-09] MEDS: METOPROLOL SUCCINATE XL 25 MG TABCR 100 MG PO (09:51)
[2025-04-09] MEDS: ASPIRIN EC 81 MG TABEC PO (09:52)
[2025-04-09] MEDS: ESTROGENS,CONJ VAG CR 30 GM TUBE VAGINAL (10:00)
[2025-04-09 10:16] LABS: Basophils # (Auto) 0.1 Thou/mm3 (0.0-0.2); Basophils % (Auto) 1 % (0-2.5); Eosinophils # (Auto) 0.1 Thou/mm3 (0.0-0.5); Eosinophils % (Auto) 1 % (0-10); Hematocrit 34.6 % (36.0-46.0); Hemoglobin 11.1 g/dL (12.0-16.0); Immature Granulocytes Auto 0.71 Thou/mm3 (0.00-0.00); Lymphocytes # (Auto) 1.0 Thou/mm3 (1.0-4.8); Lymphocytes % (Auto) 13 % (10-50); Mean Corpuscular HGB Conc 32.1 g/dl (31.0-37.0); Mean Corpuscular Hemoglobin 28.1 pg (25.0-35.0); Mean Corpuscular Volume 88 fL (80-100); Monocytes # (Auto) 0.8 Thou/mm3 (0.0-0.8); Monocytes % (Auto) 10 % (0-12); Neutrophils # (Auto) 5.2 Thou/mm3 (1.8-7.7); Neutrophils % (Auto) 66 % (37-80); Nucleated Red Blood Cell # 0.00 Thou/mm3 (0.00-0.00); Nucleated Red Blood Cell % 0 /100 WBC (0); Platelet Count 243 Thou/mm3 (140-440); RDW Standard Deviation 48.8 fL (36.4-46.3); Red Blood Count 3.95 Miln/mm3 (4.00-5.20); White Blood Count 7.8 Thou/mm3 (3.6-11.0)
[2025-04-09] MEDS: NA SU/NAHCO3/KC/PEG (Golytely) 4,000 ML BTL 4000 ML PO (10:52)
--- NOTE | 2025-04-09 13:00 | ESPR_ITS ---
<Statement entered by Randolph Johnson MD - 04/09/25 13:48> I have reviewed the note and agree with the resident's assessment & plan with exceptions as below. I have personally reviewed labs, imaging, home meds/prior records, examined the patient, formulated and discussed management plan with my attending Patient was seen and examined bedside's morning. No acute overnight events. Patient underwent EGD yesterday and only showed gastritis with no active signs of bleeding therefore patient will undergo colonoscopy likely today if she is cleared. Patient is currently on GoLytely and tolerating well. No more SVT episodes for the last 48 hours. Will continue with metoprolol. Possible discharge in the next 24-48 hours Randolph Johnson PGY2 Disclaimer: Even though this this note was dictated by speech recognition and even though it was carefully revised there may still be minor errors in respiratory therapy instructor due to voice recognition software. Documentation for date of: 04/09/25 Subjective Subjective Interval history: No acute overnight events. Patient seen examined at bedside. Patient is tolerating GoLytely. Denies palpitations, chest pain, shortness of breath, or abdominal pain. Reports minimal burning on urination. Vitals labs reviewed. SBP 100-140. Hemoglobin 11.1 increased from 9.3, potassium 4.2, magnesium 1.8, glucose 66. Endoscopy showed gastritis, no signs of active bleeding. Colonoscopy scheduled for today. Continue metoprolol XL 100 mg in a.m. and 25 mg in p.m., No further episodes of SVT. Anticipate discharge within 24 to 48 hours pending on colonoscopy results. Exam Vital Signs Temp Pulse Resp BP Pulse Ox O2 Del Method O2 Flow Rate 97.5 F 69 18 101/60 93 L Room Air 1 04/09/25 08:00 04/09/25 09:51 04/09/25 08:00 04/09/25 09:51 04/09/25 08:00 04/09/25 08:00 04/09/25 00:00 FiO2 98 04/08/25 19:20 Narrative Exam GENERAL: AOx3, no acute distress HEENT: mucous membranes moist, bilateral sclera anicteric CARDIOVASCULAR: regular rate and rhythm, S1/S2 present, no murmurs appreciated PULMONARY: clear to auscultation bilaterally, no rales/rhonchi/wheezes ABDOMINAL: soft, non-tender, non-distended, no rebound/guarding, bowel sounds present EXTREMITIES: no peripheral edema SKIN: warm and dry, intact, no rashes NEURO: CN II-XII grossly intact, no focal deficits, alert, following commands Objective Labs 04/10/25 04:50 04/10/25 04:50 Labs: Laboratory Results - last 24 hr 04/07/25 04/09/25 05:00 05:36 WBC 7.8 RBC 3.95 L Hgb 11.1 L Hct 34.6 L MCV 88 MCH 28.1 MCHC 32.1 RDW Std Deviation 48.8 H Plt Count 243 D Neut % (Auto) 66 Lymph % (Auto) 13 [place] % (Auto) 10 Eos % (Auto) 1 Baso % (Auto) 1 Neut # (Auto) 5.2 Lymph # (Auto) 1.0 [place] # (Auto) 0.8 Eos # (Auto) 0.1 Baso # (Auto) 0.1 Immature Gran # (Auto) 0.71 H Absolute Nucleated RBC 0.00 Immature Gran % 9 H Nucleated RBC % 0 Sodium 136 Potassium 4.2 Chloride 102 Carbon Dioxide 25.1 Anion Gap 9 BUN 11 Creatinine 0.7 Estim Creat Clear Calc 69.4 eGFR > 60 BUN/Creatinine Ratio 16 Glucose 66 L Calculated Osmolality 269 L Calcium 8.5 Corrected Calcium 9.1 Magnesium 1.8 Total Bilirubin 0.7 AST 56 H ALT 24 Alkaline Phosphatase 75 D Total Protein 5.7 Albumin 3.2 L D Globulin 2.5 Albumin/Globulin Ratio 1.3 Vitamin B12 > 2000 H Quality Measures Quality Measures none Advance care planning discussed with:: patient Assessment & Plan Assessment Current Active Medications: Generic Name Dose Route Start Last Admin Trade Name Freruel PRN Reason Stop Dose Admin Acetaminophen 650 mg 04/07/25 23:19 Acetaminophen 325 Mg Tablet PO 05/05/25 21:42 Q6H PRN Fever >101.5 or Pain 1-3 Aspirin 81 mg 04/06/25 09:00 04/09/25 09:52 Aspirin Ec 81 Mg Tabec PO 05/06/25 08:59 81 mg QDAY ANTHONY Administration Estrogens Conjugated 0 gm 04/08/25 09:45 04/09/25 10:00 Estrogens,Conj Vag Cr 30 Gm Tube VAGINAL 05/08/25 09:44 1 applicatio QDAY ANTHONY Administration Hydroxyzine HCl 10 mg 04/06/25 09:00 04/09/25 09:52 Hydroxyzine Hcl 10 Mg Tablet PO 05/06/25 08:59 10 mg BID ANTHONY Administration Levothyroxine Sodium 25 mcg 04/06/25 06:00 04/09/25 06:18 Levothyroxine Sodium 25 Mcg Tablet PO 05/06/25 05:59 25 mcg ACBR ANTHONY Administration Metoprolol Succinate 25 mg 04/08/25 21:00 04/08/25 20:49 Metoprolol Succinate Xl 25 Mg Tabcr PO 05/07/25 20:59 25 mg HS ANTHONY Administration Metoprolol Succinate 100 mg 04/09/25 09:00 04/09/25 09:51 Metoprolol Succinate Xl 25 Mg Tabcr PO 05/09/25 08:59 100 mg QDAY ANTHONY Administration Ondansetron HCl 4 mg 04/05/25 21:43 Ondansetron Inj 2 Mg/Ml Inj 2 Ml IVP 05/05/25 21:42 Q6H PRN NAUSEA OR VOMITING Protocol Pantoprazole Sodium 40 mg 04/07/25 21:00 04/09/25 09:51 Pantoprazole Inj 40 Mg Vial IVP 05/07/25 20:59 40 mg BID ANTHONY Administration Sennosides 1 tab 04/05/25 21:43 Senna Tablet PO 05/05/25 21:42 QDAY PRN constipation Protocol Plan Callie Dietz 75F pmhx significant for Hep C untreated, HFrEF (40-45%, 06/2024), hx recurrent ESBL UTI, HTN, SVT, depression and anxiety presented to [facility] ED 04/05 for generalized weakness referred to the ED by her PCP iso hypokalemia, admitted for hypokalemia likely 2/2 poor PO intake. #Normocytic anemia #Hematochezia? Presented with Hgb 11.3 and following ~4L of fluids, Hgb 9.6, baseline 12-14 earlier this year. Takes iron supplementation at home. Denies melena, hematemesis or bloody stools. However 2 days ago, patient was told that she had a bloody bowel movement by nursing, which is not documented. Previous endoscopy and colonoscopy years ago. Iron studies iron low 25, TIBC low 169, iron saturation 14 low, unsaturated iron binding 144, ferritin 513 high. Iron studies suggest anemia of chronic disease however does not rule out acute bleeding. Initially thought to be hemodilutional however possible that a bleed may be exacerbating episodes of SVT. 04/09 Endoscopy showed gastritis, normal esophagus. Plan: - GI consulted, recs appreciated: Golytely, colonoscopy tonight - CTM CBC - Transfuse if hemoglobin <7 - F/u B12 - PT ordered: independent #SVT, resolved #Hx of HFrEF (40-45% 06/2024) #HTN On home metoprolol XL 100 mg QD, Bumex 1 mg QD, Losartan 12.5 mg QD. Does not seem to be in HFrEF exacerbation, no JVD, crackles, BLE edema. Rapid x3 called 04/06 0300, 1330, 2000 for HR 140-150, asymptomatic. Adenosine 6 mg pushed on 04/06 with resolution of SVT. Repeat echo outpatient December 2024 showed EF 60-65%. Plan: - Home metoprolol XL 100 mg qam and 25 mg qhs - Hold other home meds iso soft BP - Cardiology consulted, recs appreciated: If patient goes back NSVT, recommend fluid boluses, electrolyte repletion and adenosine - Keep K>4 and Mg>2 at all times #Hypokalemia, resolved Presents with generalized weakness for 1 week, denies any muscle cramps or palpitations. On admission K 2.4 and EKG sinus rhythm rate 77, QTc interval of 481 ms. s/p potassium total 100 mEq and Mg 2 g repleted in ED. Likely 2/2 poor p.o. intake/dehydration with continued Bumex administration. Plan: - CTM CMP and replete as necessary - Encourage oral hydration - Hold Bumex, if patient develops leg edema, Bumex 0.5 mg - PT ordered #UTI #Hx of ESBL Presented to PCPs office with burning on urination completed 1 week course of ciprofloxacin. Reports burning on micturition much improved however persistent. Has a history of multiple urinary tract infections including ESBL. UA turbid, 1+ protein, 1+ bilirubin, 163 WBC, +LE. CTAP shows cholelithiasis, perinephric stranding, 1 mm nonobstructing left renal calculus, 37mm L left adnexal cyst, severe calcification in LAD and LCx, retrocardiac gastric hernia. Urine culture shows no growth, possibly secondary to previous ciprofloxacin course. Meropenem (04/06-04/08) Plan: - CTM for urinary symptoms - Estrogen vaginal cream #FLORES, prerenal, resolved Reports poor PO intake. Admission Cr 1.6, BL 1.1. s/p 3.5L fluids Cr 1.2. Likely 2/2 dehydration vs UTI. Plan: - CTM Cr #Hypothyroidism TSH 10.61, T4 12.1. Denies any symptoms of palpitations, chest pain, increased sweating. Plan: - Home levothyroxine 25 mcg QD #Hyperlipidemia Plan: - Home atorvastatin 80 mg QD #Depression #Anxiety Continuing her home medication hydroxyzine 10 mg 2 tabs, trazodone 50 mg 2 tabs. Plan: - Resume home meds #Hep C Diagnosed 06/2024, has medications but has not been started due to needing Hep B panel done. Follows outpatient. Plan: - Continue to follow outpatient for further management #37mm L left adnexal cyst Incidental finding on CTAP Plan: - Notified patient and recommend further outpatient follow up Hospital management: Lines: PIV Diet: cardiac Bowel: Senna prn GI prophylaxis: not indicated DVT prophylaxis: SCDs Disposition: med tele, colonoscopy CODE STATUS: DNR Plan of care discussed with attending Dr. Castañeda, and PGY-2 Dr. Kaur. Katerina Jensen DO PGY-1 Internal Medicine Attending Provider Attestation/Addendum Akhil, Wanda Castañeda DO, attest that I was physically present for the keane portions of the service and evaluated the patient with the resident and I reviewed and discussed the case with the resident and agree with the resident's findings and plans of care as documented above Patient seen and evaluated this AM. She states that she is miserable since she has drunken 1.5 gallons of golytely. She states that she has pain from sitting on the commode. She is scheduled for colonoscopy this evening. She has otherwise has no further episodes of arrhythmia. Anticipate DC within next 24h if colonoscopy is unremarkable.
[2025-04-09 13:10] LABS: OBS Card Expiration Date 2/28/2028; OBS Card Lot # 124; OBS Developer Lot # 224; OBS Performed By fabic; OBS QC OK? Yes; Occult Blood, Stool Negative (Negative)
[2025-04-09] MEDS: Magnesium Sulfate 2 GM Ivpb 2 GM/50 ML BAG IV (14:00)
--- NOTE | 2025-04-09 19:45 | SUR.PHASEI ---
pt received from OR in recovery bay 1. pt asleep but responds to voice, breathing unlabored on room air. v/s stable. report received from Gena VASQUEZ.
--- NOTE | 2025-04-09 20:25 | SUR.PHASEI ---
pt awake and alert, breathing unlabored on room air. v/s stable. report called to Echo VASQUEZ. pt will be transferred to room at this time.
--- NOTE | 2025-04-09 20:25 | PC.NURSE ---
Pt. back in her room from colonoscopy.
--- NOTE | 2025-04-09 20:27 | PD.IMPROG ---
Documentation for date of: 04/09/25 Subjective Subjective Interval history: Patient seen and examined at the bedside. No new complaints including any cardiac complaints. Overnight patient did not have any new further episodes of SVT. Potassium is 4.2 and magnesium is 1.8 Recommend aggressive replace the magnesium sulfate 4 g IV x 1 Recommend to continue to keep potassium greater than 4 and magnesium greater than 2.2 all the times. Continue telemetry for now. Heart rate is well-controlled and continue with metoprolol XL 100 mg once daily in the morning and 25 mg once in the evening. Hemoglobin stable for now and EGD on yesterday showed only gastritis and patient is planned for colonoscopy today. Will closely monitor the electrolytes given the patient will be getting the latter. Exam Vital Signs Temp Pulse Resp BP Pulse Ox O2 Del Method O2 Flow Rate 97.1 F 59 L 19 133/67 H 96 Nasal Cannula 3 04/09/25 20:00 04/09/25 20:00 04/09/25 20:00 04/09/25 20:00 04/09/25 20:00 04/09/25 16:00 04/09/25 19:36 FiO2 98 04/08/25 19:20 Narrative Exam General: Alert and oriented x3. In no acute distress. Eyes: Pupils are equal and reactive to light bilaterally. HEENT: Atraumatic, normocephalic. No JVD noted. Mucosa moist. Cardiovascular: Normal S1 and S2. Normal rate and regular rhythm. No murmurs appreciated. No peripheral pitting edema noted. Respiratory: No respiratory distress. Lungs are clear to auscultation bilaterally. No wheezing or crackles heard. Abdomen: Soft, nontender, nondistended. Skin: No rash. Warm to touch. Musculoskeletal: No gross injuries. Able to move all 4 extremities. Neuro: Alert and oriented x3. No focal neuro deficits. Psych: Normal affect and mood Objective Labs 04/09/25 05:36 04/09/25 05:36 Labs: Laboratory Results - last 24 hr 04/07/25 04/09/25 04/09/25 05:00 05:36 05:57 WBC 7.8 RBC 3.95 L Hgb 11.1 L Hct 34.6 L MCV 88 MCH 28.1 MCHC 32.1 RDW Std Deviation 48.8 H Plt Count 243 D Neut % (Auto) 66 Lymph % (Auto) 13 [place] % (Auto) 10 Eos % (Auto) 1 Baso % (Auto) 1 Neut # (Auto) 5.2 Lymph # (Auto) 1.0 [place] # (Auto) 0.8 Eos # (Auto) 0.1 Baso # (Auto) 0.1 Immature Gran # (Auto) 0.71 H Absolute Nucleated RBC 0.00 Immature Gran % 9 H Nucleated RBC % 0 Sodium 136 Potassium 4.2 Chloride 102 Carbon Dioxide 25.1 Anion Gap 9 BUN 11 Creatinine 0.7 Estim Creat Clear Calc 69.4 eGFR > 60 BUN/Creatinine Ratio 16 Glucose 66 L Calculated Osmolality 269 L Calcium 8.5 Corrected Calcium 9.1 Magnesium 1.8 Total Bilirubin 0.7 AST 56 H ALT 24 Alkaline Phosphatase 75 D Total Protein 5.7 Albumin 3.2 L D Globulin 2.5 Albumin/Globulin Ratio 1.3 Vitamin B12 > 2000 H Stool Occult Blood Negative Assessment & Plan A&P Narrative 75 year old female with PMH of untreated hepatitis C, gastric bypass 20 years ago, acoustic neuroma status postsurgery with residual right facial droop and left eye ptosis, hypothyroidism, anxiety, depression, GERD, neuropathy, remote history of polysubstance abuse, history of chronic smoking with more than [id number] smoking history and quit 10 years ago, history of alcohol abuse when she was younger presented to the emergency department for generalized weakness, admitted for hypokalemia. Found to be in SVT. #SVT #Dehydration #Normocytic anemia, concern for acute GI bleed #Anemia of chronic disease Likely secondary to hypokalemia and dehydration from overdiuresis with Bumex 2 mg daily, was recently increased due to leg swelling. Also had about 3-4 days of multiple loose bowel movements after completing course of Cipro for UTI. Patient has history of recurrent SVTs, previously admitted in June 2024 with similar presentation, at the time, was attributed to long history of phentermine use. Previously also had difficulty converting back to sinus rhythm with metoprolol and adenosine 6 mg, followed by adenosine 12 mg, finally converted after given diltiazem IV 10 mg x1. Was discharged on metoprolol XL 100 mg BID, which was eventually able to be decreased to metoprolol XL 100 mg once a day. 04/06/25: Had 3 rapid responses throughout the day for SVT. Patient spontaneously converted at first rapid, at second was given metoprolol IV 5 mg x1 with conversion. At third rapid, patient was given 500 cc fluid bolus with improvement. However patient continued to convert back to SVT and adenosine 6 mg x1 was pushed with conversion back to sinus. 04/07/25: Rapid response overnight for SVT, HR 150. BP low at 86/65. Attempted carotid massage without improvement. Resolved with 500cc LR bolus BP improved to 108/69 and HR to 82. On telemetry, had 2 other episodes of SVT around midnight and 4AM but patient was asymptomatic. Of note, Hgb 12 -> 11.2 -> 9.6, concern for acute lower GI bleed which may be cause of recurrent SVTs. Baseline Hgb 12-14 in 06/2024. Patient reported dark stools but attributed this to her daily iron supplements. 04/08/25: No episodes of SVT overnight. Hgb stable at 9.3. Iron studies indicate anemia of chronic disease however acute bleed cannot be ruled out. Per GI, will plan for EGD today. Plan: - Continue metoprolol XL 100 mg in AM and metoprolol XL 25 mg in PM. - If patient goes back into SVT recommend to give some fluids, give electrolytes and give adenosine for the treatment. - Keep K >4 and Mg >2 - Monitor telemetry and BP - Patient was recommended EP evaluation for further evaluation of the SVT and possible AVNRT but as she did not have any episodes since June patient did not want to go and that she was again asked about further evaluation with EP for possible EP study as well as ablation and patient did not want consider it at the present point of time. Will continue to follow-up with the patient as outpatient regarding the same. - Follow up in clinic 1 week after discharge with repeat renal panel - GI consulted Hemoglobin stable for now and EGD on yesterday showed only gastritis and patient is planned for colonoscopy today. Will closely monitor the electrolytes given the patient will be getting the latter. #Hypokalemia, resolved Presented with generalized weakness. Potassium 2.7 on admission. 04/06/25: 3.4 -> 5.0 -> 3.4 -> 3.5. Likely secondary to Bumex. Plan: - Hold Bumex for now, restart on Bumex 0.5 mg daily if patient starts to develop bilateral leg swelling or will restart at the time of discharge or as outpatient. - Keep K >4 and Mg > 2 #HFpEF (EF 60-65%) Echo 06/2024 showed normal LV size. Mild systolic dysfunction with mild basal hypokinesis. Stage II diastolic dysfunction. Estimated EF 40-45% Normal RV size and function. Estimated RVSP 42 mmHg. RAP 15. Mild to moderate PAH. PA dilated. Trivial to mild mitral stenosis with a mean PG of 4-5 mm hg. Modertate to severe posterior MAC and Mild MAC anteriorly. Mild to moderate MR. Moderate AI. Mild TR, PI. IVC dilated. Mild LA dilatation. Patient did follow-up in the clinic and patient quit all substance abuse and phentermine. Patient was started on goal-directed medical therapy for with metoprolol and Entresto which was changed to losartan 12.5 mg daily due to cost. Her metoprolol XL was decreased to 125 mg once daily (100 mg in AM and 25 mg in PM) as her rate was controlled and she did not have any further episodes since then and no admissions in the last 10 months. Repeat echo outpatient December 2024 showed EF 60-65%. Plan: - IV fluid resuscitation as needed. Able to tolerate as EF is back to normal. - Recommend to resume home dose losartan as part of GDMT if BP tolerates and renal function improves -Strict ins and outs -Daily weights -Supplemental O2 as needed, wean as tolerated #FLORES, prerenal, resolved Creatinine 1.6 on admission, now back to 0.9 (04/07). Back to baseline). GFR 33 (04/05) -> >60 (04/07) - May resume losartan and Bumex per recommendations above #HLD - Continue atorvastatin 80 mg daily #UTI #Depression #Anxiety #Hypothyroidism #Hep C, untreated #37 mm L adnexal cyst Management of rest of the medical conditions as per primary team and other consultants. Thank you for the consult and allowing me to participate in the care of the patient. Cardiology will continue to follow. Tay Palomares M.D. Interventional Cardiology Time Spent With Patient Time: Total time spent is greater than 50% in coordination of care (as documented) at patient's floor/unit and/or counseling patient:
[2025-04-09] MEDS: METOPROLOL SUCCINATE XL 25 MG TABCR PO (21:12)
[2025-04-09 21:42] LABS: Path Review Blood Smear Sent to Pathologist
[2025-04-10] VITALS (9 sets, daily range): BP systolic 89–125; BP diastolic 50–71; PULSE 65–96; RESP 18–23; TEMP 35.7–36.3; O2SAT 93–97
[2025-04-10] MEDS: LEVOTHYROXINE SODIUM 25 MCG TABLET PO (05:30)
[2025-04-10 06:18] LABS: Alanine Aminotransferase 20 U/L (10-49); Albumin, Serum 2.8 gm/dL (3.4-4.8); Albumin/Globulin Ratio 1.4 (1.2-2.2); Alkaline Phosphatase 64 U/L (46-116); Anion Gap 10 (7-16); Aspartate Amino Transferase 48 U/L (0-34); BUN/Creatinine Ratio 16 Ratio (12-20); Bilirubin,Total 0.5 mg/dL (0.3-1.2); Blood Urea Nitrogen 11 mg/dL (9-23); Calcium 8.0 mg/dL (8.3-10.6); Calcium (Corrected) 9.0 mg/dL (8.5-10.1); Carbon Dioxide 26.4 mMol/L (20.0-31.0); Chloride 106 mMol/L (98-107); Creatinine (Component) 0.7 mg/dL (0.6-1.3); Estimated Creatinine Clearance 69.4 mL/min (>60); Globulin 2.0 gm/dL (2.3-3.5); Glucose 86 mg/dL (74-106); Magnesium 1.6 mg/dL (1.6-2.6); Osmolality,Calculated 281 (275-295); Potassium 4.8 mMol/L (3.4-5.1); Sodium 142 mMol/L (136-145); Total Protein 4.8 gm/dL (5.7-8.2); eGFR > 60 See Note
[2025-04-10] MEDS: ASPIRIN EC 81 MG TABEC PO (08:38)
[2025-04-10] MEDS: METOPROLOL SUCCINATE XL 25 MG TABCR 100 MG PO (08:38)
[2025-04-10] MEDS: ESTROGENS,CONJ VAG CR 30 GM TUBE VAGINAL (08:39)
[2025-04-10 10:32] LABS: Basophils # (Auto) 0.1 Thou/mm3 (0.0-0.2); Basophils % (Auto) 2 % (0-2.5); Eosinophils # (Auto) 0.1 Thou/mm3 (0.0-0.5); Eosinophils % (Auto) 1 % (0-10); Hematocrit 32.2 % (36.0-46.0); Hemoglobin 10.5 g/dL (12.0-16.0); Immature Granulocytes Auto 0.75 Thou/mm3 (0.00-0.00); Lymphocytes # (Auto) 1.3 Thou/mm3 (1.0-4.8); Lymphocytes % (Auto) 18 % (10-50); Mean Corpuscular HGB Conc 32.6 g/dl (31.0-37.0); Mean Corpuscular Hemoglobin 28.0 pg (25.0-35.0); Mean Corpuscular Volume 86 fL (80-100); Monocytes # (Auto) 0.8 Thou/mm3 (0.0-0.8); Monocytes % (Auto) 11 % (0-12); Neutrophils # (Auto) 4.4 Thou/mm3 (1.8-7.7); Neutrophils % (Auto) 59 % (37-80); Nucleated Red Blood Cell # 0.00 Thou/mm3 (0.00-0.00); Nucleated Red Blood Cell % 0 /100 WBC (0); Platelet Count 188 Thou/mm3 (140-440); RDW Standard Deviation 47.1 fL (36.4-46.3); Red Blood Count 3.75 Miln/mm3 (4.00-5.20); White Blood Count 7.4 Thou/mm3 (3.6-11.0)
--- NOTE | 2025-04-10 11:00 | ESPR_ITS ---
Documentation for date of: 04/10/25 Subjective Subjective Interval history: Patient seen and examined at the bedside. No new complaints including any cardiac complaints. Overnight patient did not have any new further episodes of SVT. Potassium is 4.2 and magnesium is 1.6 Recommend aggressive replace the magnesium sulfate 4 g IV x 1 Recommend to continue to keep potassium greater than 4 and magnesium greater than 2.2 all the times. Heart rate is well-controlled and continue with metoprolol XL 100 mg once daily in the morning and 25 mg once in the evening. Hemoglobin stable for now and EGD showed only gastritis and colonoscopy showed internal hemorrhoids as well as the sigmoid diverticulosis but no evidence of any active bleeding. Patient recommended to follow-up with me in 1 week with renal panel. Patient should be discharged on magnesium supplements. Exam Vital Signs Temp Pulse Resp BP Pulse Ox O2 Del Method O2 Flow Rate 97.1 F 76 18 89/57 L 97 Nasal Cannula 2 04/10/25 11:47 04/10/25 11:47 04/10/25 11:47 04/10/25 11:47 04/10/25 07:27 04/10/25 04:00 04/10/25 07:19 FiO2 98 04/09/25 21:00 Narrative Exam General: Alert and oriented x3. In no acute distress. Eyes: Pupils are equal and reactive to light bilaterally. HEENT: Atraumatic, normocephalic. No JVD noted. Mucosa moist. Cardiovascular: Normal S1 and S2. Normal rate and regular rhythm. No murmurs appreciated. No peripheral pitting edema noted. Respiratory: No respiratory distress. Lungs are clear to auscultation bilaterally. No wheezing or crackles heard. Abdomen: Soft, nontender, nondistended. Skin: No rash. Warm to touch. Musculoskeletal: No gross injuries. Able to move all 4 extremities. Neuro: Alert and oriented x3. No focal neuro deficits. Psych: Normal affect and mood Objective Labs 04/10/25 04:50 04/10/25 04:50 Labs: Laboratory Results - last 24 hr 04/09/25 04/10/25 05:36 04:50 WBC 7.4 RBC 3.75 L Hgb 10.5 L Hct 32.2 L MCV 86 MCH 28.0 MCHC 32.6 RDW Std Deviation 47.1 H Plt Count 188 D Neut % (Auto) 59 Lymph % (Auto) 18 [place] % (Auto) 11 Eos % (Auto) 1 Baso % (Auto) 2 Neut # (Auto) 4.4 Lymph # (Auto) 1.3 [place] # (Auto) 0.8 Eos # (Auto) 0.1 Baso # (Auto) 0.1 Immature Gran # (Auto) 0.75 H Absolute Nucleated RBC 0.00 Immature Gran % 10 H Nucleated RBC % 0 Smear Path Review Sent to Pathologist Sodium 142 Potassium 4.8 D Chloride 106 Carbon Dioxide 26.4 Anion Gap 10 BUN 11 Creatinine 0.7 Estim Creat Clear Calc 69.4 eGFR > 60 BUN/Creatinine Ratio 16 Glucose 86 Calculated Osmolality 281 Calcium 8.0 L Corrected Calcium 9.0 Magnesium 1.6 Total Bilirubin 0.5 AST 48 H ALT 20 Alkaline Phosphatase 64 Total Protein 4.8 L Albumin 2.8 L Globulin 2.0 L Albumin/Globulin Ratio 1.4 Assessment & Plan A&P Narrative 75 year old female with PMH of untreated hepatitis C, gastric bypass 20 years ago, acoustic neuroma status postsurgery with residual right facial droop and left eye ptosis, hypothyroidism, anxiety, depression, GERD, neuropathy, remote history of polysubstance abuse, history of chronic smoking with more than [id number] smoking history and quit 10 years ago, history of alcohol abuse when she was younger presented to the emergency department for generalized weakness, admitted for hypokalemia. Found to be in SVT. #SVT #Dehydration #Normocytic anemia, concern for acute GI bleed #Anemia of chronic disease Likely secondary to hypokalemia and dehydration from overdiuresis with Bumex 2 mg daily, was recently increased due to leg swelling. Also had about 3-4 days of multiple loose bowel movements after completing course of Cipro for UTI. Patient has history of recurrent SVTs, previously admitted in June 2024 with similar presentation, at the time, was attributed to long history of phentermine use. Previously also had difficulty converting back to sinus rhythm with metoprolol and adenosine 6 mg, followed by adenosine 12 mg, finally converted after given diltiazem IV 10 mg x1. Was discharged on metoprolol XL 100 mg BID, which was eventually able to be decreased to metoprolol XL 100 mg once a day. 04/06/25: Had 3 rapid responses throughout the day for SVT. Patient spontaneously converted at first rapid, at second was given metoprolol IV 5 mg x1 with conversion. At third rapid, patient was given 500 cc fluid bolus with improvement. However patient continued to convert back to SVT and adenosine 6 mg x1 was pushed with conversion back to sinus. 04/07/25: Rapid response overnight for SVT, HR 150. BP low at 86/65. Attempted carotid massage without improvement. Resolved with 500cc LR bolus BP improved to 108/69 and HR to 82. On telemetry, had 2 other episodes of SVT around midnight and 4AM but patient was asymptomatic. Of note, Hgb 12 -> 11.2 -> 9.6, concern for acute lower GI bleed which may be cause of recurrent SVTs. Baseline Hgb 12-14 in 06/2024. Patient reported dark stools but attributed this to her daily iron supplements. 04/08/25: No episodes of SVT overnight. Hgb stable at 9.3. Iron studies indicate anemia of chronic disease however acute bleed cannot be ruled out. Per GI, will plan for EGD today. Plan: - Continue metoprolol XL 100 mg in AM and metoprolol XL 25 mg in PM. - If patient goes back into SVT recommend to give some fluids, give electrolytes and give adenosine for the treatment. - Keep K >4 and Mg >2 - Monitor telemetry and BP - Patient was recommended EP evaluation for further evaluation of the SVT and possible AVNRT but as she did not have any episodes since June patient did not want to go and that she was again asked about further evaluation with EP for possible EP study as well as ablation and patient did not want consider it at the present point of time. Will continue to follow-up with the patient as outpatient regarding the same. - Follow up in clinic 1 week after discharge with repeat renal panel - GI consulted for the anemia Hemoglobin stable for now and EGD showed only gastritis and colonoscopy only showed internal hemorrhoids as well as diverticulosis of the sigmoid colon. #Hypokalemia, resolved Presented with generalized weakness. Potassium 2.7 on admission. 04/06/25: 3.4 -> 5.0 -> 3.4 -> 3.5. Likely secondary to Bumex. Plan: - Hold Bumex for now, restart on Bumex 0.5 mg daily if patient starts to develop bilateral leg swelling or will restart at the time of discharge or as outpatient. - Keep K >4 and Mg > 2 #HFpEF (EF 60-65%) Echo 06/2024 showed normal LV size. Mild systolic dysfunction with mild basal hypokinesis. Stage II diastolic dysfunction. Estimated EF 40-45% Normal RV size and function. Estimated RVSP 42 mmHg. RAP 15. Mild to moderate PAH. PA dilated. Trivial to mild mitral stenosis with a mean PG of 4-5 mm hg. Modertate to severe posterior MAC and Mild MAC anteriorly. Mild to moderate MR. Moderate AI. Mild TR, PI. IVC dilated. Mild LA dilatation. Patient did follow-up in the clinic and patient quit all substance abuse and phentermine. Patient was started on goal-directed medical therapy for with metoprolol and Entresto which was changed to losartan 12.5 mg daily due to cost. Her metoprolol XL was decreased to 125 mg once daily (100 mg in AM and 25 mg in PM) as her rate was controlled and she did not have any further episodes since then and no admissions in the last 10 months. Repeat echo outpatient December 2024 showed EF 60-65%. Plan: - IV fluid resuscitation as needed. Able to tolerate as EF is back to normal. - Recommend to resume home dose losartan as part of GDMT if BP tolerates and renal function improves -Strict ins and outs -Daily weights -Supplemental O2 as needed, wean as tolerated #FLORES, prerenal, resolved Creatinine 1.6 on admission, now back to 0.9 (04/07). Back to baseline). GFR 33 (04/05) -> >60 (04/07) - May resume losartan and Bumex per recommendations above #HLD - Continue atorvastatin 80 mg daily #UTI #Depression #Anxiety #Hypothyroidism #Hep C, untreated #37 mm L adnexal cyst Management of rest of the medical conditions as per primary team and other consultants. Thank you for the consult and allowing me to participate in the care of the patient. Cardiology will continue to follow. Tay Palomares M.D. Interventional Cardiology Time Spent With Patient Time: Total time spent is greater than 50% in coordination of care (as documented) at patient's floor/unit and/or counseling patient:
--- NOTE | 2025-04-10 11:03 | CHAP ---
Patient was visited by a Spiritual Care Volunteer on 04/10/2025 between 0900 and 0920 and received comfort, encouragement and/or prayer.
--- NOTE | 2025-04-10 13:51 | ESDS_ITS ---
<Statement entered by Wanda Castañeda DO - 04/11/25 08:07> I, Wanda Castañeda DO, attest that I was physically present for the [place] portions of the service and evaluated the patient with the resident and I reviewed and discussed the case with the resident and agree with the resident's findings and plans of care as documented above Planned Discharge Date 04/10/25 DS: Providers Provider Date of admission: 04/05/25 23:28 Primary care physician: Anika Olmstead MD Admitting Provider: John Paul Escalante MD Attending Provider on Admission: Wanda Castañeda DO Consults: 04/06/25 03:14 Consult to Gastroenterology Stat Comment: Consulting Provider: Dennis Maya 04/06/25 10:23 Consult to Cardiology Routine Comment: Consulting Provider: Tay Palomares 04/06/25 12:12 Referral Physical Therapy Routine Comment: Physician Instructions: Attending Provider on DC: Wanda Castañeda DO Discharging Provider: Wanda Castañeda DO DS: Diagnosis Problem List Completed Was Problem List Reviewed/Reconciled?: Yes Hospital Course Hospital Course Hospital course: Summary: Callie Dietz 75F pmhx significant for Hep C untreated, HFrEF (40-45%, 06/2024), hx recurrent ESBL UTI, HTN, SVT, depression and anxiety presented to [facility] ED 04/05 for generalized weakness referred to the ED by her PCP iso hypokalemia, admitted for hypokalemia likely 2/2 poor PO intake. Presents with generalized weakness for 1 week, denies any muscle cramps or palpitations, however patient developed episodes of SVT. SVT was treated with fluid boluses and adenosine push x1 with adjustments at home metoprolol. On admission patient also had FLORES likely secondary to dehydration, resolved with fluids. Of note, patient has reported to have 1 bloody bowel movement during admission and patient underwent endoscopy and colonoscopy. Endoscopy showed gastritis and colonoscopy showed internal hemorrhoids that were subsequently banded. Furthermore, 1 week prior to admission, patient reported to PCP office for burning on urination and completed 1 week course of ciprofloxacin. Patient has a history of multiple urinary tract infection including ESBL patient was treated with 3-day course of meropenem, despite negative urine culture, likely due to previous ciprofloxacin course. Of significance, incidental finding of 37 mm left adnexal cyst was found on CTAP patient was notified recommend further outpatient follow-up. On discharge, patient hemodynamically stable, vitals and labs reviewed and patient is ready to be discharged home. Imaging: CTAP shows cholelithiasis, perinephric stranding, 1 mm nonobstructing left renal calculus, 37mm L left adnexal cyst, severe calcification in LAD and LCx, retrocardiac gastric hernia. Discharge Recommendations: - Please take all medications as prescribed - START metoprolol XL 25 mg nightly, continue home metoprolol XL 100 mg daily in AM, and follow up with your alteration hand dr Palomares within 1 week of discharge from hospital. - HOLD Losartan and Bumex until you see your PCP or alteration hand as your blood pressure was on the lower side inpatient - Continue all home medications except as above - Please follow up with your PCP within one week of discharge - If your symptoms worsen, please seek immediate medical attention and return to your nearest emergency room. - If you do not have a PCP, you may follow up at the [facility] at [address] [place] [address] [address] [id number], Hospital Diagnoses: #Normocytic anemia #Hematochezia #SVT, resolved #Hx of HFrEF (40-45% 06/2024) #HTN #Hypokalemia, resolved #UTI #Hx of ESBL #FLORES, prerenal, resolved #Hypothyroidism #Hyperlipidemia #Depression #Anxiety #Hep C #37mm L left adnexal cyst Plan of care discussed with attending Dr. Castañeda, and PGY-3 Dr Juanis Jensen, DO Internal Medicine, PGY-1 Senior resident attestation: Patient evaluated and examined at the bedside, plan of care discussed with rest of the team including my attending physician, except as noted. Juanis PGY3 Time Spent with Patient Time attestation: Total time spent providing and/or coordinating discharge services: Time spent: Greater than 30 minutes Exam Vital Signs Temp Pulse Resp BP Pulse Ox O2 Del Method O2 Flow Rate 97.1 F 76 18 89/57 L 97 Nasal Cannula 2 04/10/25 11:47 04/10/25 11:47 04/10/25 11:47 04/10/25 11:47 04/10/25 07:27 04/10/25 04:00 04/10/25 07:19 FiO2 98 04/09/25 21:00 Narrative Exam GENERAL: AOx3, no acute distress HEENT: mucous membranes moist, bilateral sclera anicteric CARDIOVASCULAR: regular rate and rhythm, S1/S2 present, no murmurs appreciated PULMONARY: clear to auscultation bilaterally, no rales/rhonchi/wheezes ABDOMINAL: soft, non-tender, non-distended, no rebound/guarding, bowel sounds present EXTREMITIES: 1+ BLE edema R>L SKIN: warm and dry, intact, no rashes NEURO: CN II-XII grossly intact, no focal deficits, alert, following commands Discharge Plan Plan Patient Disposition: HOME (Self Care) Care Plan Goals: Discharge Recommendations: - Please take all medications as prescribed - START metoprolol XL 25 mg nightly, continue home metoprolol XL 100 mg daily in AM, and follow up with your alteration hand dr Palomares within 1 week of discharge from hospital. - HOLD Losartan and Bumex until you see your PCP or alteration hand as your blood pressure was on the lower side inpatient - Continue all home medications except as above - Please follow up with your PCP within 5 days of discharge - If your symptoms worsen, please seek immediate medical attention and return to your nearest emergency room. - If you do not have a PCP, you may follow up at the [facility] at [address] [place] [address] [address], [facility] [place] [address], Prescriptions/Referrals Prescriptions/Med Rec: New metoprolol succinate 25 mg tablet extended release 24 hr 25 mg PO HS Qty: 30 0RF Continued metoprolol succinate 50 mg tablet extended release 24 hr 100 mg PO QDAY Patient Comments: TAKE 1 TABLET ORALLY ONCE A DAY 1 TABLET AT EVENING aspirin 81 mg tablet,delayed release (DR/EC) 81 mg PO QDAY Patient Comments: TAKE 1 TABLET BY MOUTH EVERY DAY omeprazole 20 mg capsule,delayed release(DR/EC) 20 mg PO QDAY sofosbuvir-velpatasvir 400-100 mg tablet 1 tab PO QDAY atorvastatin 80 mg tablet 80 mg PO QDAY Patient Comments: TAKE 1 TABLET BY MOUTH EVERY DAY levothyroxine 25 mcg tablet 25 mcg PO QDAY Patient Comments: TAKE 1 TABLET BY MOUTH EVERY DAY ON EMPTY STOMACH trazodone 50 mg tablet 50 mg PO BID Patient Comments: TAKE 2 TABLETS BY MOUTH EVERY DAY FOR 90 DAYS hydroxyzine HCl 10 mg tablet 10 mg PO BID Patient Comments: TAKE 1 TABLET BY MOUTH EVERY DAY Changed bumetanide 1 mg tablet 0.5 mg PO QDAY Qty: 30 0RF Patient Comments: TAKE 1 TABLET BY MOUTH EVERY DAY Held losartan 25 mg tablet 12.5 mg PO QDAY Hold Instructions: Resume on 04/17/25. Until you follow up with cardiology Patient Comments: TAKE 1/2 TABLET BY MOUTH EVERY DAY FOR 90 DAYS Referrals: Tay Palomares MD [Physician, Cardiology] Anika Olmstead MD [Primary Care Provider, Family Practice] Patient/Caregiver Discharge Instructions Other Discharge Activity Instructions:: Discharge Recommendations: - Please take all medications as prescribed - START metoprolol XL 25 mg nightly, continue home metoprolol XL 100 mg daily in AM, and follow up with your alteration hand dr Palomares within 1 week of discharge from hospital. - HOLD Losartan and Bumex until you see your PCP or alteration hand as your blood pressure was on the lower side inpatient - Continue all home medications except as above - Please follow up with your PCP within 5 days of discharge - If your symptoms worsen, please seek immediate medical attention and return to your nearest emergency room. - If you do not have a PCP, you may follow up at the [facility] at [address] [place] [address] [address], [facility] [place] [address], Education Materials: Supraventricular Tachycardia, Urinary Tract Infections in Women Print Language: Sami Stand Alone Forms: Jocelyn Award Info., Patient Portal Info Letter Discharge Order Discharge Orders: Discharge (Routine); Ordered 04/10/25 Ordered By: Randolph Johnson Quality Discharge Quality Measures VTE prophylaxis
== END 2025-04-10 11:37 | disposition home or self-care (01) | DRG 987 ==
LOC: SERX 21:08 → SERHOLD 04-06 06:34 → S3NX 04-06 06:34 → S2NX 04-06 16:38 → S3NX 04-08 21:08
PROVIDERS: Specialist; Student in an Organized Health Care Education/Training Program; Admitting Provider Student in an Organized Health Care Education/Training Program; Emergency Provider Emergency Medicine; PCP Family Medicine; Visit Provider Internal Medicine
PROC: (CPT 43239; principal; 2025-04-08 18:15)
PROC: 0DJD8ZZ Inspection of Lower Intestinal Tract, Via Natural or Artificial Opening Endoscopic (ICD-10-PCS; CPT 45378; principal; 2025-04-09 20:00)
DX: E87.6 Hypokalemia (principal); K29.71 Gastritis, unspecified, with bleeding; K57.31 Diverticulosis of large intestine without perforation or abscess with bleeding; I47.10 Supraventricular tachycardia, unspecified; N17.9 Acute kidney failure, unspecified; N30.00 Acute cystitis without hematuria; I50.20 Unspecified systolic (congestive) heart failure; I47.19 Other supraventricular tachycardia; I11.0 Hypertensive heart disease with heart failure; E03.9 Hypothyroidism, unspecified; E78.5 Hyperlipidemia, unspecified; F32.A Depression, unspecified; F41.9 Anxiety disorder, unspecified; Z79.899 Other long term (current) drug therapy; Z98.84 Bariatric surgery status; K80.20 Calculus of gallbladder without cholecystitis without obstruction; I25.2 Old myocardial infarction; I25.10 Atherosclerotic heart disease of native coronary artery without angina pectoris; K64.8 Other hemorrhoids; K45.8 Other specified abdominal hernia without obstruction or gangrene; N20.0 Calculus of kidney; B19.20 Unspecified viral hepatitis C without hepatic coma; E86.0 Dehydration; E87.5 Hyperkalemia; Z66 Do not resuscitate; Z87.440 Personal history of urinary (tract) infections; Z87.891 Personal history of nicotine dependence; Z63.4 Disappearance and death of family member; Z86.19 Personal history of other infectious and parasitic diseases; D63.8 Anemia in other chronic diseases classified elsewhere
CPT/HCPCS: 36415; 71045; 74176; 80053; 80061; 80069; 81001; 82270; 82607; 82728; 83540; 83550; 83605; 83735; 84100; 84439; 85014; 85018; 85025; 85046; 86850; 86900; 86901; 87040; 87086; 93005; 93225; 93306; 96365; 96366; 99283; A4649; J0153; J1200; J2185; J2250; J2470; J3010; J3475; J3480; J3490; J7030; J7050; J7120; A9270

== ENCOUNTER → 2025-04-05 | Outpatient (CLI) | payer MEDICARE, SELFPAY ==
[2025-04-05 16:49] LABS: Basophils # (Auto) 0.1 Thou/mm3 (0.0-0.2); Basophils % (Auto) 0 % (0-2.5); Eosinophils # (Auto) 0.0 Thou/mm3 (0.0-0.5); Eosinophils % (Auto) 0 % (0-10); Hematocrit 36.0 % (36.0-46.0); Hemoglobin 12.0 g/dL (12.0-16.0); Immature Granulocytes Auto 0.61 Thou/mm3 (0.00-0.00); Lymphocytes # (Auto) 1.7 Thou/mm3 (1.0-4.8); Lymphocytes % (Auto) 7 % (10-50); Mean Corpuscular HGB Conc 33.3 g/dl (31.0-37.0); Mean Corpuscular Hemoglobin 28.1 pg (25.0-35.0); Mean Corpuscular Volume 84 fL (80-100); Monocytes # (Auto) 2.2 Thou/mm3 (0.0-0.8); Monocytes % (Auto) 9 % (0-12); Neutrophils # (Auto) 19.7 Thou/mm3 (1.8-7.7); Neutrophils % (Auto) 81 % (37-80); Nucleated Red Blood Cell # 0.00 Thou/mm3 (0.00-0.00); Nucleated Red Blood Cell % 0 /100 WBC (0); Platelet Count 293 Thou/mm3 (140-440); RDW Standard Deviation 45.8 fL (36.4-46.3); Red Blood Count 4.27 Miln/mm3 (4.00-5.20); White Blood Count 24.3 Thou/mm3 (3.6-11.0)
[2025-04-05 16:59] LABS: Glucose Estimated Average 97 mg/dL (80-131); Hemoglobin A1C 5.0 % Hgb (4.8-6.0)
[2025-04-05 17:20] LABS: T4 (Thyroxine) 12.1 mcg/dL (4.5-10.9)
[2025-04-05 17:29] LABS: Alanine Aminotransferase 18 U/L (10-49); Albumin, Serum 3.6 gm/dL (3.4-4.8); Albumin/Globulin Ratio 1.4 (1.2-2.2); Alkaline Phosphatase 104 U/L (46-116); Anion Gap 19 (7-16); Aspartate Amino Transferase 30 U/L (0-34); BUN/Creatinine Ratio 11 Ratio (12-20); Bilirubin,Total 1.2 mg/dL (0.3-1.2); Blood Urea Nitrogen 18 mg/dL (9-23); Calcium 8.5 mg/dL (8.3-10.6); Calcium (Corrected) 8.8 mg/dL (8.5-10.1); Carbon Dioxide 21.6 mMol/L (20.0-31.0); Chloride 90 mMol/L (98-107); Creatinine (Component) 1.6 mg/dL (0.6-1.3); Globulin 2.6 gm/dL (2.3-3.5); Glucose 131 mg/dL (74-106); Magnesium 1.8 mg/dL (1.6-2.6); Osmolality,Calculated 266 (275-295); Sodium 131 mMol/L (136-145); Thyroid Stimulating Hormone 10.61 uIU/mL (0.55-4.78); Total Protein 6.2 gm/dL (5.7-8.2); eGFR 33 See Note
[2025-04-05 17:31] LABS: Folate 9.66 ng/mL (>5.38); Vitamin B12 > 2000 pg/mL (211-911); Vitamin D 25 Hydroxy Total 22.9 ng/mL (7.3-40.2)
[2025-04-05 17:43] LABS: Potassium 2.7 mMol/L (3.4-5.1)
[2025-04-12 06:30] LABS: Vitamin A (Retinol)* 9 mcg/dL (38-98)
[2025-04-12 06:31] LABS: Vitamin B1 (Thiamine)* <6 nmol/L (8-30)
== END | disposition home or self-care (01) ==
PROVIDERS: PCP Nurse Practitioner Family; Referring Provider Nurse Practitioner Family; Visit Provider Nurse Practitioner Family
DX: I10 Essential (primary) hypertension (principal); E03.9 Hypothyroidism, unspecified; M79.10 Myalgia, unspecified site; E56.9 Vitamin deficiency, unspecified
CPT/HCPCS: 36415; 80053; 82306; 82607; 82746; 83036; 83735; 84425; 84436; 84443; 84590; 85025

== ENCOUNTER → 2025-04-20 | Outpatient (CLI) | payer MEDICARE, SELFPAY ==
[2025-04-20 10:14] LABS: Collection Type, Urine Clean Catch
[2025-04-20 10:36] LABS: Basophils # (Auto) 0.1 Thou/mm3 (0.0-0.2); Basophils % (Auto) 1 % (0-2.5); Eosinophils # (Auto) 0.1 Thou/mm3 (0.0-0.5); Eosinophils % (Auto) 1 % (0-10); Hematocrit 32.1 % (36.0-46.0); Hemoglobin 10.3 g/dL (12.0-16.0); Immature Granulocytes Auto 0.06 Thou/mm3 (0.00-0.00); Lymphocytes # (Auto) 2.6 Thou/mm3 (1.0-4.8); Lymphocytes % (Auto) 23 % (10-50); Mean Corpuscular HGB Conc 32.1 g/dl (31.0-37.0); Mean Corpuscular Hemoglobin 27.9 pg (25.0-35.0); Mean Corpuscular Volume 87 fL (80-100); Monocytes # (Auto) 1.0 Thou/mm3 (0.0-0.8); Monocytes % (Auto) 9 % (0-12); Neutrophils # (Auto) 7.3 Thou/mm3 (1.8-7.7); Neutrophils % (Auto) 65 % (37-80); Nucleated Red Blood Cell # 0.00 Thou/mm3 (0.00-0.00); Nucleated Red Blood Cell % 0 /100 WBC (0); Platelet Count 287 Thou/mm3 (140-440); RDW Standard Deviation 51.8 fL (36.4-46.3); Red Blood Count 3.69 Miln/mm3 (4.00-5.20); White Blood Count 11.1 Thou/mm3 (3.6-11.0)
[2025-04-20 10:54] LABS: Bacteria,Urine Rare; Bilirubin,Urine Negative (Negative); Blood,Urine Negative (Negative); Color,Urine Lt-Yellow (Lt Yel-Yel); Glucose, Urine Negative (Negative); Hyaline Casts,Urine < 1 /hpf (0-1); Ketones,Urine Negative (Negative); Leukocyte Esterase,Urine Positive (Negative); Nitrite,Urine Negative (Negative); PH,Urine 6.5 (5.0-7.0); Protein,Urine Negative (Neg - Trace); RBC,Urine 10 /hpf (0-3); Specific Gravity,Urine 1.015 (1.001-1.035); Squamous Epithelial Cell,Urine < 1 /hpf (0-5); Urobilinogen,Urine Negative mg/dL (0.0-1.0); WBC,Urine 178 /hpf (0-5)
[2025-04-20 10:55] LABS: Alanine Aminotransferase 11 U/L (10-49); Albumin, Serum 3.9 gm/dL (3.4-4.8); Albumin/Globulin Ratio 1.6 (1.2-2.2); Alkaline Phosphatase 74 U/L (46-116); Anion Gap 10 (7-16); Aspartate Amino Transferase 21 U/L (0-34); BUN/Creatinine Ratio 22 Ratio (12-20); Bilirubin,Total 0.5 mg/dL (0.3-1.2); Blood Urea Nitrogen 22 mg/dL (9-23); Calcium 8.8 mg/dL (8.3-10.6); Calcium (Corrected) 8.9 mg/dL (8.5-10.1); Carbon Dioxide 25.2 mMol/L (20.0-31.0); Chloride 104 mMol/L (98-107); Creatinine (Component) 1.0 mg/dL (0.6-1.3); Globulin 2.4 gm/dL (2.3-3.5); Glucose 89 mg/dL (74-106); Magnesium 2.0 mg/dL (1.6-2.6); Osmolality,Calculated 279 (275-295); Potassium 4.5 mMol/L (3.4-5.1); Sodium 139 mMol/L (136-145); Thyroid Stimulating Hormone 7.77 uIU/mL (0.55-4.78); Total Protein 6.3 gm/dL (5.7-8.2); eGFR 58 See Note
[2025-04-20 11:02] LABS: Clarity,Urine Hazy (Clear/Hazy); Culture Indicated,Urine Yes
== END | disposition home or self-care (01) ==
LOC: COPL 09:16
PROVIDERS: PCP Student in an Organized Health Care Education/Training Program; Referring Provider Student in an Organized Health Care Education/Training Program; Visit Provider Student in an Organized Health Care Education/Training Program
DX: E03.9 Hypothyroidism, unspecified (principal); I10 Essential (primary) hypertension; E87.6 Hypokalemia
CPT/HCPCS: 36415; 80053; 81001; 83735; 84443; 85025; 87077; 87086; 87186

== ENCOUNTER 2025-04-27 16:07 | Inpatient (IN) | payer MEDICARE, SELFPAY ==
[2025-04-27] VITALS (34 sets, daily range): BP systolic 68–123; BP diastolic 45–95; PULSE 67–155; RESP 14–100; TEMP 36.4–36.8; O2SAT 88–100; BMI 27.8
--- NOTE | 2025-04-27 16:11 | PD.EDSOB ---
ED SOB =RME/HPI General Chief Complaint: Shortness of Breath/Dyspnea Stated Complaint: SOB Time Seen by Provider: 04/27/25 16:10 Arrival date/time: 04/27/25 16:07 75-year-old female patient with PMH of untreated hepatitis C, gastric bypass , acoustic neuroma status postsurgery with residual right facial droop and left eye ptosis, hypothyroidism, anxiety, depression, GERD, neuropathy, remote history of polysubstance abuse, history of chronic smoking with more than [id number] smoking history stopped smoking more than 10 years ago was sent to us from the clinic for possible hypoxia tachycardia and hypotension. Patient told me that she was just released from this hospital about 2 weeks ago, and since then she has not really feeling normal getting worse for the last 3 days. She told me that she is having dysuria, nonproductive cough and generalized weakness. Denies any fever. Denies any chest pain. Denies any abdominal pain. Has been taking her medication with good compliance. Related Data Home Medications ?Medication ?Instructions ?Recorded ?Confirmed aspirin 81 mg tablet,delayed 81 mg PO QDAY 04/06/25 04/06/25 release atorvastatin 80 mg tablet 80 mg PO QDAY 04/06/25 04/06/25 hydroxyzine HCl 10 mg tablet 10 mg PO BID 04/06/25 04/06/25 levothyroxine 25 mcg tablet 25 mcg PO QDAY 04/06/25 04/06/25 losartan 25 mg tablet 12.5 mg PO QDAY 04/06/25 04/06/25 Held on 04/10/25. Instructions: Resume on 04/17/25. Until you follow up with cardiology metoprolol succinate 50 mg 100 mg PO QDAY 04/06/25 04/06/25 tablet,extended release 24 hr omeprazole 20 mg capsule,delayed 20 mg PO QDAY 04/06/25 04/06/25 release sofosbuvir 400 mg-velpatasvir 100 1 tab PO QDAY 04/06/25 04/06/25 mg tablet trazodone 50 mg tablet 50 mg PO BID 04/06/25 04/06/25 Previous Rx's ?Medication ?Instructions ?Recorded bumetanide 1 mg tablet 0.5 mg (1/2 x 1 mg) PO QDAY #30 04/10/25 tabs metoprolol succinate 25 mg 25 mg PO HS #30 tabs 04/10/25 tablet,extended release 24 hr Allergies Allergy/AdvReac Type Severity Reaction Status Date / Time No Known Allergies Allergy Verified 04/05/25 19:19 Review of Systems Review of Systems Narrative Review of Systems: Review of system reviewed and within normal limits except mentioned in HPI ED Exam Narrative Physical exam: VITAL SIGNS: Reviewed. GENERAL APPEARANCE: Alert and interactive, follows commands, no acute distress, HEAD AND FACE: Non-traumatic. ENT: PERRL, pink conjunctivitis, eyelid no trauma, Mucous membrane moist. NECK: Supple, nontender, no nuchal rigidity. CHEST: No tenderness, no crepitus, no paradoxical movement, no retractions. LUNGS: Clear, well ventilated, symmetric, no rales, no wheezing, no ronchi, no stridor, good breath sounds bilaterally. HEART: Tachycardia, no murmur, no gallops. ABDOMEN: Soft, positive bowel sounds, nondistended, no guarding, nontender, no rebound, no masses, RECTAL: Deferred. GENITAL: Deferred. NEUROLOGICAL: Gross motor function intact sensory function intact, Appropriate for age. MUSCULOSKELETAL: low back nontender, full range of motion. EXTREMITIES: Nontender, full range of motion. SKIN: Color pink, dry, no rash, no lacerations, no abrasions, no contusions. LYMPHATICS: Deferred. Course Quality Measures none Orders Category Date Time Status Admit to Inpatient Status Routine Admission 04/27/25 20:09 Active Patient Condition Routine Admission 04/27/25 20:09 Ordered Activity as Tolerated Routine Care 04/27/25 20:10 Ordered Bedside COVID-19 Antigen Test NOW Care 04/27/25 18:23 Active COVID-19 Screening Questionnaire NOW Care 04/27/25 19:33 Completed Continuous Pulse Oximetry NOW Care 04/27/25 20:08 Active Decision to Admit X1 Care 04/27/25 19:33 Completed EKG (ED ONLY) *Do not use* NOW Care 04/27/25 16:20 Completed Miscellaneous Nursing Order NOW Care 04/27/25 20:12 Active Notify provider NEEDED Care 04/27/25 20:09 Active Obtain weight daily Care 04/27/25 20:10 Active Straight [In and Out Catheter] X1 Care 04/27/25 16:20 Active Strict Intake and Output Routine Care 04/27/25 20:09 Ordered Diet Cardiac Diet 04/28/25 Breakfast Active EKG (ED Only) Stat Exams 04/27/25 16:20 Draft XR chest 1V Stat Exams 04/27/25 16:20 Completed B-Type Natriuretic Peptide Stat Lab 04/27/25 16:30 Completed Blood Culture (Lab) Stat Lab 04/27/25 16:40 Received CBC AM DRAW Lab 04/28/25 05:00 Ordered CBC AM DRAW Lab 04/29/25 05:00 Ordered CBC AM DRAW Lab 04/30/25 05:00 Ordered CBC AM DRAW Lab 05/01/25 05:00 Ordered CBC AM DRAW Lab 05/02/25 05:00 Ordered CBC AM DRAW Lab 05/03/25 05:00 Ordered CBC AM DRAW Lab 05/04/25 05:00 Ordered CBC AM DRAW Lab 05/05/25 05:00 Ordered CBC AM DRAW Lab 05/06/25 05:00 Ordered CBC AM DRAW Lab 05/07/25 05:00 Ordered CBC Stat Lab 04/27/25 16:30 Completed CMP [Comprehensive Metabolic Panel] AM DRAW Lab 04/28/25 05:00 Ordered CMP [Comprehensive Metabolic Panel] AM DRAW Lab 04/29/25 05:00 Ordered CMP [Comprehensive Metabolic Panel] AM DRAW Lab 04/30/25 05:00 Ordered CMP [Comprehensive Metabolic Panel] AM DRAW Lab 05/01/25 05:00 Ordered CMP [Comprehensive Metabolic Panel] AM DRAW Lab 05/02/25 05:00 Ordered CMP [Comprehensive Metabolic Panel] AM DRAW Lab 05/03/25 05:00 Ordered CMP [Comprehensive Metabolic Panel] AM DRAW Lab 05/04/25 05:00 Ordered CMP [Comprehensive Metabolic Panel] AM DRAW Lab 05/05/25 05:00 Ordered CMP [Comprehensive Metabolic Panel] AM DRAW Lab 05/06/25 05:00 Ordered CMP [Comprehensive Metabolic Panel] AM DRAW Lab 05/07/25 05:00 Ordered Comprehensive Metabolic Panel Stat Lab 04/27/25 16:30 Completed Drug Screen,Urine Stat Lab 04/27/25 20:14 Ordered Lactate (Lactic Acid) Stat Lab 04/27/25 16:30 Completed Lactic Acid, 3 HR Stat Lab 04/27/25 19:50 Completed Mag [Magnesium] AM DRAW Lab 04/28/25 05:00 Ordered Mag [Magnesium] AM DRAW Lab 04/29/25 05:00 Ordered Mag [Magnesium] AM DRAW Lab 04/30/25 05:00 Ordered Mag [Magnesium] AM DRAW Lab 05/01/25 05:00 Ordered Mag [Magnesium] AM DRAW Lab 05/02/25 05:00 Ordered Mag [Magnesium] AM DRAW Lab 05/03/25 05:00 Ordered Mag [Magnesium] AM DRAW Lab 05/04/25 05:00 Ordered Mag [Magnesium] AM DRAW Lab 05/05/25 05:00 Ordered Mag [Magnesium] AM DRAW Lab 05/06/25 05:00 Ordered Mag [Magnesium] AM DRAW Lab 05/07/25 05:00 Ordered Magnesium Stat Lab 04/27/25 16:30 Completed Partial Thromboplastin Time Stat Lab 04/27/25 16:30 Completed Phosphorous AM DRAW Lab 04/28/25 05:00 Ordered Phosphorous AM DRAW Lab 04/29/25 05:00 Ordered Phosphorous AM DRAW Lab 04/30/25 05:00 Ordered Phosphorous AM DRAW Lab 05/01/25 05:00 Ordered Phosphorous AM DRAW Lab 05/02/25 05:00 Ordered Phosphorous AM DRAW Lab 05/03/25 05:00 Ordered Phosphorous AM DRAW Lab 05/04/25 05:00 Ordered Phosphorous AM DRAW Lab 05/05/25 05:00 Ordered Phosphorous AM DRAW Lab 05/06/25 05:00 Ordered Phosphorous AM DRAW Lab 05/07/25 05:00 Ordered Procalcitonin Stat Lab 04/27/25 16:30 Completed Prothrombin Time with INR Stat Lab 04/27/25 16:30 Completed Troponin I Stat Lab 04/27/25 16:30 Completed UA, C/S IF [Urinalysis, C/S if Indicated] Stat Lab 04/27/25 18:00 Completed Urine Culture Stat Lab 04/27/25 18:00 Received VBG [Venous Blood Gas] Stat Lab 04/27/25 16:30 Completed Acetaminophen Tab [Tylenol Tab] Med 04/27/25 20:08 Active 650 mg PO Q6H PRN Docusate Sod [Colace] Med 04/28/25 09:00 Active 100 mg PO QDAY Famotidine Inj [Pepcid Inj] Med 04/27/25 21:00 Active 20 mg IVP Q12HR HYDROcodone*/APAP 5/325 [[place] 5/325] Med 04/27/25 20:08 Active 1 tab PO Q4HR PRN Heparin Inj Med 04/27/25 21:00 Active 5,000 unit SC Q12HR Meropenem Inj [Merrem Inj] 500 mg Med 04/27/25 21:00 Active SODIUM CHLORIDE 0.9% (Popper) [Ns 0.9% (P)] 50 ml IV Q12HR Ondansetron Inj [Zofran Inj] Med 04/27/25 20:08 Active 4 mg IVP Q6H PRN Potassium Chloride [K-Dur] Med 04/27/25 17:50 Discontinued 40 meq PO X1 ONE Ringers Lactated 1000 ml [Lactated Ringers] 1,000 ml Med 04/27/25 16:21 Discontinued IV 999 mls/hr Ringers Lactated 1000 ml [Lactated Ringers] 1,000 ml Med 04/27/25 17:50 Discontinued IV 999 mls/hr cefTRIAXone/D5w 1gm IV premix [Rocephin/D5w 1gm IV Med 04/27/25 17:51 Discontinued premix] 1 gm in 50 ml IV X1 Code Status Routine Oth 04/27/25 20:08 Ordered Oxygen Delivery PRN RT 04/27/25 20:10 Active Vital Signs Vital signs: Vital Signs Temperature 97.6 F 04/27/25 17:45 Pulse Rate 71 04/27/25 17:45 Respiratory Rate 18 04/27/25 17:45 Blood Pressure 101/54 L 04/27/25 17:45 Pulse Oximetry (%) 100 04/27/25 17:45 Oxygen Delivery Method Room Air 04/27/25 17:45 Shortness of Breath / Dyspnea MDM Narrative MDM Narrative:: 04/27/25 16:07 75-year-old female patient with PMH of untreated hepatitis C, gastric bypass , acoustic neuroma status postsurgery with residual right facial droop and left eye ptosis, hypothyroidism, anxiety, depression, GERD, neuropathy, remote history of polysubstance abuse, history of chronic smoking with more than [id number] smoking history stopped smoking more than 10 years ago was sent to us from the clinic for possible hypoxia tachycardia and hypotension. Patient told me that she was just released from this hospital about 2 weeks ago, and since then she has not really feeling normal getting worse for the last 3 days. She told me that she is having dysuria, nonproductive cough and generalized weakness. Denies any fever. Denies any chest pain. Denies any abdominal pain. Has been taking her medication with good compliance. EKG showed sinus rhythm, ventricular rate of 80 bpm, no ST segment elevation or depression. Patient's workup is significant for a leukocytosis of 21.7, urinalysis significant for UTI creatinine was noted to be 2.6 BUN of 54, potassium 3.2 Pro-Gerald 4.14. Chest x-ray showed no pneumonia. Patient received total of 2 L IV fluid, IV ceftriaxone, and potassium replacement. Plan of care discussed with patient, and agrees to be admitted. Case discussed with hospitalist, who is admitted the patient. Patient data External records reviewed:: None Clinical information provided by:: patient Social determinants that could affect healthcare access:: none Patient has the following chronic illnesses:: Anxiety depression hepatitis C gastric bypass How is presenting disease/condition affected by chronic disease/condition?: exacerbated by Evaluation data The following diagnostics were reviewed and interpreted by me:: lab results, radiology exam(s) and EKG tracing(s) Lab and/or radiology exams considered but not ordered:: None Interpretation Summary: See MDM Medications / Prescriptions Medications or Prescriptions considered but not ordered:: None Medication administrations:: Medication Administration History Acetaminophen (Acetaminophen 325 Mg Tablet) 650 mg PO Q6H PRN PRN Reason: Fever >100.4 or pain 1-3 Stop: 05/27/25 20:07 Hydrocodone Bitart/Acetaminophen (Hydrocodone/Apap 5/325 Tablet) 1 tab PO Q4HR PRN PRN Reason: PAIN SCALE 4-6 (Moderate Stop: 05/02/25 20:07 Docusate Sodium (Docusate Sod 100 Mg Capsule) 100 mg PO QDAY ANTHONY; Protocol Stop: 05/28/25 08:59 Famotidine (Famotidine Inj 10 Mg/Ml Vial 2 Ml) 20 mg IVP Q12HR [facility] Stop: 05/27/25 20:59 Heparin Sodium (Porcine) (Heparin Sod Inj 5000 Unit/Ml Vial) 5,000 unit SC Q12HR [facility] Stop: 05/11/25 20:59 Meropenem 500 mg/ Sodium (Chloride) 50 mls @ 100 mls/hr IV Q12HR [facility] Stop: 05/04/25 20:59 Ondansetron HCl (Ondansetron Inj 2 Mg/Ml Inj 2 Ml) 4 mg IVP Q6H PRN; Protocol PRN Reason: NAUSEA OR VOMITING Stop: 05/27/25 20:07 Discontinued Medications Lactated Ringer's (Lactated Ringers) 1,000 mls @ 999 mls/hr IV .Q1H1M ONE Stop: 04/27/25 17:21 Last Infusion: 04/27/25 17:45 Dose: Infused Documented By: Admin: 04/27/25 16:44 Dose: 999 mls/hr Documented By: MALCOLM Lactated Ringer's (Lactated Ringers) 1,000 mls @ 999 mls/hr IV .Q1H1M ONE Stop: 04/27/25 18:50 Last Infusion: 04/27/25 19:46 Dose: Infused Documented By: Admin: 04/27/25 18:08 Dose: 999 mls/hr Documented By: CASSIE Ceftriaxone Sodium/Dextrose (Rocephin/D5w 1gm Iv Premix) 1 gm in 50 mls @ 100 mls/hr IV X1 ONE Stop: 04/27/25 18:20 Last Infusion: 04/27/25 19:46 Dose: Infused Documented By: Admin: 04/27/25 18:08 Dose: 100 mls/hr Documented By: CASSIE Potassium Chloride (Potassium Chloride 20 Meq Tabcr) 40 meq PO X1 ONE Stop: 04/27/25 17:51 Last Admin: 04/27/25 18:07 Dose: 40 meq Documented By: CASSIE See above Consultations Consultation(s) initiated? (list below): No Diagnosis Shortness of Breath Differential Diagnosis: congestive heart failure, community acquired pneumonia and other (Sepsis, UTI, FLORES) Most likely diagnosis given after review of the tests above:: Sepsis, UTI, FLORES, hypokalemia Admission Indicated Admission indicated?: indicated Admission Request Was there a request for admission?: Yes Admission Attestation Admission request attestation: Discussed case with [Dr. Zee] from Hospitalist service regarding admission. Discussed patients ED course, exam findings, labs, and radiology results. The Hospitalist [agrees,] to accept the patient for admission. Disposition Plan Disposition Plan: Admit Discharge Plan Plan Patient Disposition: Admit Acute Care w/in Hospital Discharge Disposition comment: Stable Prescriptions/Referrals Prescriptions/Med Rec: No Action metoprolol succinate 50 mg tablet extended release 24 hr 100 mg PO QDAY Patient Comments: TAKE 1 TABLET ORALLY ONCE A DAY 1 TABLET AT EVENING losartan 25 mg tablet 12.5 mg PO QDAY Patient Comments: TAKE 1/2 TABLET BY MOUTH EVERY DAY FOR 90 DAYS aspirin 81 mg tablet,delayed release (DR/EC) 81 mg PO QDAY Patient Comments: TAKE 1 TABLET BY MOUTH EVERY DAY omeprazole 20 mg capsule,delayed release(DR/EC) 20 mg PO QDAY sofosbuvir-velpatasvir 400-100 mg tablet 1 tab PO QDAY atorvastatin 80 mg tablet 80 mg PO QDAY Patient Comments: TAKE 1 TABLET BY MOUTH EVERY DAY levothyroxine 25 mcg tablet 25 mcg PO QDAY Patient Comments: TAKE 1 TABLET BY MOUTH EVERY DAY ON EMPTY STOMACH trazodone 50 mg tablet 50 mg PO BID Patient Comments: TAKE 2 TABLETS BY MOUTH EVERY DAY FOR 90 DAYS hydroxyzine HCl 10 mg tablet 10 mg PO BID Patient Comments: TAKE 1 TABLET BY MOUTH EVERY DAY metoprolol succinate 25 mg tablet extended release 24 hr 25 mg PO HS Qty: 30 0RF bumetanide 1 mg tablet 0.5 mg PO QDAY Qty: 30 0RF Patient Comments: TAKE 1 TABLET BY MOUTH EVERY DAY Referrals: Anika Olmstead MD [Primary Care Provider, Family Practice] - In 1 week Problem List Clinical Impression: Hypokalemia, Sepsis, UTI (urinary tract infection), FLORES (acute kidney injury) Patient/Caregiver Discharge Instructions Print Language: Uzbek Stand Alone Forms: Jocelyn Award Info., Patient Portal Info Letter
--- NOTE | 2025-04-27 16:20 | EKG_ITS ---
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: : 1950 Requested By: Alexandro Lugo Order Number: [id number] Reading MD: Alexandro Lugo Measurements Intervals [place] Rate: 80 P: 40 KS: 176 QRS: 5 QRSD: 97 T: 60 QT: 394 QTc: 454 Interpretive Statements SINUS RHYTHM WITH OCCASIONAL VENTRICULAR PREMATURE COMPLEXES POSSIBLE LEFT ATRIAL ENLARGEMENT [-0.1mV P-WAVE IN V1/V2] NONSPECIFIC ST & T-WAVE ABNORMALITY Compared to ECG 04/06/2025 20:16:14 Ventricular premature complex(es) now present T-wave abnormality now present Supraventricular tachycardia no longer present Left-axis deviation no longer present /store/S0/[id number].pdf
--- NOTE | 2025-04-27 16:20 | XR_ITS ---
EXAMINATION: AP chest single view TECHNIQUE: AP portable upright chest single view Date and time: April 27, 2025, 1645 hours COMPARISON: April 06, 2025 INDICATIONS: Chest pain shortness of breath today FINDINGS: Normal heart size Accentuation of the bronchovascular markings No lobar pneumonia or barney pulmonary edema Prominent osteopenia IMPRESSION: Accentuation of the bronchovascular markings, differential would include bronchitis, pulmonary fibrosis, clinical correlation advised
[2025-04-27] MEDS: RINGERS LACTATED 1000 ML 1,000 ML 999 ML IV ×2 (16:44→18:08)
[2025-04-27 16:45] LABS: Lactate (Lactic Acid) 2.4 mMol/L (0.4-2.0)
[2025-04-27 16:46] LABS: Base Excess, Venous -6 (-3-3); O2 Saturation, Venous 35 % (96-97); PCO2, Venous 35 mmHg (36-56); PO2, Venous 23 mmHg (15-58); pH, Venous 7.35 (7.33-7.66)
[2025-04-27 17:06] LABS: Basophils # (Auto) 0.1 Thou/mm3 (0.0-0.2); Basophils % (Auto) 1 % (0-2.5); Eosinophils # (Auto) 0.0 Thou/mm3 (0.0-0.5); Eosinophils % (Auto) 0 % (0-10); Hematocrit 36.9 % (36.0-46.0); Hemoglobin 12.2 g/dL (12.0-16.0); Immature Granulocytes Auto 0.68 Thou/mm3 (0.00-0.00); Lymphocytes # (Auto) 1.1 Thou/mm3 (1.0-4.8); Lymphocytes % (Auto) 5 % (10-50); Mean Corpuscular HGB Conc 33.1 g/dl (31.0-37.0); Mean Corpuscular Hemoglobin 27.1 pg (25.0-35.0); Mean Corpuscular Volume 82 fL (80-100); Monocytes # (Auto) 1.3 Thou/mm3 (0.0-0.8); Monocytes % (Auto) 6 % (0-12); Neutrophils # (Auto) 18.5 Thou/mm3 (1.8-7.7); Neutrophils % (Auto) 85 % (37-80); Nucleated Red Blood Cell # 0.02 Thou/mm3 (0.00-0.00); Nucleated Red Blood Cell % 0 /100 WBC (0); Platelet Count 199 Thou/mm3 (140-440); RDW Standard Deviation 49.7 fL (36.4-46.3); Red Blood Count 4.51 Miln/mm3 (4.00-5.20); White Blood Count 21.7 Thou/mm3 (3.6-11.0)
[2025-04-27 17:20] LABS: INR 1.1 (0.9-1.3); Partial Thromboplastin Time 33.0 Seconds (22.0-36.0); Prothrombin Time 11.2 Seconds (9.0-12.2)
[2025-04-27 17:26] LABS: Alanine Aminotransferase 9 U/L (10-49); Albumin, Serum 3.7 gm/dL (3.4-4.8); Albumin/Globulin Ratio 1.4 (1.2-2.2); Alkaline Phosphatase 135 U/L (46-116); Anion Gap 16 (7-16); Aspartate Amino Transferase 24 U/L (0-34); BUN/Creatinine Ratio 21 Ratio (12-20); Bilirubin,Total 0.6 mg/dL (0.3-1.2); Blood Urea Nitrogen 54 mg/dL (9-23); Calcium 8.9 mg/dL (8.3-10.6); Calcium (Corrected) 9.1 mg/dL (8.5-10.1); Carbon Dioxide 17.5 mMol/L (20.0-31.0); Chloride 104 mMol/L (98-107); Creatinine (Component) 2.6 mg/dL (0.6-1.3); Estimated Creatinine Clearance 18.1 mL/min (>60); Globulin 2.7 gm/dL (2.3-3.5); Glucose 104 mg/dL (74-106); Magnesium 2.1 mg/dL (1.6-2.6); Osmolality,Calculated 288 (275-295); Potassium 3.2 mMol/L (3.4-5.1); Procalcitonin 4.14 ng/ml (0.0-0.49); Sodium 137 mMol/L (136-145); Total Protein 6.4 gm/dL (5.7-8.2); Troponin I < 0.020 ng/mL (0.0-0.045); eGFR 19 See Note
[2025-04-27 17:34] LABS: B-Type Natriuretic Peptide 402 pg/mL (0-100)
[2025-04-27] MEDS: cefTRIAXone/D5w 1gm IV premix 1 GM/50 ML BAG IV (18:08)
[2025-04-27 18:09] LABS: Collection Type, Urine Clean Catch
[2025-04-27 18:26] LABS: Amorphous Crystals,Urine Present (Absent); Bacteria,Urine Rare; Bilirubin,Urine Negative (Negative); Blood,Urine Trace (Negative); Clarity,Urine Turbid (Clear/Hazy); Color,Urine Yellow (Lt Yel-Yel); Glucose, Urine Negative (Negative); Hyaline Casts,Urine < 1 /hpf (0-1); Ketones,Urine Negative (Negative); Leukocyte Esterase,Urine Positive (Negative); Nitrite,Urine Negative (Negative); PH,Urine 6.0 (5.0-7.0); Protein,Urine 1+ (Neg - Trace); RBC,Urine 11 /hpf (0-3); Specific Gravity,Urine 1.011 (1.001-1.035); Squamous Epithelial Cell,Urine 5 /hpf (0-5); Urobilinogen,Urine Negative mg/dL (0.0-1.0); WBC,Urine 212 /hpf (0-5)
[2025-04-27 18:27] LABS: Culture Indicated,Urine Yes
[2025-04-27 19:43] LABS: Reflex Lactate? Y
[2025-04-27 19:58] LABS: Lactic Acid, 3 HR 1.6 mMol/L (0.4-2.0)
--- NOTE | 2025-04-27 20:27 | EKG_ITS ---
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1950 Requested By: Oc Roy Order Number: [id number] Reading MD: Oc Roy Measurements Intervals [place] Rate: 140 P: SC: QRS: -30 QRSD: 91 T: -73 QT: 275 QTc: 420 Interpretive Statements SUPRAVENTRICULAR TACHYCARDIA BORDERLINE LEFT AXIS DEVIATION [QRS AXIS < -20] ST DEVIATION AND MODERATE T-WAVE ABNORMALITY, CONSIDER INFERIOR ISCHEMIA [-0.1+ mV T-WAVE IN II/aVF] Compared to ECG 04/27/2025 16:28:38 Possible ischemia now present Sinus rhythm no longer present Ventricular premature complex(es) no longer present T-wave abnormality still present /store/S0/[id number].pdf
--- NOTE | 2025-04-27 20:28 | PD.RESHP ---
Documentation for date of: 04/27/25 HPI History of Present Illness History of present illness: Callie Dietz 75F recent hopsital admission for hypokalemia 2 weeks ago pmhx significant for hx recurrent ESBL UTI, Hep C currently being treated, HFrEF grade1 diastolic disfunction (60-65%, 03/2025), HTN, SVT, hypothyroidism, GERD, PSUD, depression and anxiety presented to [facility] ED following 3 days of generalized weakness and urinary discomfort. Admitted sepsis r/o 2/2 UTI ED Course Summary Vitals: 101/54 HR 71 RR 18 T 87.6F O2sat 100% RA Labs: WBC 21.7 (VBG: pH 7.35, pCO2 35, pO2 23, O2 sat 35%) K 3.2 HCO3 17.5 BUN 54 Cr 2.6 CrCl 18.1ml/min ALT 9 ALP 135 Trop - BNP 402 procal 4.14, Lactic acid 2.4 UA: turbid protein +1 RBC 11 WBC 212 amorphous crystals Imaging: EKG sinus rhythm QTC 454 some ventricular premature complexes present. CXR bronchovascular markings ddx bronchitis, pulm fibrosis Treatment: Ceftriaxone 1g, LR 2L, KCl. Upon initial examination of the patient she confirms narrative from ED. She states she had 2 good weeks following admission then 3 days ago began feeling generalized weakness, such as inability to get up to use the restroom. She also has dysuria for the last 3 days. She uses a walker at home occasionally and needed to use the walker the last 3 days. She denies fevers chills night sweats NVD. Currently being treated for hepatitis C with sofusbuvir-velpatasvir with Dr. Maya. Code: DNR/DNI Insulin: none Medical Hx: As seen above in 1 liner Medications: Confirmed with home meds only holding losartan Allergies: KNA Surgical history: Gastric bypass, umbilical hernia, acoustic neuroma. 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 Exam Vital Signs Temp Pulse Resp BP Pulse Ox O2 Del Method 97.9 F 129 H 19 101/80 100 Room Air 04/27/25 19:31 04/27/25 19:31 04/27/25 19:31 04/27/25 19:31 04/27/25 19:31 04/27/25 18:03 Narrative Exam GENERAL APPEARANCE: AOx4. NAD, activity normal for age, well developed/ well nourished, no cyanosis, pallor, or diaphoresis. HEENT: Normocephalic atraumatic, no facial trauma, neck is supple. Lids/conjunctiva normal. Mucous membranes moist, nares normal, lips/teeth normal uvula midline without oral pharyngeal erythema, exudate or swelling TMs normal bilaterally. No lymphangitis/lymphedema. CARDIAC: tachycardic, JVD+ up to mandible S1+S2 heard. No murmurs, rubs, or gallops noted RESPIRATORY: respiratory effort normal, speaks in full sentences, no tripod position, no accessory muscle use. Lungs clear to auscultation without rhonchi, wheezes, rales ABDOMINAL: NBS. Soft, ND. No evidence of fluid wave. No rebound tenderness, Johnson sign or pain over Mcburney's point. RLQ and hypogastrium moderately TTP. Tightening along the inguinal crease across the hypogastrium NTTP but feels sclerotic/fibrotic. MUSCLES/EXTREMITIES: No abnormal range of motion. +1 pedal edema DERM: Warm, pink and dry. No rashes, dermatoses, petechiae or lesions. NEUROLOGICAL: Speech is clear and appropriate. Normal level of consciousness. Coordination normal. 5/5 strength in all extremities. PSYCH: Normal mood and affect. Judgement/competence is appropriate Results: Labs 04/28/25 05:12 04/28/25 20:42 Labs: Short CBC 04/27/25 Range/Units 16:30 WBC 21.7 H (3.6-11.0) Thou/mm3 Hgb 12.2 (12.0-16.0) g/dL Hct 36.9 (36.0-46.0) % Plt Count 199 D (140-440) Thou/mm3 BMP 04/27/25 16:30 Sodium 137 Potassium 3.2 L Chloride 104 Carbon Dioxide 17.5 L BUN 54 H Creatinine 2.6 H Glucose 104 Calcium 8.9 Cardiac Enzymes 04/27/25 Range/Units 16:30 Troponin I < 0.020 (0.0-0.045) ng/mL Liver Function 04/27/25 Range/Units 16:30 Total Bilirubin 0.6 (0.3-1.2) mg/dL AST 24 (0-34) U/L ALT 9 L (10-49) U/L Alkaline Phosphatase 135 H (46-116) U/L Albumin 3.7 (3.4-4.8) gm/dL Urine 04/27/25 Range/Units 18:00 Urine Color Yellow (Lt Yel-Yel) Urine Clarity Turbid A (Clear/Hazy) Urine pH 6.0 (5.0-7.0) Ur Specific [place] 1.011 (1.001-1.035) Urine Protein 1+ A (Neg - Trace) Urine Glucose (UA) Negative (Negative) ABG Interpretation ABG results: 04/27/25 16:30 VBG pH 7.35 VBG pCO2 35 L VBG pO2 23 VBG Base Excess -6 L Quality Measures Quality Measures VTE prophylaxis Advance care planning discussed with:: patient Medications Home Medications and Allergies Home Medications ?Medication ?Instructions ?Recorded ?Confirmed ?Type aspirin 81 mg tablet,delayed 81 mg PO QDAY 04/06/25 04/28/25 History release atorvastatin 80 mg tablet 80 mg PO QDAY 04/06/25 04/28/25 History hydroxyzine HCl 10 mg tablet 10 mg PO BID 04/06/25 04/28/25 History levothyroxine 25 mcg tablet 25 mcg PO QDAY 04/06/25 04/28/25 History metoprolol succinate 50 mg 100 mg PO QDAY 04/06/25 04/28/25 History tablet,extended release 24 hr omeprazole 20 mg capsule,delayed 20 mg PO QDAY 04/06/25 04/28/25 History release sofosbuvir 400 mg-velpatasvir 100 1 tab PO QDAY 04/06/25 04/28/25 History mg tablet trazodone 50 mg tablet 50 mg PO BID 04/06/25 04/28/25 History nitrofurantoin 100 mg PO BID 04/28/25 04/28/25 History monohydrate/macrocrystals 100 mg capsule nitrofurantoin 100 mg PO BID 04/28/25 04/28/25 History monohydrate/macrocrystals 100 mg capsule (Macrobid) Allergies Allergy/AdvReac Type Severity Reaction Status Date / Time No Known Allergies Allergy Verified 04/05/25 19:19 Visit Medications Acetaminophen (Acetaminophen 325 Mg Tablet) 650 mg PO Q6H PRN PRN Reason: Fever >100.4 or pain 1-3 Stop: 05/27/25 20:07 Hydrocodone Bitart/Acetaminophen (Hydrocodone/Apap 5/325 Tablet) 1 tab PO Q4HR PRN PRN Reason: PAIN SCALE 4-6 (Moderate Stop: 05/02/25 20:07 Docusate Sodium (Docusate Sod 100 Mg Capsule) 100 mg PO QDAY ANTHONY; Protocol Stop: 05/28/25 08:59 Famotidine (Famotidine Inj 10 Mg/Ml Vial 2 Ml) 20 mg IVP Q12HR [facility] Stop: 05/27/25 20:59 Heparin Sodium (Porcine) (Heparin Sod Inj 5000 Unit/Ml Vial) 5,000 unit SC Q12HR [facility] Stop: 05/11/25 20:59 Meropenem 500 mg/ Sodium (Chloride) 50 mls @ 100 mls/hr IV Q12HR [facility] Stop: 05/04/25 20:59 Ondansetron HCl (Ondansetron Inj 2 Mg/Ml Inj 2 Ml) 4 mg IVP Q6H PRN; Protocol PRN Reason: NAUSEA OR VOMITING Stop: 05/27/25 20:07 Discontinued Medications Lactated Ringer's (Lactated Ringers) 1,000 mls @ 999 mls/hr IV .Q1H1M ONE Stop: 04/27/25 17:21 Last Infusion: 04/27/25 17:45 Dose: Infused Lactated Ringer's (Lactated Ringers) 1,000 mls @ 999 mls/hr IV .Q1H1M ONE Stop: 04/27/25 18:50 Last Infusion: 04/27/25 19:46 Dose: Infused Ceftriaxone Sodium/Dextrose (Rocephin/D5w 1gm Iv Premix) 1 gm in 50 mls @ 100 mls/hr IV X1 ONE Stop: 04/27/25 18:20 Last Infusion: 04/27/25 19:46 Dose: Infused Potassium Chloride (Potassium Chloride 20 Meq Tabcr) 40 meq PO X1 ONE Stop: 04/27/25 17:51 Last Admin: 04/27/25 18:07 Dose: 40 meq Assessment & Plan Plan Callie Dietz 75F recent hospital admission for hypokalemia 2 weeks ago pmhx significant for hx recurrent ESBL UTI, Hep C currently being treated, HFrEF grade1 diastolic disfunction (60-65%, 03/2025), HTN, SVT, hypothyroidism, GERD, PSUD, depression and anxiety presented to [facility] ED following 3 days of generalized weakness and urinary discomfort. Admitted sepsis r/o 2/2 UTI #Sustained SVT #Shock (Cardiogenic vs Septic) #Hx of Grade I diastolic HF (EF 60-65%, 03/2025) #Hx of HTN #Hx of SVT [employer] Dr. Palomares. On exam +1 pedal edema, +JVD to mandible. holding losartan per patient. HR intermittently to 130s but resolved to 79. Plan: -Patient given Adenosine 6mg, followed by 12mg x2 with conversion to sinus but short lived to few minutes -Patient sedated with Ketamine and cardioverted twice with 100 Joules x1 followed by 200 Joules x2 without success. -Patient started on Amiodarone drip -Atorvastatin 80mg PO HS -Aspirin 81mg PO QD -Daily weights -Strict I/Os -No fluid restriction at this point. -Patient will be upgraded to ICU for further eval and care -Cardiology consulted, recs appreciated. #Sepsis r/o 2/2 #UTI #Hx of ESBL #Lactic acidosis - resolved Patient came in and found to have 2 or more SIRS criteria and was evaluated for sepsis. However, based upon further work-up, sepsis was ruled out. She is comfortable at the moment. HR 130s resoved to 70s, RR briefly 21 an 26 resolved to 16, she is afebrile with WBC 21.7, procal 4.14. LA 2.4-->1.6 with IVF. Suspected source of infection is UTI; UA: turbid protein +1 RBC 11 WBC 212 amorphous crystals. Patient reports suprapubic tenderness to palpation and history of weakness with dysuria. Pentem dose adjusted per creatinine clearance 18.1 guidelines. Plan: -Patient received total of 3L of IVF boluses -Consider starting patient on Phenylephrine for MAP support. -Meropenem 500mg IV Q12HR Pentem dose adjusted per creatinine clearance 18.1 guidelines) -FUP urine cx:___ -FUP blood cx:___ #FLORES #AGMA DDx hyperuremia, lactic acidosis HCO3 17.5 lactic acid 2.4-->1.6 with IVF. BUN 54 Cr 2.6 Cr Cl 18.1. Plan: -Patient currently volume overloaded with JVD and +1 pedal edema, given 2L in ED, will hold on fluids now. -Re-evaluate kidney function in AM -Consider holding bumex #Hypokalemia Poor po intake. Potassium IV and PO given in ED. May be playing a role in patient's report of weakness. Plan: -Continue to monitor renal function panel #Hx of Hep C Currently being treated by Dr. Maya Plan: -Continue home med sofosbuvir-velpatasvir #Hx of hypothyroidism #Hx of anxiety Plan: -Trazodone 50mg PO HS -Hydroxyzine 25mg PO QD -Levothyroxine 25mcg PO AC tablet Health Maintenance: Code status: DNR/DNI DVT prophylaxis: Heparin SubQ GI prophylaxis: Famotidine Diet: Cardiac Yu: None (purewick in ED) Lines: PIV Supplemental O2: None Disposition: Tele for sepsis work up 2/2 UTI Patient seen and reviewed with attending Dr. Escalante. Note written by Oc Roy MD PGY-1 Attending Provider Attestation/Addendum After examination of the patient and review of the clinical data I feel that this patient needs admission to the hospital for further treatment/evaluation. TOTAL CC TIME: 75 MIN TOTAL TIME: 75 Minutes of direct medical management and planning of care. I John Paul Escalante MD, attest that I was physically present for keane portions of evaluation, and examined patient, labs and imagings and plan of care were discussed with IM residents team, and I agree with the findings and plans documented above.
[2025-04-27] MEDS: HEPARIN SOD INJ 5000 UNIT/ML VIAL SC (20:43)
[2025-04-27] MEDS: FAMOTIDINE INJ 10 MG/ML VIAL 2 ML 20 MG IVP (20:50)
[2025-04-27] MEDS: MEROPENEM INJ 500 MG in SODIUM CHLORIDE 0.9% (Popper) 50 ML 100 MG IV (20:52)
[2025-04-27 21:10] LABS: Amphetamine/Methamp Scrn,U Negative (Negative); Barbiturate Screen,Urine Negative (Negative); Benzodiazepines Screen,Urine Negative (Negative); Benzoylecgonine Screen, Ur Negative (Negative); Fentanyl Screen,Urine Negative (Negative); Opiate Screen,Urine Negative (Negative); THC Screen,Urine Negative (Negative)
[2025-04-27] MEDS: POTASSIUM CHL 10 mEq IVPB 10 MEQ/100 ML BAG 100 MEQ IV (21:17)
[2025-04-27] MEDS: ATORVASTATIN CALCIUM 20 MG TABLET 80 MG PO (21:20)
--- NOTE | 2025-04-27 21:32 | PC.NURSE ---
dr. delgadillo and residents made aware of pts heart rate. order for ekg. ekg was completed and handed to dr. delgadillo. pt denies chest pain or palpations
[2025-04-28] VITALS (154 sets, daily range): BP systolic 54–164; BP diastolic 32–96; PULSE 58–202; RESP 14–100; TEMP 36.6–37.2; O2SAT 70–100
--- NOTE | 2025-04-28 01:08 | PC.NURSE ---
DR. CHRISTIAN WAS CALLED ABOUT PTS ELEVATED HEART RATE. PER PROVIDER I WILL SEE PATIENT IN A BIT
--- NOTE | 2025-04-28 01:28 | PC.NURSE ---
DR. CHRISTIAN AT BEDSIDE. AWARE OF ELEVATED HEART RATE
[2025-04-28] MEDS: ADENOSINE INJ 3 MG/ML VIAL 6 MG IVP (01:43)
[2025-04-28] MEDS: ADENOSINE INJ 3 MG/ML VIAL 12 MG IVP ×2 (01:50→02:08)
[2025-04-28] MEDS: SODIUM CHLORIDE 0.9% 500 ML 500 ML 999 ML IV ×5 (01:55→12:13)
[2025-04-28] MEDS: MIDAZOLAM INJ 1 MG/ML VIAL 2 ML IVP (02:21)
[2025-04-28] MEDS: KETAMINE 50 MG/ML VIAL 10 ML 70 MG IVP (02:40)
[2025-04-28] MEDS: KETAMINE 50 MG/ML VIAL 10 ML IVP (03:03)
[2025-04-28] MEDS: MORPHINE SULF INJ 4 MG/ML VIAL IVP (03:10)
[2025-04-28] MEDS: AMIODARONE 150 MG IVPB 150 MG/100 ML BAG 600 MG IV ×2 (03:24→03:34)
--- NOTE | 2025-04-28 03:39 | PC.NURSE ---
A TOTAL OF 4 TIMES PT WAS SHOCKED. PROVIDERS AT BEDSIDE 1) 0242 @100j (HEART RATE OF 169BPM, BP OF 76/54, 98%) 2) 0244 @100J (HEART RATE OF 168BPM, BP OF 76/54, 99%, 20RR) 3) 0305 @200j (HEART RATE OF 173BPM, BP OF 164/96, 96%, 18RR) 4) 0311 @200j (HEART RATE OF 183 BPM, BP OF 143/78, 100%, 19RR)
[2025-04-28] MEDS: AMIODARONE 360 MG IVPB 360 MG/200 ML BAG 33.333 MG IV (03:47)
--- NOTE | 2025-04-28 04:01 | PC.NURSE ---
Addendum entered by Zelda Crook RN 04/28/25 04:34: CORRECTION 70MG OF KETAMINE WAS GIVEN BY DR. CHRISTIAN INITIALLY FOLLOWED BY ANOTHER 50MG OF KETAMINE PUSHED BY DR. CHRISTIAN Original Note: APPROX AT 0130 PROVIDERS ARRIVED AT BEDSIDE. 6MG OF ADENOSINE WAS PUSHED FOLLOWED BY 20ML OF NS BY GILBERTO VASQUEZ . VITAL SIGNS TAKEN AND DOCUMENTED. VERBAL ORDER FROM DR. CHRISTIAN OF 12MG OF ADENOSINE IVP. 12MG OF ADENOSINE IVP GIVEN BY GILBERTO RN. AN ADDITIONAL 12MG OF ADENOSINE GIVEN AND PUSHED BY GILBERTO RN. APPROX AT 0230 DR. BISHOP RECEIVED VERBAL CONSENT FROM TO SHOCK. PER DR. BISHOP TO ADMIN THE VERSED APPROX AT 0221. RT WAS CALLED APPROX AT 0227. RT AT BEDSIDE AT 0233. 10MG OF KETAMINE WAS GIVEN BY DR. CHRISTIAN. PT WAS SHOCKED AT 0242 AND 0244 @100J. ADDTIONAL 50MG OF KETAMINE WAS ORDERED AND GIVEN BY DR. CHRISTIAN. PT RECIEVED 2 MORE SHOCKS AT 0305 AND 0311 AT 200J. APPROX AT 0310 2MG OF MORPHINE WAS GIVEN PER VERBAL ORDERS OF DR. BISHOP. THE REMAINING 2MG WAS WASTED BY THIS RN AND BETTY RN. THE REMAINING 380MG OF KETAMINE WAS WASTED WITH BETTY VASQUEZ. AMIODARONE WAS ORDERED AND STARTED.
--- NOTE | 2025-04-28 04:25 | PC.NURSE ---
APPROX AT 0410, DR. CHRISTIAN WAS CALLED TO MAKE HIM AWARE OF PATIENT HEART RATE. NO NEW ORDERS GIVEN BY PROVIDER
--- NOTE | 2025-04-28 05:20 | PC.NURSE ---
PT HAS A KNOWN HX OF SVT PER PT. THROUGHOUT THE START OF THE SHIFT WOULD BECOME TACHY APPROX IN THE 130 AND WOULD CONVERT HERSELF BY TO NS. THIS WAS VISAULIZED A FEW TIMES BY RN AND PROVIDERS WERE NOTIFED ABOUT HEART RATE. EKG WAS ORDERED TO CAPTURE SINUS TACH. IT WAS CAPTURED AND EKG WAS GIVEN TO DR. TY. PT WAS ABLE TO CONVERT HERSELF BACK TO NORMAL SINUS MULTIPLE TIMES. INTERMEDIATE THROUGH SHIFT, PT FAILED TO CONVERT BACK TO NORMAL SINUS. PROVIDERS WERE NOTIFED MULTIPLE TIMES ABOUT PTS ELEVATED HEART RATE. THIS RN ASSESSED PT. PT DENIED SOB, CHEST PAIN, PALPATIONS OR ANY DISCOMFORT. APPROX AROUND 0100 PROVIDERS WERE CONTACTED AGAIN ABOUT ELEVATED HEART RATE.
--- NOTE | 2025-04-28 05:37 | PC.NURSE ---
DR. TY AND DR. CHRISTIAN AT BEDSIDE
--- NOTE | 2025-04-28 05:43 | PC.NURSE ---
DR. CHRISTIAN COMPLETED AN ULTRASOUND OF THE HEART. FAVIAN CHRISTIAN AND DR. GALLARDO AGREED TO GIVE A 500ML BOLUS OF NORMAL SALINE
[2025-04-28 05:47] LABS: Basophils # (Auto) 0.1 Thou/mm3 (0.0-0.2); Basophils % (Auto) 1 % (0-2.5); Eosinophils # (Auto) 0.0 Thou/mm3 (0.0-0.5); Eosinophils % (Auto) 0 % (0-10); Hematocrit 35.1 % (36.0-46.0); Hemoglobin 11.6 g/dL (12.0-16.0); Immature Granulocytes Auto 0.90 Thou/mm3 (0.00-0.00); Lymphocytes # (Auto) 0.8 Thou/mm3 (1.0-4.8); Lymphocytes % (Auto) 3 % (10-50); Mean Corpuscular HGB Conc 33.0 g/dl (31.0-37.0); Mean Corpuscular Hemoglobin 27.6 pg (25.0-35.0); Mean Corpuscular Volume 83 fL (80-100); Monocytes # (Auto) 1.9 Thou/mm3 (0.0-0.8); Monocytes % (Auto) 7 % (0-12); Neutrophils # (Auto) 22.9 Thou/mm3 (1.8-7.7); Neutrophils % (Auto) 86 % (37-80); Nucleated Red Blood Cell # 0.00 Thou/mm3 (0.00-0.00); Nucleated Red Blood Cell % 0 /100 WBC (0); Platelet Count 154 Thou/mm3 (140-440); RDW Standard Deviation 51.2 fL (36.4-46.3); Red Blood Count 4.21 Miln/mm3 (4.00-5.20); White Blood Count 26.6 Thou/mm3 (3.6-11.0)
[2025-04-28 06:20] LABS: Alanine Aminotransferase < 7 U/L (10-49); Albumin, Serum 2.9 gm/dL (3.4-4.8); Albumin/Globulin Ratio 1.3 (1.2-2.2); Alkaline Phosphatase 120 U/L (46-116); Anion Gap 15 (7-16); Aspartate Amino Transferase 23 U/L (0-34); BUN/Creatinine Ratio 14 Ratio (12-20); Bilirubin,Total 0.5 mg/dL (0.3-1.2); Blood Urea Nitrogen 31 mg/dL (9-23); Calcium 8.3 mg/dL (8.3-10.6); Calcium (Corrected) 9.2 mg/dL (8.5-10.1); Carbon Dioxide 16.0 mMol/L (20.0-31.0); Chloride 108 mMol/L (98-107); Creatinine (Component) 2.2 mg/dL (0.6-1.3); Estimated Creatinine Clearance 21.4 mL/min (>60); Globulin 2.2 gm/dL (2.3-3.5); Glucose 84 mg/dL (74-106); Magnesium 1.8 mg/dL (1.6-2.6); Osmolality,Calculated 283 (275-295); Phosphorous 4.1 mg/dL (2.4-5.1); Potassium 3.9 mMol/L (3.4-5.1); Sodium 139 mMol/L (136-145); Total Protein 5.1 gm/dL (5.7-8.2); eGFR 23 See Note
--- NOTE | 2025-04-28 06:41 | PC.NURSE ---
DR. CHRISTIAN WAS NOTIFIED ABOUT BP AFTER 500ML BOLUS WAS FINISHED
--- NOTE | 2025-04-28 07:05 | EVENTNT_ITS ---
Documentation for date of: 04/28/25 Event Note Event Note: Callie Dietz 75F recent hopsital admission for hypokalemia 2 weeks ago pmhx significant for recurrent ESBL UTI, Hep C currently being treated, HFrEF grade1 diastolic disfunction (60-65%, 03/2025), HTN, SVT, hypothyroidism, GERD, PSUD, depression and anxiety presented to [facility] ED following 3 days of generalized weakness and urinary discomfort amitted for sepsis 2/2 UTI, she had received 2.5L boluses of IVF. After admission patient had intermittent episodes of SVT followed by periods of sinus rhythm which later turned into a sustained episodes of SVT at rate of 170- 180 with SBP>100, patient was given Adenosine 6, 12, and 12 which converted her to sinus rhythm for a while but later returning to SVT prompting cardioversion discussion with patient. Patient was agreeable to cardioversion, at that time MAP was around 60-70, 70mg of Ketamine was given followed by initial shock delivered at 100 joules which was unsuccessful at restoring sinus rhythm, patient was given additional 50mg of Ketamine and 2 more shocks at 200 joules were delivered. Patient continued to be in SVT for which decision was made to start her on 2 loading doses of Amio followed by maintenence drip. Currently BP is 84/52 and HR resolving to 147. Patient seen and reviewed with attending Dr. Escalante. Note written by Oc Roy MD PGY-1
[2025-04-28] MEDS: MIDODRINE 5 MG TABLET 10 MG PO (07:18)
[2025-04-28] MEDS: METOPROLOL TARTRATE 25 MG TABLET 50 MG PO (07:19)
--- NOTE | 2025-04-28 07:27 | PC.NURSE ---
Report received from pm nurse. Patient lying in high zapata's position, speaking full sentences to Hospitalists team at bedside. HR 151 on CM, new orders received from Per Jerri Colvin, called pharmacy to verify orders, patient denies pain. Patient states she feels slight shortness of breath on 6l/02 via NC. Patient awaiting bed on floor, call light within reach.
[2025-04-28] MEDS: LEVOTHYROXINE SODIUM 25 MCG TABLET PO (08:30)
[2025-04-28] MEDS: FAMOTIDINE INJ 10 MG/ML VIAL 2 ML 20 MG IVP ×2 (10:15→20:49)
[2025-04-28] MEDS: HEPARIN SOD INJ 5000 UNIT/ML VIAL SC ×2 (10:16→21:00)
[2025-04-28] MEDS: ASPIRIN EC 81 MG TABEC PO (10:16)
[2025-04-28] MEDS: MEROPENEM INJ 500 MG in SODIUM CHLORIDE 0.9% (Popper) 50 ML 100 MG IV (10:17)
[2025-04-28 10:44] LABS: Free T4 (Free Thyroxine) 1.10 ng/dL (0.89-1.76)
--- NOTE | 2025-04-28 10:54 | ESCONSULT_ITS ---
<Statement entered by Isidra Hansen MD - 04/29/25 11:15> TOTAL CC TIME: 45 MIN I saw and evaluated the patient. I reviewed the resident?s note and agree with findings and plan as documented in the resident?s note. Upon my evaluation, this patient had a high probability of imminent or life- threatening deterioration due to recurring SVT requiring multiple cardioversions in the emergency room in the setting of ESBL E. coli urinary tract infection complicated with bacteremia which required my direct attention, intervention, and personal management. This time is exclusive of time spent on procedures, which are documented separately if performed. On appropriate broad-spectrum antibiotics due to ESBL E. coli, fluid resuscitated, SVT is difficult to control. Additional magnesium and potassium was provided Patient was previously recommended for ablation, will need to control septic shock prior to any invasive procedures Elier-Synephrine was chosen instead of Levophed due to the SVT continue amiodarone as able to tolerate. We have had to hold it intermittently due to bradycardia and hypotension HPI Data of Consult Requesting Physician: John Paul Escalante MD Admitting Provider: John Paul Escalante MD Attending Provider: John Paul Escalante MD Primary Care Provider: Anika Olmstead MD Consult Narrative Reason for consult: Shock History of present illness: 75-year-old female with past medical history of acoustic neuroma s/p removal with residual left facial droop and left eye proptosis and some slurred speech, hypertension, anxiety, depression, GERD, neuropathy, recurrent ESBL infections, HFpEF (EF 60 to 65%), chronic hep C currently on treatment, hypertension, Raynaud's phenomenon, and SVT was admitted to the medical floors on 04/27/2025 after coming in to the ED with chief complaints of weakness and worsening burning sensation during urination. Patient was initially admitted to the medical floors on telemetry, but afterwards patient went into SVT with heart rate in the 180s and hemodynamically unstable with low BP. She received adenosine 6 x 1 and then 12 x 2 without any resolution of SVT therefore she received 2 shocks 100 J followed by 2 shocks of 200 J with 500 mg of ketamine without any improvement in SVT. She was then placed on amiodarone drip with some improvement in heart rate to the 130s and she was also given have bolus of NS. ED course: Initially came in with mild hypertension, normal heart rate, and afebrile. Initial labs were relevant for leukocytosis (21.7), hypokalemia (3.2), FLORES (current 2.6), HAGMA (bicarb 17.5), elevated BNP at 402, and elevated procalcitonin 4.14 along with UA positive for bacteria. Patient also had a chest x-ray which showed possible bronchitis versus pulmonary fibrosis. Initial EKG shows a rate of 88 with repeat showing rate of 140. Patient also had a urine culture on 04/20/2025 which grew ESBL. Of note patient was recently discharged from our hospital on 04/02/2025 due to similar symptoms where she was treated with meropenem for 3 days as her repeated urine culture was negative during that admission, but she did have episodes of SVT requiring adenosine pressures, but no cardioversion was required at this time. In conclusion patient was upgraded to the ICU due to septic shock along with paroxysmal SVT. PMH: As above Surgical Hx: Gastric bypass, umbilical hernia repair, perforated ulcer repair, and acoustic neuroma removal Allergies: NKDA Social: Denies any alcohol, drugs, smoking cc:: cc: John Paul Escalante MD Review of Systems Review of Systems Systems Reviewed: All systems reviewed, normal except as documented Past Medical History Past Medical History Comments PMH COMMENT: PMH: acoustic neuroma s/p removal with residual left facial droop and left eye proptosis and some slurred speech, hypertension, anxiety, depression, GERD, neuropathy, recurrent ESBL infections, HFpEF (EF 60 to 65%), chronic hep C currently on treatment, hypertension, Raynaud's phenomenon, and SVT PSH: Removal of acoustic neuroma 8 years ago with residual deficits, gastric bypass, umbilical hernia repair SH: 15-year pack history of smoking, quit 10 years ago. 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 Patient reports quitting drinking 20 years ago. Allergies:?NKDA Medications: Gabapentin, trazodone, Lexapro, hydroxyzine, omeprazole, Lasix as needed, levothyroxine, phentermine. Exam Vital Signs Temp Pulse Resp BP Pulse Ox O2 Del Method O2 Flow Rate 97.9 F 63 19 89/68 L 97 Nasal Cannula 4 04/28/25 09:15 04/28/25 10:01 04/28/25 10:01 04/28/25 10:01 04/28/25 10:01 04/28/25 08:26 04/28/25 08:26 Narrative Exam General: A/O x3, no acute distress Eyes: PERRL, EOMI. Anicteric, vision grossly intact. Ears: No ear pain, no ear discharge, Hearing grossly intact. Nose: No nasal discharge. Mouth/Throat: Dry mucous membranes, no redness, no lesions. Neck: Neck supple, non-tender, no cervical lymphadenopathy. Lungs: Clear ADEEL to auscultation and percussion, No accessory muscle use. Cardio: Normal S1/S2, regular rhythm, no murmurs, no JVD Abdomen: Soft, non-tender, no palpable masses, peristalsis present, no guarding or rebound. Extremities: Symmetrical, no significant deformities, no peripheral edema , non-tender, peripheral pulses presents UE digit discoloration with decreased capillary refill likely in setting of Raynaud and exacerbated by Shock. Skin: No rashes, no lesions, warm to touch. Neuro: L eye ptosis, L side facial droop with nasal fold flattening, strength Adeel LE and UE equal and sensory intact. Speech comprehensible, but slurred Psych: Cooperative, appropriate mood and effect. Results Labs 04/28/25 05:12 04/28/25 05:12 Labs: Short CBC 04/27/25 04/28/25 Range/Units 16:30 05:12 WBC 21.7 H 26.6 H (3.6-11.0) Thou/mm3 Hgb 12.2 11.6 L (12.0-16.0) g/dL Hct 36.9 35.1 L (36.0-46.0) % Plt Count 199 D 154 D (140-440) Thou/mm3 BMP 04/27/25 04/28/25 16:30 05:12 Sodium 137 139 Potassium 3.2 L 3.9 D Chloride 104 108 H Carbon Dioxide 17.5 L 16.0 L BUN 54 H 31 H Creatinine 2.6 H 2.2 H Glucose 104 84 Calcium 8.9 8.3 Cardiac Enzymes 04/27/25 Range/Units 16:30 Troponin I < 0.020 (0.0-0.045) ng/mL Liver Function 04/27/25 04/28/25 Range/Units 16:30 05:12 Total Bilirubin 0.6 0.5 (0.3-1.2) mg/dL AST 24 23 (0-34) U/L ALT 9 L < 7 L (10-49) U/L Alkaline Phosphatase 135 H 120 H (46-116) U/L Albumin 3.7 2.9 L D (3.4-4.8) gm/dL Urine 04/27/25 Range/Units 18:00 Urine Color Yellow (Lt Yel-Yel) Urine Clarity Turbid A (Clear/Hazy) Urine pH 6.0 (5.0-7.0) Ur Specific [place] 1.011 (1.001-1.035) Urine Protein 1+ A (Neg - Trace) Urine Glucose (UA) Negative (Negative) ABG Interpretation ABG results: 04/27/25 16:30 VBG pH 7.35 VBG pCO2 35 L VBG pO2 23 VBG Base Excess -6 L Quality Measures Quality Measures none Advance care planning discussed with:: patient Medications Home Medications and Allergies Home Medications ?Medication ?Instructions ?Recorded ?Confirmed ?Type aspirin 81 mg tablet,delayed 81 mg PO QDAY 04/06/25 History release atorvastatin 80 mg tablet 80 mg PO QDAY 04/06/2504/28 History hydroxyzine HCl 10 mg tablet 10 mg PO BID 04/06/25 History levothyroxine 25 mcg tablet 25 mcg PO QDAY 04/06/25 History metoprolol succinate 50 mg 100 mg PO QDAY 04/06/25 History tablet,extended release 24 hr omeprazole 20 mg capsule,delayed 20 mg PO QDAY 5 04/28/25 History release sofosbuvir 400 mg-velpatasvir 100 1 tab PO QDAY 04/28/25 History mg tablet trazodone 50 mg tablet 50 mg PO BID 04/06/25 History nitrofurantoin 100 mg PO BID 04/28/2504/28 History monohydrate/macrocrystals 100 mg capsule nitrofurantoin 100 mg PO BID 04/28/2504/28 History monohydrate/macrocrystals 100 mg capsule (Macrobid) Allergies Allergy/AdvReac Type Severity Reaction Status Date / Time No Known Allergies Allergy Verified 04/05/25 19:19 Visit Medications Acetaminophen (Acetaminophen 325 Mg Tablet) 650 mg PO Q6H PRN PRN Reason: Fever >100.4 or pain 1-3 Stop: 05/27/25 20:07 Aspirin (Aspirin Ec 81 Mg Tabec) 81 mg PO QDAY [facility] Stop: 05/28/25 08:59 Last Admin: 04/28/25 10:16 Dose: 81 mg Atorvastatin Calcium (Atorvastatin Calcium 20 Mg Tablet) 80 mg PO HS ANTHONY Stop: 05/27/25 20:59 Last Admin: 04/27/25 21:20 Dose: 80 mg Bumetanide (Bumetanide 0.5 Mg Tablet) 0.5 mg PO QDAY [facility] On Hold: 04/28/25 10:19 Stop: 05/28/25 08:59 Last Admin: 04/28/25 10:17 Dose: Not Given Docusate Sodium (Docusate Sod 100 Mg Capsule) 100 mg PO QDAY [facility]; Protocol Stop: 05/28/25 08:59 Last Admin: 04/28/25 10:17 Dose: Not Given Famotidine (Famotidine Inj 10 Mg/Ml Vial 2 Ml) 20 mg IVP Q12HR ANTHONY Stop: 05/27/25 20:59 Last Admin: 04/28/25 10:15 Dose: 20 mg Heparin Sodium (Porcine) (Heparin Sod Inj 5000 Unit/Ml Vial) 5,000 unit SC Q12HR ANTHONY Stop: 05/11/25 20:59 Last Admin: 04/28/25 10:16 Dose: 5,000 unit Hydroxyzine HCl (Hydroxyzine Hcl 25 Mg Tablet) 25 mg PO QDAY ANTHONY Stop: 05/28/25 08:59 Last Admin: 04/28/25 10:16 Dose: 25 mg Meropenem 500 mg/ Sodium (Chloride) 50 mls @ 100 mls/hr IV Q12HR ANTHONY Stop: 05/04/25 20:59 Last Admin: 04/28/25 10:17 Dose: 100 mls/hr Levothyroxine Sodium (Levothyroxine Sodium 25 Mcg Tablet) 25 mcg PO ACBR ANTHONY Stop: 05/29/25 05:59 Metoprolol Tartrate (Metoprolol Tartrate 25 Mg Tablet) 50 mg PO BID ANTHONY On Hold: 04/28/25 10:19 Stop: 05/28/25 07:09 Last Admin: 04/28/25 07:19 Dose: 50 mg Non-Formulary Medication (Sofosbuvir-Velpatasvir) 1 tab PO QDAY ANTHONY Stop: 05/28/25 08:59 Ondansetron HCl (Ondansetron Inj 2 Mg/Ml Inj 2 Ml) 4 mg IVP Q6H PRN; Protocol PRN Reason: NAUSEA OR VOMITING Stop: 05/27/25 20:07 Trazodone HCl (Trazodone Hcl 50 Mg Tablet) 50 mg PO HS ANTHONY Stop: 05/28/25 20:59 Discontinued Medications Hydrocodone Bitart/Acetaminophen (Hydrocodone/Apap 5/325 Tablet) 1 tab PO Q4HR PRN PRN Reason: PAIN SCALE 4-6 (Moderate Stop: 05/02/25 20:07 Adenosine (Adenosine Inj 3 Mg/Ml Vial) 6 mg IVP X1 ONE Stop: 04/28/25 01:38 Last Admin: 04/28/25 01:43 Dose: 6 mg Adenosine (Adenosine Inj 3 Mg/Ml Vial) 12 mg IVP X1 ONE Stop: 04/28/25 01:50 Last Admin: 04/28/25 01:50 Dose: 12 mg Adenosine (Adenosine Inj 3 Mg/Ml Vial) 12 mg IVP X1 ONE Stop: 04/28/25 02:03 Last Admin: 04/28/25 02:08 Dose: 12 mg Lactated Ringer's (Lactated Ringers) 1,000 mls @ 999 mls/hr IV .Q1H1M ONE Stop: 04/27/25 17:21 Last Infusion: 04/27/25 17:45 Dose: Infused Lactated Ringer's (Lactated Ringers) 1,000 mls @ 999 mls/hr IV .Q1H1M ONE Stop: 04/27/25 18:50 Last Infusion: 04/27/25 19:46 Dose: Infused Ceftriaxone Sodium/Dextrose (Rocephin/D5w 1gm Iv Premix) 1 gm in 50 mls @ 100 mls/hr IV X1 ONE Stop: 04/27/25 18:20 Last Infusion: 04/27/25 19:46 Dose: Infused Potassium Chloride (Kcl Ivpb) 10 meq in 100 mls @ 100 mls/hr IV Q1H ANTHONY Stop: 04/28/25 02:48 Last Infusion: 04/27/25 21:25 Dose: 0 mls/hr Sodium Chloride (Ns) 500 mls @ 999 mls/hr IV .Q31M ONE Stop: 04/28/25 02:22 Last Infusion: 04/28/25 02:26 Dose: Infused Amiodarone HCl/Dextrose (Nexterone Ivpb) 150 mg in 100 mls @ 600 mls/hr IV .Q10M ONE Stop: 04/28/25 03:16 Last Infusion: 04/28/25 03:35 Dose: Infused Amiodarone HCl/Dextrose (Nexterone Ivpb) 150 mg in 100 mls @ 600 mls/hr IV .Q10M ONE Stop: 04/28/25 03:17 Last Infusion: 04/28/25 03:46 Dose: Infused Amiodarone HCl/Dextrose (Nexterone Ivpb) 360 mg in 200 mls @ 33.333 mls/hr IV .Q6H ONE Stop: 04/28/25 09:07 Last Admin: 04/28/25 03:47 Dose: 33.333 mls/hr Amiodarone HCl/Dextrose (Nexterone Ivpb) 360 mg in 200 mls @ 16.667 mls/hr IV .Q12H [facility] Stop: 04/29/25 03:07 Last Admin: 04/28/25 04:12 Dose: Not Given Amiodarone HCl/Dextrose (Nexterone Ivpb) 360 mg in 200 mls @ 16.667 mls/hr IV .Q12H [facility] Stop: 04/29/25 09:36 Sodium Chloride (Ns) 500 mls @ 999 mls/hr IV .Q31M ONE Stop: 04/28/25 06:14 Last Infusion: 04/28/25 06:27 Dose: Infused Lactated Ringer's (Lactated Ringers) 500 mls @ 999 mls/hr IV .Q31M ONE Stop: 04/28/25 10:03 Sodium Chloride (Ns) 500 mls @ 999 mls/hr IV .Q31M ONE Stop: 04/28/25 10:05 Last Admin: 04/28/25 09:42 Dose: 999 mls/hr Sodium Chloride (Ns) 500 mls @ 999 mls/hr IV .Q31M ONE Stop: 04/28/25 10:51 Ketamine HCl (Ketamine Inj 50 Mg/Ml Syringe) 70 mg IVP X1 ONE Stop: 04/28/25 02:13 Last Admin: 04/28/25 03:27 Dose: Not Given Ketamine HCl (Ketamine 50 Mg/Ml Vial 10 Ml) 50 mg IVP X1 ONE Stop: 04/28/25 03:08 Last Admin: 04/28/25 03:03 Dose: 50 mg Ketamine HCl (Ketamine 50 Mg/Ml Vial 10 Ml) 70 mg IVP X1 ONE Stop: 04/28/25 03:14 Last Admin: 04/28/25 02:40 Dose: 70 mg Levothyroxine Sodium (Levothyroxine Sodium 25 Mcg Tablet) 25 mcg PO AC ANTHONY Stop: 05/28/25 07:29 Last Admin: 04/28/25 08:30 Dose: 25 mcg Metoprolol Succinate (Metoprolol Succinate Xl 25 Mg Tabcr) 25 mg PO HS ANTHONY Stop: 05/28/25 20:59 Metoprolol Succinate (Metoprolol Succinate Xl 25 Mg Tabcr) 100 mg PO QDAY ANTHONY Stop: 05/28/25 08:59 Midazolam HCl (Midazolam Inj 1 Mg/Ml Vial 2 Ml) 1 mg IVP X1 ONE Stop: 04/28/25 02:16 Last Admin: 04/28/25 02:21 Dose: 1 mg Midodrine (Midodrine 5 Mg Tablet) 10 mg PO TID ONE Stop: 04/28/25 07:11 Last Admin: 04/28/25 07:18 Dose: 10 mg Morphine Sulfate (Morphine Sulf Inj 4 Mg/Ml Vial) 4 mg IVP X1 ONE Stop: 04/28/25 02:13 Last Admin: 04/28/25 03:10 Dose: 2 mg Potassium Chloride (Potassium Chloride 20 Meq Tabcr) 40 meq PO X1 ONE Stop: 04/27/25 17:51 Last Admin: 04/27/25 18:07 Dose: 40 meq Potassium Chloride (Potassium Chloride 20 Meq Tabcr) 20 meq PO X1 ONE Stop: 04/27/25 21:24 Last Admin: 04/27/25 21:30 Dose: 20 meq Assessment & Plan Plan 75-year-old female with past medical history of acoustic neuroma s/p removal with residual left facial droop and left eye proptosis and some slurred speech, hypertension, anxiety, depression, GERD, neuropathy, recurrent ESBL infections, HFpEF (EF 60 to 65%), chronic hep C currently on treatment, hypertension, Raynaud's phenomenon, and SVT admitted to the ICU for septic shock along with paroxysmal SVT. Neurology No active disease Cardiovascular #Shock DDx: Could be a component of distributive in the setting of ESBL E. coli UTI along with GNR bacteremia versus cardiogenic in the setting of SVT Diagnostic workup: ?Bedside ultrasound showed collapsible IVC indicating likelihood of responsiveness to fluid resuscitation ?UA positive for bacteria ? Urine culture from 04/20/2025 showed ESBL E. coli ? Lactic acid 2.4 initially and downtrended to 1.6 and back to 2 this afternoon ? EKG showed SVT with a rate of 140 ? Blood cultures positive for GNR preliminary Treatment: ?S/p adenosine 6 mg x 1 and 12 g x 2 ? S/p cardioversion at 100 J x 2 and at 200 J x 2 ? S/p 4 L of IVF ?On phenylephrine as Levophed could worsen patient's arrhythmias ?Meropenem (04/27/2025 - 04/28/2025) ? Zosyn (04/28/2025?) Treatment follow-up: ?Follow-up on blood cultures and urine cultures ?Consider reassessing patient's IVC or Cheetah before any further IV fluids given as patient has gotten 4 L #Paroxysmal SVT DDx: likely exacerbated by sepsis Diagnostic workup: ? EKG showed SVT with a rate of 140 Treatment: ?S/p adenosine 6 mg x 1 and 12 g x 2 ? S/p cardioversion at 100 J x 2 and at 200 J x 2 ? S/p 4 L of IVF ?S/p amiodarone drip, currently discontinued ?On phenylephrine as Levophed could worsen patient's arrhythmias ?Magnesium 6 g and potassium 20 mEq additional today. ?Treat underlying infection ?Cardiology consulted and stated was okay with amiodarone if patient again went into SVT, but to consider that patient is currently on sofosbuvir velpatasvir Treatment follow-up: ?Keep magnesium and potassium above 4 and 2 respectively ?Consider reassessing patient's IVC or Cheetah before any further IV fluids given as patient has gotten 4 L ?Consider amiodarone drip with only maintenance dose no boluses if patient again goes into uncontrolled SVT, but taking under consideration consideration that patient is on sofosbuvir velpatasvir ?Reviewed Twila comp for interaction between amiodarone and sofosbuvir/velpatasvir and it was documented that postmarketing night patient's were receiving concomitant amiodarone had symptomatic bradycardia and 7 out of these 9 patients were also receiving beta-blockers. ?sofosbuvir/velpatasvir half-life is around 15 hours therefore if continuing amiodarone as needed close monitoring of patient's heart rate will be needed ? Consider restarting sofosbuvir/velpatasvir for patient's hepatitis C versus possibly holding for now if increased risk of bradycardia. ?Discussed with patient risks of bowel being on hepatitis C medication along with amiodarone and she was willing to take the risks of bradycardia and therefore which she would bring the medication from home and should be restarted. Respiratory No active disease GI No active disease Renal #FLORES #HAGMA DDx: Prerenal in the setting of shock versus ATN in the setting of shock Diagnostic workup: ?Creatinine 2.6 from baseline around 1 ?Bicarb 17.5 initially and downtrended to 16 ?Having appropriate urine output at this time Treatment: ? S/p 4 L of IV fluid ? Treating underlying shock ?Avoid nephrotoxic agents and renally dose medications Treatment follow-up: ? Follow-up on repeat renal panel ? Consider sodium bicarb push if still acidotic on repeat renal function panel ?monitoring urine output #Lactic acidosis type A DDx: Shock Diagnostic workup: ?Lactic acid 2.4 initially and downtrended to 1.6 and back to 2 this afternoon Treatment: ? S/p 4 L of IVF ?On phenylephrine as Levophed could worsen patient's arrhythmias ?Meropenem (04/27/2025 - 04/28/2025) ? Zosyn (04/28/2025?) Treatment follow-up: ?Repeat LA ?Consider reassessing patient's IVC or Cheetah before any further IV fluids given as patient has gotten 4 L Heme #Normocytic anemia Diagnostic workup: -Hemoglobin 12.2--> 11.6, could be hemodilution Treatment: -No acute management as there is no signs of active bleeding Treatment follow up: - Daily CBC - outpatient anemia work up #Leukocytosis, reactive Ddx: Infectious Diagnostic work up: -WBC 21.7--->26.6 - Afebrile - Blood culture grew GNR - UA positive - Urine culture grew ESBL E.Coli Treatment: ?Meropenem (04/27/2025 - 04/28/2025) ? Zosyn (04/28/2025?) Treatment follow up: -Daily CBC Endo No active disease MSK No active disease ID #ESBL E. coli UTI #GNR bacteremia Diagnostic workup: ?UA positive for bacteria ? Urine culture from 04/20/2025 showed ESBL E. coli ? Blood cultures positive for GNR preliminary Treatment: ? S/p 4 L of IVF ?On phenylephrine as Levophed could worsen patient's arrhythmias ?Meropenem (04/27/2025 - 04/28/2025) ? Zosyn (04/28/2025?) Treatment follow-up: ?Follow-up on blood cultures and urine cultures ?Consider reassessing patient's IVC or Cheetah before any further IV fluids given as patient has gotten 4 L ICU Health maintenance: Mechanical ventilation: no Sedation: no Diet: Cardiac DVT prophylaxis: Heparin SQ GI prophylaxis: famotidine Yu: none Lines: PIV Antibiotics: Zosyn CODE STATUS: DNR Case disclosed with Attending Dr. Jade Johnson PGY2 Disclaimer: Even though this this note was dictated by speech recognition and even though it was carefully revised there may still be minor errors in cloth brushing and sueding supervisor due to voice recognition software.
[2025-04-28 11:39] LABS: Lactate (Lactic Acid) 2.0 mMol/L (0.4-2.0)
[2025-04-28] MEDS: PIPER/TAZO 3.375 GM PREMIX 3.375 GM/50 ML BAG IV ×2 (11:48→20:48)
[2025-04-28] MEDS: Magnesium Sulfate 4 GM Ivpb 4 GM/50 ML BAG IV (11:51)
--- NOTE | 2025-04-28 12:15 | PC.CC ---
1200-ASW completed the initial assessment with pts Person to Notify Nevin Dietz [phone] as pt was already moved upstairs. Per pts daughter Nevin, she does not know who the pts PCP is and does not know if the pts uses a speciality care provider. Per pts daughter, pts uses a wheel chair and walker at home. Pt resides in an apartment, which is considered an assisted living arrangement, as per the daughter. Per pts daughter, the Code Status is unknown. Possible SNF placement upon ready for d/c as per the daughter or Home Health is needed. Pt will need transportation home. Pt does her own ADLs with assistance and has a person to help her from time to time, but not consistently. Pts [facility]acy is [facility] , but pts daughter does not know which [facility] the pt uses. Decision Maker: Venkat De La Vega [phone] Transportation: will need to be arranged Possible SNF vs Home.
--- NOTE | 2025-04-28 15:04 | PD.RESCONSUL ---
HPI Data of Consult Requesting Physician: John Paul Escalante MD Admitting Provider: John Paul Escalante MD Attending Provider: John Paul Escalante MD Primary Care Provider: Anika Olmstead MD Consult Narrative History of present illness: The patient is a 75-year-old female, well known to Dr. Palomares, with a significant past medical history including acoustic neuroma status post surgery with residual right facial droop and left eye ptosis; hypothyroidism; anxiety and depression; GERD; neuropathy; recurrent ESBL infections; HFpEF (EF 60?65%); chronic hepatitis C currently on treatment; and hypertension. She [place] [facility] with chief complaints of generalized weakness and urinary discomfort. Symptoms began approximately three days prior and progressively worsened. On arrival, she primarily reported severe weakness, dysuria, and suprapubic pain/tenderness. She was recently hospitalized in March for symptomatic hypokalemia, SVT, and UTI. Her hospital course was complicated by recurrent SVT requiring adenosine 6 mg followed by 12 mg for conversion to sinus rhythm. She was subsequently started on metoprolol succinate 100 mg twice daily. Ablation was discussed on multiple occasions, however patient declined at that time. On current presentation, the patient denied chest pain, shortness of breath, dyspnea, palpitations, nausea, vomiting, or other associated symptoms. ED Course Vitals: BP 101/54, HR 71, RR 18, Temp 87.6?F, SpO? 100% on room air Labs: WBC 21.7; VBG: pH 7.35 / pCO2 35 / pO2 23 / O? sat 35%; K 3.2; HCO3 17.5; BUN 54; Cr 2.6 (CrCl 18.1 mL/min); ALT 9; ALP 135; Troponin (?); BNP 402; Procalcitonin 4.14; Lactate 2.4 UA: Turbid, protein +1, RBC 11, WBC 212, amorphous crystals present Imaging:EKG: Sinus rhythm, QTc 454 ms, ventricular premature complexes CXR: Increased bronchovascular markings; differential includes bronchitis vs pulmonary fibrosis received Ceftriaxone 1 g IV, 2 L lactated Ringer?s, potassium repletion. The patient was admitted for sepsis secondary to a urinary tract infection for further treatment and management. Past Medical History:As above. Surgical History:Gastric bypass; acoustic neuroma resection; umbilical hernia repair. Family History:Significant for coronary artery disease and myocardial infarction in older age. Social History:Remote polysubstance use (methamphetamine, cocaine, LSD, THC); no meth or alcohol use for >20 years. 50 pack-year smoking history. Lives alone in [place]; previously employed in a [employer] company. . Reports concern about daughter?s alcohol use. Medications Aspirin 81 mg daily; atorvastatin 80 mg daily; Bumex 1 mg daily; hydroxyzine 10 mg twice daily; levothyroxine 25 mcg daily; losartan 12.5 mg daily; metoprolol succinate 100 mg daily; omeprazole 20 mg daily; trazodone 50 mg twice daily. Allergies NKDA. On the morning of 12/16, the patient developed SVT with heart rates >180 bpm and hypotension (BP 80/60, MAP 62?65). She received adenosine 6 mg, followed by 12 mg, and an additional 12 mg without conversion. Due to persistent SVT and hemodynamic instability, she underwent electrical cardioversion with two shocks at 100 J followed by two shocks at 200 J, administered with ketamine for sedation. She then received an amiodarone bolus and was started on an amiodarone drip. The patient was upgraded to the ICU for close monitoring. Cardiology was consulted for further recommendations. Currently patient is in septic shock, blood culture revealed GNR, patient is on phenylephrine drip as for pressure support, heart rate is low 60s, if patient develop another episode of SVT, patient can be placed back to amiodarone drip. cc:: cc: John Paul Escalante MD Review of Systems Review of Systems Systems Reviewed: All systems reviewed, normal except as documented Exam Vital Signs Temp Pulse Resp BP Pulse Ox O2 Del Method O2 Flow Rate 98.3 F 63 22 H 97/49 L 96 Room Air 4 04/28/25 12:16 04/28/25 14:15 04/28/25 14:15 04/28/25 14:15 04/28/25 14:15 04/28/25 14:15 04/28/25 08:26 Narrative Exam Physical Exam General: Awake and in no acute distress. Conversational and non-toxic appearing. HEENT: Normocephalic, atraumatic, mucous membranes moist. Heart: Regular rate and rhythm, normal S1 and S2, no murmurs. Lungs: Clear to auscultation with no wheezing or crackles. Abdomen: Soft, nondistended, nontender, positive bowel sounds. No guarding or rebound tenderness. Neurologic: Alert and oriented x3, no gross neurological deficit, and patient able to move all 4 extremities. Extremities: No edema. Bluish fingertips. Skin: No rash or ecchymoses. Results Labs 04/29/25 03:34 04/29/25 03:34 Labs: Short CBC 04/27/25 04/28/25 Range/Units 16:30 05:12 WBC 21.7 H 26.6 H (3.6-11.0) Thou/mm3 Hgb 12.2 11.6 L (12.0-16.0) g/dL Hct 36.9 35.1 L (36.0-46.0) % Plt Count 199 D 154 D (140-440) Thou/mm3 BMP 04/27/25 04/28/25 16:30 05:12 Sodium 137 139 Potassium 3.2 L 3.9 D Chloride 104 108 H Carbon Dioxide 17.5 L 16.0 L BUN 54 H 31 H Creatinine 2.6 H 2.2 H Glucose 104 84 Calcium 8.9 8.3 Cardiac Enzymes 04/27/25 Range/Units 16:30 Troponin I < 0.020 (0.0-0.045) ng/mL Liver Function 04/27/25 04/28/25 Range/Units 16:30 05:12 Total Bilirubin 0.6 0.5 (0.3-1.2) mg/dL AST 24 23 (0-34) U/L ALT 9 L < 7 L (10-49) U/L Alkaline Phosphatase 135 H 120 H (46-116) U/L Albumin 3.7 2.9 L D (3.4-4.8) gm/dL Urine 04/27/25 Range/Units 18:00 Urine Color Yellow (Lt Yel-Yel) Urine Clarity Turbid A (Clear/Hazy) Urine pH 6.0 (5.0-7.0) Ur Specific [place] 1.011 (1.001-1.035) Urine Protein 1+ A (Neg - Trace) Urine Glucose (UA) Negative (Negative) ABG Interpretation ABG results: 04/27/25 16:30 VBG pH 7.35 VBG pCO2 35 L VBG pO2 23 VBG Base Excess -6 L Quality Measures Quality Measures none Advance care planning discussed with:: patient Medications Home Medications and Allergies Home Medications ?Medication ?Instructions ?Recorded ?Confirmed ?Type aspirin 81 mg tablet,delayed 81 mg PO QDAY 04/06/25 04/28/25 History release atorvastatin 80 mg tablet 80 mg PO QDAY 04/06/25 04/28/25 History hydroxyzine HCl 10 mg tablet 10 mg PO BID 04/06/25 04/28/25 History levothyroxine 25 mcg tablet 25 mcg PO QDAY 04/06/25 04/28/25 History metoprolol succinate 50 mg 100 mg PO QDAY 04/06/25 04/28/25 History tablet,extended release 24 hr omeprazole 20 mg capsule,delayed 20 mg PO QDAY 04/06/25 04/28/25 History release sofosbuvir 400 mg-velpatasvir 100 1 tab PO QDAY 04/06/25 04/28/25 History mg tablet trazodone 50 mg tablet 50 mg PO BID 04/06/25 04/28/25 History nitrofurantoin 100 mg PO BID 04/28/25 04/28/25 History monohydrate/macrocrystals 100 mg capsule nitrofurantoin 100 mg PO BID 04/28/25 04/28/25 History monohydrate/macrocrystals 100 mg capsule (Macrobid) Allergies Allergy/AdvReac Type Severity Reaction Status Date / Time No Known Allergies Allergy Verified 04/05/25 19:19 Visit Medications Acetaminophen (Acetaminophen 325 Mg Tablet) 650 mg PO Q6H PRN PRN Reason: Fever >100.4 or pain 1-3 Stop: 05/27/25 20:07 Aspirin (Aspirin Ec 81 Mg Tabec) 81 mg PO QDAY [facility] Stop: 05/28/25 08:59 Last Admin: 04/28/25 10:16 Dose: 81 mg Atorvastatin Calcium (Atorvastatin Calcium 20 Mg Tablet) 80 mg PO [facility] Stop: 05/27/25 20:59 Last Admin: 04/27/25 21:20 Dose: 80 mg Bumetanide (Bumetanide 0.5 Mg Tablet) 0.5 mg PO QDAY [facility] On Hold: 04/28/25 10:19 Stop: 05/28/25 08:59 Last Admin: 04/28/25 10:17 Dose: Not Given Docusate Sodium (Docusate Sod 100 Mg Capsule) 100 mg PO QDAY [facility]; Protocol Stop: 05/28/25 08:59 Last Admin: 04/28/25 10:17 Dose: Not Given Famotidine (Famotidine Inj 10 Mg/Ml Vial 2 Ml) 20 mg IVP Q12HR [facility] Stop: 05/27/25 20:59 Last Admin: 04/28/25 10:15 Dose: 20 mg Heparin Sodium (Porcine) (Heparin Sod Inj 5000 Unit/Ml Vial) 5,000 unit SC Q12HR [facility] Stop: 05/11/25 20:59 Last Admin: 04/28/25 10:16 Dose: 5,000 unit Hydroxyzine HCl (Hydroxyzine Hcl 25 Mg Tablet) 25 mg PO QDAY [facility] Stop: 05/28/25 08:59 Last Admin: 04/28/25 10:16 Dose: 25 mg Piperacillin/Tazobactam/Dextrose (Zosyn) 3.375 gm in 50 mls @ 12.5 mls/hr IV Q12HR [facility]; Protocol Stop: 05/05/25 20:59 Phenylephrine HCl 40 mg/ (Sodium Chloride) 100 mls @ 5.603 mls/hr IV .[id number] PRN; Protocol PRN Reason: Per Sepsis Protocol Stop: 05/28/25 10:56 Magnesium Sulfate (Magnesium Sulfate Ivpb) 4 gm in 50 mls @ 12.5 mls/hr IV X1 ONE Stop: 04/28/25 15:45 Last Admin: 04/28/25 11:51 Dose: 12.5 mls/hr Amiodarone HCl/Dextrose (Nexterone Ivpb) 360 mg in 200 mls @ 16.667 mls/hr IV .Q12H [facility] Stop: 04/29/25 12:49 Levothyroxine Sodium (Levothyroxine Sodium 25 Mcg Tablet) 25 mcg PO ACBR [facility] Stop: 05/29/25 05:59 Metoprolol Tartrate (Metoprolol Tartrate 25 Mg Tablet) 50 mg PO BID [facility] On Hold: 04/28/25 10:19 Stop: 05/28/25 07:09 Last Admin: 04/28/25 07:19 Dose: 50 mg Non-Formulary Medication (Sofosbuvir-Velpatasvir) 1 tab PO QDAY [facility] Stop: 05/28/25 08:59 Ondansetron HCl (Ondansetron Inj 2 Mg/Ml Inj 2 Ml) 4 mg IVP Q6H PRN; Protocol PRN Reason: NAUSEA OR VOMITING Stop: 05/27/25 20:07 Trazodone HCl (Trazodone Hcl 50 Mg Tablet) 50 mg PO HS [facility] Stop: 05/28/25 20:59 Discontinued Medications Hydrocodone Bitart/Acetaminophen (Hydrocodone/Apap 5/325 Tablet) 1 tab PO Q4HR PRN PRN Reason: PAIN SCALE 4-6 (Moderate Stop: 05/02/25 20:07 Adenosine (Adenosine Inj 3 Mg/Ml Vial) 6 mg IVP X1 ONE Stop: 04/28/25 01:38 Last Admin: 04/28/25 01:43 Dose: 6 mg Adenosine (Adenosine Inj 3 Mg/Ml Vial) 12 mg IVP X1 ONE Stop: 04/28/25 01:50 Last Admin: 04/28/25 01:50 Dose: 12 mg Adenosine (Adenosine Inj 3 Mg/Ml Vial) 12 mg IVP X1 ONE Stop: 04/28/25 02:03 Last Admin: 04/28/25 02:08 Dose: 12 mg Lactated Ringer's (Lactated Ringers) 1,000 mls @ 999 mls/hr IV .Q1H1M ONE Stop: 04/27/25 17:21 Last Infusion: 04/27/25 17:45 Dose: Infused Lactated Ringer's (Lactated Ringers) 1,000 mls @ 999 mls/hr IV .Q1H1M ONE Stop: 04/27/25 18:50 Last Infusion: 04/27/25 19:46 Dose: Infused Ceftriaxone Sodium/Dextrose (Rocephin/D5w 1gm Iv Premix) 1 gm in 50 mls @ 100 mls/hr IV X1 ONE Stop: 04/27/25 18:20 Last Infusion: 04/27/25 19:46 Dose: Infused Meropenem 500 mg/ Sodium (Chloride) 50 mls @ 100 mls/hr IV Q12HR [facility] Stop: 05/04/25 20:59 Last Admin: 04/28/25 10:17 Dose: 100 mls/hr Potassium Chloride (Kcl Ivpb) 10 meq in 100 mls @ 100 mls/hr IV Q1H [facility] Stop: 04/28/25 02:48 Last Infusion: 04/27/25 21:25 Dose: 0 mls/hr Sodium Chloride (Ns) 500 mls @ 999 mls/hr IV .Q31M ONE Stop: 04/28/25 02:22 Last Infusion: 04/28/25 02:26 Dose: Infused Amiodarone HCl/Dextrose (Nexterone Ivpb) 150 mg in 100 mls @ 600 mls/hr IV .Q10M ONE Stop: 04/28/25 03:16 Last Infusion: 04/28/25 03:35 Dose: Infused Amiodarone HCl/Dextrose (Nexterone Ivpb) 150 mg in 100 mls @ 600 mls/hr IV .Q10M ONE Stop: 04/28/25 03:17 Last Infusion: 04/28/25 03:46 Dose: Infused Amiodarone HCl/Dextrose (Nexterone Ivpb) 360 mg in 200 mls @ 33.333 mls/hr IV .Q6H ONE Stop: 04/28/25 09:07 Last Infusion: 04/28/25 10:00 Dose: Infused Amiodarone HCl/Dextrose (Nexterone Ivpb) 360 mg in 200 mls @ 16.667 mls/hr IV .Q12H [facility] Stop: 04/29/25 03:07 Last Admin: 04/28/25 04:12 Dose: Not Given Amiodarone HCl/Dextrose (Nexterone Ivpb) 360 mg in 200 mls @ 16.667 mls/hr IV .Q12H [facility] Stop: 04/29/25 09:36 Sodium Chloride (Ns) 500 mls @ 999 mls/hr IV .Q31M ONE Stop: 04/28/25 06:14 Last Infusion: 04/28/25 06:27 Dose: Infused Lactated Ringer's (Lactated Ringers) 500 mls @ 999 mls/hr IV .Q31M ONE Stop: 04/28/25 10:03 Sodium Chloride (Ns) 500 mls @ 999 mls/hr IV .Q31M ONE Stop: 04/28/25 10:05 Last Admin: 04/28/25 09:42 Dose: 999 mls/hr Sodium Chloride (Ns) 500 mls @ 999 mls/hr IV .Q31M ONE Stop: 04/28/25 10:51 Last Admin: 04/28/25 10:30 Dose: 999 mls/hr Piperacillin/Tazobactam/Dextrose (Zosyn) 3.375 gm in 50 mls @ 100 mls/hr IV X1 ONE; Protocol Stop: 04/28/25 11:29 Last Admin: 04/28/25 11:48 Dose: 100 mls/hr Sodium Chloride (Ns) 500 mls @ 999 mls/hr IV .Q31M ONE Stop: 04/28/25 12:37 Last Admin: 04/28/25 12:13 Dose: 999 mls/hr Ketamine HCl (Ketamine Inj 50 Mg/Ml Syringe) 70 mg IVP X1 ONE Stop: 04/28/25 02:13 Last Admin: 04/28/25 03:27 Dose: Not Given Ketamine HCl (Ketamine 50 Mg/Ml Vial 10 Ml) 50 mg IVP X1 ONE Stop: 04/28/25 03:08 Last Admin: 04/28/25 03:03 Dose: 50 mg Ketamine HCl (Ketamine 50 Mg/Ml Vial 10 Ml) 70 mg IVP X1 ONE Stop: 04/28/25 03:14 Last Admin: 04/28/25 02:40 Dose: 70 mg Levothyroxine Sodium (Levothyroxine Sodium 25 Mcg Tablet) 25 mcg PO AC [facility] Stop: 05/28/25 07:29 Last Admin: 04/28/25 08:30 Dose: 25 mcg Metoprolol Succinate (Metoprolol Succinate Xl 25 Mg Tabcr) 25 mg PO HS [facility] Stop: 05/28/25 20:59 Metoprolol Succinate (Metoprolol Succinate Xl 25 Mg Tabcr) 100 mg PO QDAY [facility] Stop: 05/28/25 08:59 Midazolam HCl (Midazolam Inj 1 Mg/Ml Vial 2 Ml) 1 mg IVP X1 ONE Stop: 04/28/25 02:16 Last Admin: 04/28/25 02:21 Dose: 1 mg Midodrine (Midodrine 5 Mg Tablet) 10 mg PO TID ONE Stop: 04/28/25 07:11 Last Admin: 04/28/25 07:18 Dose: 10 mg Morphine Sulfate (Morphine Sulf Inj 4 Mg/Ml Vial) 4 mg IVP X1 ONE Stop: 04/28/25 02:13 Last Admin: 04/28/25 03:10 Dose: 2 mg Potassium Chloride (Potassium Chloride 20 Meq Tabcr) 40 meq PO X1 ONE Stop: 04/27/25 17:51 Last Admin: 04/27/25 18:07 Dose: 40 meq Potassium Chloride (Potassium Chloride 20 Meq Tabcr) 20 meq PO X1 ONE Stop: 04/27/25 21:24 Last Admin: 04/27/25 21:30 Dose: 20 meq Assessment & Plan Plan The patient is a 75-year-old female, well known to Dr. Palomares, with a significant past medical history including r acoustic neuroma status post surgery with residual right facial droop and left eye ptosis; hypothyroidism; anxiety and depression; GERD; neuropathy; recurrent ESBL infections; HFpEF (EF 60?65%); chronic hepatitis C currently on treatment; and hypertension. She [place] [facility] with chief complaints of generalized weakness and urinary discomfort. The patient developed SVT with heart rates >180 bpm and hypotension (BP 80/60, MAP 62?65). She received adenosine 6 mg, followed by 12 mg, and an additional 12 mg without conversion. Due to persistent SVT and hemodynamic instability, she underwent electrical cardioversion with two shocks at 100 J followed by two shocks at 200 J, administered with ketamine for sedation. #Recurrent episodes of SVT #SVT s/p cardioversion The patient presented with chief complaints of dysuria and generalized weakness. Her hospital course was complicated with an episode of SVT. On the morning of 12/16, she developed SVT with heart rates exceeding 180 bpm and hypotension (BP 80/60, MAP 62?65). She received adenosine 6 mg, followed by 12 mg, and an additional 12 mg without conversion. Due to persistent SVT and hemodynamic instability, she underwent electrical cardioversion with two shocks at 100 J, followed by two shocks at 200 J, with ketamine administered for sedation. Possible contributing factors include sepsis and UTI. The patient has been followed closely by Cardiology, and catheter ablation has been discussed extensively on multiple occasions. She had previously declined the procedure; Due to her recent ongoing infection, she presented to the ED again and experienced another episode of SVT during this visit. At home patient was on metoprolol 100 twice daily. Due to unstable vitals, and ongoing septic shock patient was admitted to ICU. Patient appeared to be dehydrated, received total of 4 L of bolus, after which if patient is vasopressors can be placed on phenylephrine Due to ongoing septic shock, and appropriate fluid resuscitation, patient MAP was barely sustaining around 60 to and patient started on phenylephrine drip Plan Continue phenylephrine drip as a pressor support If patient continue having episodes of SVT can be placed back on amiodarone drip Avoid any beta-blockers or calcium channel blockers Strict and close monitor electrolytes as patient tends to have electrolyte disbalance(hypokalemia, hypomagnesemia, hypocalcemia) Keep potassium above 4, magnesium above 2 Continue close monitor vitals Continue treating underlying septic shock Although ablation has been discussed on multiple occasions, the patient has previously declined the procedure. However, during today?s evaluation, the patient expressed a willingness to proceed with ablation.However patient?s condition remains unstable. Continue managing the underlying septic shock and bacteremia. Once the patient?s condition stabilizes, further discussions regarding the ablation procedure can be done #Electrolyte imbalance #Hypomagnesemia #Hypokalemia Continue close monitor electrolytes Repeat as needed #HEpEF grade 1 diastolic dysfunction 60 to 65% Echo 04/07: CONCLUSIONS Normal left ventricular size and function. Grade I diastolic dysfunction. Estimated EF 60-65%. Normal right ventricular size and function. RVSP 27 mmH with RAP 8. Mildly dilated LA. Trivial mitral stenosis. Severe posterior MAC. Mild-moderate MR. Mild TR, PI and AI. Compared to prior study of 06/21/24. EF improved. #Septic shock secondary due to GNR bacteremia #GNR bacteremia #Recurrent ESBL UTI #Hx of Polysubstance abuse #Hypothyroidism, patient history #Anxiety, patient history #Depression, patient history #Acoustic neuroma status postsurgery #Neuropathy To be managed by primary team Patient care was discussed with attending physician Dr. Tyrell Chilel MD PGY-3 I have carefully reviewed this document. Due to imperfections in the voice software, there could be grammatical errors including phonetic/typographic errors. This in no way compromises the medical care the patient is receiving Attending Provider Attestation/Addendum I have personally seen and examined the patient separately on the above date of service and discussed the plan of care with the resident. I reviewed the resident Dr. Bria Márquez consultation progress note and agree with the resident findings and plan in the note above and have also edited the documentation to reflect my findings and plan. A 75-year-old female with a past medical history of mild to moderate LAD with 40 to 50% stenosis of mid RCA as well as proximal diagonal 1, moderate systolic CHF with an EF of around 40% improved to 55 to 60% with GDMT, history of recurrent SVT in the setting of electrolyte abnormalities as well as infections, chronic hepatitis C on treatment, history of remote polysubstance use quit 15 to 20 years ago, hypothyroidism, anxiety, depression, GERD, peripheral neuropathy, gastric bypass, acoustic neuroma resected with residual right facial droop and left eye ptosis, history of recurrent urine infections presented to the emergency department for generalized weakness as well as urinary discomfort. Patient was having urinary symptoms and did see her primary doctor who noted that her blood pressure was low and sent her to the emergency department for further evaluation. Patient was admitted to the hospital and was hypotensive and received fluids along with antibiotics for the UTI. Initial lactate was elevated at 2.4 and procalcitonin was also elevated at 4.14 BNP was 402. Troponin was negative. Patient also had acute kidney injury with a BUN of 54 and a creatinine of 2.6 and potassium was low at 3.2 and magnesium was also low at 1.8. EKG did show normal sinus rhythm with PVCs. Patient then became hypotensive during the admission with a BP of 80/60 and eventually developed SVT again. Patient was given 6 mg grams of adenosine and then 12 and 12 mg which were unsuccessful and eventually underwent electrical cardioversion after receiving sedation. Patient now admitted to the ICU and cardiology consulted for further evaluation. 1. Recurrent SVT status post cardioversion in the setting of electrolyte abnormalities as well as recurrent UTI 2. Septic shock secondary to UTI 3. Gram-negative bacteremia possibly from UTI 4. Electrolyte abnormalities including hypokalemia and hypomagnesemia. 5. Mild to moderate CAD with 40 to 50% stenosis in the mid RCA as well as the proximal diagonal by cath in 2023 6. HFpEF with an EF of 60 to 65% and previously EF was 40% improved with GDMT 7. Chronic hepatitis C on treatment 8. history of remote polysubstance use quit 15 to 20 years ago, hypothyroidism, anxiety, depression, GERD, peripheral neuropathy, gastric bypass, acoustic neuroma resected with residual right facial droop and left eye ptosis, history of recurrent urine infections Patient initially presented in 2023 with SVT requiring cardioversion at that point of time in the setting of electrolyte abnormalities and acute kidney injury. She did have 1 more episode of SVT requiring admission with again a UTI as well as electrolyte abnormalities. She did have a cardiac cath which showed only mild to moderate CAD and no ischemic substrate. Patient was offered EP consultation along with possible ablation and referral was sent but patient did not 1 any procedures at that point of time. Now again patient presents with septic shock with a UTI and gram-negative bacteremia along with acute kidney injury as well as electrolyte abnormalities causing the recurrent SVT. Did not convert with adenosine 6,12, 12 mg and required cardioversion as her blood pressure was low at 80/50. Continue phenylephrine for the hypotension. On home metoprolol to 100 mg XL in the morning and 25 mg XL in the evening which is on hold because of the hypotension. Recommend to keep potassium greater than 4 and magnesium greater than 2.2 at all times and aggressive repletion of potassium magnesium as well as calcium. Aggressively treat the acute kidney injury as well as the sepsis with fluids as well as IV antibiotics. Patient does not appear to be fluid overloaded and mostly is hypovolemic at the present point of time. Recent echo with normal LV function few weeks ago. Can repeat limited echo again to reevaluate the LV function and RV function and to rule out any structural abnormalities. Received amiodarone briefly but that was stopped because patient was on Epclusa to avoid interactions. Recommend to stop the Epclusa completely and if patient reverts back into SVT then treat the electrolytes aggressively first including magnesium IV then recommend to try adenosine and if needed patient can be started on amiodarone drip. Not a candidate for digoxin because of the acute kidney injury as well as hypokalemia. No beta-blockers or calcium channel blockers because of the hypotension and septic shock. Discussed with patient this evening and patient wants to pursue the EP and consultation for possible ablation as she is having recurrent SVT. Patient is actively infected with septic shock and gram-negative bacteremia and will treat aggressively and which should help with the SVT and then patient could be referred to EP when she is hemodynamically stable. There is a high probability of sudden, clinically significant or life threatening deterioration in the patient condition which required the highest level of physician preparedness to intervene urgently. I have personally spent 35 minutes of critical care time, exclusive of time spent on any procedures, in evaluation and management of this critically ill patient. Management of rest of the medical conditions as per primary team and other consultants. Thank you for the consult and allowing me to participate in the care of the patient. Cardiology will continue to follow. Tay Palomares M.D. Interventional Cardiology
[2025-04-28] MEDS: PHENYLEPHRINE HCL 40 MG in SODIUM CHLORIDE 0.9% 96 ML 5.603 MG IV (15:32)
[2025-04-28] MEDS: Magnesium Sulfate 2 GM Ivpb 2 GM/50 ML BAG IV (17:29)
[2025-04-28 18:56] LABS: Lactate (Lactic Acid) 3.8 mMol/L (0.4-2.0)
[2025-04-28] MEDS: ATORVASTATIN CALCIUM 20 MG TABLET 80 MG PO (20:51)
[2025-04-28 21:32] LABS: Albumin, Serum 2.8 gm/dL (3.4-4.8); Anion Gap 12 (7-16); BUN/Creatinine Ratio 19 Ratio (12-20); Blood Urea Nitrogen 39 mg/dL (9-23); Calcium 7.8 mg/dL (8.3-10.6); Calcium (Corrected) 8.8 mg/dL (8.5-10.1); Carbon Dioxide 17.4 mMol/L (20.0-31.0); Chloride 108 mMol/L (98-107); Creatinine (Component) 2.1 mg/dL (0.6-1.3); Estimated Creatinine Clearance 22.6 mL/min (>60); Glucose 159 mg/dL (74-106); Magnesium 3.9 mg/dL (1.6-2.6); Osmolality,Calculated 286 (275-295); Phosphorous 3.9 mg/dL (2.4-5.1); Potassium 4.2 mMol/L (3.4-5.1); Sodium 137 mMol/L (136-145); eGFR 24 See Note
[2025-04-28] MEDS: Sodium Bicarb Inj 8.4% SYR 50 ML SYRINGE IV (21:48)
[2025-04-28 21:56] LABS: Reflex Lactate? Y
[2025-04-28 22:07] LABS: Lactic Acid, 3 HR 1.9 mMol/L (0.4-2.0)
[2025-04-29] VITALS (142 sets, daily range): BP systolic 89–169; BP diastolic 52–98; PULSE 63–176; RESP 15–100; TEMP 36.8–37.1; O2SAT 82–100; BMI 30.9
[2025-04-29 01:21] LABS: Lactate (Lactic Acid) 2.6 mMol/L (0.4-2.0)
--- NOTE | 2025-04-29 02:53 | EKG_ITS ---
[facility] Test Date: 2025-04-29 Pat Name: MILAN JEFFERS Department: Room: [facility] Gender: Female [employer] Tender: NAINA : [id number] Requested By: Kale Calderón Order Number: [id number] Reading MD: Kale Calderón Measurements Intervals [place] Rate: 69 P: 24 IA: 188 QRS: -24 QRSD: 97 T: 12 QT: 420 QTc: 452 Interpretive Statements SINUS RHYTHM BORDERLINE LEFT AXIS DEVIATION Compared to ECG 04/27/2025 20:58:00 Supraventricular tachycardia no longer present T-wave abnormality no longer present Possible ischemia no longer present /store/S0/[id number]
[2025-04-29] MEDS: Sodium Bicarb Inj 8.4% SYR 50 ML SYRINGE IV ×2 (03:07→22:20)
[2025-04-29 03:46] LABS: Lactate (Lactic Acid) 1.4 mMol/L (0.4-2.0)
[2025-04-29 03:48] LABS: Basophils # (Auto) 0.1 Thou/mm3 (0.0-0.2); Basophils % (Auto) 0 % (0-2.5); Eosinophils # (Auto) 0.1 Thou/mm3 (0.0-0.5); Eosinophils % (Auto) 1 % (0-10); Hematocrit 29.1 % (36.0-46.0); Hemoglobin 9.7 g/dL (12.0-16.0); Immature Granulocytes Auto 1.09 Thou/mm3 (0.00-0.00); Lymphocytes # (Auto) 1.2 Thou/mm3 (1.0-4.8); Lymphocytes % (Auto) 6 % (10-50); Mean Corpuscular HGB Conc 33.3 g/dl (31.0-37.0); Mean Corpuscular Hemoglobin 27.2 pg (25.0-35.0); Mean Corpuscular Volume 82 fL (80-100); Monocytes # (Auto) 1.2 Thou/mm3 (0.0-0.8); Monocytes % (Auto) 6 % (0-12); Neutrophils # (Auto) 16.8 Thou/mm3 (1.8-7.7); Neutrophils % (Auto) 82 % (37-80); Nucleated Red Blood Cell # 0.00 Thou/mm3 (0.00-0.00); Nucleated Red Blood Cell % 0 /100 WBC (0); Platelet Count 179 Thou/mm3 (140-440); RDW Standard Deviation 49.5 fL (36.4-46.3); Red Blood Count 3.56 Miln/mm3 (4.00-5.20); White Blood Count 20.4 Thou/mm3 (3.6-11.0)
[2025-04-29 04:17] LABS: Reflex Lactate? Y
[2025-04-29 04:41] LABS: Alanine Aminotransferase 7 U/L (10-49); Albumin, Serum 2.7 gm/dL (3.4-4.8); Albumin/Globulin Ratio 1.3 (1.2-2.2); Alkaline Phosphatase 129 U/L (46-116); Anion Gap 14 (7-16); Aspartate Amino Transferase 25 U/L (0-34); BUN/Creatinine Ratio 19 Ratio (12-20); Bilirubin,Total 0.5 mg/dL (0.3-1.2); Blood Urea Nitrogen 37 mg/dL (9-23); Calcium 7.8 mg/dL (8.3-10.6); Calcium (Corrected) 8.8 mg/dL (8.5-10.1); Carbon Dioxide 19.5 mMol/L (20.0-31.0); Chloride 108 mMol/L (98-107); Creatinine (Component) 2.0 mg/dL (0.6-1.3); Estimated Creatinine Clearance 23.7 mL/min (>60); Globulin 2.1 gm/dL (2.3-3.5); Glucose 102 mg/dL (74-106); Magnesium 3.4 mg/dL (1.6-2.6); Osmolality,Calculated 289 (275-295); Phosphorous 3.5 mg/dL (2.4-5.1); Potassium 3.1 mMol/L (3.4-5.1); Sodium 141 mMol/L (136-145); Total Protein 4.8 gm/dL (5.7-8.2); eGFR 25 See Note
[2025-04-29] MEDS: PHENYLEPHRINE HCL 40 MG in SODIUM CHLORIDE 0.9% 96 ML 4.482 MG IV (05:30)
[2025-04-29] MEDS: ACETAMINOPHEN 325 MG TABLET 650 MG PO ×2 (05:42→21:55)
[2025-04-29] MEDS: LEVOTHYROXINE SODIUM 25 MCG TABLET PO (05:43)
[2025-04-29] MEDS: POTASSIUM CHL 10 mEq IVPB 10 MEQ/100 ML BAG 100 MEQ IV (05:49)
[2025-04-29] MEDS: AMIODARONE 360 MG IVPB 360 MG/200 ML BAG 16.667 MG IV ×2 (06:30→17:17)
[2025-04-29 07:09] LABS: Lactate (Lactic Acid) 3.2 mMol/L (0.4-2.0)
[2025-04-29] MEDS: DOCUSATE SOD 100 MG CAPSULE PO (08:46)
[2025-04-29] MEDS: PIPER/TAZO 3.375 GM PREMIX 3.375 GM/50 ML BAG IV ×2 (08:46→21:30)
[2025-04-29] MEDS: ASPIRIN EC 81 MG TABEC PO (08:46)
[2025-04-29] MEDS: HEPARIN SOD INJ 5000 UNIT/ML VIAL SC ×3 (08:47→21:31)
[2025-04-29] MEDS: FAMOTIDINE INJ 10 MG/ML VIAL 2 ML 20 MG IVP ×2 (08:47→21:30)
[2025-04-29 10:10] LABS: Reflex Lactate? Y
--- NOTE | 2025-04-29 10:23 | PC.SS ---
rounding note: Monitoring b.p. Patient currently on amiodarone drip in ICU. Alert/oriented.
[2025-04-29 10:31] LABS: Lactate (Lactic Acid) 2.3 mMol/L (0.4-2.0)
[2025-04-29 10:55] LABS: Albumin, Serum 2.7 gm/dL (3.4-4.8); Anion Gap 14 (7-16); BUN/Creatinine Ratio 18 Ratio (12-20); Blood Urea Nitrogen 34 mg/dL (9-23); Calcium 7.5 mg/dL (8.3-10.6); Calcium (Corrected) 8.5 mg/dL (8.5-10.1); Carbon Dioxide 15.3 mMol/L (20.0-31.0); Chloride 110 mMol/L (98-107); Creatinine (Component) 1.9 mg/dL (0.6-1.3); Estimated Creatinine Clearance 26.0 mL/min (>60); Glucose 141 mg/dL (74-106); Osmolality,Calculated 287 (275-295); Phosphorous 3.3 mg/dL (2.4-5.1); Potassium 3.8 mMol/L (3.4-5.1); Sodium 139 mMol/L (136-145); eGFR 27 See Note
--- NOTE | 2025-04-29 10:56 | ESPR_ITS ---
<Statement entered by Breanne Catherine MD - 04/29/25 17:12> Patient was seen and examined by me personally. I have directly supervised and reviewed documentation by the team resident and agree with its findings with any exceptions or additional findings as below. Plan of care was discussed with the attending, Dr. Hansen. Patient seen this morning in ICU, was pleasant and stated that she is feeling quite well. Denied any chest pain, palpitations, headaches, dizziness, diaphoresis, or lightheadedness. Last night amiodarone drip was held around 2:50 am due to junctional tachycardia and first degree block. Patient had another episode of tachycardia in the 120s which self-resolved. Patient had another episode of SVT for about 10 minutes in the morning around 6:23 am and amiodarone drip was started. Throughout the morning patient was intermittently in the rate of 140s which would self resolve despite being on the amiodarone drip. Phenylephrine was weaned down and patient was able to wean off completely around 2:00 pm. Potassium was 3.1 this morning and 40 mEq was repleted, follow up potassium at 10:00 am was 3.8 and additional 40 mEq given. Due to heart rate and rhythm instability the patient will be kept in ICU overnight. Patient's family member brought in hepatitis C medication, however due to interaction with amiodarone causing bradycardia will hold hepatitis C medication per cardiology's recommendation. ID was consulted for guidance on holding the medication. Lactic acid was elevated at 4.8 in the afternoon, suspect secondary to the SVT episodes given that the patient clinically appears well and is perfusing well. Will continue with Zosyn for UTI and gram negative bacteremia. Follow up labs at 5:45 pm: lactic acid, renal panel, magnesium. Breanne Catherine, PGY-3 <Statement entered by Isidra Hansen MD - 04/29/25 11:20> TOTAL CC TIME: 45 MIN I saw and evaluated the patient. I reviewed the resident?s note and agree with findings and plan as documented in the resident?s note. Upon my evaluation, this patient had a high probability of imminent or life- threatening deterioration due to septic shock, SVT, which required my direct attention, intervention, and personal management. This time is exclusive of time spent on procedures, which are documented separately if performed. 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 Patient was initially admitted to the medical floors on telemetry, but afterwards patient went into SVT with heart rate in the 180s and hemodynamically unstable with low BP. She received adenosine 6 x 1 and then 12 x 2 without any resolution of SVT therefore she received 2 shocks 100 J followed by 2 shocks of 200 J with 500 mg of ketamine without any improvement in SVT. She was then placed on amiodarone drip with some improvement in heart rate to the 130s and she was also given have bolus of NS. ED course: Initially came in with mild hypertension, normal heart rate, and afebrile. Initial labs were relevant for leukocytosis (21.7), hypokalemia (3.2), FLORES (current 2.6), HAGMA (bicarb 17.5), elevated BNP at 402, and elevated procalcitonin 4.14 along with UA positive for bacteria. Patient also had a chest x-ray which showed possible bronchitis versus pulmonary fibrosis. Initial EKG shows a rate of 88 with repeat showing rate of 140. Patient also had a urine culture on 04/20/2025 which grew ESBL. Of note patient was recently discharged from our hospital on 04/02/2025 due to similar symptoms where she was treated with meropenem for 3 days as her repeated urine culture was negative during that admission, but she did have episodes of SVT requiring adenosine pressures, but no cardioversion was required at this time. In conclusion patient was upgraded to the ICU due to septic shock along with paroxysmal SVT. 04/29/25: Patient seen and assessed at bedside. Doing well, subjectively feels significantly improved. Overnight patient had 2 episodes of SVT, restarted on IV amiodarone 0.5 mcg/kg/min. SVT continues to be uncontrolled, had multiple episodes intermittently, longest lasting 1 hour from 9 to 10 AM with HR in 140s. Weaned phenylephrine to 0.35 mcg overnight. Patient remains asymptomatic during these episodes and they resolve spontaneously. WBC improving. Hgb decreased to 9.7 today, likely secondary to hemodilution. Potassium 3.1, repleted with KCl 40 mEq followed by another 20 mEq an hour later, recheck 3.8 at 11PM, gave another 20 mEq. Follow up repeat renal panel 5PM. Creatinine 2.0, improving. Magnesium 3.4. Lactic acid 3.2 this morning, dropped to 2.3 and increased to 4.8 around 2PM. Likely secondary to multiple SVT runs. Spoke to cardiology, will transition to PO amiodarone 200 mg BID tomorrow. Continue to hold metoprolol for now as patient was just weaned off phenylephrine this afternoon. Continue Zosyn for UTI, follow up final culture results and sensitivities. QTc 452 on EKG today. Exam Vital Signs Temp Pulse Resp BP Pulse Ox O2 Del Method O2 Flow Rate 98.4 F 84 20 99/58 L 100 Nasal Cannula 2 04/29/25 08:00 04/29/25 10:00 04/29/25 10:00 04/29/25 10:00 04/29/25 10:00 04/29/25 08:00 04/29/25 08:00 Narrative Exam Physical Exam General: Awake and in no acute distress. Conversational and non-toxic appearing. Pleasant elderly female. HEENT: Normocephalic, atraumatic, mucous membranes moist. Heart: Regular rate and rhythm, normal S1 and S2, no murmurs appreciated. Lungs: Clear to auscultation with no wheezing or crackles. Abdomen: Soft, nondistended, nontender, positive bowel sounds. No guarding or rebound tenderness. Neurologic: Alert and oriented x3, no gross neurological deficit, and patient able to move all 4 extremities. Chronic left sided facial droop with nasal fold flattening and left eye ptosis. Extremities: Mild pitting edema in bilateral feet. Skin: Multiple scattered ecchymoses on bilateral forearms. No rash. Objective Labs 04/29/25 03:34 04/29/25 10:10 Labs: Laboratory Results - last 24 hr 04/28/25 04/28/25 04/28/25 11:32 18:33 20:42 WBC RBC Hgb Hct MCV MCH MCHC RDW Std Deviation Plt Count Neut % (Auto) Lymph % (Auto) [place] % (Auto) Eos % (Auto) Baso % (Auto) Neut # (Auto) Lymph # (Auto) [place] # (Auto) Eos # (Auto) Baso # (Auto) Immature Gran # (Auto) Absolute Nucleated RBC Immature Gran % Nucleated RBC % Sodium 137 Potassium 4.2 Chloride 108 H Carbon Dioxide 17.4 L Anion Gap 12 BUN 39 H Creatinine 2.1 H Estim Creat Clear Calc 22.6 L eGFR 24 L BUN/Creatinine Ratio 19 Glucose 159 H D Calculated Osmolality 286 Lactic Acid 2.0 3.8 H 1.9 Calcium 7.8 L Corrected Calcium 8.8 Phosphorus 3.9 Magnesium 3.9 H Total Bilirubin AST ALT Alkaline Phosphatase Total Protein Albumin 2.8 L Globulin Albumin/Globulin Ratio 04/29/25 04/29/25 04/29/25 01:05 03:34 06:56 WBC 20.4 H D RBC 3.56 L Hgb 9.7 L Hct 29.1 L MCV 82 MCH 27.2 MCHC 33.3 RDW Std Deviation 49.5 H Plt Count 179 Neut % (Auto) 82 H Lymph % (Auto) 6 L [place] % (Auto) 6 Eos % (Auto) 1 Baso % (Auto) 0 Neut # (Auto) 16.8 H Lymph # (Auto) 1.2 [place] # (Auto) 1.2 H Eos # (Auto) 0.1 Baso # (Auto) 0.1 Immature Gran # (Auto) 1.09 H Absolute Nucleated RBC 0.00 Immature Gran % 5 H Nucleated RBC % 0 Sodium 141 Potassium 3.1 L D Chloride 108 H Carbon Dioxide 19.5 L Anion Gap 14 BUN 37 H Creatinine 2.0 H Estim Creat Clear Calc 23.7 L eGFR 25 L BUN/Creatinine Ratio 19 Glucose 102 D Calculated Osmolality 289 Lactic Acid 2.6 H 1.4 3.2 H Calcium 7.8 L Corrected Calcium 8.8 Phosphorus 3.5 Magnesium 3.4 H Total Bilirubin 0.5 AST 25 ALT 7 L Alkaline Phosphatase 129 H Total Protein 4.8 L Albumin 2.7 L Globulin 2.1 L Albumin/Globulin Ratio 1.3 04/29/25 10:10 WBC RBC Hgb Hct MCV MCH MCHC RDW Std Deviation Plt Count Neut % (Auto) Lymph % (Auto) [place] % (Auto) Eos % (Auto) Baso % (Auto) Neut # (Auto) Lymph # (Auto) [place] # (Auto) Eos # (Auto) Baso # (Auto) Immature Gran # (Auto) Absolute Nucleated RBC Immature Gran % Nucleated RBC % Sodium 139 Potassium 3.8 D Chloride 110 H Carbon Dioxide 15.3 L Anion Gap 14 BUN 34 H Creatinine 1.9 H Estim Creat Clear Calc 26.0 L eGFR 27 L BUN/Creatinine Ratio 18 Glucose 141 H Calculated Osmolality 287 Lactic Acid 2.3 H Calcium 7.5 L Corrected Calcium 8.5 Phosphorus 3.3 Magnesium Total Bilirubin AST ALT Alkaline Phosphatase Total Protein Albumin 2.7 L Globulin Albumin/Globulin Ratio ABG Interpretation ABG results: 04/27/25 16:30 VBG pH 7.35 VBG pCO2 35 L VBG pO2 23 VBG Base Excess -6 L Quality Measures Quality Measures VTE prophylaxis Advance care planning discussed with:: patient Assessment & Plan Assessment Current Active Medications: Generic Name Dose Route Start Last Admin Trade Name Freq PRN Reason Stop Dose Admin Acetaminophen 650 mg 04/27/25 20:08 04/29/25 05:42 Acetaminophen 325 Mg Tablet PO 05/27/25 20:07 650 mg Q6H PRN Administration Fever >100.4 or pain 1-3 Aspirin 81 mg 04/28/25 09:00 04/29/25 08:46 Aspirin Ec 81 Mg Tabec PO 05/28/25 08:59 81 mg QDAY ANTHONY Administration Atorvastatin Calcium 80 mg 04/27/25 21:00 04/28/25 20:51 Atorvastatin Calcium 20 Mg Tablet PO 05/27/25 20:59 80 mg HS ANTHONY Administration Bumetanide 0.5 mg 04/28/25 09:00 04/28/25 10:17 Bumetanide 0.5 Mg Tablet PO 05/28/25 08:59 Not Given On Hold: 04/28/25 10:19 QDAY ANTHONY Docusate Sodium 100 mg 04/28/25 09:00 04/29/25 08:46 Docusate Sod 100 Mg Capsule PO 05/28/25 08:59 100 mg QDAY ANTHONY Administration Protocol Famotidine 20 mg 04/27/25 21:00 04/29/25 08:47 Famotidine Inj 10 Mg/Ml Vial 2 Ml IVP 05/27/25 20:59 20 mg Q12HR ANTHONY Administration Heparin Sodium (Porcine) 5,000 unit 04/29/25 14:00 Heparin Sod Inj 5000 Unit/Ml Vial SC 05/13/25 13:59 Q8HR ANTHONY Hydroxyzine HCl 25 mg 04/28/25 09:00 04/29/25 08:46 Hydroxyzine Hcl 25 Mg Tablet PO 05/28/25 08:59 25 mg QDAY ANTHONY Administration Piperacillin/Tazobactam/Dextrose 3.375 gm in 50 mls @ 12.5 mls/hr 04/28/25 21:00 04/29/25 08:46 Zosyn IV 05/05/25 20:59 12.5 mls/hr Q12HR ANTHONY Administration Protocol Phenylephrine HCl 40 mg/ 100 mls @ 5.603 mls/hr 04/28/25 10:57 04/29/25 10:00 Sodium Chloride IV 05/28/25 10:56 0.25 mcg/kg/min .[id number] PRN 2.801 mls/hr Per Sepsis Protocol Titration Protocol 0.5 MCG/KG/MIN Amiodarone HCl/Dextrose 360 mg in 200 mls @ 16.667 mls/hr 04/29/25 06:26 04/29/25 06:30 Nexterone Ivpb IV 04/30/25 06:25 16.667 mls/hr .Q12H ANTHONY Administration Levothyroxine Sodium 25 mcg 04/29/25 06:00 04/29/25 05:43 Levothyroxine Sodium 25 Mcg Tablet PO 05/29/25 05:59 25 mcg ACBR ANTHONY Administration Metoprolol Tartrate 50 mg 04/28/25 07:10 04/28/25 07:19 Metoprolol Tartrate 25 Mg Tablet PO 05/28/25 07:09 50 mg On Hold: 04/28/25 10:19 BID ANTHONY Administration Non-Formulary Medication 1 tab 04/28/25 18:15 Sofosbuvir-Velpatasvir PO 05/28/25 18:14 On Hold: 04/28/25 18:15 QDAY ANTHONY Comment: HOLD, ANTICIPATING STARTING AMIODARONE FOR SVT. Ondansetron HCl 4 mg 04/27/25 20:08 Ondansetron Inj 2 Mg/Ml Inj 2 Ml IVP 05/27/25 20:07 Q6H PRN NAUSEA OR VOMITING Protocol Trazodone HCl 50 mg 04/28/25 21:00 04/28/25 20:52 Trazodone Hcl 50 Mg Tablet PO 05/28/25 20:59 50 mg HS ANTHONY Administration Plan Patient is a 75-year-old female with past medical history of acoustic neuroma s/p removal with residual left facial droop and left eye proptosis and some slurred speech, hypertension, anxiety, depression, GERD, neuropathy, recurrent ESBL infections, HFpEF (EF 60 to 65%), chronic hep C currently on treatment, hypertension, Raynaud's phenomenon, and SVT admitted to the ICU for septic shock along with paroxysmal SVT. Neurology No active disease Cardiovascular #Shock Likely multifactorial, factoring septic in the setting of ESBL E. coli UTI along with GNR bacteremia and possible cardiogenic in the setting of SVT Diagnostic workup: ? Bedside ultrasound showed collapsible IVC indicating likelihood of responsiveness to fluid resuscitation ? UA positive for bacteria ? Urine culture from 04/20/2025 showed ESBL E. coli ? Lactic acid 2.4 initially and downtrended to 1.6 and back to 2 this afternoon ? EKG showed SVT with a rate of 140 ? Blood cultures positive for GNR preliminary Treatment: ?S/p adenosine 6 mg x 1 and 12 g x 2 ? S/p cardioversion at 100 J x 2 and at 200 J x 2 ? S/p 4 L of IVF (04/27) ? S/p Meropenem (04/27/2025 - 04/28/2025) ? Off phenylephrine. Was not placed on Levophed to avoid worsening arrhythmias ? Zosyn (04/28/2025?) Treatment follow-up: ?Follow-up final blood cultures and urine cultures ?Consider reassessing patient's IVC or [place]et[place] before any further IV fluids given as patient has gotten 4 L #Paroxysmal SVT Chronic but likely exacerbated in setting of sepsis Diagnostic workup: ? EKG showed SVT with a rate of 140 - On metoprolol 125 mg daily at home (100 mg AM and 25 mg HS) Treatment: ?S/p adenosine 6 mg x 1 and 12 g x 2 ? S/p cardioversion at 100 J x 2 and at 200 J x 2 ? S/p 4 L of IVF ? IV amiodarone 0.5 mg/kg/min - Hold metoprolol ? Off phenylephrine. Was not placed on Levophed to avoid worsening arrhythmias ? Given total potassium 80 mEq today (40, 20, 20) ? Treat underlying infection with abx as above Treatment follow-up: ?Keep magnesium and potassium above 4 and 2 respectively ?Consider reassessing patient's IVC or [place] before any further IV fluids given as patient has gotten 4 L - EKG daily to assess QTc ?Transition to PO amiodarone 200 mg BID tomorrow - Per cardiology, do not co-administer with sofosbuvir/velpatasvir ?Reviewed Twila comp for interaction between amiodarone and sofosbuvir/velpatasvir and it was documented that postmarketing night patient's were receiving concomitant amiodarone had symptomatic bradycardia and 7 out of these 9 patients were also receiving beta-blockers. ?sofosbuvir/velpatasvir half-life is around 15 hours therefore if continuing amiodarone as needed close monitoring of patient's heart rate will be needed ? Consider restarting sofosbuvir/velpatasvir for patient's hepatitis C versus possibly holding for now if increased risk of bradycardia. - Consulted ID for recommendations regarding urgency of restarting sofosbuvir/velpatasvir in this case Respiratory No active disease GI No active disease Renal #FLORES #HAGMA DDx: ATN in the setting of shock, dehydration (patient reports decreased water intake and appetite days prior to admission) Diagnostic workup: ?Creatinine 2.6 --> 1.9, baseline 0.7-1.2 ?Bicarb 17.5 --> 19.5 -> 15.3 ?Continues to have good urine output Treatment: ? S/p 4 L of IV fluid ? Treating underlying shock ? Avoid nephrotoxic agents and renally dose medications Treatment follow-up: ? Follow-up on repeat renal panel ? Consider sodium bicarb push if still acidotic on repeat renal function panel ? Continue to monitor urine output #Lactic acidosis type A Secondary to shock Diagnostic workup: ?Lactic acid 2.4 --> 1.4 -> 3.2 -> 2.3 -> 4.8 Treatment: ? S/p 4 L of IVF ?Off phenylephrine at 2PM ? S/p Meropenem (04/27/2025 - 04/28/2025) ? Zosyn (04/28/2025?) Treatment follow-up: ?Lactic q6hr, stop trending when improves ?Consider reassessing patient's IVC or [place] before any further IV fluids given as patient has gotten 4 L - Encouraged oral rehydration Heme #Normocytic anemia Diagnostic workup: -Hemoglobin 12.2--> 11.6 -> 9.7, likely hemodilutional Treatment: -No acute management as there is no signs of active bleeding Treatment follow up: - Daily CBC - Outpatient anemia work up #Leukocytosis, reactive Ddx: Infectious Diagnostic work up: - WBC 21.7--> 26.6 -> 20.4 - Afebrile - Blood culture grew GNR 1/2 bottles - UA positive - Urine culture 04/20 grew ESBL E.Coli. Repeat urine culture 04/27 also positive for GNR. Treatment: ? S/p Meropenem (04/27/2025 - 04/28/2025) ? Zosyn (04/28/2025?) Treatment follow up: -Daily CBC - Follow up final blood and urine cultures Endo No active disease MSK No active disease ID #ESBL E. coli UTI #GNR bacteremia Diagnostic workup: ?UA positive for bacteria ? Urine culture from 04/20/2025 showed ESBL E. coli, sensitive to Zosyn. Repeat urine culture 04/27 positive for GNR. ? Blood cultures positive for GNR preliminary 1/2 bottles Treatment: ? S/p Meropenem (04/27/2025 - 04/28/2025) ? Zosyn (04/28/2025?) Treatment follow-up: ?Follow-up on final blood cultures and urine cultures and sensitivities ?Consider reassessing patient's IVC or [place]et[place] before any further IV fluids given as patient has gotten 4 L ICU Health maintenance: Mechanical ventilation: no Sedation: no Diet: Cardiac DVT prophylaxis: Heparin SQ GI prophylaxis: famotidine Yu: none Lines: PIV Antibiotics: Zosyn CODE STATUS: DNR Patient plan of care was discussed with the senior resident, Dr. Catherine, and attending physician, Dr. Jade Jensen DO, PGY-1
--- NOTE | 2025-04-29 11:57 | ESPR_ITS ---
Documentation for date of: 04/29/25 Subjective Subjective Interval history: Patient was seen at bedside. No acute overnight events. Patient denies any chest pain, palpitations, shortness of breath, dizziness. She has been improving with her UTI symptoms and phenylephrine dose is weaned to low-dose. Today morning labs significant for potassium 3.1 and after 70 naseem equivalents of potassium it improved to 3.8. Recommended maintaining potassium above 4 and magnesium over 2.Patient has been iproving subjectively. Exam Vital Signs Temp Pulse Resp BP Pulse Ox O2 Del Method O2 Flow Rate 98.4 F 84 20 99/58 L 100 Nasal Cannula 2 04/29/25 08:00 04/29/25 10:00 04/29/25 10:00 04/29/25 10:00 04/29/25 10:00 04/29/25 08:00 04/29/25 08:00 Objective Labs 04/30/25 04:38 04/30/25 04:38 Labs: Laboratory Results - last 24 hr 04/28/25 04/28/25 04/29/25 18:33 20:42 01:05 WBC RBC Hgb Hct MCV MCH MCHC RDW Std Deviation Plt Count Neut % (Auto) Lymph % (Auto) [place] % (Auto) Eos % (Auto) Baso % (Auto) Neut # (Auto) Lymph # (Auto) [place] # (Auto) Eos # (Auto) Baso # (Auto) Immature Gran # (Auto) Absolute Nucleated RBC Immature Gran % Nucleated RBC % Sodium 137 Potassium 4.2 Chloride 108 H Carbon Dioxide 17.4 L Anion Gap 12 BUN 39 H Creatinine 2.1 H Estim Creat Clear Calc 22.6 L eGFR 24 L BUN/Creatinine Ratio 19 Glucose 159 H D Calculated Osmolality 286 Lactic Acid 3.8 H 1.9 2.6 H Calcium 7.8 L Corrected Calcium 8.8 Phosphorus 3.9 Magnesium 3.9 H Total Bilirubin AST ALT Alkaline Phosphatase Total Protein Albumin 2.8 L Globulin Albumin/Globulin Ratio 04/29/25 04/29/25 04/29/25 03:34 06:56 10:10 WBC 20.4 H D RBC 3.56 L Hgb 9.7 L Hct 29.1 L MCV 82 MCH 27.2 MCHC 33.3 RDW Std Deviation 49.5 H Plt Count 179 Neut % (Auto) 82 H Lymph % (Auto) 6 L [place] % (Auto) 6 Eos % (Auto) 1 Baso % (Auto) 0 Neut # (Auto) 16.8 H Lymph # (Auto) 1.2 [place] # (Auto) 1.2 H Eos # (Auto) 0.1 Baso # (Auto) 0.1 Immature Gran # (Auto) 1.09 H Absolute Nucleated RBC 0.00 Immature Gran % 5 H Nucleated RBC % 0 Sodium 141 139 Potassium 3.1 L D 3.8 D Chloride 108 H 110 H Carbon Dioxide 19.5 L 15.3 L Anion Gap 14 14 BUN 37 H 34 H Creatinine 2.0 H 1.9 H Estim Creat Clear Calc 23.7 L 26.0 L eGFR 25 L 27 L BUN/Creatinine Ratio 19 18 Glucose 102 D 141 H Calculated Osmolality 289 287 Lactic Acid 1.4 3.2 H 2.3 H Calcium 7.8 L 7.5 L Corrected Calcium 8.8 8.5 Phosphorus 3.5 3.3 Magnesium 3.4 H Total Bilirubin 0.5 AST 25 ALT 7 L Alkaline Phosphatase 129 H Total Protein 4.8 L Albumin 2.7 L 2.7 L Globulin 2.1 L Albumin/Globulin Ratio 1.3 ABG Interpretation ABG results: 04/27/25 16:30 VBG pH 7.35 VBG pCO2 35 L VBG pO2 23 VBG Base Excess -6 L Quality Measures Quality Measures VTE prophylaxis Advance care planning discussed with:: patient Assessment & Plan Assessment Current Active Medications: Generic Name Dose Route Start Last Admin Trade Name Freq PRN Reason Stop Dose Admin Acetaminophen 650 mg 04/27/25 20:08 04/29/25 05:42 Acetaminophen 325 Mg Tablet PO 05/27/25 20:07 650 mg Q6H PRN Administration Fever >100.4 or pain 1-3 Aspirin 81 mg 04/28/25 09:00 04/29/25 08:46 Aspirin Ec 81 Mg Tabec PO 05/28/25 08:59 81 mg QDAY ANTHONY Administration Atorvastatin Calcium 80 mg 04/27/25 21:00 04/28/25 20:51 Atorvastatin Calcium 20 Mg Tablet PO 05/27/25 20:59 80 mg HS ANTHONY Administration Bumetanide 0.5 mg 04/28/25 09:00 04/28/25 10:17 Bumetanide 0.5 Mg Tablet PO 05/28/25 08:59 Not Given On Hold: 04/28/25 10:19 QDAY ANTHONY Docusate Sodium 100 mg 04/28/25 09:00 04/29/25 08:46 Docusate Sod 100 Mg Capsule PO 05/28/25 08:59 100 mg QDAY ANTHONY Administration Protocol Famotidine 20 mg 04/27/25 21:00 04/29/25 08:47 Famotidine Inj 10 Mg/Ml Vial 2 Ml IVP 05/27/25 20:59 20 mg Q12HR ANTHONY Administration Heparin Sodium (Porcine) 5,000 unit 04/29/25 14:00 Heparin Sod Inj 5000 Unit/Ml Vial SC 05/13/25 13:59 Q8HR ANTHONY Hydroxyzine HCl 25 mg 04/28/25 09:00 04/29/25 08:46 Hydroxyzine Hcl 25 Mg Tablet PO 05/28/25 08:59 25 mg QDAY ANTHONY Administration Piperacillin/Tazobactam/Dextrose 3.375 gm in 50 mls @ 12.5 mls/hr 04/28/25 21:00 04/29/25 08:46 Zosyn IV 05/05/25 20:59 12.5 mls/hr Q12HR ANTHONY Administration Protocol Phenylephrine HCl 40 mg/ 100 mls @ 5.603 mls/hr 04/28/25 10:57 04/29/25 10:00 Sodium Chloride IV 05/28/25 10:56 0.25 mcg/kg/min .[id number] PRN 2.801 mls/hr Per Sepsis Protocol Titration Protocol 0.5 MCG/KG/MIN Amiodarone HCl/Dextrose 360 mg in 200 mls @ 16.667 mls/hr 04/29/25 06:26 04/29/25 06:30 Nexterone Ivpb IV 04/30/25 06:25 16.667 mls/hr .Q12H ANTHONY Administration Levothyroxine Sodium 25 mcg 04/29/25 06:00 04/29/25 05:43 Levothyroxine Sodium 25 Mcg Tablet PO 05/29/25 05:59 25 mcg ACBR ANTHONY Administration Metoprolol Tartrate 50 mg 04/28/25 07:10 04/28/25 07:19 Metoprolol Tartrate 25 Mg Tablet PO 05/28/25 07:09 50 mg On Hold: 04/28/25 10:19 BID ANTHONY Administration Non-Formulary Medication 1 tab 04/28/25 18:15 Sofosbuvir-Velpatasvir PO 05/28/25 18:14 On Hold: 04/28/25 18:15 QDAY ANTHONY Comment: HOLD, ANTICIPATING STARTING AMIODARONE FOR SVT. Ondansetron HCl 4 mg 04/27/25 20:08 Ondansetron Inj 2 Mg/Ml Inj 2 Ml IVP 05/27/25 20:07 Q6H PRN NAUSEA OR VOMITING Protocol Trazodone HCl 50 mg 04/28/25 21:00 04/28/25 20:52 Trazodone Hcl 50 Mg Tablet PO 05/28/25 20:59 50 mg HS ANTHONY Administration Plan The patient is a 75-year-old female, well known to Dr. Palomares, with a significant past medical history including r acoustic neuroma status post surgery with residual right facial droop and left eye ptosis; hypothyroidism; anxiety and depression; GERD; neuropathy; recurrent ESBL infections; HFpEF (EF 60?65%); chronic hepatitis C currently on treatment; and hypertension. She presented to [facility] with chief complaints of generalized weakness and urinary discomfort. The patient developed SVT with heart rates >180 bpm and hypotension (BP 80/60, MAP 62?65). She received adenosine 6 mg, followed by 12 mg, and an additional 12 mg without conversion. Due to persistent SVT and hemodynamic instability, she underwent electrical cardioversion with two shocks at 100 J followed by two shocks at 200 J, administered with ketamine for sedation. #Recurrent episodes of SVT #SVT s/p cardioversion The patient presented with chief complaints of dysuria and generalized weakness. Her hospital course was complicated with an episode of SVT. On the morning of 12/16, she developed SVT with heart rates exceeding 180 bpm and hypotension (BP 80/60, MAP 62?65). She received adenosine 6 mg, followed by 12 mg, and an additional 12 mg without conversion. Due to persistent SVT and hemodynamic instability, she underwent electrical cardioversion with two shocks at 100 J, followed by two shocks at 200 J, with ketamine administered for sedation. Possible contributing factors include sepsis and UTI. The patient has been followed closely by Cardiology, and catheter ablation has been discussed extensively on multiple occasions. She had previously declined the procedure; Due to her recent ongoing infection, she presented to the ED again and experienced another episode of SVT during this visit. At home patient was on metoprolol 100 twice daily. Patient is subjectively doing better BP is 110/84 and DC at 84. potassium Initially was 3.1 in the morning labs after repleting with 70meq of potassium. Plan Recommend to keep potassium greater than 4 and magnesium greater than 2.2 at all times and aggressive repletion of potassium magnesium as well as calcium. Aggressively treat the acute kidney injury as well as the sepsis with fluids as well as IV antibiotics. Patient does not appear to be fluid overloaded and mostly is hypovolemic at the present point of time. Recent echo with normal LV function few weeks ago. Can repeat limited echo again to reevaluate the LV function and RV function and to rule out any structural abnormalities. Received amiodarone briefly but that was stopped because patient was on Epclusa to avoid interactions. Recommend to stop the Epclusa completely and if patient reverts back into SVT then treat the electrolytes aggressively first including magnesium IV then recommend to try adenosine and if needed patient can be started on amiodarone drip. Not a candidate for digoxin because of the acute kidney injury as well as hypokalemia. No beta-blockers or calcium channel blockers because of the hypotension and septic shock. Discussed with patient this evening and patient wants to pursue the EP and consultation for possible ablation as she is having recurrent SVT. Patient is actively infected with septic shock and gram-negative bacteremia and will treat aggressively and which should help with the SVT and then patient could be referred to EP when she is hemodynamically stable. #Electrolyte imbalance #Hypomagnesemia #Hypokalemia Continue close monitor electrolytes Keep potassium above 4 and Magnesium 2.2. Repeat as needed #HEpEF grade 1 diastolic dysfunction 60 to 65% Echo 04/07: CONCLUSIONS Normal left ventricular size and function. Grade I diastolic dysfunction. Estimated EF 60-65%. Normal right ventricular size and function. RVSP 27 mmH with RAP 8. Mildly dilated LA. Trivial mitral stenosis. Severe posterior MAC. Mild-moderate MR. Mild TR, PI and AI. Compared to prior study of 06/21/24. EF improved. #Septic shock secondary due to GNR bacteremia #GNR bacteremia #Recurrent ESBL UTI #Hx of Polysubstance abuse #Hypothyroidism, patient history #Anxiety, patient history #Depression, patient history #Acoustic neuroma status postsurgery #Neuropathy To be managed by primary team Patient care was discussed with attending physician Dr. Jelani Martinez MD PGY1 Attending Provider Attestation/Addendum I have personally seen and examined the patient separately on the above date of service and discussed the plan of care with the resident. I reviewed the resident Dr. Charissa Martinez consultation progress note and agree with the resident findings and plan in the note above and have also edited the documentation to reflect my findings and plan. Patient with no episodes of SVT since this morning. Patient has been doing well and recommended continue amiodarone drip for now and will change to amiodarone oral as patient will need some kind of rate control until patient can be restarted on the metoprolol XL. Hold off on the medications for hepatitis C at the present moment as imaging will only be temporary for few days. FLORES and sepsis slowly improving. Patient is off of phenylephrine drip at the present point of time. If the patient reverts back into SVT-recommend to make sure that patient potassium is greater than 4 and magnesium is greater than 2.2 at all times. Patient to be given adenosine 6 mg first then followed by 12 mg and then 12 mg to control the SVT. If blood pressure is stable then metoprolol IV arrival can be given. Patient otherwise is doing well and now acceptable for further evaluation of the SVT and will again reconnect her with EP physicians at [place] for an EP study and possible SVT ablation eventually as outpatient. Tay Palomares M.D. Interventional Cardiology
[2025-04-29 13:30] LABS: Reflex Lactate? Y
[2025-04-29 14:38] LABS: Lactic Acid, 3 HR 4.8 mMol/L (0.4-2.0)
[2025-04-29 18:03] LABS: Lactate (Lactic Acid) 2.3 mMol/L (0.4-2.0)
[2025-04-29] MEDS: METOPROLOL TARTRATE INJ 1 MG/ML AMP 5 ML 5 MG IVP (18:20)
[2025-04-29 18:28] LABS: Albumin, Serum 3.0 gm/dL (3.4-4.8); Anion Gap 10 (7-16); BUN/Creatinine Ratio 21 Ratio (12-20); Blood Urea Nitrogen 40 mg/dL (9-23); Calcium 8.1 mg/dL (8.3-10.6); Calcium (Corrected) 8.9 mg/dL (8.5-10.1); Carbon Dioxide 20.3 mMol/L (20.0-31.0); Chloride 110 mMol/L (98-107); Creatinine (Component) 1.9 mg/dL (0.6-1.3); Estimated Creatinine Clearance 26.0 mL/min (>60); Glucose 92 mg/dL (74-106); Magnesium 2.7 mg/dL (1.6-2.6); Osmolality,Calculated 289 (275-295); Phosphorous 3.5 mg/dL (2.4-5.1); Potassium 4.6 mMol/L (3.4-5.1); Sodium 140 mMol/L (136-145); eGFR 27 See Note
[2025-04-29] MEDS: ADENOSINE INJ 3 MG/ML VIAL 6 MG IVP (18:49)
[2025-04-29] MEDS: ADENOSINE INJ 3 MG/ML VIAL 12 MG IVP ×2 (18:59→20:12)
--- NOTE | 2025-04-29 20:03 | PC.NURSE ---
@ [address] Calderón of patient heartrate in the 140s-150s. Dr. Calderón at bedside.
[2025-04-29] MEDS: Magnesium Sulfate 2 GM Ivpb 2 GM/50 ML BAG IV (20:26)
[2025-04-29] MEDS: METOPROLOL SUCCINATE XL 25 MG TABCR PO (20:33)
[2025-04-29 21:04] LABS: Reflex Lactate? Y
[2025-04-29] MEDS: AMIODARONE 150 MG IVPB 150 MG/100 ML BAG 600 MG IV (21:22)
[2025-04-29 21:27] LABS: Lactic Acid, 3 HR 2.7 mMol/L (0.4-2.0)
[2025-04-29] MEDS: ATORVASTATIN CALCIUM 20 MG TABLET 80 MG PO (21:30)
[2025-04-29] MEDS: AMIODARONE 360 MG IVPB 360 MG/200 ML BAG 33.333 MG IV (21:37)
[2025-04-29 21:54] LABS: Albumin, Serum 2.7 gm/dL (3.4-4.8); Anion Gap 13 (7-16); BUN/Creatinine Ratio 22 Ratio (12-20); Blood Urea Nitrogen 42 mg/dL (9-23); Calcium 7.6 mg/dL (8.3-10.6); Calcium (Corrected) 8.6 mg/dL (8.5-10.1); Carbon Dioxide 17.4 mMol/L (20.0-31.0); Chloride 111 mMol/L (98-107); Creatinine (Component) 1.9 mg/dL (0.6-1.3); Estimated Creatinine Clearance 26.0 mL/min (>60); Glucose 113 mg/dL (74-106); Magnesium 3.1 mg/dL (1.6-2.6); Osmolality,Calculated 292 (275-295); Phosphorous 3.0 mg/dL (2.4-5.1); Potassium 4.1 mMol/L (3.4-5.1); Sodium 141 mMol/L (136-145); eGFR 27 See Note
[2025-04-29] MEDS: CITRIC ACID/SODIUM CITR 15 ML UDC (BICITRA) 30 ML PO (22:20)
[2025-04-30] VITALS (108 sets, daily range): BP systolic 95–160; BP diastolic 53–137; PULSE 58–152; RESP 16–92; TEMP 36.4–36.8; O2SAT 85–98; BMI 30.9
[2025-04-30] MEDS: METOPROLOL TARTRATE INJ 1 MG/ML AMP 5 ML 5 MG IVP (02:16)
[2025-04-30] MEDS: Sodium Bicarb Inj 8.4% SYR 50 ML SYRINGE IV (02:16)
[2025-04-30] MEDS: AMIODARONE 360 MG IVPB 360 MG/200 ML BAG 33.333 MG IV (03:37)
[2025-04-30 05:28] LABS: Lactate (Lactic Acid) 1.6 mMol/L (0.4-2.0)
[2025-04-30] MEDS: LEVOTHYROXINE SODIUM 25 MCG TABLET PO (05:29)
[2025-04-30] MEDS: HEPARIN SOD INJ 5000 UNIT/ML VIAL SC ×3 (05:29→21:26)
[2025-04-30 05:37] LABS: Basophils # (Auto) 0.1 Thou/mm3 (0.0-0.2); Basophils % (Auto) 0 % (0-2.5); Eosinophils # (Auto) 0.2 Thou/mm3 (0.0-0.5); Eosinophils % (Auto) 1 % (0-10); Hematocrit 27.6 % (36.0-46.0); Hemoglobin 9.1 g/dL (12.0-16.0); Immature Granulocytes Auto 0.79 Thou/mm3 (0.00-0.00); Lymphocytes # (Auto) 1.1 Thou/mm3 (1.0-4.8); Lymphocytes % (Auto) 7 % (10-50); Mean Corpuscular HGB Conc 33.0 g/dl (31.0-37.0); Mean Corpuscular Hemoglobin 27.2 pg (25.0-35.0); Mean Corpuscular Volume 82 fL (80-100); Monocytes # (Auto) 0.9 Thou/mm3 (0.0-0.8); Monocytes % (Auto) 6 % (0-12); Neutrophils # (Auto) 11.9 Thou/mm3 (1.8-7.7); Neutrophils % (Auto) 80 % (37-80); Nucleated Red Blood Cell # 0.02 Thou/mm3 (0.00-0.00); Nucleated Red Blood Cell % 0 /100 WBC (0); Platelet Count 137 Thou/mm3 (140-440); RDW Standard Deviation 50.9 fL (36.4-46.3); Red Blood Count 3.35 Miln/mm3 (4.00-5.20); White Blood Count 14.9 Thou/mm3 (3.6-11.0)
[2025-04-30 06:20] LABS: Alanine Aminotransferase 9 U/L (10-49); Albumin, Serum 2.6 gm/dL (3.4-4.8); Albumin/Globulin Ratio 1.4 (1.2-2.2); Alkaline Phosphatase 179 U/L (46-116); Anion Gap 11 (7-16); Aspartate Amino Transferase 33 U/L (0-34); BUN/Creatinine Ratio 20 Ratio (12-20); Bilirubin,Total 0.5 mg/dL (0.3-1.2); Blood Urea Nitrogen 32 mg/dL (9-23); Calcium 7.5 mg/dL (8.3-10.6); Calcium (Corrected) 8.6 mg/dL (8.5-10.1); Carbon Dioxide 22.1 mMol/L (20.0-31.0); Chloride 109 mMol/L (98-107); Creatinine (Component) 1.6 mg/dL (0.6-1.3); Estimated Creatinine Clearance 30.9 mL/min (>60); Globulin 1.9 gm/dL (2.3-3.5); Glucose 96 mg/dL (74-106); Magnesium 3.0 mg/dL (1.6-2.6); Osmolality,Calculated 290 (275-295); Phosphorous 3.0 mg/dL (2.4-5.1); Potassium 4.6 mMol/L (3.4-5.1); Sodium 142 mMol/L (136-145); Total Protein 4.5 gm/dL (5.7-8.2); eGFR 33 See Note
[2025-04-30 06:48] LABS: Chloride,Urine Random 37.1 mMol/L (55.0-125.0); Potassium,Urine Random 42 mMol/L (12-62); Sodium,Urine Random 39.0 mMol/L (20.0-110.0)
[2025-04-30] MEDS: DOCUSATE SOD 100 MG CAPSULE PO (08:31)
[2025-04-30] MEDS: METOPROLOL SUCCINATE XL 25 MG TABCR PO ×2 (08:32→09:09)
[2025-04-30] MEDS: ASPIRIN EC 81 MG TABEC PO (08:32)
--- NOTE | 2025-04-30 08:43 | ESPR_ITS ---
Documentation for date of: 04/30/25 Subjective Subjective Interval history: The patient is a 75-year-old female, well known to Dr. Palomares, with a significant past medical history including acoustic neuroma status post surgery with residual right facial droop and left eye ptosis; hypothyroidism; anxiety and depression; GERD; neuropathy; recurrent ESBL infections; HFpEF (EF 60?65%); chronic hepatitis C currently on treatment; and hypertension. She presented to [facility] [place] with chief complaints of generalized weakness and urinary discomfort. Symptoms began approximately three days prior and progressively worsened. On arrival, she primarily reported severe weakness, dysuria, and suprapubic pain/tenderness. She was recently hospitalized in March for symptomatic hypokalemia, SVT, and UTI. Her hospital course was complicated by recurrent SVT requiring adenosine 6 mg followed by 12 mg for conversion to sinus rhythm. She was subsequently started on metoprolol succinate 100 mg twice daily. Ablation was discussed on multiple occasions, however patient declined at that time. On current presentation, the patient denied chest pain, shortness of breath, dyspnea, palpitations, nausea, vomiting, or other associated symptoms. ED Course Vitals: BP 101/54, HR 71, RR 18, Temp 87.6?F, SpO? 100% on room air Labs: WBC 21.7; VBG: pH 7.35 / pCO2 35 / pO2 23 / O? sat 35%; K 3.2; HCO3 17.5; BUN 54; Cr 2.6 (CrCl 18.1 mL/min); ALT 9; ALP 135; Troponin (?); BNP 402; Procalcitonin 4.14; Lactate 2.4 UA: Turbid, protein +1, RBC 11, WBC 212, amorphous crystals present Imaging:EKG: Sinus rhythm, QTc 454 ms, ventricular premature complexes CXR: Increased bronchovascular markings; differential includes bronchitis vs pulmonary fibrosis received Ceftriaxone 1 g IV, 2 L lactated Ringer?s, potassium repletion. The patient was admitted for sepsis secondary to a urinary tract infection for further treatment and management. Past Medical History:As above. Surgical History:Gastric bypass; acoustic neuroma resection; umbilical hernia repair. Family History:Significant for coronary artery disease and myocardial infarction in older age. Social History:Remote polysubstance use (methamphetamine, cocaine, LSD, THC); no meth or alcohol use for >20 years. 50 pack-year smoking history. Lives alone in [place]; previously employed in a [employer]. . Reports concern about daughter?s alcohol use. Medications Aspirin 81 mg daily; atorvastatin 80 mg daily; Bumex 1 mg daily; hydroxyzine 10 mg twice daily; levothyroxine 25 mcg daily; losartan 12.5 mg daily; metoprolol succinate 100 mg daily; omeprazole 20 mg daily; trazodone 50 mg twice daily. Allergies NKDA. On the morning of 12/16, the patient developed SVT with heart rates >180 bpm and hypotension (BP 80/60, MAP 62?65). She received adenosine 6 mg, followed by 12 mg, and an additional 12 mg without conversion. Due to persistent SVT and hemodynamic instability, she underwent electrical cardioversion with two shocks at 100 J followed by two shocks at 200 J, administered with ketamine for sedation. She then received an amiodarone bolus and was started on an amiodarone drip. The patient was upgraded to the ICU for close monitoring. Cardiology was consulted for further recommendations. Currently patient is in septic shock, blood culture revealed GNR, patient is on phenylephrine drip as for pressure support, heart rate is low 60s, if patient develop another episode of SVT, patient can be placed back to amiodarone drip. 04/30/2025: The patient was seen and examined at the bedside. Overnight, the patient experienced multiple episodes of SVT, which occurred intermittently. Adenosine (6 mg, 12 mg, 12 mg) was administered, and the patient was started on an amiodarone drip at 1 mcg/kg/min. Today, the dose was reduced to 0.5 mcg/kg/min, and the plan is to transition the patient to oral amiodarone, the patient remains in sinus rhythm. The patient has been weaned off phenylephrine, and vital signs are currently stable with controlled blood pressure. The patient was given 50 mg of metoprolol this morning and will continue to be closely monitored. If the patient remains stable, the plan is to start metoprolol 50 mg daily. Vital signs and electrolytes will continue to be monitored. Renal function is improving, with creatinine decreasing from 1.9 to 1.6, BUN decreasing from 42 to 32, and eGFR improving from 27 to 33. Lactic acid is now within normal limits, down from 2.7 to 1.6. The patient is producing adequate urine output. Blood cultures again show GNR bacteremia, and infectious disease is involved in the case. The patient will continue on antibiotics as per ID recommendations. Exam Vital Signs Temp Pulse Resp BP Pulse Ox O2 Del Method O2 Flow Rate 98.2 F 79 25 H 128/62 97 Room Air 2 04/30/25 04:00 04/30/25 08:32 04/30/25 06:25 04/30/25 08:32 04/30/25 06:25 04/29/25 16:01 04/29/25 12:00 Narrative Exam Physical Exam General: Awake and in no acute distress. Conversational and non-toxic appearing. HEENT: Normocephalic, atraumatic, mucous membranes moist. Heart: Regular rate and rhythm, normal S1 and S2, no murmurs. Lungs: Clear to auscultation with no wheezing or crackles. Abdomen: Soft, nondistended, nontender, positive bowel sounds. No guarding or rebound tenderness. Neurologic: Alert and oriented x3, no gross neurological deficit, and patient able to move all 4 extremities. Extremities: No edema. Bluish fingertips. Skin: No rash or ecchymoses. Objective Labs 04/30/25 04:38 04/30/25 04:38 Labs: Laboratory Results - last 24 hr 04/29/25 04/29/25 04/29/25 10:10 14:05 17:50 WBC RBC Hgb Hct MCV MCH MCHC RDW Std Deviation Plt Count Neut % (Auto) Lymph % (Auto) [place] % (Auto) Eos % (Auto) Baso % (Auto) Neut # (Auto) Lymph # (Auto) [place] # (Auto) Eos # (Auto) Baso # (Auto) Immature Gran # (Auto) Absolute Nucleated RBC Immature Gran % Nucleated RBC % Sodium 139 140 Potassium 3.8 D 4.6 D Chloride 110 H 110 H Carbon Dioxide 15.3 L 20.3 Anion Gap 14 10 BUN 34 H 40 H Creatinine 1.9 H 1.9 H Estim Creat Clear Calc 26.0 L 26.0 L eGFR 27 L 27 L BUN/Creatinine Ratio 18 21 H Glucose 141 H 92 Calculated Osmolality 287 289 Lactic Acid 2.3 H 4.8 H* 2.3 H Calcium 7.5 L 8.1 L Corrected Calcium 8.5 8.9 Phosphorus 3.3 3.5 Magnesium 2.7 H Total Bilirubin AST ALT Alkaline Phosphatase Total Protein Albumin 2.7 L 3.0 L Globulin Albumin/Globulin Ratio Ur Random Sodium Ur Random Potassium Ur Random Chloride 04/29/25 04/30/25 04/30/25 20:48 04:38 05:40 WBC 14.9 H D RBC 3.35 L Hgb 9.1 L Hct 27.6 L MCV 82 MCH 27.2 MCHC 33.0 RDW Std Deviation 50.9 H Plt Count 137 L D Neut % (Auto) 80 Lymph % (Auto) 7 L [place] % (Auto) 6 Eos % (Auto) 1 Baso % (Auto) 0 Neut # (Auto) 11.9 H Lymph # (Auto) 1.1 [place] # (Auto) 0.9 H Eos # (Auto) 0.2 Baso # (Auto) 0.1 Immature Gran # (Auto) 0.79 H Absolute Nucleated RBC 0.02 H Immature Gran % 5 H Nucleated RBC % 0 Sodium 141 142 Potassium 4.1 D 4.6 D Chloride 111 H 109 H Carbon Dioxide 17.4 L 22.1 Anion Gap 13 11 BUN 42 H 32 H Creatinine 1.9 H 1.6 H Estim Creat Clear Calc 26.0 L 30.9 L eGFR 27 L 33 L BUN/Creatinine Ratio 22 H 20 Glucose 113 H 96 Calculated Osmolality 292 290 Lactic Acid 2.7 H 1.6 Calcium 7.6 L 7.5 L Corrected Calcium 8.6 8.6 Phosphorus 3.0 3.0 Magnesium 3.1 H 3.0 H Total Bilirubin 0.5 AST 33 ALT 9 L Alkaline Phosphatase 179 H D Total Protein 4.5 L Albumin 2.7 L 2.6 L Globulin 1.9 L Albumin/Globulin Ratio 1.4 Ur Random Sodium 39.0 Ur Random Potassium 42 Ur Random Chloride 37.1 L ABG Interpretation ABG results: 04/27/25 16:30 VBG pH 7.35 VBG pCO2 35 L VBG pO2 23 VBG Base Excess -6 L Quality Measures Quality Measures VTE prophylaxis Advance care planning discussed with:: patient Assessment & Plan Assessment Current Active Medications: Generic Name Dose Route Start Last Admin Trade Name Freq PRN Reason Stop Dose Admin Acetaminophen 650 mg 04/27/25 20:08 04/29/25 21:55 Acetaminophen 325 Mg Tablet PO 05/27/25 20:07 650 mg Q6H PRN Administration Fever >100.4 or pain 1-3 Aspirin 81 mg 04/28/25 09:00 04/30/25 08:32 Aspirin Ec 81 Mg Tabec PO 05/28/25 08:59 81 mg QDAY ANTHONY Administration Atorvastatin Calcium 80 mg 04/27/25 21:00 04/29/25 21:30 Atorvastatin Calcium 20 Mg Tablet PO 05/27/25 20:59 80 mg HS ANTHONY Administration Bumetanide 0.5 mg 04/28/25 09:00 04/28/25 10:17 Bumetanide 0.5 Mg Tablet PO 05/28/25 08:59 Not Given On Hold: 04/28/25 10:19 QDAY ANTHONY Citric Acid/Sodium Citrate 30 ml 04/29/25 22:15 04/29/25 22:20 Citric Acid/Sodium Citr 15 Ml Udc (Bicitra) PO 05/29/25 22:14 30 ml BID ANTHONY Administration Docusate Sodium 100 mg 04/28/25 09:00 04/30/25 08:31 Docusate Sod 100 Mg Capsule PO 05/28/25 08:59 100 mg QDAY ANTHONY Administration Protocol Famotidine 20 mg 04/27/25 21:00 04/29/25 21:30 Famotidine Inj 10 Mg/Ml Vial 2 Ml IVP 05/27/25 20:59 20 mg Q12HR ANTHONY Administration Heparin Sodium (Porcine) 5,000 unit 04/29/25 14:00 04/30/25 05:29 Heparin Sod Inj 5000 Unit/Ml Vial SC 05/13/25 13:59 5,000 unit Q8HR ANTHONY Administration Piperacillin/Tazobactam/Dextrose 3.375 gm in 50 mls @ 12.5 mls/hr 04/28/25 21:00 04/30/25 08:30 Zosyn IV 05/05/25 20:59 Infused Q12HR ANTHONY Infusion Protocol Amiodarone HCl/Dextrose 360 mg in 200 mls @ 33.333 mls/hr 04/29/25 21:12 04/30/25 03:37 Nexterone Ivpb IV 04/30/25 09:11 33.333 mls/hr .Q6H ANTHONY Administration Levothyroxine Sodium 25 mcg 04/29/25 06:00 04/30/25 05:29 Levothyroxine Sodium 25 Mcg Tablet PO 05/29/25 05:59 25 mcg ACBR ANTHONY Administration Metoprolol Succinate 25 mg 04/30/25 09:00 04/30/25 08:32 Metoprolol Succinate Xl 25 Mg Tabcr PO 05/30/25 08:59 25 mg QDAY ANTHONY Administration Non-Formulary Medication 1 tab 04/28/25 18:15 Sofosbuvir-Velpatasvir PO 05/28/25 18:14 On Hold: 04/28/25 18:15 QDAY ANTHONY Comment: HOLD, ANTICIPATING STARTING AMIODARONE FOR SVT. Ondansetron HCl 4 mg 04/27/25 20:08 Ondansetron Inj 2 Mg/Ml Inj 2 Ml IVP 05/27/25 20:07 Q6H PRN NAUSEA OR VOMITING Protocol Oxycodone/Acetaminophen 1 tab 04/30/25 02:09 Oxycodone/Apap 5/325 Tablet PO 05/05/25 02:08 Q6HR PRN Pain 4-10 Plan The patient is a 75-year-old female, well known to Dr. Palomares, with a significant past medical history including r acoustic neuroma status post surgery with residual right facial droop and left eye ptosis; hypothyroidism; anxiety and depression; GERD; neuropathy; recurrent ESBL infections; HFpEF (EF 60?65%); chronic hepatitis C currently on treatment; and hypertension. She presented to [facility] [place] with chief complaints of generalized weakness and urinary discomfort. The patient developed SVT with heart rates >180 bpm and hypotension (BP 80/60, MAP 62?65). She received adenosine 6 mg, followed by 12 mg, and an additional 12 mg without conversion. Due to persistent SVT and hemodynamic instability, she underwent electrical cardioversion with two shocks at 100 J followed by two shocks at 200 J, administered with ketamine for sedation. #Recurrent episodes of SVT #SVT s/p cardioversion The patient presented with chief complaints of dysuria and generalized weakness. Her hospital course was complicated with an episode of SVT. On the morning of 12/16, she developed SVT with heart rates exceeding 180 bpm and hypotension (BP 80/60, MAP 62?65). She received adenosine 6 mg, followed by 12 mg, and an additional 12 mg without conversion. Due to persistent SVT and hemodynamic instability, she underwent electrical cardioversion with two shocks at 100 J, followed by two shocks at 200 J, with ketamine administered for sedation. Possible contributing factors include sepsis and UTI. The patient has been followed closely by Cardiology, and catheter ablation has been discussed extensively on multiple occasions. She had previously declined the procedure; Due to her recent ongoing infection, she presented to the ED again and experienced another episode of SVT during this visit. At home patient was on metoprolol 100 twice daily. Patient is subjectively doing better BP is 110/84 and MN at 84. potassium Initially was 3.1 in the morning labs after repleting with 70meq of potassium. Plan Recommend to keep potassium greater than 4 and magnesium greater than 2.2 at all times and aggressive repletion of potassium magnesium as well as calcium. Aggressively treat the acute kidney injury as well as the sepsis with fluids as well as IV antibiotics. Patient does not appear to be fluid overloaded and mostly is hypovolemic at the present point of time. Recent echo with normal LV function few weeks ago. Can repeat limited echo again to reevaluate the LV function and RV function and to rule out any structural abnormalities. Recommend to stop the Epclusa completely and if patient reverts back into SVT then treat the electrolytes aggressively first including magnesium IV Patient currently is on amiodarone 0.5 mcg/kg/min, after completion the back patient will be transition to p.o. amiodarone Was given 50 mg of metoprolol today, continue close monitor vitals, if blood pressure is stable can be given another 50 if needed since patient is off of the pressors, beta-jay jay should be introduced very cautious in the setting of underlying septic shock which appears to be resolved, however close monitoring of vitals is essential. Not a candidate for digoxin because of the acute kidney injury as well as hypokalemia. No beta-blockers or calcium channel blockers because of the hypotension and septic shock. Discussed with patient this evening and patient wants to pursue the EP and consultation for possible ablation as she is having recurrent SVT. Patient is actively infected with septic shock and gram-negative bacteremia and will treat aggressively and which should help with the SVT and then patient could be referred to EP when she is hemodynamically stable. #Electrolyte imbalance #Hypomagnesemia #Hypokalemia Continue close monitor electrolytes Keep potassium above 4 and Magnesium 2.2. Repeat as needed #HEpEF grade 1 diastolic dysfunction 60 to 65% Not fluid overloaded. Strict input output, daily weights and 2 g sodium diet. Was on home Bumex which is held at the present point of time Echo 04/07: CONCLUSIONS Normal left ventricular size and function. Grade I diastolic dysfunction. Estimated EF 60-65%. Normal right ventricular size and function. RVSP 27 mmH with RAP 8. Mildly dilated LA. Trivial mitral stenosis. Severe posterior MAC. Mild-moderate MR. Mild TR, PI and AI. Compared to prior study of 06/21/24. EF improved. #Septic shock secondary due to GNR bacteremia-resolved #GNR bacteremia #Recurrent ESBL UTI #Hx of Polysubstance abuse #Hypothyroidism, patient history #Anxiety, patient history #Depression, patient history #Acoustic neuroma status postsurgery #Neuropathy To be managed by primary team Patient care was discussed with attending physician Dr. Jelani Chilel MD PGY-2 Attending Provider Attestation/Addendum I have personally seen and examined the patient separately on the above date of service and discussed the plan of care with the resident. I reviewed the resident Dr. Bria Márquez consultation progress note and agree with the resident findings and plan in the note above and have also edited the documentation to reflect my findings and plan. Tay Palomares M.D. Interventional Cardiology
[2025-04-30] MEDS: CITRIC ACID/SODIUM CITR 15 ML UDC (BICITRA) 30 ML PO ×2 (09:10→21:19)
--- NOTE | 2025-04-30 09:25 | PD.IDPROG ---
Subjective Subjective Interval history: ok to restart hep c rx as R is commonly seen if drug stopped for >3 days if is a trade off though so you may want to have her f/u with dr mcgrtah as he started the med on her Exam Vital Signs Temp Pulse Resp BP Pulse Ox O2 Del Method O2 Flow Rate 98.2 F 76 25 H 136/66 H 97 Room Air 2 04/30/25 04:00 04/30/25 09:09 04/30/25 06:25 04/30/25 09:09 04/30/25 06:25 04/29/25 16:01 04/29/25 12:00 Narrative Exam edentulous. benign exam Objective - Internal Medicine Labs 04/30/25 04:38 04/30/25 04:38 Labs: Laboratory Results - last 24 hr 04/29/25 04/29/25 04/29/25 10:10 14:05 17:50 WBC RBC Hgb Hct MCV MCH MCHC RDW Std Deviation Plt Count Neut % (Auto) Lymph % (Auto) [place] % (Auto) Eos % (Auto) Baso % (Auto) Neut # (Auto) Lymph # (Auto) [place] # (Auto) Eos # (Auto) Baso # (Auto) Immature Gran # (Auto) Absolute Nucleated RBC Immature Gran % Nucleated RBC % Sodium 139 140 Potassium 3.8 D 4.6 D Chloride 110 H 110 H Carbon Dioxide 15.3 L 20.3 Anion Gap 14 10 BUN 34 H 40 H Creatinine 1.9 H 1.9 H Estim Creat Clear Calc 26.0 L 26.0 L eGFR 27 L 27 L BUN/Creatinine Ratio 18 21 H Glucose 141 H 92 Calculated Osmolality 287 289 Lactic Acid 2.3 H 4.8 H* 2.3 H Calcium 7.5 L 8.1 L Corrected Calcium 8.5 8.9 Phosphorus 3.3 3.5 Magnesium 2.7 H Total Bilirubin AST ALT Alkaline Phosphatase Total Protein Albumin 2.7 L 3.0 L Globulin Albumin/Globulin Ratio Ur Random Sodium Ur Random Potassium Ur Random Chloride 04/29/25 04/30/25 04/30/25 20:48 04:38 05:40 WBC 14.9 H D RBC 3.35 L Hgb 9.1 L Hct 27.6 L MCV 82 MCH 27.2 MCHC 33.0 RDW Std Deviation 50.9 H Plt Count 137 L D Neut % (Auto) 80 Lymph % (Auto) 7 L [place] % (Auto) 6 Eos % (Auto) 1 Baso % (Auto) 0 Neut # (Auto) 11.9 H Lymph # (Auto) 1.1 [place] # (Auto) 0.9 H Eos # (Auto) 0.2 Baso # (Auto) 0.1 Immature Gran # (Auto) 0.79 H Absolute Nucleated RBC 0.02 H Immature Gran % 5 H Nucleated RBC % 0 Sodium 141 142 Potassium 4.1 D 4.6 D Chloride 111 H 109 H Carbon Dioxide 17.4 L 22.1 Anion Gap 13 11 BUN 42 H 32 H Creatinine 1.9 H 1.6 H Estim Creat Clear Calc 26.0 L 30.9 L eGFR 27 L 33 L BUN/Creatinine Ratio 22 H 20 Glucose 113 H 96 Calculated Osmolality 292 290 Lactic Acid 2.7 H 1.6 Calcium 7.6 L 7.5 L Corrected Calcium 8.6 8.6 Phosphorus 3.0 3.0 Magnesium 3.1 H 3.0 H Total Bilirubin 0.5 AST 33 ALT 9 L Alkaline Phosphatase 179 H D Total Protein 4.5 L Albumin 2.7 L 2.6 L Globulin 1.9 L Albumin/Globulin Ratio 1.4 Ur Random Sodium 39.0 Ur Random Potassium 42 Ur Random Chloride 37.1 L ABG Interpretation ABG results: 04/27/25 16:30 VBG pH 7.35 VBG pCO2 35 L VBG pO2 23 VBG Base Excess -6 L Assessment & Plan A&P Narrative hep c with prior rx noted uti s to quinolones with bacteremia ok to change to po levaquin to complete rx. no value to repeat bc for gnr, so no repeats ordered restarting the hep c rx is a trade off with potential interaction with amiodarone vs resistance if med held for >3 days if she needs the amiodarone, then you have to document the rx and her wishes as wel as the potential drug/drug interaction with amiodarone. will see again prn. dr mcgrath may have more to say on this case Time Spent With Patient Time: Total time spent is greater than 50% in coordination of care (as documented) at patient's floor/unit and/or counseling patient:
[2025-04-30] MEDS: AMIODARONE 360 MG IVPB 360 MG/200 ML BAG 16.667 MG IV ×2 (10:20→22:20)
[2025-04-30] MEDS: PIPER/TAZO 3.375 GM PREMIX 3.375 GM/50 ML BAG IV ×2 (10:26→21:21)
[2025-04-30] MEDS: FAMOTIDINE INJ 10 MG/ML VIAL 2 ML 20 MG IVP ×2 (10:27→21:19)
--- NOTE | 2025-04-30 10:43 | ESPR_ITS ---
<Statement entered by Randolph Johnson MD - 04/30/25 14:43> I have reviewed the note and agree with the resident's assessment & plan with exceptions as below. I have personally reviewed labs, imaging, home meds/prior records, examined the patient, formulated and discussed management plan with my attending. Patient was seen and examined at bedside this morning. Overnight patient did have another round of SVT and did require an additional dose of adenosine followed by metoprolol succinate 25 with an additional push of metoprolol to tartrate IV x 1 again and was eventually placed on amiodarone drip. Patient this morning has been rate controlled for heart rate being in the 60s to 70s and blood pressure has been stable off pressors. Had WBC continues to downtrend. There was a drop in hemoglobin from 11.6-9.7 yesterday and today 9.1 this is likely hemodilution as patient did get multiple boluses of IV fluids on the . This morning given additional dose of metoprolol succinate 25 mg on top of the 25 mg XL that she was scheduled for this morning. Cardiology stated that they were okay with metoprolol 25 mg additionally today and she did get a total of 75 mg in 24 hours therefore we will start 50 mg starting tomorrow and if patient does go back into SVT after initial dose of 50mg metoprolol XL than can give another dose of 25 mg. Switch to PO amio once amio bag at 0.5 is done. Also spoke with ID who stated that they were okay with restarting patient's hepatitis C medication at this time and also spoke with the patient about concern for bradycardia to see if she was agreeable and would like to be on her hepatitis C medication as well as amiodarone and metoprolol given the risk of possible bradycardia even though there were low and she stated that she was agreeable to being on the medication after risks and benefits were discussed. Otherwise patient did get an amp of sodium bicarb overnight due to to metabolic acidosis and her kidney function continues to improve. Patient denies any chest pain or palpitations today. Got urine electrolytes to evaluate for possible RTA. At this time patient is off pressors and is stable enough to be downgraded to the medical floors. Randolph Johnson PGY2 Disclaimer: Even though this this note was dictated by speech recognition and even though it was carefully revised there may still be minor errors in permastone mechanic due to voice recognition software. Documentation for date of: 04/30/25 Subjective Subjective Interval history: History of present illness: 75-year-old female with past medical history of acoustic neuroma s/p removal with residual left facial droop and left eye proptosis and some slurred speech, hypertension, anxiety, depression, GERD, neuropathy, recurrent ESBL infections, HFpEF (EF 60 to 65%), chronic hep C currently on treatment, hypertension, Raynaud's phenomenon, and SVT was admitted to the medical floors on 04/27/2025 after coming in to the ED with chief complaints of weakness and worsening burning sensation during urination. Patient was initially admitted to the medical floors on telemetry, but afterwards patient went into SVT with heart rate in the 180s and hemodynamically unstable with low BP. She received adenosine 6 x 1 and then 12 x 2 without any resolution of SVT therefore she received 2 shocks 100 J followed by 2 shocks of 200 J with 500 mg of ketamine without any improvement in SVT. She was then placed on amiodarone drip with some improvement in heart rate to the 130s and she was also given have bolus of NS. ED course: Initially came in with mild hypertension, normal heart rate, and afebrile. Initial labs were relevant for leukocytosis (21.7), hypokalemia (3.2), FLORES (current 2.6), HAGMA (bicarb 17.5), elevated BNP at 402, and elevated procalcitonin 4.14 along with UA positive for bacteria. Patient also had a chest x-ray which showed possible bronchitis versus pulmonary fibrosis. Initial EKG shows a rate of 88 with repeat showing rate of 140. Patient also had a urine culture on 04/20/2025 which grew ESBL. Of note patient was recently discharged from our hospital on 04/02/2025 due to similar symptoms where she was treated with meropenem for 3 days as her repeated urine culture was negative during that admission, but she did have episodes of SVT requiring adenosine pressures, but no cardioversion was required at this time. In conclusion patient was upgraded to the ICU due to septic shock along with paroxysmal SVT. 04/29/25: Patient seen and assessed at bedside. Doing well, subjectively feels significantly improved. Overnight patient had 2 episodes of SVT, restarted on IV amiodarone 0.5 mcg/kg/min. SVT continues to be uncontrolled, had multiple episodes intermittently, longest lasting 1 hour from 9 to 10 AM with HR in 140s. Weaned phenylephrine to 0.35 mcg overnight. Patient remains asymptomatic during these episodes and they resolve spontaneously. WBC improving. Hgb decreased to 9.7 today, likely secondary to hemodilution. Potassium 3.1, repleted with KCl 40 mEq followed by another 20 mEq an hour later, recheck 3.8 at 11PM, gave another 20 mEq. Follow up repeat renal panel 5PM. Creatinine 2.0, improving. Magnesium 3.4. Lactic acid 3.2 this morning, dropped to 2.3 and increased to 4.8 around 2PM. Likely secondary to multiple SVT runs. Spoke to cardiology, will transition to PO amiodarone 200 mg BID tomorrow. Continue to hold metoprolol for now as patient was just weaned off phenylephrine this afternoon. Continue Zosyn for UTI, follow up final culture results and sensitivities. QTc 452 on EKG today. 04/30/25: Overnight patient had multiple episodes of SVT. First episode at 6PM resolved after metoprolol tartrate 5 mg push, adenosine 6 mg, and 12 mg. Second episode at 8PM resolved after adenosine 12 x1. During third episode, consulted cardiology who recommended giving metoprolol succinate 25 mg x1. There was no improvement so increased amiodarone to 1 mg/kg/min with resolution. During fourth episode, repeated renal panel which showed hyperchloremic metabolic acidosis, administered bicarb pushes x2, KCl 40 mEq, Bicitra 30 mL x1, and another metoprolol 5 mg x1 with resolution. Patient seen and assessed at bedside. Doing well, continues to subjectively feel better this morning. Denies chest pain, shortness of breath, difficulty breathing, or palpitations. Given metoprolol succinate 25 mg x2 this AM per cardiology. WBC continues to improve. Hgb overall stable. Potassium 4.6. Creatinine continues to improve and patient maintaining good urine output. Weaned down to IV amiodarone 0.5 mg/kg/min and will transition to PO amiodarone 200 mg BID after IV completed. Spoke to ID today, given risks and benefits as well as possibility of Hep C virus developing resistance with >3 days of withholding medication, was agreeable to restarting sofosbuvir-velpatasvir. Also recommended consulting prescriber Dr. Maya for recommendations. Patient was downgraded to telemetry today as BP continues to be stable for more than 24 hours off pressors. Exam Vital Signs Temp Pulse Resp BP Pulse Ox O2 Del Method O2 Flow Rate 98.2 F 74 25 H 135/67 H 97 Room Air 2 04/30/25 04:00 04/30/25 10:20 04/30/25 06:25 04/30/25 10:20 04/30/25 06:25 04/29/25 16:01 04/29/25 12:00 Narrative Exam Physical Exam General: Awake and in no acute distress. Conversational and non-toxic appearing. Pleasant elderly female. HEENT: Normocephalic, atraumatic, mucous membranes moist. Heart: Regular rate and rhythm, normal S1 and S2, no murmurs appreciated. Lungs: Clear to auscultation with no wheezing or crackles. Abdomen: Soft, nondistended, nontender, positive bowel sounds. No guarding or rebound tenderness. Neurologic: Alert and oriented x3, no gross neurological deficit, and patient able to move all 4 extremities. Chronic left sided facial droop with nasal fold flattening and left eye ptosis. Extremities: Trace edema in bilateral feet. Skin: Multiple scattered ecchymoses on bilateral forearms. No rash. Objective Labs 05/01/25 04:28 05/01/25 04:28 Labs: Laboratory Results - last 24 hr 04/29/25 04/29/25 04/29/25 10:10 14:05 17:50 WBC RBC Hgb Hct MCV MCH MCHC RDW Std Deviation Plt Count Neut % (Auto) Lymph % (Auto) Gulf % (Auto) Eos % (Auto) Baso % (Auto) Neut # (Auto) Lymph # (Auto) Gulf # (Auto) Eos # (Auto) Baso # (Auto) Immature Gran # (Auto) Absolute Nucleated RBC Immature Gran % Nucleated RBC % Sodium 139 140 Potassium 3.8 D 4.6 D Chloride 110 H 110 H Carbon Dioxide 15.3 L 20.3 Anion Gap 14 10 BUN 34 H 40 H Creatinine 1.9 H 1.9 H Estim Creat Clear Calc 26.0 L 26.0 L eGFR 27 L 27 L BUN/Creatinine Ratio 18 21 H Glucose 141 H 92 Calculated Osmolality 287 289 Lactic Acid 4.8 H* 2.3 H Calcium 7.5 L 8.1 L Corrected Calcium 8.5 8.9 Phosphorus 3.3 3.5 Magnesium 2.7 H Total Bilirubin AST ALT Alkaline Phosphatase Total Protein Albumin 2.7 L 3.0 L Globulin Albumin/Globulin Ratio Ur Random Sodium Ur Random Potassium Ur Random Chloride 04/29/25 04/30/25 04/30/25 20:48 04:38 05:40 WBC 14.9 H D RBC 3.35 L Hgb 9.1 L Hct 27.6 L MCV 82 MCH 27.2 MCHC 33.0 RDW Std Deviation 50.9 H Plt Count 137 L D Neut % (Auto) 80 Lymph % (Auto) 7 L Gulf % (Auto) 6 Eos % (Auto) 1 Baso % (Auto) 0 Neut # (Auto) 11.9 H Lymph # (Auto) 1.1 Gulf # (Auto) 0.9 H Eos # (Auto) 0.2 Baso # (Auto) 0.1 Immature Gran # (Auto) 0.79 H Absolute Nucleated RBC 0.02 H Immature Gran % 5 H Nucleated RBC % 0 Sodium 141 142 Potassium 4.1 D 4.6 D Chloride 111 H 109 H Carbon Dioxide 17.4 L 22.1 Anion Gap 13 11 BUN 42 H 32 H Creatinine 1.9 H 1.6 H Estim Creat Clear Calc 26.0 L 30.9 L eGFR 27 L 33 L BUN/Creatinine Ratio 22 H 20 Glucose 113 H 96 Calculated Osmolality 292 290 Lactic Acid 2.7 H 1.6 Calcium 7.6 L 7.5 L Corrected Calcium 8.6 8.6 Phosphorus 3.0 3.0 Magnesium 3.1 H 3.0 H Total Bilirubin 0.5 AST 33 ALT 9 L Alkaline Phosphatase 179 H D Total Protein 4.5 L Albumin 2.7 L 2.6 L Globulin 1.9 L Albumin/Globulin Ratio 1.4 Ur Random Sodium 39.0 Ur Random Potassium 42 Ur Random Chloride 37.1 L ABG Interpretation ABG results: 04/27/25 16:30 VBG pH 7.35 VBG pCO2 35 L VBG pO2 23 VBG Base Excess -6 L Quality Measures Quality Measures VTE prophylaxis Advance care planning discussed with:: patient Assessment & Plan Assessment Current Active Medications: Generic Name Dose Route Start Last Admin Trade Name Freq PRN Reason Stop Dose Admin Acetaminophen 650 mg 04/27/25 20:08 04/29/25 21:55 Acetaminophen 325 Mg Tablet PO 05/27/25 20:07 650 mg Q6H PRN Administration Fever >100.4 or pain 1-3 Aspirin 81 mg 04/28/25 09:00 04/30/25 08:32 Aspirin Ec 81 Mg Tabec PO 05/28/25 08:59 81 mg QDAY ANTHONY Administration Atorvastatin Calcium 80 mg 04/27/25 21:00 04/29/25 21:30 Atorvastatin Calcium 20 Mg Tablet PO 05/27/25 20:59 80 mg HS ANTHONY Administration Bumetanide 0.5 mg 04/28/25 09:00 04/28/25 10:17 Bumetanide 0.5 Mg Tablet PO 05/28/25 08:59 Not Given On Hold: 04/28/25 10:19 QDAY ANTHONY Citric Acid/Sodium Citrate 30 ml 04/29/25 22:15 04/30/25 09:10 Citric Acid/Sodium Citr 15 Ml Udc (Bicitra) PO 05/29/25 22:14 30 ml BID ANTHONY Administration Docusate Sodium 100 mg 04/28/25 09:00 04/30/25 08:31 Docusate Sod 100 Mg Capsule PO 05/28/25 08:59 100 mg QDAY ANTHONY Administration Protocol Famotidine 20 mg 04/27/25 21:00 04/30/25 10:27 Famotidine Inj 10 Mg/Ml Vial 2 Ml IVP 05/27/25 20:59 20 mg Q12HR ANTHONY Administration Heparin Sodium (Porcine) 5,000 unit 04/29/25 14:00 04/30/25 05:29 Heparin Sod Inj 5000 Unit/Ml Vial SC 05/13/25 13:59 5,000 unit Q8HR ANTHONY Administration Piperacillin/Tazobactam/Dextrose 3.375 gm in 50 mls @ 12.5 mls/hr 04/28/25 21:00 04/30/25 10:26 Zosyn IV 05/05/25 20:59 12.5 mls/hr Q12HR ANTHONY Administration Protocol Amiodarone HCl/Dextrose 360 mg in 200 mls @ 16.667 mls/hr 04/30/25 09:55 04/30/25 10:20 Nexterone Ivpb IV 05/01/25 09:54 16.667 mls/hr .Q12H ANTHONY Administration Levothyroxine Sodium 25 mcg 04/29/25 06:00 04/30/25 05:29 Levothyroxine Sodium 25 Mcg Tablet PO 05/29/25 05:59 25 mcg ACBR ANTHONY Administration Metoprolol Succinate 50 mg 05/01/25 09:00 Metoprolol Succinate Xl 25 Mg Tabcr PO 05/31/25 08:59 QDAY ANTHONY Non-Formulary Medication 1 tab 04/28/25 18:15 Sofosbuvir-Velpatasvir PO 05/28/25 18:14 QDAY ANTHONY Ondansetron HCl 4 mg 04/27/25 20:08 Ondansetron Inj 2 Mg/Ml Inj 2 Ml IVP 05/27/25 20:07 Q6H PRN NAUSEA OR VOMITING Protocol Oxycodone/Acetaminophen 1 tab 04/30/25 02:09 Oxycodone/Apap 5/325 Tablet PO 05/05/25 02:08 Q6HR PRN Pain 4-10 Plan Patient is a 75-year-old female with past medical history of acoustic neuroma s/p removal with residual left facial droop and left eye proptosis and some slurred speech, hypertension, anxiety, depression, GERD, neuropathy, recurrent ESBL infections, HFpEF (EF 60 to 65%), chronic hep C currently on treatment, hypertension, Raynaud's phenomenon, and SVT admitted to the ICU for septic shock along with paroxysmal SVT requiring pressor support. Being downgraded today after being stable off pressor support for the past 24 hours. Neurology No active disease Cardiovascular #Paroxysmal SVT Chronic but likely exacerbated in setting of sepsis Diagnostic workup: ? EKG showed SVT with a rate of 140 - On metoprolol 125 mg daily at home (100 mg AM and 25 mg HS) - 04/30: amiodarone uptitrated to 1 mg/kg/min overnight due to persistent SVTs. Treatment: ?S/p adenosine 6 mg x 1 and 12 g x 2 ? S/p cardioversion at 100 J x 2 and at 200 J x 2 ? S/p 4 L of IVF ? Decrease IV amiodarone back to 0.5 mg/kg/min - Given metoprolol succinate 25 x3 today, start on metoprolol 50 mg tomorrow AM. ? Treat underlying infection with abx as above Treatment follow-up: ?Keep magnesium and potassium above 4 and 2 respectively ?Consider reassessing patient's IVC or [place]et[place] before any further IV fluids given as patient has gotten 4 L - EKG daily to assess QTc ?Transition to PO amiodarone 200 mg BID after finishing IV amiodarone today. -Per [facility] comp review, there were 9 cases of postmarketing incidents of severe symptomatic bradycardia with patient receiving concomitant amiodarone. 7 out of these 9 patients were also receiving beta-blockers. Thus medication was initially held on admission per cardiology recomendations. - However consulted ID today. Given risks and benefits as well as possibility of Hep C virus developing resistance with >3 days of withholding medication, was agreeable to restarting tx. Also recommended consulting prescriber. ? Sofosbuvir/velpatasvir half-life is around 15 hours therefore if continuing amiodarone as needed close monitoring of patient's heart rate will be needed #Shock (resolved) Likely multifactorial, factoring septic in the setting of ESBL E. coli UTI along with GNR bacteremia and possible cardiogenic in the setting of SVT Diagnostic workup: ? Bedside ultrasound showed collapsible IVC indicating likelihood of responsiveness to fluid resuscitation ? UA positive for bacteria ? Urine culture from 04/20/2025 showed ESBL E. coli, repeat urine culture also grew ESBL ? Lactic acid 2.4 initially and downtrended to 1.6 and back to 2 this afternoon ? EKG showed SVT with a rate of 140 ? Blood cultures positive for ESBL E coli Treatment: - Stable off pressors for the past 24 hours Respiratory No active disease GI #Hep C, receiving treatment Diagnostic workup: ?Has been taking sofosbuvir/velpatasvir for the past 2 weeks outpatient prior to admission, was only recently approved. - Last dose 04/27/25 - Prescribed by Dr. Maya for treatment of active Hep C - Given possible reaction between amiodarone and sofosbuvir/velpatasvir described above, tx was initially held per cardiology Treatment: ? Restarted on sofosbuvir/velpatasvir - Consulted ID. Given risks and benefits as well as possibility of Hep C virus developing resistance with >3 days of withholding medication, was agreeable to restarting tx. Also recommended consulting prescriber. Treatment follow-up: - Follow up with GI Dr. Maya - Discussed with patient risks of severe bradycardia with co-administration of hepatitis C medication along with amiodarone and she was willing to take the risks and therefore which she would bring the medication from home and should be restarted. Renal #Hyperchloremic metabolic acidosis #Hypokalemia Diagnostic workup: ?Creatinine 2.6 --> 1.9, baseline 0.7-1.2 ?Bicarb 17.5 --> 19.5 -> 15.3 ?Continues to have good urine output - Chloride 108 -> 110 -> 111 -> 109, likely secondary to IV fluids - Random urine chloride 37.1, urine sodium 39, and urine potassium 42. - Urine anion gap 43.9 which suggests low urinary NH4+ and RTA (>10), may consider RTA type 1 versus 2 in setting of chronic hypokalemia Treatment: ? S/p 4 L of IV fluid 04/27 - S/p potassium 80 mEq (04/29), 40 mEq (04/30) ? Treating underlying shock ? Avoid nephrotoxic agents and renally dose medications Treatment follow-up: ? Continue to monitor urine output and renal panel - S/p bicarb x2 #FLORES (improving) - continue to monitor urine output and daily creatinine #Lactic acidosis type A (resolved) Heme #Normocytic anemia Diagnostic workup: -Hemoglobin 12.2--> 11.6 -> 9.7, likely hemodilutional Treatment: -No acute management as there is no signs of active bleeding Treatment follow up: - Daily CBC - Outpatient anemia work up #Leukocytosis Secondary to ESBL UTI and bacteremia Diagnostic work up: - WBC 21.7--> 26.6 -> 20.4 -> 14.9 - Afebrile - Blood culture grew ESBL in 1/2 bottles - UA positive - Urine culture 04/20 grew ESBL E.Coli. Repeat urine culture 04/27 also positive for ESBL E coli. Treatment: ? S/p Meropenem (04/27/2025 - 04/28/2025) ? Zosyn (04/28/2025?) Treatment follow up: -Daily CBC Endo No active disease MSK No active disease ID #ESBL E. coli UTI with bacteremia Diagnostic workup: ? UA positive for bacteria ? Urine culture from 04/20/2025 showed ESBL E. coli, sensitive to Zosyn. Repeat urine culture 04/27 positive for same organism. ? Blood cultures positive for ESBL 1/2 bottles Treatment: ? S/p Meropenem (04/27/2025 - 04/28/2025) ? Zosyn (04/28/2025?) Treatment follow-up: - Continue to monitor WBCs - Avoid abx that could prolong QTc as patient is on amiodarone ICU Health maintenance: Mechanical ventilation: no Sedation: no Diet: Cardiac DVT prophylaxis: Heparin SQ GI prophylaxis: famotidine Yu: none Lines: PIV Antibiotics: Zosyn CODE STATUS: DNR Patient plan of care was discussed with the senior resident, Dr. Kaur, and attending physician, Dr. Hansen. Leonor Jensen DO, PGY-1 Attending Provider Attestation/Addendum pt seen and examined, d/w resident team. agree with above. in brief this is a 75yo F who presented to the hospital with UTI, sepsis and SVT. ucx are growing an ESBL E.coli sensitive to zosyn. she had an episode of SVT again overnight and received metoprolol. She is on an amio gtt and seen and followed by caridology. This morning she is stable with a HR in the 60-70s. on exam she is NAD, AAOx4, LCTAB, HRRR, abd s/nt/bs+. She is tolerating PO. She has an FLORES which is improving and on labs a hyperchloremic acidosis. Urine lytes were sent to eval for urine AG and poss underlying RTA in setting of long standing Hep C. d/w ID to resume pts home antiviral for Hep C. she is currently stable for downgrade case d/w ICU team labs, imaging, records reveiwed ~37min required for eval, exam, review, intervention, discussion and formulation of POC for this acutely ill pt
--- NOTE | 2025-04-30 10:56 | ESCONSULT_ITS ---
RE: MILAN JEFFERS : 1950 DATE OF CONSULTATION: 04/30/2025 REFERRING PHYSICIAN: John Paul Escalante MD. REASON FOR CONSULTATION: UTI and hepatitis C. HISTORY OF PRESENT ILLNESS: The patient is an unfortunate 75-year-old woman, who has UTI. She had UTI last about 5 years ago. She does not have frequent UTIs. Her germ looked to be sensitive to a variety of pathogens, variety of antibiotics, so she reports having tried quinolone before as an outpatient, but it does appear to be sensitive to quinolones. So, quinolones can be tried if you desire that. She was supposed to start Macrobid, but she decided not to and she has positive blood cultures as noted. As a result, we are going to need to give her some oral treatment. Zosyn will work, but it is not convenient at home and oral Levaquin is more convenient, so we use Levaquin for most hospitalized patients, so 500 mg a day with normal renal function, adjusted if she has some renal insufficiency. She is 75 years of age and a nasal swab is negative for MRSA. I am not quite sure why she is in the ICU. I have heard that from others. Oddly, her germ appears to be intermediate to Cipro, but sensitive to Levaquin, which is odd. She was given Macrobid, but they never started it. She was given Cipro prior to that and reports it did not work. PHYSICAL EXAMINATION: GENERAL: Her exam is benign. HEENT: She is edentulous and not ill appearing. HEART: Benign. LUNGS: Benign. I note no pain on urination when urinating at the moment, but she does admit that she had some problems when she came in. She just reports she had UTI that was raging and did not get better with other treatments. She had a CT abdomen, I am going to do an ultrasound before she goes. I would probably not leave her off treatment more than 3-4 days because of the chance of resistance. If there is a need to stop the medication due to a potential side effect of the amiodarone that is okay, but you have to weigh the pros and cons of the amiodarone versus the need for the medication. It is approved for the medication, usually its treatment is about 2 or 3 months depending on which medicine is being used. She should follow up with Dr. Maya, who prescribed the treatment initially. DT: 10:43:16 TT: 10:55:00 Ref: [id number] - TID: [id number] MTDD
--- NOTE | 2025-04-30 13:20 | PC.SS ---
Update: Patient on room air. P.O. feeding. Vitals are stable. Downgraded from ICU.
--- NOTE | 2025-04-30 13:25 | ESPR_ITS ---
<Statement entered by Jose Stephens MD - 04/30/25 16:02> 75-year-old female with significant past medical history of acoustic neuroma status post remote with residual left facial droop and left eye ptosis and some slurred speech, hypertension, anxiety, depression, GERD, neuropathy, recurrent ESBL infections, HFpEF, chronic hepatitis C, hypertension, Raynaud's phenomenon, SVT presented to the hospital with SVT for which she got multiple doses of adenosine followed by 4 shocks despite which patient stayed in SVT for which she is upgraded to ICU and placed on amiodarone drip. In the ICU, patient is treated as a septic shock exacerbating the underlying SVT. Slowly patient reported to the normal sinus rhythm and continued IV antibiotics. As her rhythm remained stable, patient was downgraded to floors for further management. Will continue beta-blockers and IV antibiotics for now I have personally seen and examined the patient, agree with residents assessment and plan Patient plan of care was discussed with the attending physician, Dr. Brain Stephens, PGY2 Documentation for date of: 04/30/25 Subjective Subjective Interval history: The patient is a 75-year-old female who has been downgraded from ICU to telemetry. She continues to feel significantly improved since her ICU stay. She denies any chest pain, palpitations, or shortness of breath today. She is alert and oriented and in no acute distress. She is agreeable to restarting her hepatitis C medication despite the potential bradycardia risks associated with amiodarone and metoprolol. Exam Vital Signs Temp Pulse Resp BP Pulse Ox O2 Del Method O2 Flow Rate 97.9 F 67 24 H 142/65 H 93 L Room Air 2 04/30/25 08:00 04/30/25 12:00 04/30/25 12:00 04/30/25 12:00 04/30/25 12:00 04/29/25 16:01 04/29/25 12:00 Narrative Exam General: Awake, alert, and oriented. Non-toxic appearing. Cardiovascular: Regular rate and rhythm, normal S1 and S2, no murmurs. Respiratory: Clear to auscultation, no wheezing or crackles. Abdomen: Soft, non-tender, no guarding, or rebound tenderness. Neurologic: Alert and oriented, no new neurological deficits. Chronic left-sided facial droop. Extremities: Trace bilateral edema. Skin: Multiple scattered ecchymoses on forearms. Objective Labs 05/02/25 04:07 05/02/25 04:07 Labs: Laboratory Results - last 24 hr 04/29/25 04/29/25 04/29/25 14:05 17:50 20:48 WBC RBC Hgb Hct MCV MCH MCHC RDW Std Deviation Plt Count Neut % (Auto) Lymph % (Auto) [place] % (Auto) Eos % (Auto) Baso % (Auto) Neut # (Auto) Lymph # (Auto) [place] # (Auto) Eos # (Auto) Baso # (Auto) Immature Gran # (Auto) Absolute Nucleated RBC Immature Gran % Nucleated RBC % Sodium 140 141 Potassium 4.6 D 4.1 D Chloride 110 H 111 H Carbon Dioxide 20.3 17.4 L Anion Gap 10 13 BUN 40 H 42 H Creatinine 1.9 H 1.9 H Estim Creat Clear Calc 26.0 L 26.0 L eGFR 27 L 27 L BUN/Creatinine Ratio 21 H 22 H Glucose 92 113 H Calculated Osmolality 289 292 Lactic Acid 4.8 H* 2.3 H 2.7 H Calcium 8.1 L 7.6 L Corrected Calcium 8.9 8.6 Phosphorus 3.5 3.0 Magnesium 2.7 H 3.1 H Total Bilirubin AST ALT Alkaline Phosphatase Total Protein Albumin 3.0 L 2.7 L Globulin Albumin/Globulin Ratio Ur Random Sodium Ur Random Potassium Ur Random Chloride 04/30/25 04/30/25 04:38 05:40 WBC 14.9 H D RBC 3.35 L Hgb 9.1 L Hct 27.6 L MCV 82 MCH 27.2 MCHC 33.0 RDW Std Deviation 50.9 H Plt Count 137 L D Neut % (Auto) 80 Lymph % (Auto) 7 L [place] % (Auto) 6 Eos % (Auto) 1 Baso % (Auto) 0 Neut # (Auto) 11.9 H Lymph # (Auto) 1.1 [place] # (Auto) 0.9 H Eos # (Auto) 0.2 Baso # (Auto) 0.1 Immature Gran # (Auto) 0.79 H Absolute Nucleated RBC 0.02 H Immature Gran % 5 H Nucleated RBC % 0 Sodium 142 Potassium 4.6 D Chloride 109 H Carbon Dioxide 22.1 Anion Gap 11 BUN 32 H Creatinine 1.6 H Estim Creat Clear Calc 30.9 L eGFR 33 L BUN/Creatinine Ratio 20 Glucose 96 Calculated Osmolality 290 Lactic Acid 1.6 Calcium 7.5 L Corrected Calcium 8.6 Phosphorus 3.0 Magnesium 3.0 H Total Bilirubin 0.5 AST 33 ALT 9 L Alkaline Phosphatase 179 H D Total Protein 4.5 L Albumin 2.6 L Globulin 1.9 L Albumin/Globulin Ratio 1.4 Ur Random Sodium 39.0 Ur Random Potassium 42 Ur Random Chloride 37.1 L ABG Interpretation ABG results: 04/27/25 16:30 VBG pH 7.35 VBG pCO2 35 L VBG pO2 23 VBG Base Excess -6 L Quality Measures Quality Measures VTE prophylaxis Advance care planning discussed with:: patient Assessment & Plan Assessment Current Active Medications: Generic Name Dose Route Start Last Admin Trade Name Freq PRN Reason Stop Dose Admin Acetaminophen 650 mg 04/27/25 20:08 04/29/25 21:55 Acetaminophen 325 Mg Tablet PO 05/27/25 20:07 650 mg Q6H PRN Administration Fever >100.4 or pain 1-3 Aspirin 81 mg 04/28/25 09:00 04/30/25 08:32 Aspirin Ec 81 Mg Tabec PO 05/28/25 08:59 81 mg QDAY ANTHONY Administration Atorvastatin Calcium 80 mg 04/27/25 21:00 04/29/25 21:30 Atorvastatin Calcium 20 Mg Tablet PO 05/27/25 20:59 80 mg HS ANTHONY Administration Bumetanide 0.5 mg 04/28/25 09:00 04/28/25 10:17 Bumetanide 0.5 Mg Tablet PO 05/28/25 08:59 Not Given On Hold: 04/28/25 10:19 QDAY ANTHONY Citric Acid/Sodium Citrate 30 ml 04/29/25 22:15 04/30/25 09:10 Citric Acid/Sodium Citr 15 Ml Udc (Bicitra) PO 05/29/25 22:14 30 ml BID ANTHONY Administration Docusate Sodium 100 mg 04/28/25 09:00 04/30/25 08:31 Docusate Sod 100 Mg Capsule PO 05/28/25 08:59 100 mg QDAY ANTHONY Administration Protocol Famotidine 20 mg 04/27/25 21:00 04/30/25 10:27 Famotidine Inj 10 Mg/Ml Vial 2 Ml IVP 05/27/25 20:59 20 mg Q12HR ANTHONY Administration Heparin Sodium (Porcine) 5,000 unit 04/29/25 14:00 04/30/25 05:29 Heparin Sod Inj 5000 Unit/Ml Vial SC 05/13/25 13:59 5,000 unit Q8HR ANTHONY Administration Piperacillin/Tazobactam/Dextrose 3.375 gm in 50 mls @ 12.5 mls/hr 04/28/25 21:00 04/30/25 10:26 Zosyn IV 05/05/25 20:59 12.5 mls/hr Q12HR ANTHONY Administration Protocol Amiodarone HCl/Dextrose 360 mg in 200 mls @ 16.667 mls/hr 04/30/25 09:55 04/30/25 10:20 Nexterone Ivpb IV 05/01/25 09:54 16.667 mls/hr .Q12H ANTHONY Administration Levothyroxine Sodium 25 mcg 04/29/25 06:00 04/30/25 05:29 Levothyroxine Sodium 25 Mcg Tablet PO 05/29/25 05:59 25 mcg ACBR ANTHONY Administration Metoprolol Succinate 50 mg 05/01/25 09:00 Metoprolol Succinate Xl 25 Mg Tabcr PO 05/31/25 08:59 QDAY ANTHONY Non-Formulary Medication 1 tab 04/28/25 18:15 Sofosbuvir-Velpatasvir PO 05/28/25 18:14 QDAY ANTHONY Ondansetron HCl 4 mg 04/27/25 20:08 Ondansetron Inj 2 Mg/Ml Inj 2 Ml IVP 05/27/25 20:07 Q6H PRN NAUSEA OR VOMITING Protocol Oxycodone/Acetaminophen 1 tab 04/30/25 02:09 Oxycodone/Apap 5/325 Tablet PO 05/05/25 02:08 Q6HR PRN Pain 4-10 Plan 75-year-old female with a history of chronic SVT, HFpEF, hypertension, chronic hepatitis C, and recurrent ESBL infections, who was admitted for septic shock, paroxysmal SVT, and worsening renal function, now downgraded to telemetry after stabilization off pressors. #Paroxysmal SVT 75-year-old female with chronic SVT, exacerbated by sepsis, now stabilized on metoprolol and amiodarone. The patient?s SVT episodes have been more frequent due to the stress of sepsis. Despite receiving adenosine and cardioversion, she has had multiple episodes of SVT requiring ongoing IV amiodarone and metoprolol. Currently rate-controlled with heart rate in the 60s to 70s, and no longer requiring pressors. The cardiology team is in agreement with the current management and dose adjustments. Plan: * Continue metoprolol 25 mg x2 today, increase to 50 mg tomorrow AM. * If SVT recurs after 50 mg, administer an additional 25 mg. * Transition to PO amiodarone 200 mg BID after completing the IV infusion. * Monitor QTc daily with EKG. * Continue electrolyte repletion (Potassium >4, Magnesium >2). * Follow up with cardiology for further management. #Shock (resolved) Resolved shock, likely multifactorial from ESBL E. coli UTI, bacteremia, and paroxysmal SVT. The patient has now been off pressors for >24 hours and remains stable with a normalizing BP. Sepsis-related parameters (WBC, lactic acid) are improving. Plan: * ICU discontinued pressors, as patient is stable off them. * Continue IV fluids cautiously and monitor for signs of fluid overload. * Continue Zosyn to treat UTI and monitor for any further signs of infection. * Follow-up on blood cultures and final sensitivities. #Hepatitis C Chronic Hepatitis C on sofosbuvir-velpatasvir, restarted after discussion of risks with amiodarone and metoprolol. The patient has been on sofosbuvir-velpatasvir for Hepatitis C and was initially stopped due to concerns with bradycardia when co-administered with amiodarone and metoprolol. After discussing the risks and benefits, the patient agreed to restart the medication to avoid resistance from withholding treatment. Plan: * Restart sofosbuvir-velpatasvir as per the patient?s agreement. * Monitor for potential bradycardia and QT prolongation while on amiodarone and metoprolol. * Follow-up with Dr. Maya for Hep C management and monitoring. #ESBL E. coli UTI / GNR Bacteremia Known ESBL history; prior culture from 04/20 also ESBL E. coli. Blood culture positive in 1/2 bottles for ESBL GNR; repeat pending. WBC downtrending from 26 -> 20 -> 14 improving. Afebrile, hemodynamically stable off pressors. Sensitivities support Zosyn as acceptable therapy per ID. Plan: * Continue Zosyn. * Daily CBC, monitor WBC trend. * Follow up final blood and urine culture sensitivities. * Avoid QT-prolonging antibiotics (fluoroquinolones) while on amiodarone. #FLORES (improving) #Hyperchloremic metabolic acidosis (resolved) The patient?s FLORES was likely secondary to dehydration and shock. Renal function has been improving with appropriate fluid resuscitation and monitoring of urine output. Creatinine has improved from 2.6 to 1.9, and the patient continues to produce good urine output. Plan: * Continue to monitor renal function, particularly creatinine and urine output. * Avoid nephrotoxic agents and continue IV fluids cautiously. * If acidosis persists, consider additional sodium bicarbonate. * Follow-up on renal panel in 24 hours. #Normocytic Anemia Stable normocytic anemia likely hemodilutional in the setting of recent IV fluids; no evidence of active bleeding. Hgb trend: 12.2 -> 11.6 -> 9.7 -> 9.1. No need for transfusion at this time. Plan: * Daily CBC. * Monitor for any signs of overt bleeding. * Outpatient anemia workup after acute illness resolves. Health Maintenance: Diet: Cardiac DVT Prophylaxis: Heparin SQ GI Prophylaxis: Famotidine Code Status: DNR ----- Plan discussed with attending physician Dr. De La Paz and senior resident Dr. Kat Guthrie MD PGY-1 Internal Medicine Attending Provider Attestation/Addendum I have examined the patient, reviewed labs and imaging findings, discussed the case with the resident(s), and reviewed entered orders. I agree with the plan of care as outlined in this note. Time Spent: [address] Brain MD
[2025-04-30] MEDS: ATORVASTATIN CALCIUM 20 MG TABLET 80 MG PO (21:18)
[2025-05-01] VITALS (20 sets, daily range): BP systolic 112–134; BP diastolic 64–94; PULSE 66–87; RESP 22–94; TEMP 36.1–36.5; O2SAT 94–98; BMI 31.6
[2025-05-01] MEDS: guaiFENesin SYRUP 200 MG/10 ML UDC PO ×2 (04:13→21:20)
[2025-05-01 05:09] LABS: Basophils # (Auto) 0.1 Thou/mm3 (0.0-0.2); Basophils % (Auto) 0 % (0-2.5); Eosinophils # (Auto) 0.2 Thou/mm3 (0.0-0.5); Eosinophils % (Auto) 1 % (0-10); Hematocrit 31.0 % (36.0-46.0); Hemoglobin 10.2 g/dL (12.0-16.0); Immature Granulocytes Auto 0.81 Thou/mm3 (0.00-0.00); Lymphocytes # (Auto) 1.6 Thou/mm3 (1.0-4.8); Lymphocytes % (Auto) 9 % (10-50); Mean Corpuscular HGB Conc 32.9 g/dl (31.0-37.0); Mean Corpuscular Hemoglobin 26.8 pg (25.0-35.0); Mean Corpuscular Volume 82 fL (80-100); Monocytes # (Auto) 1.4 Thou/mm3 (0.0-0.8); Monocytes % (Auto) 8 % (0-12); Neutrophils # (Auto) 13.0 Thou/mm3 (1.8-7.7); Neutrophils % (Auto) 76 % (37-80); Nucleated Red Blood Cell # 0.00 Thou/mm3 (0.00-0.00); Nucleated Red Blood Cell % 0 /100 WBC (0); Platelet Count 124 Thou/mm3 (140-440); RDW Standard Deviation 50.9 fL (36.4-46.3); Red Blood Count 3.80 Miln/mm3 (4.00-5.20); White Blood Count 17.1 Thou/mm3 (3.6-11.0)
[2025-05-01] MEDS: HEPARIN SOD INJ 5000 UNIT/ML VIAL SC ×3 (05:31→21:14)
[2025-05-01] MEDS: LEVOTHYROXINE SODIUM 25 MCG TABLET PO (05:32)
[2025-05-01 05:42] LABS: Alanine Aminotransferase 12 U/L (10-49); Albumin, Serum 2.8 gm/dL (3.4-4.8); Albumin/Globulin Ratio 1.3 (1.2-2.2); Alkaline Phosphatase 186 U/L (46-116); Anion Gap 12 (7-16); Aspartate Amino Transferase 43 U/L (0-34); BUN/Creatinine Ratio 21 Ratio (12-20); Bilirubin,Total 0.6 mg/dL (0.3-1.2); Blood Urea Nitrogen 27 mg/dL (9-23); Calcium 7.7 mg/dL (8.3-10.6); Calcium (Corrected) 8.7 mg/dL (8.5-10.1); Carbon Dioxide 23.3 mMol/L (20.0-31.0); Chloride 105 mMol/L (98-107); Creatinine (Component) 1.3 mg/dL (0.6-1.3); Estimated Creatinine Clearance 38.6 mL/min (>60); Globulin 2.1 gm/dL (2.3-3.5); Glucose 98 mg/dL (74-106); Magnesium 2.2 mg/dL (1.6-2.6); Osmolality,Calculated 284 (275-295); Phosphorous 3.2 mg/dL (2.4-5.1); Potassium 4.5 mMol/L (3.4-5.1); Sodium 140 mMol/L (136-145); Total Protein 4.9 gm/dL (5.7-8.2); eGFR 43 See Note
--- NOTE | 2025-05-01 08:16 | PD.RESPRO ---
Documentation for date of: 05/01/25 Subjective Subjective Interval history: The patient is a 75-year-old female, well known to Dr. Palomares, with a significant past medical history including acoustic neuroma status post surgery with residual right facial droop and left eye ptosis; hypothyroidism; anxiety and depression; GERD; neuropathy; recurrent ESBL infections; HFpEF (EF 60?65%); chronic hepatitis C currently on treatment; and hypertension. She presented to [facility] with chief complaints of generalized weakness and urinary discomfort. Symptoms began approximately three days prior and progressively worsened. On arrival, she primarily reported severe weakness, dysuria, and suprapubic pain/tenderness. She was recently hospitalized in March for symptomatic hypokalemia, SVT, and UTI. Her hospital course was complicated by recurrent SVT requiring adenosine 6 mg followed by 12 mg for conversion to sinus rhythm. She was subsequently started on metoprolol succinate 100 mg twice daily. Ablation was discussed on multiple occasions, however patient declined at that time. On current presentation, the patient denied chest pain, shortness of breath, dyspnea, palpitations, nausea, vomiting, or other associated symptoms. ED Course Vitals: BP 101/54, HR 71, RR 18, Temp 87.6?F, SpO? 100% on room air Labs: WBC 21.7; VBG: pH 7.35 / pCO2 35 / pO2 23 / O? sat 35%; K 3.2; HCO3 17.5; BUN 54; Cr 2.6 (CrCl 18.1 mL/min); ALT 9; ALP 135; Troponin (?); BNP 402; Procalcitonin 4.14; Lactate 2.4 UA: Turbid, protein +1, RBC 11, WBC 212, amorphous crystals present Imaging:EKG: Sinus rhythm, QTc 454 ms, ventricular premature complexes CXR: Increased bronchovascular markings; differential includes bronchitis vs pulmonary fibrosis received Ceftriaxone 1 g IV, 2 L lactated Ringer?s, potassium repletion. The patient was admitted for sepsis secondary to a urinary tract infection for further treatment and management. Past Medical History:As above. Surgical History:Gastric bypass; acoustic neuroma resection; umbilical hernia repair. Family History:Significant for coronary artery disease and myocardial infarction in older age. Social History:Remote polysubstance use (methamphetamine, cocaine, LSD, THC); no meth or alcohol use for >20 years. 50 pack-year smoking history. Lives alone in [place]; previously employed in a [employer]. . Reports concern about daughter?s alcohol use. Medications Aspirin 81 mg daily; atorvastatin 80 mg daily; Bumex 1 mg daily; hydroxyzine 10 mg twice daily; levothyroxine 25 mcg daily; losartan 12.5 mg daily; metoprolol succinate 100 mg daily; omeprazole 20 mg daily; trazodone 50 mg twice daily. Allergies NKDA. On the morning of 12/16, the patient developed SVT with heart rates >180 bpm and hypotension (BP 80/60, MAP 62?65). She received adenosine 6 mg, followed by 12 mg, and an additional 12 mg without conversion. Due to persistent SVT and hemodynamic instability, she underwent electrical cardioversion with two shocks at 100 J followed by two shocks at 200 J, administered with ketamine for sedation. She then received an amiodarone bolus and was started on an amiodarone drip. The patient was upgraded to the ICU for close monitoring. Cardiology was consulted for further recommendations. Currently patient is in septic shock, blood culture revealed GNR, patient is on phenylephrine drip as for pressure support, heart rate is low 60s, if patient develop another episode of SVT, patient can be placed back to amiodarone drip. 04/30/2025: The patient was seen and examined at the bedside. Overnight, the patient experienced multiple episodes of SVT, which occurred intermittently. Adenosine (6 mg, 12 mg, 12 mg) was administered, and the patient was started on an amiodarone drip at 1 mcg/kg/min. Today, the dose was reduced to 0.5 mcg/kg/min, and the plan is to transition the patient to oral amiodarone, the patient remains in sinus rhythm. The patient has been weaned off phenylephrine, and vital signs are currently stable with controlled blood pressure. The patient was given 50 mg of metoprolol this morning and will continue to be closely monitored. If the patient remains stable, the plan is to start metoprolol 50 mg daily. Vital signs and electrolytes will continue to be monitored. Renal function is improving, with creatinine decreasing from 1.9 to 1.6, BUN decreasing from 42 to 32, and eGFR improving from 27 to 33. Lactic acid is now within normal limits, down from 2.7 to 1.6. The patient is producing adequate urine output. Blood cultures again show GNR bacteremia, and infectious disease is involved in the case. The patient will continue on antibiotics as per ID recommendations. 05/01/2025. Patient seen and examined at bedside. Overnight patient developed sinus tachycardia with heart rate of 150, patient is on amiodarone drip, after completion should be transition to amiodarone p.o., transition to 200 p.o. amiodarone daily, hold antiviral medication. In the morning patient received 50 of metoprolol, another 50 mg should be given to return back to her home regimen. Patient regiment would be metoprolol 100 a.m. with metoprolol 25 at bedtime. Patient cannot be chronically placed on amiodarone as she is on antiviral medication for hepatitis C. Interaction of this to medication will cause QTc prolongation will continue current regimen, close monitor vitals. Renal panel appears to be improving, creatinine down to 1.3, BUN is 27, eGFR 43. Patient having adequate urine output. Lactic acidosis has resolved. Patient continued to be on antibiotics. Exam Vital Signs Temp Pulse Resp BP Pulse Ox O2 Del Method O2 Flow Rate 97.7 F 77 26 H 112/71 97 Room Air 2 05/01/25 04:00 05/01/25 06:18 05/01/25 06:18 05/01/25 06:00 05/01/25 06:00 04/29/25 16:01 04/29/25 12:00 Narrative Exam Physical Exam General: Awake and in no acute distress. Conversational and non-toxic appearing. HEENT: Normocephalic, atraumatic, mucous membranes moist. Heart: Regular rate and rhythm, normal S1 and S2, no murmurs. Lungs: Clear to auscultation with no wheezing or crackles. Abdomen: Soft, nondistended, nontender, positive bowel sounds. No guarding or rebound tenderness. Neurologic: Alert and oriented x3, no gross neurological deficit, and patient able to move all 4 extremities. Extremities: No edema. Bluish fingertips. Skin: No rash or ecchymoses. Objective Labs 05/01/25 04:28 05/01/25 04:28 Labs: Laboratory Results - last 24 hr 05/01/25 04:28 WBC 17.1 H RBC 3.80 L Hgb 10.2 L Hct 31.0 L MCV 82 MCH 26.8 MCHC 32.9 RDW Std Deviation 50.9 H Plt Count 124 L Neut % (Auto) 76 Lymph % (Auto) 9 L Marshall % (Auto) 8 Eos % (Auto) 1 Baso % (Auto) 0 Neut # (Auto) 13.0 H Lymph # (Auto) 1.6 Marshall # (Auto) 1.4 H Eos # (Auto) 0.2 Baso # (Auto) 0.1 Immature Gran # (Auto) 0.81 H Absolute Nucleated RBC 0.00 Immature Gran % 5 H Nucleated RBC % 0 Sodium 140 Potassium 4.5 Chloride 105 Carbon Dioxide 23.3 Anion Gap 12 BUN 27 H Creatinine 1.3 Estim Creat Clear Calc 38.6 L eGFR 43 L BUN/Creatinine Ratio 21 H Glucose 98 Calculated Osmolality 284 Calcium 7.7 L Corrected Calcium 8.7 Phosphorus 3.2 Magnesium 2.2 Total Bilirubin 0.6 AST 43 H ALT 12 Alkaline Phosphatase 186 H Total Protein 4.9 L Albumin 2.8 L Globulin 2.1 L Albumin/Globulin Ratio 1.3 ABG Interpretation ABG results: 04/27/25 16:30 VBG pH 7.35 VBG pCO2 35 L VBG pO2 23 VBG Base Excess -6 L Quality Measures Quality Measures VTE prophylaxis Advance care planning discussed with:: patient Assessment & Plan Assessment Current Active Medications: Generic Name Dose Route Start Last Admin Trade Name Freq PRN Reason Stop Dose Admin Acetaminophen 650 mg 04/27/25 20:08 04/29/25 21:55 Acetaminophen 325 Mg Tablet PO 05/27/25 20:07 650 mg Q6H PRN Administration Fever >100.4 or pain 1-3 Aspirin 81 mg 04/28/25 09:00 04/30/25 08:32 Aspirin Ec 81 Mg Tabec PO 05/28/25 08:59 81 mg QDAY ANTHONY Administration Atorvastatin Calcium 80 mg 04/27/25 21:00 04/30/25 21:18 Atorvastatin Calcium 20 Mg Tablet PO 05/27/25 20:59 80 mg HS ANTHONY Administration Bumetanide 0.5 mg 04/28/25 09:00 04/28/25 10:17 Bumetanide 0.5 Mg Tablet PO 05/28/25 08:59 Not Given On Hold: 04/28/25 10:19 QDAY ANTHONY Citric Acid/Sodium Citrate 30 ml 04/29/25 22:15 04/30/25 21:19 Citric Acid/Sodium Citr 15 Ml Udc (Bicitra) PO 05/29/25 22:14 30 ml BID ANTHONY Administration Sofosbuvir And 0 ea 04/30/25 15:15 04/30/25 15:29 Velpatasvir 400 Mg- PO 05/30/25 15:14 1 tablet 100 Mg QDAY ANTHONY Administration Docusate Sodium 100 mg 04/28/25 09:00 04/30/25 08:31 Docusate Sod 100 Mg Capsule PO 05/28/25 08:59 100 mg QDAY ANTHONY Administration Protocol Famotidine 20 mg 04/27/25 21:00 04/30/25 21:19 Famotidine Inj 10 Mg/Ml Vial 2 Ml IVP 05/27/25 20:59 20 mg Q12HR ANTHONY Administration Guaifenesin 200 mg 05/01/25 03:52 05/01/25 04:13 Guaifenesin Syrup 200 Mg/10 Ml Udc PO 05/31/25 03:51 200 mg Q4HR PRN Administration COUGH Protocol Heparin Sodium (Porcine) 5,000 unit 04/29/25 14:00 05/01/25 05:31 Heparin Sod Inj 5000 Unit/Ml Vial SC 05/13/25 13:59 5,000 unit Q8HR ANTHONY Administration Piperacillin/Tazobactam/Dextrose 3.375 gm in 50 mls @ 12.5 mls/hr 04/28/25 21:00 04/30/25 21:21 Zosyn IV 05/05/25 20:59 12.5 mls/hr Q12HR ANTHONY Administration Protocol Amiodarone HCl/Dextrose 360 mg in 200 mls @ 16.667 mls/hr 04/30/25 09:55 04/30/25 22:20 Nexterone Ivpb IV 05/01/25 09:54 16.667 mls/hr .Q12H ANTHONY Administration Levothyroxine Sodium 25 mcg 04/29/25 06:00 05/01/25 05:32 Levothyroxine Sodium 25 Mcg Tablet PO 05/29/25 05:59 25 mcg ACBR ANTHONY Administration Metoprolol Succinate 50 mg 05/01/25 09:00 Metoprolol Succinate Xl 25 Mg Tabcr PO 05/31/25 08:59 QDAY ANTHONY Ondansetron HCl 4 mg 04/27/25 20:08 Ondansetron Inj 2 Mg/Ml Inj 2 Ml IVP 05/27/25 20:07 Q6H PRN NAUSEA OR VOMITING Protocol Oxycodone/Acetaminophen 1 tab 04/30/25 02:09 Oxycodone/Apap 5/325 Tablet PO 05/05/25 02:08 Q6HR PRN Pain 4-10 Plan The patient is a 75-year-old female, well known to Dr. Palomares, with a significant past medical history including r acoustic neuroma status post surgery with residual right facial droop and left eye ptosis; hypothyroidism; anxiety and depression; GERD; neuropathy; recurrent ESBL infections; HFpEF (EF 60?65%); chronic hepatitis C currently on treatment; and hypertension. She presented to [facility] with chief complaints of generalized weakness and urinary discomfort. The patient developed SVT with heart rates >180 bpm and hypotension (BP 80/60, MAP 62?65). She received adenosine 6 mg, followed by 12 mg, and an additional 12 mg without conversion. Due to persistent SVT and hemodynamic instability, she underwent electrical cardioversion with two shocks at 100 J followed by two shocks at 200 J, administered with ketamine for sedation. #Recurrent episodes of SVT #SVT s/p cardioversion The patient presented with chief complaints of dysuria and generalized weakness. Her hospital course was complicated with an episode of SVT. On the morning of 12/16, she developed SVT with heart rates exceeding 180 bpm and hypotension (BP 80/60, MAP 62?65). She received adenosine 6 mg, followed by 12 mg, and an additional 12 mg without conversion. Due to persistent SVT and hemodynamic instability, she underwent electrical cardioversion with two shocks at 100 J, followed by two shocks at 200 J, with ketamine administered for sedation. Possible contributing factors include sepsis and UTI. The patient has been followed closely by Cardiology, and catheter ablation has been discussed extensively on multiple occasions. She had previously declined the procedure; Due to her recent ongoing infection, she presented to the ED again and experienced another episode of SVT during this visit. At home patient was on metoprolol 100 twice daily. Patient is subjectively doing better BP is 110/84 and TN at 84. potassium Initially was 3.1 in the morning labs after repleting with 70meq of potassium. Plan Recommend to keep potassium greater than 4 and magnesium greater than 2.2 at all times and aggressive repletion of potassium magnesium as well as calcium. Aggressively treat the acute kidney injury as well as the sepsis with fluids as well as IV antibiotics. Patient does not appear to be fluid overloaded and mostly is hypovolemic at the present point of time. Recent echo with normal LV function few weeks ago. Can repeat limited echo again to reevaluate the LV function and RV function and to rule out any structural abnormalities. Recommend to stop the Epclusa completely and if patient reverts back into SVT then treat the electrolytes aggressively first including magnesium IV Patient currently is on amiodarone drip after completion the back patient will be transition to p.o. amiodarone Was given 50 mg of metoprolol today, should be given another 50 milligram in a.m. to return to her home regimen which was 100 mg metoprolol in a.m. and 25 mg of metoprolol at night. Start amiodarone 200 mg p.o. daily, antiviral medication should be on hold as interaction of this two medication will cause QTc prolongation. Not a candidate for digoxin because of the acute kidney injury as well as hypokalemia. No beta-blockers or calcium channel blockers because of the hypotension and septic shock. Discussed with patient this evening and patient wants to pursue the EP and consultation for possible ablation as she is having recurrent SVT. Patient is actively infected with septic shock and gram-negative bacteremia and will treat aggressively and which should help with the SVT and then patient could be referred to EP when she is hemodynamically stable. #Electrolyte imbalance #Hypomagnesemia #Hypokalemia Continue close monitor electrolytes Keep potassium above 4 and Magnesium 2.2. Repeat as needed #HEpEF grade 1 diastolic dysfunction 60 to 65% Not fluid overloaded. Strict input output, daily weights and 2 g sodium diet. Was on home Bumex which is held at the present point of time Echo 04/07: CONCLUSIONS Normal left ventricular size and function. Grade I diastolic dysfunction. Estimated EF 60-65%. Normal right ventricular size and function. RVSP 27 mmH with RAP 8. Mildly dilated LA. Trivial mitral stenosis. Severe posterior MAC. Mild-moderate MR. Mild TR, PI and AI. Compared to prior study of 06/21/24. EF improved. #Septic shock secondary due to GNR bacteremia-resolved #GNR bacteremia #Recurrent ESBL UTI #Hx of Polysubstance abuse #Hypothyroidism, patient history #Anxiety, patient history #Depression, patient history #Acoustic neuroma status postsurgery #Neuropathy To be managed by primary team Patient care was discussed with attending physician Dr. Jelani Chilel MD PGY-2 Attending Provider Attestation/Addendum I have personally seen and examined the patient separately on the above date of service and discussed the plan of care with the resident. I reviewed the resident Bria Márquez consultation progress note and agree with the resident findings and plan in the note above and have also edited the documentation to reflect my findings and plan. aTy Palomares M.D. Interventional Cardiology
[2025-05-01] MEDS: CITRIC ACID/SODIUM CITR 15 ML UDC (BICITRA) 30 ML PO ×2 (09:35→21:02)
[2025-05-01] MEDS: DOCUSATE SOD 100 MG CAPSULE PO (09:35)
[2025-05-01] MEDS: PIPER/TAZO 3.375 GM PREMIX 3.375 GM/50 ML BAG IV ×2 (09:35→21:02)
[2025-05-01] MEDS: ASPIRIN EC 81 MG TABEC PO (09:35)
[2025-05-01] MEDS: METOPROLOL SUCCINATE XL 25 MG TABCR 50 MG PO ×2 (09:36→10:28)
[2025-05-01] MEDS: FAMOTIDINE INJ 10 MG/ML VIAL 2 ML 20 MG IVP ×2 (09:36→21:03)
[2025-05-01] MEDS: AMIODARONE HCL 200 MG TABLET PO (10:27)
[2025-05-01] MEDS: POLYETHYLENE GLYCOL 17 GM PACKET PO (10:45)
[2025-05-01] MEDS: LACTULOSE SYRUP 20 GM/30 ML UDC PO (10:45)
--- NOTE | 2025-05-01 14:30 | PC.SS ---
Rounding Note: Patient receiving IV antibiotics. Plan is to d/c patient home tomorrow.
--- NOTE | 2025-05-01 15:37 | ESPR_ITS ---
<Statement entered by Jose Stephens MD - 05/02/25 16:00> Patient is seen and examined at bedside. No acute overnight events. Patient denies chest pain, palpitations. Patient metoprolol dose is adjusted to 100 mg once daily in the morning and 25 mg in the night. Amiodarone drip is stopped and transition to 200 mg once daily. Will continue to reevaluate and anticipate discharge in the next 24 to 48 hours. I have personally seen and examined the patient, agree with residents assessment and plan Patient plan of care was discussed with the attending physician, Dr. Dash Stephens, PGY2 Documentation for date of: 05/01/25 Subjective Subjective Interval history: She is feeling significantly improved and denies any chest pain, shortness of breath, or palpitations today. She is alert and oriented and in no acute distress. She has agreed to increase her metoprolol dosage, as she tolerated 75 mg yesterday without any SVT episodes. Her only complaint is constipation (no BM since Wednesday). Exam Vital Signs Temp Pulse Resp BP Pulse Ox O2 Del Method O2 Flow Rate 97.7 F 77 25 H 124/74 96 Room Air 2 05/01/25 04:00 05/01/25 12:00 05/01/25 12:00 05/01/25 12:00 05/01/25 12:00 05/01/25 12:00 04/29/25 12:00 Narrative Exam General: Awake, alert, and oriented. Non-toxic appearing. Cardiovascular: Regular rate and rhythm, normal S1 and S2, no murmurs. Respiratory: Clear to auscultation, no wheezing or crackles. Abdomen: Soft, non-tender, no guarding, or rebound tenderness. Neurologic: Alert and oriented, no new neurological deficits. Chronic left-sided facial droop. Extremities: Trace bilateral edema. Skin: Multiple scattered ecchymoses on forearms. Objective Labs 05/01/25 04:28 05/01/25 04:28 Labs: Laboratory Results - last 24 hr 05/01/25 04:28 WBC 17.1 H RBC 3.80 L Hgb 10.2 L Hct 31.0 L MCV 82 MCH 26.8 MCHC 32.9 RDW Std Deviation 50.9 H Plt Count 124 L Neut % (Auto) 76 Lymph % (Auto) 9 L [place] % (Auto) 8 Eos % (Auto) 1 Baso % (Auto) 0 Neut # (Auto) 13.0 H Lymph # (Auto) 1.6 [place] # (Auto) 1.4 H Eos # (Auto) 0.2 Baso # (Auto) 0.1 Immature Gran # (Auto) 0.81 H Absolute Nucleated RBC 0.00 Immature Gran % 5 H Nucleated RBC % 0 Sodium 140 Potassium 4.5 Chloride 105 Carbon Dioxide 23.3 Anion Gap 12 BUN 27 H Creatinine 1.3 Estim Creat Clear Calc 38.6 L eGFR 43 L BUN/Creatinine Ratio 21 H Glucose 98 Calculated Osmolality 284 Calcium 7.7 L Corrected Calcium 8.7 Phosphorus 3.2 Magnesium 2.2 Total Bilirubin 0.6 AST 43 H ALT 12 Alkaline Phosphatase 186 H Total Protein 4.9 L Albumin 2.8 L Globulin 2.1 L Albumin/Globulin Ratio 1.3 ABG Interpretation ABG results: 04/27/25 16:30 VBG pH 7.35 VBG pCO2 35 L VBG pO2 23 VBG Base Excess -6 L Quality Measures Quality Measures VTE prophylaxis Advance care planning discussed with:: patient Assessment & Plan Assessment Current Active Medications: Generic Name Dose Route Start Last Admin Trade Name Freq PRN Reason Stop Dose Admin Acetaminophen 650 mg 04/27/25 20:08 04/29/25 21:55 Acetaminophen 325 Mg Tablet PO 05/27/25 20:07 650 mg Q6H PRN Administration Fever >100.4 or pain 1-3 Amiodarone HCl 200 mg 05/02/25 09:00 Amiodarone Hcl 200 Mg Tablet PO 06/01/25 08:59 QDAY ANTHONY Aspirin 81 mg 04/28/25 09:00 05/01/25 09:35 Aspirin Ec 81 Mg Tabec PO 05/28/25 08:59 81 mg QDAY ANTHONY Administration Atorvastatin Calcium 80 mg 04/27/25 21:00 04/30/25 21:18 Atorvastatin Calcium 20 Mg Tablet PO 05/27/25 20:59 80 mg HS ANTHONY Administration Bumetanide 0.5 mg 04/28/25 09:00 04/28/25 10:17 Bumetanide 0.5 Mg Tablet PO 05/28/25 08:59 Not Given On Hold: 04/28/25 10:19 QDAY ANTHONY Citric Acid/Sodium Citrate 30 ml 04/29/25 22:15 05/01/25 09:35 Citric Acid/Sodium Citr 15 Ml Udc (Bicitra) PO 05/29/25 22:14 30 ml BID ANTHONY Administration Sofosbuvir And 0 ea 04/30/25 15:15 05/01/25 09:38 Velpatasvir 400 Mg- PO 05/30/25 15:14 1 tablet 100 Mg QDAY ANTHONY Administration Docusate Sodium 100 mg 04/28/25 09:00 05/01/25 09:35 Docusate Sod 100 Mg Capsule PO 05/28/25 08:59 100 mg QDAY ANTHONY Administration Protocol Famotidine 20 mg 04/27/25 21:00 05/01/25 09:36 Famotidine Inj 10 Mg/Ml Vial 2 Ml IVP 05/27/25 20:59 20 mg Q12HR ANTHONY Administration Guaifenesin 200 mg 05/01/25 03:52 05/01/25 04:13 Guaifenesin Syrup 200 Mg/10 Ml Udc PO 05/31/25 03:51 200 mg Q4HR PRN Administration COUGH Protocol Heparin Sodium (Porcine) 5,000 unit 04/29/25 14:00 05/01/25 14:27 Heparin Sod Inj 5000 Unit/Ml Vial SC 05/13/25 13:59 5,000 unit Q8HR ANTHONY Administration Piperacillin/Tazobactam/Dextrose 3.375 gm in 50 mls @ 12.5 mls/hr 04/28/25 21:00 05/01/25 09:35 Zosyn IV 05/05/25 20:59 12.5 mls/hr Q12HR ANTHONY Administration Protocol Levothyroxine Sodium 25 mcg 04/29/25 06:00 05/01/25 05:32 Levothyroxine Sodium 25 Mcg Tablet PO 05/29/25 05:59 25 mcg ACBR ANTHONY Administration Metoprolol Succinate 100 mg 05/02/25 09:00 Metoprolol Succinate Xl 25 Mg Tabcr PO 06/01/25 08:59 QDAY ANTHONY Metoprolol Succinate 25 mg 05/01/25 21:00 Metoprolol Succinate Xl 25 Mg Tabcr PO 05/31/25 20:59 HS ANTHONY Ondansetron HCl 4 mg 04/27/25 20:08 Ondansetron Inj 2 Mg/Ml Inj 2 Ml IVP 05/27/25 20:07 Q6H PRN NAUSEA OR VOMITING Protocol Oxycodone/Acetaminophen 1 tab 04/30/25 02:09 Oxycodone/Apap 5/325 Tablet PO 05/05/25 02:08 Q6HR PRN Pain 4-10 Plan 75-year-old female with a history of chronic SVT, HFpEF, hypertension, recurrent ESBL UTIs, chronic hepatitis C, and prior acoustic neuroma resection, admitted with septic shock secondary to ESBL E. coli UTI and GNR bacteremia complicated by refractory SVT and FLORES, now clinically improving on telemetry with stabilized rhythm on metoprolol and amiodarone. #Paroxysmal SVT 75-year-old female with chronic SVT, exacerbated by sepsis, now stabilized on metoprolol and amiodarone. The patient?s SVT episodes have been more frequent due to the stress of sepsis. Despite receiving adenosine and cardioversion, she has had multiple episodes of SVT requiring ongoing IV amiodarone and metoprolol. Currently rate-controlled with heart rate in the 60s to 70s, and no longer requiring pressors. The cardiology team is in agreement with the current management and dose adjustments. 05/01/2025: The patient has been stable with no SVT episodes since increasing her metoprolol to 75 mg yesterday. Currently, on Metoprolol succinate 100 mg AM, Metoprolol tartrate 25 mg nightly, and Amiodarone 200 mg daily. No signs of recurrent SVT. Plan: * Continue current metoprolol and amiodarone regimen. * Monitor HR and rhythm for any recurrence. * EKG daily for QTc monitoring. * If SVT recurs, discuss further dose adjustments with cardiology. * Continue electrolyte repletion (Potassium >4, Magnesium >2). * Follow up with cardiology for further management. #Shock (resolved) Resolved shock, likely multifactorial from ESBL E. coli UTI, bacteremia, and paroxysmal SVT. The patient has now been off pressors for >24 hours and remains stable with a normalizing BP. Sepsis-related parameters (WBC, lactic acid) are improving. Plan: * ICU discontinued pressors, as patient is stable off them. * Continue IV fluids cautiously and monitor for signs of fluid overload. * Continue Zosyn to treat UTI and monitor for any further signs of infection. * Follow-up on blood cultures and final sensitivities. #Hepatitis C Chronic Hepatitis C on sofosbuvir-velpatasvir, restarted after discussion of risks with amiodarone and metoprolol. The patient has been on sofosbuvir-velpatasvir for Hepatitis C and was initially stopped due to concerns with bradycardia when co-administered with amiodarone and metoprolol. After discussing the risks and benefits, the patient agreed to restart the medication to avoid resistance from withholding treatment. Plan: * Continue sofosbuvir-velpatasvir as per the patient?s agreement. * Monitor for potential bradycardia and QT prolongation while on amiodarone and metoprolol. * Follow-up with Dr. Maya for Hep C management and monitoring. #ESBL E. coli UTI / GNR Bacteremia Known ESBL history; prior culture from 04/20 also ESBL E. coli. Blood culture positive in 1/2 bottles for ESBL GNR; repeat pending. WBC downtrending from 26 -> 20 -> 14 improving. 05/01/2025: WBC increased from 14.9 to 17.1, indicating potential ongoing infection or inflammation. No fever or other systemic signs of infection. Plan: * Continue Zosyn. (04/28- ) * Daily CBC, monitor WBC trend. * Follow up final blood and urine culture sensitivities. * Avoid QT-prolonging antibiotics (fluoroquinolones) while on amiodarone. #FLORES (improving) #Hyperchloremic metabolic acidosis (resolved) The patient?s FLORES was likely secondary to dehydration and shock. Renal function has been improving with appropriate fluid resuscitation and monitoring of urine output. Creatinine has resolved from 2.6 to 1.3, and the patient continues to produce good urine output. Plan: * Continue to monitor renal function, particularly creatinine and urine output. * Avoid nephrotoxic agents and continue IV fluids cautiously. * If acidosis persists, consider additional sodium bicarbonate. * Follow-up on renal panel in 24 hours. #Normocytic Anemia Stable normocytic anemia likely hemodilutional in the setting of recent IV fluids; no evidence of active bleeding. Hgb trend: 12.2 -> 11.6 -> 9.7 -> 9.1-> 10.2 No need for transfusion at this time. Plan: * Daily CBC. * Monitor for any signs of overt bleeding. * Outpatient anemia workup after acute illness resolves. Health Maintenance: Diet: Cardiac DVT Prophylaxis: Heparin SQ GI Prophylaxis: Famotidine Code Status: DNR ----- Plan discussed with attending physician Dr. Bowling and senior resident Dr. Kat Guthrie MD PGY-1 Internal Medicine Attending Provider Attestation/Addendum I have discussed and was present for the essential components of the history, physical examination, diagnosis, and treatment plan with the resident. I agree with the patient's care as documented by the resident and amended herein by me. Jhonny Bowling DO. Although this document has been carefully reviewed, there may still be some phonetic and other typographical errors. These errors are purely grammatical due to imperfections in the software program and should not be construed in any way to compromise the substance of the patient's medical care during this visit.
--- NOTE | 2025-05-01 16:11 | PC.PT ---
PT approached patient for PT eval at 1530. Patient was being cleaned up by RN and then told PT she was having bowel issues at this time. Patient requested to be seen tomorrow due to her bowel issues. Patient stated her desire to work with PT in the morning, just not at this time. Patient does not want to go to a SNF for rehab and is eager to show this PT her functional level in the morning. RN made aware. Will re-attempt PT eval tomorrow 05/02/25.
[2025-05-01] MEDS: METOPROLOL SUCCINATE XL 25 MG TABCR PO (21:03)
[2025-05-01] MEDS: ATORVASTATIN CALCIUM 20 MG TABLET 80 MG PO (21:03)
[2025-05-01] MEDS: ACETAMINOPHEN 325 MG TABLET 650 MG PO (21:20)
[2025-05-02] VITALS (8 sets, daily range): BP systolic 116–126; BP diastolic 70–81; PULSE 66–88; RESP 18–95; TEMP 36.1–36.5; O2SAT 96; BMI 31.0
[2025-05-02] MEDS: guaiFENesin SYRUP 200 MG/10 ML UDC PO (02:19)
[2025-05-02 04:57] LABS: Basophils # (Auto) 0.1 Thou/mm3 (0.0-0.2); Basophils % (Auto) 1 % (0-2.5); Eosinophils # (Auto) 0.2 Thou/mm3 (0.0-0.5); Eosinophils % (Auto) 1 % (0-10); Hematocrit 29.9 % (36.0-46.0); Hemoglobin 9.8 g/dL (12.0-16.0); Immature Granulocytes Auto 0.46 Thou/mm3 (0.00-0.00); Lymphocytes # (Auto) 1.5 Thou/mm3 (1.0-4.8); Lymphocytes % (Auto) 10 % (10-50); Mean Corpuscular HGB Conc 32.8 g/dl (31.0-37.0); Mean Corpuscular Hemoglobin 27.2 pg (25.0-35.0); Mean Corpuscular Volume 83 fL (80-100); Monocytes # (Auto) 1.1 Thou/mm3 (0.0-0.8); Monocytes % (Auto) 7 % (0-12); Neutrophils # (Auto) 11.9 Thou/mm3 (1.8-7.7); Neutrophils % (Auto) 78 % (37-80); Nucleated Red Blood Cell # 0.00 Thou/mm3 (0.00-0.00); Nucleated Red Blood Cell % 0 /100 WBC (0); Platelet Count 119 Thou/mm3 (140-440); RDW Standard Deviation 52.8 fL (36.4-46.3); Red Blood Count 3.60 Miln/mm3 (4.00-5.20); White Blood Count 15.1 Thou/mm3 (3.6-11.0)
[2025-05-02] MEDS: HEPARIN SOD INJ 5000 UNIT/ML VIAL SC ×2 (05:55→15:00)
[2025-05-02] MEDS: LEVOTHYROXINE SODIUM 25 MCG TABLET PO (05:55)
[2025-05-02 06:05] LABS: Alanine Aminotransferase 11 U/L (10-49); Albumin, Serum 2.7 gm/dL (3.4-4.8); Albumin/Globulin Ratio 1.3 (1.2-2.2); Alkaline Phosphatase 159 U/L (46-116); Anion Gap 11 (7-16); Aspartate Amino Transferase 38 U/L (0-34); BUN/Creatinine Ratio 18 Ratio (12-20); Bilirubin,Total 0.5 mg/dL (0.3-1.2); Blood Urea Nitrogen 21 mg/dL (9-23); Calcium 7.7 mg/dL (8.3-10.6); Calcium (Corrected) 8.7 mg/dL (8.5-10.1); Carbon Dioxide 26.0 mMol/L (20.0-31.0); Chloride 104 mMol/L (98-107); Creatinine (Component) 1.2 mg/dL (0.6-1.3); Estimated Creatinine Clearance 41.4 mL/min (>60); Globulin 2.1 gm/dL (2.3-3.5); Glucose 125 mg/dL (74-106); Magnesium 1.9 mg/dL (1.6-2.6); Osmolality,Calculated 285 (275-295); Phosphorous 3.1 mg/dL (2.4-5.1); Potassium 4.2 mMol/L (3.4-5.1); Sodium 141 mMol/L (136-145); Total Protein 4.8 gm/dL (5.7-8.2); eGFR 47 See Note
--- NOTE | 2025-05-02 08:47 | PD.RESPRO ---
Documentation for date of: 05/02/25 Subjective Subjective Interval history: The patient is a 75-year-old female, well known to Dr. Palomares, with a significant past medical history including acoustic neuroma status post surgery with residual right facial droop and left eye ptosis; hypothyroidism; anxiety and depression; GERD; neuropathy; recurrent ESBL infections; HFpEF (EF 60?65%); chronic hepatitis C currently on treatment; and hypertension. She presented to [facility] with chief complaints of generalized weakness and urinary discomfort. Symptoms began approximately three days prior and progressively worsened. On arrival, she primarily reported severe weakness, dysuria, and suprapubic pain/tenderness. She was recently hospitalized in March for symptomatic hypokalemia, SVT, and UTI. Her hospital course was complicated by recurrent SVT requiring adenosine 6 mg followed by 12 mg for conversion to sinus rhythm. She was subsequently started on metoprolol succinate 100 mg twice daily. Ablation was discussed on multiple occasions, however patient declined at that time. On current presentation, the patient denied chest pain, shortness of breath, dyspnea, palpitations, nausea, vomiting, or other associated symptoms. ED Course Vitals: BP 101/54, HR 71, RR 18, Temp 87.6?F, SpO? 100% on room air Labs: WBC 21.7; VBG: pH 7.35 / pCO2 35 / pO2 23 / O? sat 35%; K 3.2; HCO3 17.5; BUN 54; Cr 2.6 (CrCl 18.1 mL/min); ALT 9; ALP 135; Troponin (?); BNP 402; Procalcitonin 4.14; Lactate 2.4 UA: Turbid, protein +1, RBC 11, WBC 212, amorphous crystals present Imaging:EKG: Sinus rhythm, QTc 454 ms, ventricular premature complexes CXR: Increased bronchovascular markings; differential includes bronchitis vs pulmonary fibrosis received Ceftriaxone 1 g IV, 2 L lactated Ringer?s, potassium repletion. The patient was admitted for sepsis secondary to a urinary tract infection for further treatment and management. Past Medical History:As above. Surgical History:Gastric bypass; acoustic neuroma resection; umbilical hernia repair. Family History:Significant for coronary artery disease and myocardial infarction in older age. Social History:Remote polysubstance use (methamphetamine, cocaine, LSD, THC); no meth or alcohol use for >20 years. 50 pack-year smoking history. Lives alone in [place]; previously employed in a [employer]. . Reports concern about daughter?s alcohol use. Medications Aspirin 81 mg daily; atorvastatin 80 mg daily; Bumex 1 mg daily; hydroxyzine 10 mg twice daily; levothyroxine 25 mcg daily; losartan 12.5 mg daily; metoprolol succinate 100 mg daily; omeprazole 20 mg daily; trazodone 50 mg twice daily. Allergies NKDA. On the morning of 12/16, the patient developed SVT with heart rates >180 bpm and hypotension (BP 80/60, MAP 62?65). She received adenosine 6 mg, followed by 12 mg, and an additional 12 mg without conversion. Due to persistent SVT and hemodynamic instability, she underwent electrical cardioversion with two shocks at 100 J followed by two shocks at 200 J, administered with ketamine for sedation. She then received an amiodarone bolus and was started on an amiodarone drip. The patient was upgraded to the ICU for close monitoring. Cardiology was consulted for further recommendations. Currently patient is in septic shock, blood culture revealed GNR, patient is on phenylephrine drip as for pressure support, heart rate is low 60s, if patient develop another episode of SVT, patient can be placed back to amiodarone drip. 04/30/2025: The patient was seen and examined at the bedside. Overnight, the patient experienced multiple episodes of SVT, which occurred intermittently. Adenosine (6 mg, 12 mg, 12 mg) was administered, and the patient was started on an amiodarone drip at 1 mcg/kg/min. Today, the dose was reduced to 0.5 mcg/kg/min, and the plan is to transition the patient to oral amiodarone, the patient remains in sinus rhythm. The patient has been weaned off phenylephrine, and vital signs are currently stable with controlled blood pressure. The patient was given 50 mg of metoprolol this morning and will continue to be closely monitored. If the patient remains stable, the plan is to start metoprolol 50 mg daily. Vital signs and electrolytes will continue to be monitored. Renal function is improving, with creatinine decreasing from 1.9 to 1.6, BUN decreasing from 42 to 32, and eGFR improving from 27 to 33. Lactic acid is now within normal limits, down from 2.7 to 1.6. The patient is producing adequate urine output. Blood cultures again show GNR bacteremia, and infectious disease is involved in the case. The patient will continue on antibiotics as per ID recommendations. 05/01/2025. Patient seen and examined at bedside. Overnight patient developed sinus tachycardia with heart rate of 150, patient is on amiodarone drip, after completion should be transition to amiodarone p.o., transition to 200 p.o. amiodarone daily, hold antiviral medication. In the morning patient received 50 of metoprolol, another 50 mg should be given to return back to her home regimen. Patient regiment would be metoprolol 100 a.m. with metoprolol 25 at bedtime. Patient cannot be chronically placed on amiodarone as she is on antiviral medication for hepatitis C. Interaction of this to medication will cause QTc prolongation will continue current regimen, close monitor vitals. Renal panel appears to be improving, creatinine down to 1.3, BUN is 27, eGFR 43. Patient having adequate urine output. Lactic acidosis has resolved. Patient continued to be on antibiotics. 05/02/2025:Patient was seen and examined at bedside . No acute overnight eventsa Patient remained on NSR overnight. Labs and vitals are stable. Plan is to discharge patient today. Recommendations. Take Metoprolol 100 mg AM and Metoprolol 25mg PM take Amiodoron 200 mg qday, Stop antiviral medications for now as a combination with Amiodoron will cause QTc prolongation Folow up with Dr. Palomares on Wednesday(in 4 day), Get reffereal for EP. after EP DC Amiodoron and patient can be safely placed back on antivirals medication Exam Vital Signs Temp Pulse Resp BP Pulse Ox O2 Del Method O2 Flow Rate 97.2 F 85 19 119/71 96 Room Air 2 05/02/25 08:00 05/02/25 08:00 05/02/25 08:00 05/02/25 08:00 05/02/25 08:00 05/02/25 08:00 04/29/25 12:00 Narrative Exam Physical Exam General: Awake and in no acute distress. Conversational and non-toxic appearing. HEENT: Normocephalic, atraumatic, mucous membranes moist. Heart: Regular rate and rhythm, normal S1 and S2, no murmurs. Lungs: Clear to auscultation with no wheezing or crackles. Abdomen: Soft, nondistended, nontender, positive bowel sounds. No guarding or rebound tenderness. Neurologic: Alert and oriented x3, no gross neurological deficit, and patient able to move all 4 extremities. Extremities: No edema. Bluish fingertips. Skin: No rash or ecchymoses. Objective Labs 05/02/25 04:07 05/02/25 04:07 Labs: Laboratory Results - last 24 hr 05/02/25 04:07 WBC 15.1 H RBC 3.60 L Hgb 9.8 L Hct 29.9 L MCV 83 MCH 27.2 MCHC 32.8 RDW Std Deviation 52.8 H Plt Count 119 L Neut % (Auto) 78 Lymph % (Auto) 10 [place] % (Auto) 7 Eos % (Auto) 1 Baso % (Auto) 1 Neut # (Auto) 11.9 H Lymph # (Auto) 1.5 [place] # (Auto) 1.1 H Eos # (Auto) 0.2 Baso # (Auto) 0.1 Immature Gran # (Auto) 0.46 H Absolute Nucleated RBC 0.00 Immature Gran % 3 H Nucleated RBC % 0 Sodium 141 Potassium 4.2 Chloride 104 Carbon Dioxide 26.0 Anion Gap 11 BUN 21 Creatinine 1.2 Estim Creat Clear Calc 41.4 L eGFR 47 L BUN/Creatinine Ratio 18 Glucose 125 H Calculated Osmolality 285 Calcium 7.7 L Corrected Calcium 8.7 Phosphorus 3.1 Magnesium 1.9 Total Bilirubin 0.5 AST 38 H ALT 11 Alkaline Phosphatase 159 H D Total Protein 4.8 L Albumin 2.7 L Globulin 2.1 L Albumin/Globulin Ratio 1.3 ABG Interpretation ABG results: 04/27/25 16:30 VBG pH 7.35 VBG pCO2 35 L VBG pO2 23 VBG Base Excess -6 L Quality Measures Quality Measures VTE prophylaxis Advance care planning discussed with:: patient Assessment & Plan Assessment Current Active Medications: Generic Name Dose Route Start Last Admin Trade Name Freq PRN Reason Stop Dose Admin Acetaminophen 650 mg 04/27/25 20:08 05/01/25 21:20 Acetaminophen 325 Mg Tablet PO 05/27/25 20:07 650 mg Q6H PRN Administration Fever >100.4 or pain 1-3 Amiodarone HCl 200 mg 05/02/25 09:00 Amiodarone Hcl 200 Mg Tablet PO 06/01/25 08:59 QDAY ANTHONY Aspirin 81 mg 04/28/25 09:00 05/01/25 09:35 Aspirin Ec 81 Mg Tabec PO 05/28/25 08:59 81 mg QDAY ANTHONY Administration Atorvastatin Calcium 80 mg 04/27/25 21:00 05/01/25 21:03 Atorvastatin Calcium 20 Mg Tablet PO 05/27/25 20:59 80 mg HS ANTHONY Administration Bumetanide 0.5 mg 04/28/25 09:00 04/28/25 10:17 Bumetanide 0.5 Mg Tablet PO 05/28/25 08:59 Not Given On Hold: 04/28/25 10:19 QDAY ANTHONY Citric Acid/Sodium Citrate 30 ml 04/29/25 22:15 05/01/25 21:02 Citric Acid/Sodium Citr 15 Ml Udc (Bicitra) PO 05/29/25 22:14 30 ml BID ANTHONY Administration Sofosbuvir And 0 ea 04/30/25 15:15 05/01/25 09:38 Velpatasvir 400 Mg- PO 05/30/25 15:14 1 tablet 100 Mg QDAY ANTHONY Administration Docusate Sodium 100 mg 04/28/25 09:00 05/01/25 09:35 Docusate Sod 100 Mg Capsule PO 05/28/25 08:59 100 mg QDAY ANTHONY Administration Protocol Famotidine 20 mg 04/27/25 21:00 05/01/25 21:03 Famotidine Inj 10 Mg/Ml Vial 2 Ml IVP 05/27/25 20:59 20 mg Q12HR ANTHONY Administration Guaifenesin 200 mg 05/01/25 03:52 05/02/25 02:19 Guaifenesin Syrup 200 Mg/10 Ml Udc PO 05/31/25 03:51 200 mg Q4HR PRN Administration COUGH Protocol Heparin Sodium (Porcine) 5,000 unit 04/29/25 14:00 05/02/25 05:55 Heparin Sod Inj 5000 Unit/Ml Vial SC 05/13/25 13:59 5,000 unit Q8HR ANTHONY Administration Piperacillin/Tazobactam/Dextrose 3.375 gm in 50 mls @ 12.5 mls/hr 04/28/25 21:00 05/01/25 21:02 Zosyn IV 05/05/25 20:59 12.5 mls/hr Q12HR ANTHONY Administration Protocol Lactulose 30 gm 05/02/25 07:45 Lactulose Syrup 20 Gm/30 Ml Udc PO 06/01/25 07:44 TID ANTHONY Protocol Levothyroxine Sodium 25 mcg 04/29/25 06:00 05/02/25 05:55 Levothyroxine Sodium 25 Mcg Tablet PO 05/29/25 05:59 25 mcg ACBR ANTHONY Administration Metoprolol Succinate 100 mg 05/02/25 09:00 Metoprolol Succinate Xl 25 Mg Tabcr PO 06/01/25 08:59 QDAY ANTHONY Metoprolol Succinate 25 mg 05/01/25 21:00 05/01/25 21:03 Metoprolol Succinate Xl 25 Mg Tabcr PO 05/31/25 20:59 25 mg HS ANTHONY Administration Ondansetron HCl 4 mg 04/27/25 20:08 Ondansetron Inj 2 Mg/Ml Inj 2 Ml IVP 05/27/25 20:07 Q6H PRN NAUSEA OR VOMITING Protocol Oxycodone/Acetaminophen 1 tab 04/30/25 02:09 Oxycodone/Apap 5/325 Tablet PO 05/05/25 02:08 Q6HR PRN Pain 4-10 Plan The patient is a 75-year-old female, well known to Dr. Palomares, with a significant past medical history including r acoustic neuroma status post surgery with residual right facial droop and left eye ptosis; hypothyroidism; anxiety and depression; GERD; neuropathy; recurrent ESBL infections; HFpEF (EF 60?65%); chronic hepatitis C currently on treatment; and hypertension. She presented to [facility] with chief complaints of generalized weakness and urinary discomfort. The patient developed SVT with heart rates >180 bpm and hypotension (BP 80/60, MAP 62?65). She received adenosine 6 mg, followed by 12 mg, and an additional 12 mg without conversion. Due to persistent SVT and hemodynamic instability, she underwent electrical cardioversion with two shocks at 100 J followed by two shocks at 200 J, administered with ketamine for sedation. #Recurrent episodes of SVT #SVT s/p cardioversion The patient presented with chief complaints of dysuria and generalized weakness. Her hospital course was complicated with an episode of SVT. On the morning of 12/16, she developed SVT with heart rates exceeding 180 bpm and hypotension (BP 80/60, MAP 62?65). She received adenosine 6 mg, followed by 12 mg, and an additional 12 mg without conversion. Due to persistent SVT and hemodynamic instability, she underwent electrical cardioversion with two shocks at 100 J, followed by two shocks at 200 J, with ketamine administered for sedation. Possible contributing factors include sepsis and UTI. The patient has been followed closely by Cardiology, and catheter ablation has been discussed extensively on multiple occasions. She had previously declined the procedure; Due to her recent ongoing infection, she presented to the ED again and experienced another episode of SVT during this visit. At home patient was on metoprolol 100 twice daily. Patient is subjectively doing better BP is 110/84 and SC at 84. potassium Initially was 3.1 in the morning labs after repleting with 70meq of potassium. Plan Recommend to keep potassium greater than 4 and magnesium greater than 2.2 at all times and aggressive repletion of potassium magnesium as well as calcium. Aggressively treat the acute kidney injury as well as the sepsis with fluids as well as IV antibiotics. Patient does not appear to be fluid overloaded and mostly is hypovolemic at the present point of time. Recent echo with normal LV function few weeks ago. Can repeat limited echo again to reevaluate the LV function and RV function and to rule out any structural abnormalities. Recommend to stop the Epclusa completely and if patient reverts back into SVT then treat the electrolytes aggressively first including magnesium IV Patient currently is on amiodarone drip after completion the back patient will be transition to p.o. amiodarone Continue 100 mg metoprolol in a.m. and 25 mg of metoprolol at night.(home dosage) Amiodarone 200 mg p.o. daily, antiviral medication should be on hold as interaction of this two medication will cause QTc prolongation. Not a candidate for digoxin because of the acute kidney injury as well as hypokalemia. No beta-blockers or calcium channel blockers because of the hypotension and septic shock. Discussed with patient this evening and patient wants to pursue the EP and consultation for possible ablation as she is having recurrent SVT. Patient is actively infected with septic shock and gram-negative bacteremia and will treat aggressively and which should help with the SVT and then patient could be referred to EP when she is hemodynamically stable. Recommendations. Take Metoprolol 100 mg AM and Metoprolol 25mg PM take Amiodoron 200 mg qday, Stop antiviral medications for now as a combination with Amiodoron will cause QTc prolongation Folow up with Dr. Palomares on Wednesday(in 4 day), Get reffereal for EP. After EP Amiodoron will be DC and patient can be safely placed back on antivirals medication #Electrolyte imbalance #Hypomagnesemia #Hypokalemia Continue close monitor electrolytes Keep potassium above 4 and Magnesium 2.2. Repeat as needed #HEpEF grade 1 diastolic dysfunction 60 to 65% Not fluid overloaded. Strict input output, daily weights and 2 g sodium diet. Was on home Bumex which is held at the present point of time Echo 04/07: CONCLUSIONS Normal left ventricular size and function. Grade I diastolic dysfunction. Estimated EF 60-65%. Normal right ventricular size and function. RVSP 27 mmH with RAP 8. Mildly dilated LA. Trivial mitral stenosis. Severe posterior MAC. Mild-moderate MR. Mild TR, PI and AI. Compared to prior study of 06/21/24. EF improved. #Septic shock secondary due to GNR bacteremia-resolved #Recurrent ESBL UTI #Hx of Polysubstance abuse #Hypothyroidism, patient history #Anxiety, patient history #Depression, patient history #Acoustic neuroma status postsurgery #Neuropathy To be managed by primary team Patient care was discussed with attending physician Dr. Jelani Chilel MD PGY-3 Attending Provider Attestation/Addendum I have personally seen and examined the patient separately on the above date of service and discussed the plan of care with the resident. I reviewed the resident Dr. Bria Márquez consultation progress note and agree with the resident findings and plan in the note above and have also edited the documentation to reflect my findings and plan. Tay Palomares M.D. Interventional Cardiology
[2025-05-02] MEDS: DOCUSATE SOD 100 MG CAPSULE PO (08:56)
[2025-05-02] MEDS: LACTULOSE SYRUP 20 GM/30 ML UDC 30 GM PO (08:56)
[2025-05-02] MEDS: ASPIRIN EC 81 MG TABEC PO (08:56)
[2025-05-02] MEDS: POLYETHYLENE GLYCOL 17 GM PACKET PO (08:56)
[2025-05-02] MEDS: CITRIC ACID/SODIUM CITR 15 ML UDC (BICITRA) 30 ML PO (08:56)
[2025-05-02] MEDS: FAMOTIDINE INJ 10 MG/ML VIAL 2 ML 20 MG IVP (08:57)
[2025-05-02] MEDS: AMIODARONE HCL 200 MG TABLET PO (08:57)
[2025-05-02] MEDS: METOPROLOL SUCCINATE XL 25 MG TABCR 100 MG PO (08:57)
[2025-05-02] MEDS: PIPER/TAZO 3.375 GM PREMIX 3.375 GM/50 ML BAG IV (08:58)
--- NOTE | 2025-05-02 10:09 | PC.SS ---
[employer] confirmed with patient that discharge plan is to return home. If home health recommended no preferred agency identified. Per patient, daughter (Nevin Dietz) will be staying with patient upon discharge.
--- NOTE | 2025-05-02 11:00 | EKG_ITS ---
[facility] Test Date: 2025-05-02 Pat Name: MILAN JEFFERS Department: Room: S265A Gender: Female Casing Splitter: MALIK : 1950 Requested By: Adelia Guthrie Order Number: [id number] Reading MD: Adelia Guthrie Measurements Intervals [place] Rate: 82 P: 0 HI: 148 QRS: -22 QRSD: 93 T: -57 QT: 386 QTc: 453 Interpretive Statements SINUS RHYTHM POSSIBLE LEFT ATRIAL ENLARGEMENT LOW QRS VOLTAGE IN PRECORDIAL LEADS PROBABLE ANTEROSEPTAL MYOCARDIAL INFARCTION , PROBABLY RECENT ACUTE VT Compared to ECG 04/29/2025 15:18:29 Low QRS voltage now present Myocardial infarct finding now present /store/[id number]
--- NOTE | 2025-05-02 14:31 | ESDS_ITS ---
Planned Discharge Date 05/02/25 DS: Providers Provider Date of admission: 04/27/25 20:08 Primary care physician: Anika Olmstead MD Admitting Provider: John Paul Escalante MD Attending Provider on Admission: Isidra Hansen MD Consults: 04/28/25 14:30 Consult to Cardiology Routine Comment: Consulting Provider: Tay Palomares 04/29/25 14:20 Consult to Infectious Diseases Routine Comment: Re: active Hep C tx while on amiodarone Consulting Provider: Noe Morrison 05/01/25 14:05 Referral Physical Therapy Routine Comment: Physician Instructions: Attending Provider on DC: Bill Bowling MD Discharging Provider: Adelia Guthrie MD DS: Diagnosis Problem List Completed Was Problem List Reviewed/Reconciled?: Yes Hospital Course Hospital Course Hospital course: Ms. Dietz is a 75-year-old female with a history of chronic recurrent SVT, HFpEF (EF 60?65%), recurrent ESBL UTIs, chronic hepatitis C on Epclusa, acoustic neuroma resection, anxiety/depression, hypothyroidism, and neuropathy. She presented with generalized weakness, dysuria, suprapubic pain, and was found to be in septic shock secondary to ESBL E. coli UTI with GNR bacteremia and refractory SVT. During the hospitalization, she developed SVT with heart rates >180, refractory to adenosine (6 mg -> 12 mg -> 12 mg), ultimately requiring electrical cardioversion ?4 and initiation of IV amiodarone. She was managed in the ICU on pressor support for septic shock and transitioned to PO amiodarone once stabilized. Metoprolol was uptitrated and rhythm remained controlled. Renal function improved from Cr 2.6 on admission to 1.2 on discharge. Lactic acidosis resolved. She completed IV antibiotics and clinically improved with downtrending WBC. Hepatitis C Medication Hold: The patient was on Epclusa (sofosbuvir-velpatasvir) prior to admission. Cardiology recommended holding Epclusa due to a dangerous interaction with amiodarone, which can lead to severe symptomatic bradycardia and QTc prolongation, especially since patient is also on high-dose metoprolol. Gastroenterology and Infectious Disease recommended continuing Epclusa, citing risk of antiviral resistance when off therapy for >3 days. The risk vs benefit discussion was held with the patient. After discussing risks and benefits with all teams recommendations, the patient chose to follow Cardiology?s recommendation and hold Epclusa for now. She will follow with GI and cardiology outpatient for timing of restarting. The patient is now hemodynamically stable, tolerating medications, has had bowel movements, and is safe for discharge with close follow-up. Diagnosis during admissions: #Paroxysmal SVT #Septic shock (resolved) #Hepatitis C #ESBL E. coli UTI / GNR Bacteremia #FLORES (improving) #Hyperchloremic metabolic acidosis (resolved) #Normocytic Anemia Discharge instructions: Medications: -Take 1 more dose of levofloxacin 750 mg on 05/03/2025 to complete antibiotic course. Continue the Following: * Amiodarone 200 mg once daily * Aspirin 81 mg once daily * Atorvastatin 40 mg during nighttime * Levothyroxine 25 mcg once daily on the empty stomach * Metoprolol succinate 100 mg once every morning * Metoprolol tartrate 25 mg once during night * Omeprazole 20 mg once daily Hold / Stop the Following: * Hold Bumetanide * Hold Epclusa (sofosbuvir-velpatasvir) * Cardiology advised holding due to high risk of severe bradycardia and QT prolongation when combined with amiodarone and metoprolol. * Gastroenterology and Infectious Disease recommended continuing therapy after discussing resistance risk. * Patient ultimately chose to follow Cardiology?s recommendation and will remain off Epclusa until outpatient GI follow-up. * Hold Trazodone * STOP Hydroxyzine * Avoid hydroxyzine and trazodone due to QTc concerns and medication interactions * STOP Bactrim Diet: * 2 g sodium, cardiac diet * Cardiac diet: Eat lean proteins, fruits, vegetables, whole grains, and low-fat dairy. Avoid fried foods, processed or salty foods, red meats, and high-fat or high-sugar items. * Stay hydrated to support kidney recovery. Follow-Up: * Cardiology appointment on Wednesday (mandatory) with Dr Palomares. * PCP follow-up within a week. * GI within 1?2 weeks to reassess timing for restarting Epclusa Emergency Precautions: Go to the ER if you experience severe bradycardia, chest pain, recurrent SVT, fainting, fever, or worsening UTI symptoms. ----- Plan discussed with attending physician Dr. Dash Guthrie MD PGY-1 Internal Medicine Time Spent with Patient Time attestation: Total time spent providing and/or coordinating discharge services: Time spent: Greater than 30 minutes Exam Vital Signs Temp Pulse Resp BP Pulse Ox O2 Del Method O2 Flow Rate 97.0 F 88 23 H 126/78 96 Room Air 2 05/02/25 12:00 05/02/25 12:00 05/02/25 12:00 05/02/25 12:00 05/02/25 12:00 05/02/25 12:00 04/29/25 12:00 Narrative Exam General: Awake, alert, and oriented. Non-toxic appearing. Cardiovascular: Regular rate and rhythm, normal S1 and S2, no murmurs. Respiratory: Clear to auscultation, no wheezing or crackles. Abdomen: Soft, non-tender, no guarding, or rebound tenderness. Neurologic: Alert and oriented, no new neurological deficits. Chronic left-sided facial droop. Extremities: Trace bilateral edema. Skin: Multiple scattered ecchymoses on forearms. Discharge Plan Plan Patient Disposition: HOME (Self Care) Patient condition on transfer: Stable Care Plan Goals: Discharge instructions: Medications: -Take 1 more dose of levofloxacin 750 mg on 05/03/2025 to complete antibiotic course. Continue the Following: * Amiodarone 200 mg once daily * Aspirin 81 mg once daily * Atorvastatin 40 mg during nighttime * Levothyroxine 25 mcg once daily on the empty stomach * Metoprolol succinate 100 mg once every morning * Metoprolol tartrate 25 mg once during night * Omeprazole 20 mg once daily Hold / Stop the Following: * Hold Bumetanide * Hold Epclusa (sofosbuvir-velpatasvir) * Cardiology advised holding due to high risk of severe bradycardia and QT prolongation when combined with amiodarone and metoprolol. * Gastroenterology and Infectious Disease recommended continuing therapy after discussing resistance risk. * Patient ultimately chose to follow Cardiology?s recommendation and will remain off Epclusa until outpatient GI follow-up. * Hold Trazodone * STOP Hydroxyzine * Avoid hydroxyzine and trazodone due to QTc concerns and medication interactions * STOP Bactrim Diet: * 2 g sodium, cardiac diet * Cardiac diet: Eat lean proteins, fruits, vegetables, whole grains, and low-fat dairy. Avoid fried foods, processed or salty foods, red meats, and high-fat or high-sugar items. * Stay hydrated to support kidney recovery. Follow-Up: * Cardiology appointment on Wednesday (mandatory) with Dr Palomares. * PCP follow-up within a week. * GI within 1?2 weeks to reassess timing for restarting Epclusa Emergency Precautions: Go to the ER if you experience severe bradycardia, chest pain, recurrent SVT, fainting, fever, or worsening UTI symptoms. Prescriptions/Referrals Prescriptions/Med Rec: New amiodarone 200 mg Tablet 200 mg PO QDAY 30 Days Qty: 30 2RF levofloxacin 750 mg tablet 750 mg PO QDAY Qty: 1 0RF Continued metoprolol succinate 50 mg tablet extended release 24 hr 100 mg PO QDAY 30 Days Qty: 60 0RF Patient Comments: TAKE 1 TABLET ORALLY ONCE A DAY 1 TABLET AT EVENING metoprolol succinate 25 mg tablet extended release 24 hr 25 mg PO HS Qty: 30 0RF aspirin 81 mg tablet,delayed release (DR/EC) 81 mg PO QDAY Patient Comments: TAKE 1 TABLET BY MOUTH EVERY DAY omeprazole 20 mg capsule,delayed release(DR/EC) 20 mg PO QDAY levothyroxine 25 mcg tablet 25 mcg PO QDAY Patient Comments: TAKE 1 TABLET BY MOUTH EVERY DAY ON EMPTY STOMACH Changed atorvastatin 80 mg tablet 40 mg PO QDAY Qty: 30 0RF Patient Comments: TAKE 1 TABLET BY MOUTH EVERY DAY Held sofosbuvir-velpatasvir 400-100 mg tablet 1 tab PO QDAY Hold Instructions: Resume on 05/30/25. Hold until you see political scientist, he will recommend when to resume. trazodone 50 mg tablet 50 mg PO BID Hold Instructions: Resume on 05/09/25. Hold until follow up with primary doctor Patient Comments: TAKE 2 TABLETS BY MOUTH EVERY DAY FOR 90 DAYS bumetanide 1 mg tablet 0.5 mg PO QDAY Qty: 30 0RF Hold Instructions: Resume on 05/09/25. Hold until follow up with Cardiology Patient Comments: TAKE 1 TABLET BY MOUTH EVERY DAY Discontinued nitrofurantoin monohyd/m-cryst [Macrobid] 100 mg capsule 100 mg PO BID Rx Instructions: must administer with a meal/food nitrofurantoin monohyd/m-cryst 100 mg capsule 100 mg PO BID hydroxyzine HCl 10 mg tablet 10 mg PO BID Patient Comments: TAKE 1 TABLET BY MOUTH EVERY DAY Referrals: Tay Palomares MD [Physician, Cardiology] - 05/09/25 Referral Note: Follow up SVT hospitalization Anika Olmstead MD [Primary Care Provider, Family Practice] Patient/Caregiver Discharge Instructions Discharge Activity: as per physical therapy and activity as tolerated Education Materials: Supraventricular Tachycardia, Infec ESBL, Having Catheter Ablation, Understanding Supraventricular ..., Treatment for Supraventricular ... Print Language: British Stand Alone Forms: Jocelyn Award Info., Patient Portal Info Letter Discharge Order Discharge Orders: Discharge (Routine); Ordered 05/02/25 Ordered By: Adelia Guthrie Quality Discharge Quality Measures VTE prophylaxis MD Attestestation MD Attestation I have discussed and was present for the essential components of the discharge history, physical examination, diagnosis, and discharge treatment plan with the resident. I agree with the patient's discharge care as documented by the resident and amended herein by me. Jhonny Bowling, . The patient understood all discharge instructions, all questions were answered satisfactorily. The patient was instructed to return to the Emergency Department is symptoms worsened or persisted. Patient advised to hold antiviral therapy for hepatitis C as we do not want interaction with amiodarone to cause QT prolongation as SVT may be more life- threatening than the hepatitis C at this point. Patient will need close follow- up with cardiology and her primary care physician. Will likely need to see EP cardiology sooner than later for ablation. This was discussed with the patient and she understood patient will also be sent out with 1 more day of levofloxacin 750 mg to complete her course for bacteremia and UTI. Please see resident note above for additional details Although this document has been carefully reviewed, there may still be some phonetic and other typographical errors. These errors are purely grammatical due to imperfections in the software program and should not be construed in any way to compromise the substance of the patient's medical care during this visit.
--- NOTE | 2025-05-02 15:02 | PD.IDPROG ---
Subjective Subjective Interval history: changef recommended the other day and pt still on zosyn. Exam Vital Signs Temp Pulse Resp BP Pulse Ox O2 Del Method O2 Flow Rate 97.0 F 88 23 H 126/78 96 Room Air 2 05/02/25 12:00 05/02/25 12:00 05/02/25 12:00 05/02/25 12:00 05/02/25 12:00 05/02/25 12:00 04/29/25 12:00 Narrative Exam as before. no significant change in exam Objective - Internal Medicine Labs 05/02/25 04:07 05/02/25 04:07 Labs: Laboratory Results - last 24 hr 05/02/25 04:07 WBC 15.1 H RBC 3.60 L Hgb 9.8 L Hct 29.9 L MCV 83 MCH 27.2 MCHC 32.8 RDW Std Deviation 52.8 H Plt Count 119 L Neut % (Auto) 78 Lymph % (Auto) 10 [place] % (Auto) 7 Eos % (Auto) 1 Baso % (Auto) 1 Neut # (Auto) 11.9 H Lymph # (Auto) 1.5 [place] # (Auto) 1.1 H Eos # (Auto) 0.2 Baso # (Auto) 0.1 Immature Gran # (Auto) 0.46 H Absolute Nucleated RBC 0.00 Immature Gran % 3 H Nucleated RBC % 0 Sodium 141 Potassium 4.2 Chloride 104 Carbon Dioxide 26.0 Anion Gap 11 BUN 21 Creatinine 1.2 Estim Creat Clear Calc 41.4 L eGFR 47 L BUN/Creatinine Ratio 18 Glucose 125 H Calculated Osmolality 285 Calcium 7.7 L Corrected Calcium 8.7 Phosphorus 3.1 Magnesium 1.9 Total Bilirubin 0.5 AST 38 H ALT 11 Alkaline Phosphatase 159 H D Total Protein 4.8 L Albumin 2.7 L Globulin 2.1 L Albumin/Globulin Ratio 1.3 ABG Interpretation ABG results: 04/27/25 16:30 VBG pH 7.35 VBG pCO2 35 L VBG pO2 23 VBG Base Excess -6 L Assessment & Plan A&P Narrative hep c with prior rx noted uti s to quinolones with bacteremia ok to change to po levaquin to complete rx. no value to repeat bc for gnr, so no repeats ordered. she was reportedly on levaquin before but I wonder if she took it as germ is quite s. restarting the hep c rx is a trade off with potential interaction with amiodarone vs resistance if med held for >3 days if she needs the amiodarone, then you have to document the rx and her wishes as wel as the potential drug/drug interaction with amiodarone. will see again prn. dr mcgrath may have more to say on this caseas he started the hep c rx. Time Spent With Patient Time: Total time spent is greater than 50% in coordination of care (as documented) at patient's floor/unit and/or counseling patient:
--- NOTE | 2025-05-02 15:45 | PC.SS ---
Transport scheduled for the patient via [facility]. [facility] to provide wheelchair transport. Transport time is 05:45 pm. Bedside nurse and patient updated.
--- NOTE | 2025-05-02 16:29 | PC.PT ---
Patient is safe to ambulate to the bathroom and in her room with a FWW and 1 staff assist. RN made aware.
--- NOTE | 2025-05-07 08:26 | PC.CM ---
I received a call from patient and she states she thought she was going to get home health for physical therapy. I reviewed patient's EMR and she did not have orders for home health. I let her know she could contact her PCP Dr. Dickson Olmstead to see if they could order home health. She states she would call her doctor.
== END 2025-05-02 17:24 | disposition home or self-care (01) | DRG 871 ==
LOC: SERX 19:36 → SERHOLD 20:44 → S2SX 04-28 09:04 → S2NX 05-02 04:08
PROVIDERS: Nurse Practitioner Family; Student in an Organized Health Care Education/Training Program; Admitting Provider Student in an Organized Health Care Education/Training Program; Emergency Provider Family Medicine; PCP Family Medicine; Visit Provider Student in an Organized Health Care Education/Training Program
DX: A41.51 Sepsis due to Escherichia coli [E. coli] (principal); N17.0 Acute kidney failure with tubular necrosis; R65.21 Severe sepsis with septic shock; N39.0 Urinary tract infection, site not specified; I50.42 Chronic combined systolic (congestive) and diastolic (congestive) heart failure; I47.19 Other supraventricular tachycardia; E87.29 Other acidosis; N17.9 Acute kidney failure, unspecified; Z16.12 Extended spectrum beta lactamase (ESBL) resistance; F41.9 Anxiety disorder, unspecified; F32.A Depression, unspecified; K21.9 Gastro-esophageal reflux disease without esophagitis; I11.0 Hypertensive heart disease with heart failure; E03.9 Hypothyroidism, unspecified; E87.6 Hypokalemia; E83.42 Hypomagnesemia; K59.00 Constipation, unspecified; I44.0 Atrioventricular block, first degree; I49.3 Ventricular premature depolarization; I73.00 Raynaud's syndrome without gangrene; D33.3 Benign neoplasm of cranial nerves; D64.9 Anemia, unspecified; I25.10 Atherosclerotic heart disease of native coronary artery without angina pectoris; B18.2 Chronic viral hepatitis C; E87.8 Other disorders of electrolyte and fluid balance, not elsewhere classified; G62.9 Polyneuropathy, unspecified; Z66 Do not resuscitate; Z79.82 Long term (current) use of aspirin; Z79.890 Hormone replacement therapy; Z79.899 Other long term (current) drug therapy; Z87.891 Personal history of nicotine dependence; Z98.84 Bariatric surgery status; Z87.440 Personal history of urinary (tract) infections
CPT/HCPCS: 36415; 71045; 80053; 80069; 80307; 81001; 82436; 82803; 83605; 83735; 83880; 84100; 84133; 84145; 84300; 84439; 84484; 85025; 85610; 85730; 87040; 87077; 87081; 87086; 87186; 87635; 93005; 96361; 96365; 96366; 96375; 97162; 99284; J0153; J0283; J0696; J1644; J2185; J2250; J2270; J2371; J2543; J3475; J3480; J3490; J7050; J7120; J7999; A9270

== ENCOUNTER → 2025-05-15 | Outpatient (CLI) | payer MEDICARE, SELFPAY ==
[2025-05-18 23:33] LABS: HCV RNA, PCR <15 NOT DETECTED IU/mL
[2025-05-21 06:39] LABS: HCV RNA, PCR Log IU <1.18 NOT DETECTED Log IU/mL
== END | disposition home or self-care (01) ==
LOC: COPL 12:40
PROVIDERS: PCP Family Medicine; Referring Provider Specialist; Visit Provider Specialist
DX: B18.2 Chronic viral hepatitis C (principal)
CPT/HCPCS: 36415; 87522

== ENCOUNTER → 2025-05-21 | Outpatient (CLI) | payer MEDICARE, SELFPAY ==
[2025-05-21 11:39] LABS: Anion Gap 10 (7-16); BUN/Creatinine Ratio 18 Ratio (12-20); Blood Urea Nitrogen 31 mg/dL (9-23); Calcium 9.2 mg/dL (8.3-10.6); Carbon Dioxide 28.1 mMol/L (20.0-31.0); Chloride 103 mMol/L (98-107); Creatinine (Component) 1.7 mg/dL (0.6-1.3); Glucose 84 mg/dL (74-106); Magnesium 1.9 mg/dL (1.6-2.6); Osmolality,Calculated 286 (275-295); Potassium 4.5 mMol/L (3.4-5.1); Sodium 141 mMol/L (136-145); eGFR 31 See Note
== END | disposition home or self-care (01) ==
LOC: COPL 09:59
PROVIDERS: PCP Family Medicine; Referring Provider Internal Medicine Cardiovascular Disease; Visit Provider Internal Medicine Cardiovascular Disease
DX: I50.22 Chronic systolic (congestive) heart failure (principal)
CPT/HCPCS: 36415; 80048; 83735